=== PATIENT | male | born 1965 | race Caucasian/White ===

== ENCOUNTER 2023-11-17 04:31 | Emergency (ER) | payer OTHER, SELFPAY ==
[2023-11-17 04:34] VITALS: BP 153/85; PULSE 85; TEMP 36.6; O2SAT 96; BMI 31.4
--- NOTE | 2023-11-17 04:38 | XR_ITS ---
The [address] [address] Patient Name: JAM JAY MRN: [id number] date: 1965 Sex: M Assigned Patient Location: ER Current Patient Location: ED.MAIN Accession/Order Number: [id number] Exam Date: 11/17/2023 04:45 Report Date: 11/17/2023 05:37 At the request of: PORTILLO BRASHER Procedure: XR ankle LT min 3V PROCEDURE: XR ankle LT min 3V COMPARISON: None. HISTORY: pain FINDINGS: BONES:Contour deformity of the calcaneus consistent with a complex fracture. No dislocation. SOFT TISSUES:Moderate diffuse soft tissue swelling EFFUSION:None visible. OTHER: Negative. XR/XR ankle LT min 3V IMPRESSION: Acute complex calcaneus fracture Electronically authenticated by: HEATHER REAL Date: 11/17/2023 05:37
--- NOTE | 2023-11-17 04:48 | ED.LOWEXI1 ---
HPI HPI - Extremity Injury (Lower) General Chief Complaint: Extremity Injury, Lower Stated Complaint: FALL L ANKLE PAIN Time Seen by Provider: 11/17/23 04:42 Source: patient Mode of arrival: ambulance History of Present Illness HPI Narrative: patient tripped while climbing on his truck fell down and injured his left ankle/foot a couple of hours ago. Fell about 5 feet. Denies other injury. No numbness or weakness of the foot. Related Data Home Medications ?Medication ?Instructions ?Recorded ?Confirmed clopidogrel 75 mg tablet mg 11/17/23 empagliflozin 25 mg tablet mg 11/17/23 (Jardiance) furosemide 20 mg tablet mg 11/17/23 isosorbide mononitrate 60 mg mg PO 11/17/23 tablet,extended release 24 hr lisinopril 10 mg tablet mg 11/17/23 metformin 1,000 mg tablet mg 11/17/23 metoprolol tartrate 50 mg tablet mg 11/17/23 Allergies Allergy/AdvReac Type Severity Reaction Status Date / Time No Known Drug Allergies Allergy Verified 11/17/23 04:33 Opioid HPI Opioid Management Most Recent Pain and Opioid Data: Last Pain Scale 10 11/17/23 05:10 Review of Systems ROS Status of ROS 10 or more systems reviewed and unremarkable except as noted in history and below [facility] Medical History (Updated 11/17/23 @ 06:09 by Mike Phillips MD) Diabetes mellitus ?E11.9 - Type 2 diabetes mellitus without complications (ICD-10) Exam Constitutional Vital Signs, click to edit/add: Last Vital Signs Temp 97.8 F 11/17/23 04:34 Pulse 85 11/17/23 04:34 Resp 20 11/17/23 04:34 BP 153/85 H 11/17/23 04:34 Pulse Ox 96 11/17/23 04:34 O2 Del Method Room Air 11/17/23 04:34 Common normals: no apparent distress, average body habitus, oriented x3, no limitations, healthy appearing, alert and well nourished [facility] Common normals: normocephalic and head/scalp atraumatic Eye Common normals: EOMs intact bilaterally and conjunctivae normal Respiratory Common normals: normal respiratory effort, no retractions, no use of accessory muscles and clear to auscultation bilaterally Cardio Common normals: regular rate, regular rhythm, S1 normal heart sound and S2 normal heart sound GI Common normals: Normal to inspection, nondistended, normoactive bowel sounds present, soft to palpation and non-tender Extremity Other: swelling and tenderness malleoli and tender calcaneous Neuro Common normals: oriented x3, CN's II-XII intact bilaterally, moves all extremities and no focal motor deficits Psych Appearance: grossly normal Course Vital Signs Vital signs: Vital Signs Temperature 97.8 F 11/17/23 04:34 Pulse Rate 85 11/17/23 04:34 Respiratory Rate 20 11/17/23 04:34 Blood Pressure 153/85 H 11/17/23 04:34 Pulse Oximetry 96 11/17/23 04:34 Oxygen Delivery Method Room Air 11/17/23 04:34 Temperature 97.8 F 11/17/23 04:34 Pulse Rate 85 11/17/23 04:34 Respiratory Rate 20 11/17/23 04:34 Blood Pressure 153/85 H 11/17/23 04:34 Pulse Oximetry 96 11/17/23 04:34 Oxygen Delivery Method Room Air 11/17/23 04:34 MDM - Extremity Injury (Lower) MDM Narrative Medical decision making narrative: patient fell off of his truck. sprained left ankle and fractured left calcaneus. Patient in splint and provided crutches. Discharged home to follow up with orthopedics Imaging Data Abdominal x-ray: Radiologist's impression: ITS Impressions Ankle X-Ray 11/17/23 04:38 IMPRESSION: Acute complex calcaneus fracture Electronically authenticated by: HEATHER REAL Date: 11/17/2023 05:37 Discharge Plan Discharge Stand Alone Forms: Portal Instructions Chief Complaint: Extremity Injury, Lower Clinical Impression: Ankle sprain and strain, Calcaneus fracture, left Patient Disposition: Home, Self-Care Prescriptions / Home Meds: No Action clopidogrel 75 mg tablet isosorbide mononitrate 60 mg tablet extended release 24 hr PO metformin 1,000 mg tablet lisinopril 10 mg tablet metoprolol tartrate 50 mg tablet furosemide 20 mg tablet Jardiance 25 mg tablet Print Language: Dutch Instructions: Ankle Sprain (ED), Calcaneal Fracture (ED) Additional Instructions: keep foot elevated as much as possible and follow up with orthopedics early next week Referrals: Cheng Gonsalez MD [Primary Care Provider] - 1 week Procedures ED Procedure Instructions Procedures Procedures: left ankle sprain/calcaneus fracture: posterior ankle fiber glass splint placed. padding and aziza wrap used to hold in placed. N/V post procedure WNL
--- NOTE | 2023-11-17 05:11 | PC.NURSE ---
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
--- NOTE | 2023-11-17 06:16 | PC.NURSE ---
Short splint placed on left leg. NEEDLE [employer] HEL[employer] intact prior to and post splint. Splint inspected by Dr. Phillips.
== END 2023-11-17 06:51 | disposition home or self-care (01) ==
PROVIDERS: Emergency Provider Internal Medicine; Family Provider Family Medicine; PCP Family Medicine
DX: S92.002A Unspecified fracture of left calcaneus, initial encounter for closed fracture (principal); S93.402A Sprain of unspecified ligament of left ankle, initial encounter; S96.912A Strain of unspecified muscle and tendon at ankle and foot level, left foot, initial encounter; W17.89XA Other fall from one level to another, initial encounter
CPT/HCPCS: 29515; 73610; 99283

== ENCOUNTER 2023-11-21 11:01 | Outpatient (OUT) | payer OTHER, SELFPAY ==
--- NOTE | 2023-11-21 11:07 | US_ITS ---
The [place] [id number] Patient Name: JAM JAY MRN: [id number] date: 1965 Sex: M Assigned Patient Location: US Current Patient Location: Accession/Order Number: [id number] Exam Date: 11/21/2023 11:10 Report Date: 11/21/2023 13:22 At the request of: FILI MARTINEZ Procedure: US venous doppler LE LT EXAMINATION: US venous doppler LE LT HISTORY: Left Leg Swelling COMPARISON: No relevant comparison available. FINDINGS: REGION: Left lower extremity THROMBI: None. COMPRESSIBILITY: Normal compressibility. FLOW: Normal waveform and antegrade flow between 5 and 20 cm/s. OTHER: None. US/US venous doppler LE LT IMPRESSION: 1. No deep vein thrombus within the left lower extremity. Electronically authenticated by: ROXI HAGAN Date: 11/21/2023 13:22
== END 2023-11-21 11:02 | disposition home or self-care (01) ==
PROVIDERS: Family Provider Family Medicine; PCP Family Medicine; Visit Provider Nurse Practitioner Family
DX: I82.492 Acute embolism and thrombosis of other specified deep vein of left lower extremity (principal)
CPT/HCPCS: 93971

== ENCOUNTER 2023-11-22 15:00 | Outpatient (OUT) | payer OTHER, SELFPAY ==
--- NOTE | 2023-11-22 | XR_ITS ---
The [address] [address] Patient Name: JAM JAY MRN: [id number] date: 1965 Sex: M Assigned Patient Location: Current Patient Location: CT Accession/Order Number: [id number] Exam Date: 11/22/2023 15:01 Report Date: 11/22/2023 16:29 At the request of: ARELIS SHELL Procedure: XR calcaneus LT min 2V PROCEDURE: XR calcaneus LT min 2V COMPARISON: HISTORY: LEFT CALCANEUS PAIN FINDINGS: BONES:Stable complex calcaneal fracture extending to the anterior and middle facets. No significant change in angulation or distraction. SOFT TISSUES:Negative. No visible soft tissue swelling. EFFUSION:None visible. OTHER: Negative. XR/XR calcaneus LT min 2V IMPRESSION: Stable complex calcaneal fracture Electronically authenticated by: HEATHER REAL Date: 11/22/2023 16:29
== END 2023-11-22 15:01 | disposition home or self-care (01) ==
LOC: EC 15:00
PROVIDERS: Family Provider Family Medicine; PCP Family Medicine; Visit Provider Podiatrist Foot & Ankle Surgery
DX: M79.672 Pain in left foot (principal); S92.002A Unspecified fracture of left calcaneus, initial encounter for closed fracture
CPT/HCPCS: 73650

== ENCOUNTER 2023-11-22 16:09 | Outpatient (OUT) | payer OTHER, SELFPAY ==
--- NOTE | 2023-11-22 16:16 | CT_ITS ---
[address] [address] Patient Name: JAM JAY MRN: [id number] date: 1965 Sex: M Assigned Patient Location: CT Current Patient Location: CT Accession/Order Number: [id number] Exam Date: 11/22/2023 16:24 Report Date: 11/22/2023 16:58 At the request of: ARELIS SHELL Procedure: CT ankle LT wo con EXAMINATION: CT ankle LT wo con HISTORY: Left calcaneus fracture COMPARISON: Plain x-ray same day TECHNIQUE: Multi-planar CT images were created without IV contrast. Dose reduction techniques were achieved by using automated exposure control and/or adjustment of mA and/or kV according to patient size and/or use of iterative reconstruction technique. FINDINGS: BONES: Complex comminuted crush type fracture of the calcaneus extending to the anterior middle and posterior facets. Lytic changes with no significant bone formation is observed. Corticated calcific density along the anterior margin of the lateral malleolus, chronic changes favored. No dislocation. SOFT TISSUES: Diffuse soft tissue swelling. EFFUSION: None visible. OTHER: Negative. CT/CT ankle LT wo con IMPRESSION: Comminuted calcaneus fracture extending to all 3 facets Electronically authenticated by: HEATHER REAL Date: 11/22/2023 16:58
--- OUTSIDE RECORDS SUMMARY | 2023-11-22 16:32 | XMS_ITS | CCD ---
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 Name Role Phone MICHELLE FILI Unavailable Unavailable MICHELLE, FILI Unavailable Unavailable MARKER, CARLOS Unavailable Unavailable MARKER, CARLOS Unavailable Unavailable HEATHER REAL V Unavailable Unavailable HAY, EDDI Unavailable Unavailable MARKER, CARLOS Unavailable Unavailable HARISH PEREZ Unavailable Unavailable GONSALEZ, CHENG Unavailable Unavailable RYAN MOSS Unavailable Unavailable GONSALEZ, CHENG J Unavailable Unavailable KAMIREDDY, ADIREDDY Unavailable Unavailable GONSALEZ, CHENG J Unavailable Unavailable DENIKE, JULIANNE R Unavailable Unavailable GONSALEZ, CHENG J Unavailable Unavailable DENIKE, JULIANNE R Unavailable Unavailable GONSALEZ, CHENG J Unavailable Unavailable GONSALEZ, CHENG J Unavailable Unavailable GONSALEZ, CHENG J Unavailable Unavailable GONSALEZ, CHENG J Unavailable Unavailable GONSALEZ, CHENG J Unavailable Unavailable GONSALEZ, CHENG J Unavailable Unavailable GONSALEZ, CHENG J Unavailable Unavailable GONSALEZ, CHENG J Unavailable Unavailable GONSALEZ, CHENG J Unavailable Unavailable KAMIREDDY, ADIREDDY Unavailable Unavailable KAMIREDDY, ADIREDDY Unavailable Unavailable KAMIREDDY, ADIREDDY Unavailable Unavailable ANICETO BRUNNER Unavailable Unavailable Cheng Gonsalez MD Consulting Unavailab Julianne Villarreal Attending Unavailable Cheng Gonsalez MD Primary Care Unavailab Julianne Villarreal Attending Unavailable Cheng Gonsalez MD Primary Care Unavailab Julianne Villarreal Attending Unavailable Cheng Gonsalez MD Primary Care Unavailab le Allergies Allergy Classification Reported Allergen(s) Allergy Type Date of Onset Reaction(s) Facility (1 source) No Known Medication Allergies; Translations: [No Known Medication Allergies] Propensity to adverse reactions to drug (disorder) [facility] Repository Problems Active Problems Problem Classification Problem Date Documented Date Episodic/Chronic Acute myocardial infarction (1 source) Non-ST elevation (NSTEMI) myocardial infarction; Translations: [Non-ST elevation (NSTEMI) myocardial infarction] Onset: 03-25-2017 Chronic Coronary atherosclerosis and other heart disease (2 sources) Atherosclerotic heart disease of [place] coronary artery without angina pectoris; Translations: [Acute ischemic heart disease, unspecified] Onset: 03-25-2017 Chronic Coronary atherosclerosis and other heart disease (1 source) Presence of coronary angioplasty implant and graft; Translations: [PRESENCE COR ANGPLSTY IMPLANT AND GRAFT] Onset: 10-13-2017 Episodic Deficiency and other anemia (1 source) Hereditary spherocytosis; Translations: [HEREDITARY SPHEROCYTOSIS] Onset: 10-13-2017 Chronic Other aftercare (1 source) [facility] (current) use of aspirin; Translations: [RETIREMENT CURRENT USE OF ASPIRIN] Onset: 10-13-2017 Episodic Other liver diseases (1 source) Abnormal levels of other serum enzymes; Translations: [ABNORMAL LEVELS OTHER SERUM ENZYMES] Onset: 10-13-2017 Episodic Unclassified (1 source) 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; Translations: [RETIREMENT USE ORAL HYPOGLYCEMIC DX] Onset: 10-13-2017 Past or Other Problems Problem Classification Problem Date Documented Da te Episodic/Chronic Nonspecific chest pain (5 sources) Chest pain, unspecified; Translations: [Precordial pain] Onset: 03-24-2017 Episodic Other lower respiratory disease (2 sources) Solitary pulmonary nodule; Translations: [Solitary pulmonary nodule] Onset: 03-24-2017 Episodic Results Test Name Value Interpretation Reference Range Facility NM CARDIOLITE PHARM STRESSon 09-20-2022 [facility] CARDIOLITE PHARM STRESS Myocardial Perfusion Imaging Report [facility] Walk Height: 185 cm (72.8 in) Weight: 105 kg (231 lb) Ordering Physician: Julianne Blevins DO Referring Physician: Julianne Blevins Michael Ryan DO Reading Physician: Julianne Blevins DO Indications: - Angina pectoris. - Coronary artery disease. Summary: 1. Stress ECG conclusions: The stress ECG is nondiagnostic due to resting ST/T wave abnormality. 2. Myocardial perfusion imaging: No myocardial perfusion defects noted. 3. Gated SPECT: The calculated left ventricular ejection fraction is 63%. Impressions: 1. Normal study after pharmacologic stress. 2. Compared to a prior stress test from 06/28/2021, there is no significant interval change. History: PMH: 2 stents left anterior descending coronary 2018. Risk factors: Former tobacco use. Hypertension. Diabetes mellitus. Medications: Clopidogrel (Plavix). Metoprolol (Lopressor, Toprol). Lisinopril. Isosorbide mononitrate. Furosemide (Lasix). Atorvastatin (Lipitor). Study data: Objective: Chest Pain. Diagnostic evaluation. Consent: The risks, benefits, and alternatives to the procedure were explained to the patient and informed consent was obtained. Procedure data: Initial setup. The patient was brought to the laboratory. A baseline ECG was recorded. Intravenous access was obtained. Surface ECG leads and automatic cuff blood pressure measurements were monitored. A pharmacologic approach was used with an addition of the walk protocol. Regadenoson (Lexiscan) stress test. Stress testing was performed, with Regadenoson (Lexiscan) by intravenous bolus, for a total dose of 0.4mgover 10.00 sec, followed by a 5 ml saline flush. The infusion was terminated due to end of protocol. Exercise testing was performed using the LEXISCAN WALK protocol. The patient exercised for 4 min 22 sec, to protocol stage 1, to a maximal work rate of 1.8 mets. Baseline ECG: Normal sinus rhythm. Nonspecific ST and T wave changes. Stress protocol: - REST ): HR 63 bpm, BP 102/66 (78) - Lexiscan; (1 mph, 0% incline ): HR 105 bpm, BP 120/82 (95) - RECOVERY ): HR 70 bpm, BP 116/77 (90) - Peak stress ): HR 110 bpm, BP 120/83 (95) Symptoms: none No chest pain, pressure or ectopy. 1.8 METS Stress results: No chest pain with vasodilation. Maximal heart rate during stress was 110 bpm (68% of maximal predicted heart rate). The maximal predicted heart rate was 162 bpm.The target heart rate was 138 bpm.The heart rate response to stress is normal. There is a normal resting blood pressure. Normal blood pressure response to Lexiscan. The rate-pressure product for the peak heart rate and blood pressure was 11652 mm Hg/min. Stress ECG: Sinus tachycardia. The stress ECG is nondiagnostic due to resting ST/T wave abnormality. Isotope administration: - Rest Tc-99m sestamibi 14.1 mCi 08:11 AM IV - Stress Tc-99m sestamibi 44.2 mCi 09:28 AM IV Image properties: Imaging information: The stress images were gated. The image quality was good. CT attenuation corrected and non-corrected images were obtained. Myocardial perfusion imaging: No myocardial perfusion defects noted. The TID ratio is 0.97. Gated SPECT: The left ventricular end-diastolic volume is 112 ml. The calculated left ventricular ejection fraction is 63%. No left ventricular regional motion abnormality. Electronically signed by Julianne Blevins DO 09/20/2022 10:50 Final Dictated by: Julianne Blevins DO Dictated DT/TM: 09/20/2022 10:50 am Signed by: Julianne Blevins DO Signed (Electronic Signature): 09/20/2022 10:50 am (If Report Is Signed, Electronically Signed in Other Vendor System) Normal [facility] Cardiology Office/Clinic Not suzi 08-26-2022 Cardiology Office/Clinic Note Chief Complaint Chest pain History of Present Illness Mr. Sanderson returned to my office today with complaints of chest pain. Coronary artery disease - PCI to LAD March 2017 - Cardiac cath showed patent LAD stents September 2017 - Normal stress test June 2021 - On clopidogrel, beta blockers, statins, and long-acting nitrates - Saw PCP on 08/12/22 and reported chest pain x 2 days - Reports chest achy with physical exertion, improves within 5-10 minutes if he slows down - Some associated nausea but no diaphoresis - Shortness of breath every now and then Hypertension - BP controlled last visit on lisinopril 5 mg daily and metoprolol tartrate 50 mg BID - Denies lightheadedness Cardiology Problem List 1. Atherosclerotic coronary artery disease. A. Cardiac cath showed normal LM, 75% pLAD with thrombus, diffuse 10-20% LCx, diffuse 10-20% RCA, EF 50%, 03/27/17 ([facility], [place], [place]). i. PCI with 5.0 x 18 mm BMS to pLAD, 03/27/17 ([facility], [place], [place]). B. Cardiac cath showed normal LM, widely patent LAD stents, 30% pD1, 30% mLCx, normal RCA, and EF 55-60%, 10/12/17. 2. Diabetes mellitus type 2. 3. Systemic arterial hypertension. 4. Hereditary spherocytosis. A. Status post splenectomy. B. Chronic thrombocytosis. 5. History of tobacco use. A. Previously quit smoking. Cardiac Testing Ambulatory Electrocardiography > 08/12/22: (ECG) Sinus rhythm at 71 bm, normal axes/intervals, no ST-T changes (Dr. Cheng Gonsalez, [place], [place]) (my independent interpretation of a test reported by another physician) Echocardiography > 03/27/17: EF 55% ([place], [place]) > 11/03/17: EF 60% ([place], [place]) Stress Testing > 11/29/19: (Lexiscan MPI) No ischemic ECG changes, MPI showed a possible small area of apical ischemia, EF 74% > 06/28/21: (Exercise MPI) Von 7:17, 9.2 METs, 87% APMHR, indeterminate ECG response (baseline ST-T changes), normal MPI, EF 62% Outside Lab Results > 08/12/22: (CBC) WBC 15.5, Hgb 18.6, Plt 460 ([place]. [place] > 08/12/22: (HbA1c) HbA1c 8.8% (Dr. Cheng Gonsalez, [place], [place]) > 08/12/22: (Lipids) TC 165, TG 133, HDL 52, LDL 86 ([place]. [place]) Physical Exam Vitals & Measurements HR: 69 (Peripheral) BP: 102/60 SpO2: 95 HT: 185 cm WT: 105.1 kg BMI: 30.71 Constitutional: No acute distress Neck: No JVD Respiratory: Respirations even and non-labored, clear to auscultation bilaterally Cardiovascular: Regular rhythm with normal S1 and S2 and no murmurs, no pedal edema Extremities: No cyanosis Psych: Normal orientation Assessment/Plan 1. Angina pectoris (New problem) - ECG obtained during today's office visit - Lexiscan Cardiolite stress test - Increase isosorbide mononitrate to 60 mg daily Mr. Sanderson underwent percutaneous coronary revascularization in 2017. His most recent stress test was completed 14 months ago. Because of his new anginal symptoms, I have recommended we repeat stress testing to evaluate for new myocardial ischemia. He doesn't think he could last on a treadmill due to his exertional angina. I also titrated his long-acting nitrates from 30 mg daily to 60 mg daily. Ordered: NM Cardiolite Pharm Stress 2. Coronary artery disease (Established problem - stable) - Continue clopidogrel 75 mg daily - Continue metoprolol tartrate 50 mg twice daily - Continue atorvastatin 40 mg daily No changes were made to Mr. Sanderson's GDMT for coronary artery disease. 3. Hypertension (Established problem - stable) - Continue lisinopril 5 mg daily - Continue metoprolol tartrate 50 mg twice daily Blood pressure is well controlled on the current medication regimen. No changes were made to Mr. Sanderson's antihypertensive regimen today. Follow up pending stress test results. Medical Decision Making Number of Problems Addressed: Moderate (at least 2 stable chronic illnesses) Data Reviewed/Analyzed: None Risk of Complications, Morbidity, or Mortality: Moderate (prescription drug therapy) Time (minutes) Personally Spent by Provider on Date of Service Excluding time for services reported/billed separately [id number] encounter with patient: 10 Prep, documentation, coordination of care: 17 TOTAL TIME SPENT ON DATE OF SERVICE: 27 Problem List/Past Medical History Ongoing Blood disorder Coronary artery disease Diabetes mellitus Hereditary spherocytosis Hypertension Thrombocytosis Historical Heart attack Medications atorvastatin 40 mg oral tablet, See Instructions clopidogrel 75 mg oral tablet, See Instructions furosemide 20 mg oral tablet, See Instructions isosorbide mononitrate 60 mg oral tablet, extended release, 60 mg= 1 tabs, Oral, qAM, 1 refills Jardiance 25 mg oral tablet, 25 mg= 1 tabs, Oral, qAM lisinopril 5 mg oral tablet, See Instructions metFORMIN 1000 mg oral tablet, 1000 mg= 1 tabs, Oral, BID Metoprolol Ta (more content not included)... Normal [facility] Cardiology Office/Clinic Not suzi 10-18-2021 Cardiology Office/Clinic Note Chief Complaint Reevaluate CAD and high blood pressure History of Present Illness Mr. Sanderson returned to my office today for three month reevaluation. Overall, he feels better. He has a new job that inolves a lot less stress. Coronary artery disease - PCI to LAD March 2017 - Cardiac cath showed patent LAD stents September 2017 - Normal stress test June 2021 - Chest pain decreased with job change - Report mild exertional dyspnea Hypertension - BP controlled last visit on lisinopril 5 mg QD and metoprolol tartrate 50 mg BID - Denies lightheadedness or headache Cardiology Problem List 1. Atherosclerotic coronary artery disease. A. Cardiac cath showed normal LM, 75% pLAD with thrombus, diffuse 10-20% LCx, diffuse 10-20% RCA, EF 50%, 03/27/17 ([facility], [place], [place]). i. PCI with 5.0 x 18 mm BMS to pLAD, 03/27/17 ([place], [place]). B. Cardiac cath showed normal LM, widely patent LAD stents, 30% pD1, 30% mLCx, normal RCA, and EF 55-60%, 10/12/17. 2. Diabetes mellitus type 2. 3. Systemic arterial hypertension. 4. Hereditary spherocytosis. A. Status post splenectomy. B. Chronic thrombocytosis. 5. History of tobacco use. A. Previously quit smoking. Cardiac Testing Echocardiography > 03/27/17: EF 55% ([place], [place]) > 11/03/17: EF 60% ([place], [place]) Stress Testing > 11/29/19: (Lexiscan MPI) No ischemic ECG changes, MPI showed a possible small area of apical ischemia, EF 74% > 06/28/21: (Exercise MPI) Von 7:17, 9.2 METs, 87% APMHR, indeterminate ECG response (baseline ST-T changes), normal MPI, EF 62% Physical Exam Vitals & Measurements HR: 89 (Peripheral) BP: 104/64 SpO2: 95 HT: 185 cm WT: 113.7 kg BMI: 33.22 Constitutional: No acute distress Neck: No JVD Respiratory: Respirations even and non-labored, clear to auscultation bilaterally Cardiovascular: Regular rhythm with normal S1 and S2 and no murmurs, no pedal edema Extremities: No cyanosis Psych: Normal orientation Assessment/Plan 1. Coronary artery disease (Established problem - stable) 2. Hypertension (Established problem - stable) Recommendations: 1. Continue clopidogrel, metoprolol, and atorvastatin. Mr. Mejiass cardiac status is stable. He remains on clopidogrel 75 mg daily, metoprolol tartrate 50 mg twice daily, and atorvastatin 40 mg daily. No changes were made today. 2. Continue current antihypertensive regimen. Liam blood pressure is controlled on lisinopril 5 mg daily with metoprolol. 3. Follow up with PCP re: erectile dysfunction. If chooses to try medication like Viagra or Cialis, he would need to discontinue isosorbide mononitrate and not use sublingual nitroglycerin within 24 hours. 4. Follow up in 1 year, or sooner if needed. Medical Decision Making Number of Problems Addressed: Moderate (2 stable chronic illnesses) Data Reviewed/Analyzed: None Risk of Complications, Morbidity, or Mortality: Moderate (prescription drug therapy) Problem List/Past Medical History Ongoing Blood disorder Coronary artery disease Diabetes mellitus Hereditary spherocytosis Hypertension Thrombocytosis Historical Heart attack Procedure/Surgical History Splenectomy (1985) Vasectomy (1992) Cardiac catheterization with PCI (04/2017) Cardiac catheterization (10/12/2017) Medications atorvastatin 40 mg oral tablet, See Instructions clopidogrel 75 mg oral tablet, See Instructions furosemide 20 mg oral tablet, See Instructions isosorbide mononitrate 30 mg oral tablet, extended release, See Instructions, 3 refills lisinopril 5 mg oral tablet, See Instructions metFORMIN 1000 mg oral tablet, 1000 mg= 1 tabs, Oral, BID Metoprolol Tartrate 50 mg oral tablet, See Instructions, 11 refills nitroglycerin 0.4 mg sublingual tablet, 0.4 mg= 1 tabs, SL, q5min, PRN, 3 refills Allergies No Known Medication Allergies Social History Alcohol Current, 1-2 times per month Nutrition/Health Caffeine intake amount: 2-3 cups coffee per day. Substance Abuse Denies All Tobacco Former smoker, quit more than 30 days ago Use:. 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 Normal [facility] Progress Noteon 11-03-2017 HIM IP Note OR Street Superintendent Normal [facility] Progress Noteon 11-01-2017 HIM IP Note OR Street Superintendent [facility] CARDIAC HIRAL 3-6-9on 18-2 018 CKMB 1.61 ng/mL Normal <=2.37 [facility] Comment on above: Performed By: #### C MREP ####[facility] Hfygmbfday[address] [place] Creatine kinase (CK) 131 U/L Normal 55-170 [facility] Comment on above: Performed By: #### C MREP ####[facility] [address] [place] [address] [place] INR Coag RelTime (Bld) SEE BELOW Normal [facility] Comment on above: Result Comment: <0.0 34 ng/ml NEGATIVE 0.034-0.119 INDETERMINATE 0.120 AMI CUT OFF Performed By: #### C MREP ####[facility] [address] [place] [address] [place] TROP 0.060 ng/mL Critically high <=0.034 [facility] Comment on above: Result Comment: test repeated critical value verified Performed By: #### C MREP ####[facility] [address] [place] [address] CARDIAC HIRAL ADMITon 018 CKMB 1.59 ng/mL Normal <=2.37 [facility] Comment on above: Performed By: #### C MADM, LIPA, CRP, BMP ####[facility] [address] [place] [address] Creatine kinase (CK) 153 U/L Normal 55-170 [facility] Comment on above: Performed By: #### C MADM, LIPA, CRP, BMP ####[facility] Pvw[address]xix[address] [place] INR Coag RelTime (Bld) SEE BELOW Normal [facility] Comment on above: Result Comment: <0.0 34 ng/ml NEGATIVE 0.034-0.119 INDETERMINATE 0.120 AMI CUT OFF Performed By: #### C MADM, LIPA, CRP, BMP ####[facility] [address] [place] [address] [place] DARÍO 40.0 ng/mL Normal <=121.0 [facility] Comment on above: Performed By: #### C MADM, LIPA, CRP, BMP ####[facility] [address] [place] TROP 0.032 ng/mL Normal <=0.034 [facility] Comment on above: Performed By: #### C MADM, LIPA, CRP, BMP ####[facility] Szbtjubkjb[address]267 [address] [place] CBC W MANUAL DIFFon 10-12-19 18 ACANTHOCYTES SLIGHT Normal [facility] Comment on above: Performed By: #### C IRENE ####[facility] [address] [place] [address] [place] Anisocytosis presence SLIGHT Normal [facility] Comment on above: Performed By: #### Pearl BONILLA ####[facility] [address] [place] [address] [place] BAND # 0.0 103/ul Normal 0.0-0.3 [facility] Comment on above: Performed By: #### Pearl BONILLA ####[facility] [address] [place] [address] [place] BAND % 0 % Normal 0-5 [facility] Comment on above: Performed By: #### Pearl BONILLA ####[facility] [address] [place] [address] [place] BASOM % 2.0 % Normal 0.2-2.0 [facility] Comment on above: Performed By: #### Pearl BONILLA ####[facility] [address] [place] [address] [place] Basophils Auto #/vol (Bld) 0.31 103/ul Critically high 0.00-0.10 [facility] Comment on above: Performed By: #### Pearl BONILLA ####[facility] [address] [place] [address] [place] BLAST # Normal [facility] Comment on above: Performed By: #### Pearl BONILLA ####[facility] [address] [place] [address] R[place] BLAST % Normal [facility] Comment on above: Performed By: #### C BCMAN ####[facility] [address] [place] [id number] Eosinophils 0.63 103/ul Normal 0.00-0.70 [facility] Comment on above: Performed By: #### Pearl BONILLA ####[facility] [address] [place] [id number] Eosinophils/100 leukocytes 4.0 % Normal 0.9-7.0 [facility] Comment on above: Performed By: #### Pearl BONILLA ####[facility] [address] [place], [place] [address] Erythrocyte distribution width Auto Ratio (RBC) 12.7 % Normal 11.0-15.0 [facility] Comment on above: Performed By: #### Pearl BONILLA ####[facility] [address] [place] [address] [place] Erythrocytes (RBC) 5.20 106/ul Normal 4.70-6.10 [facility] Comment on above: Performed By: #### Pearl BONILLA ####[facility] [address] [place], [place] [id number] Erythrocytes (RBC) Normal [facility] Comment on above: Performed By: #### Pearl BONILLA ####[facility] [address] [place], [place] [address] GIANT PLATELETS SEEN Normal [facility] Comment on above: Performed By: #### Pearl BONILLA ####[facility] [address] [place], [place] [address] Hematocrit (HCT) 43.4 % Normal 42.0-54.0 [facility] Comment on above: Performed By: #### Pearl BONILLA ####[facility] [address] [place], [place] [address] Hemoglobin mass conc (Bld) 15.9 g/dL Normal 14.0-18.0 [facility] Comment on above: Performed By: #### Pearl BONILLA ####[facility] [address] [place], [place] [address] Lymphocytes 3.77 103/ul Normal 1.20-3.80 [facility] Comment on above: Performed By: #### Pearl BONILLA ####[facility] [address] [place], [place] [address]Naignp R[place] Lymphocytes 0.16 103/ul Normal [facility] Comment on above: Performed By: #### Pearl BONILLA ####[facility] [address] [place], [place] [address]S[place]ill Romy Lymphocytes/100 leukocytes 1 % Normal [facility] Comment on above: Performed By: #### Pearl BONILLA ####[facility] [address] [place], [place] [address]Vnfdwo Romy Lymphocytes/100 leukocytes 24.0 % Normal 20.5-60.0 [facility] Comment on above: Performed By: #### Pearl BONILLA ####[facility] [address] [place], [place] [address] MCH 30.6 pg Normal 25.9-34.0 [facility] Comment on above: Performed By: ###Soheila BONILLA ####[facility] [address] [place] [id number] MCHC mass conc (RBC) 36.6 g/dL Critically high 29.9-35.2 [facility] Comment on above: Performed By: #### Pearl BONILLA ####[facility] [address] [place] [id number] MCV 83.5 fL Normal 80.0-94.0 [facility] Comment on above: Performed By: #### Peral BONILLA ####[facility] [address] [place], [place] [address]Febiub Romy METAMYELOCYTE # Normal [facility] Comment on above: Performed By: #### Pearl BONILLA ####[facility] [address] [place], [place] [address]Whnazx R[place] METAMYELOCYTE % Normal [facility] Comment on above: Performed By: #### Pearl BONILLA ####[facility] Hutwrpdrtg5877 [place] [id number] Romy MONOM# 1.41 103/ul Critically high 0.30-0.80 [facility] Comment on above: Performed By: #### C IRENE ####[facility] Ontsgemjkn8233 [place], [place] [address]Iywrvi Romy MONOM% 9.0 % Normal 1.7-12.0 [facility] Comment on above: Performed By: #### C IRENE ####[facility] Tbvhnzgtwt8597 [place], [place] [address]Zioasf Romy MYELOCYTE # Normal [facility] Comment on above: Performed By: #### C IRENE ####[facility] Ewmbuspoqs6396 [place], [place] [address]Hfbbng Romy MYELOCYTE % Normal [facility] Comment on above: Performed By: #### Pearl BONILLA ####[facility] Zhztbsanvh8676 [place], [place] [address]Ctvvsq Romy Platelet mean volume (PMV) 8.8 fL Critically low 9.5-13.5 [facility] Comment on above: Performed By: #### Pearl BONILLA ####[facility] Zygxivgztn5051 [place] [id number] Romy Platelets 670 103/ul Critically high 150-450 [facility] Comment on above: Performed By: #### C IRENE ####[facility] Dcdekaovgf2684 [place], [place] [address]Lsulyl Romy SEG # 9.42 103/ul Critically high 1.40-6.50 [facility] Comment on above: Performed By: #### Pearl BONILLA ####[facility] Uqtvpzddwf9139 [place] [id number] Romy Segmented Neutrophils/100 leukocytes 60.0 % Normal 43.0-75.0 [facility] Comment on above: Performed By: #### Pearl BONILLA ####[facility] Stzcuhasel2367 [place] [id number] Romy WBC (Leukocytes) 15.7 103/ul Critically high 4.0-11.[address] [facility] Comment on above: Performed By: #### Pearl BONILLA ####[facility] Uixehcifwc9248 [address] R[place] WBC (Leukocytes) Normal 4.0-11.0 [facility] Comment on above: Performed By: #### C BCMAN ####[facility] Swwngjpftd8043 [place] [id number] Romy CRPon 10-11-2017 C reactive protein (CRP) 0.9 mg/dL Normal <=1.0 [facility] Comment on above: Performed By: #### C MADM, LIPA, CRP, BMP ####[facility] Tuepesgqbp1742 [address] [place] LIPASEon 10-11-2017 Lipase 139.0 U/L Normal 23.0-300.0 [facility] Comment on above: Performed By: #### C MADM, LIPA, CRP, BMP ####[facility] K[address] [place] [address] Romy PROF CHEM 8 (BAS METB)on Anion gap 16.8 mmol/L Normal [facility] Comment on above: Performed By: #### C MADM, LIPA, CRP, BMP ####[facility] Ywmazysglo5378 [address] BUN/Creatinine Ratio 22.4 mg/mg Normal [facility] Comment on above: Performed By: #### C MADM, LIPA, CRP, BMP ####[facility] Dgiksdxrst7170 [address] [place] Calcium 9.9 mg/dL Normal 8.4-10.2 [facility] Comment on above: Performed By: #### C MADM, LIPA, CRP, BMP ####[facility] Petiatbywy8328 [address] [place] Chloride 97 mmol/L Critically low 98-107 [facility] Comment on above: Performed By: #### C MADM, LIPA, CRP, BMP ####[facility] Njyxncatmw8845 [address] [place] CO2 26.0 mmol/L Normal 22.0-30.0 [facility] Comment on above: Performed By: #### C MADM, LIPA, CRP, BMP ####[facility] Fjtvnasvcp6986 [address] [place] Creatinine 0.82 mg/dL Normal 0.66-1.25 [facility] Comment on above: Performed By: #### C MADM, LIPA, CRP, BMP ####[facility] Osxjrgenmb9432 [address] [place] eGFR (non-black) mL/min/{1.73_m2} Normal >=[address] [facility] Comment on above: Performed By: #### C MADM, LIPA, CRP, BMP ####[facility] Ezkyawrnfa4702 [address] [place] Glucose mass conc 323 mg/dL Critically high 74-[address] [facility] Comment on above: Performed By: #### C MADM, LIPA, CRP, BMP ####[facility] Gthljwyezx4793 [address] [place] Potassium molar conc 3.9 mmol/L Normal 3.4-5.0 [facility] Comment on above: Performed By: #### C MADM, LIPA, CRP, BMP ####[facility] Geleaxgihc5676 [address] [place] Sodium 136 mmol/L Critically low 137-145 [facility] Comment on above: Performed By: #### C MADM, LIPA, CRP, BMP ####[facility] Eoryuoxwnj2385 [address] [place] Urea nitrogen 18.0 mg/dL Normal 9.0-20.0 [facility] Comment on above: Performed By: #### C MADM, LIPA, CRP, BMP ####[facility] Psdqofmljo2483 [address] [place] XR CHEST 1 Von 10-11-2017 XR CHEST 1 V 1400 [place] [address] Patient: CREDIT, BENIGNO W. Exam Date: 10/11/2017DOB: 1965 Gender:M : DR GONZALEZ MARKER Admission #: [id number] : Order #: [id number] HERE TO VIEW EXAM RADIOLOGY REPORT PROCEDURE: RADIOGRAPH CHEST 1 VIEW COMPARISON: None. INDICATIONS: Acute chest pain tonight FINDINGS: LUNGS: No significant pulmonary parenchymal abnormalities. VASCULATURE: No increased pulmonary vasculature. PLEURA: No pneumothorax, effusion, or pleural thickening. CARDIAC: No cardiomegaly or cardiac silhouette abnormality. MEDIASTINUM: No visible mass or adenopathy. BONES: No fracture or visible bone lesion. OTHER: Negative. CONCLUSION: No acute disease. Dictated by: Heather Real M.D. on 10/11/2017 at 07:45 Approved by: Heather Real M.D. on 10/11/2017 at 07:45 Normal [facility] CT CHEST WO CONTRASTon 04-10 CT CHEST WO CONTRAST REPORT: CT chest without contrastTECHNIQUE: Contiguous axial slices through the chest obtained without IV contrast. Axial, coronal and sagittal reformats were made from the source images.INDICATION: Pulmonary nodule FINDINGS: Compared to 03/24/[address] abdomen and pelvis 06/05/2008. Stable 5 mm noncalcified pulmonary nodule peripheral right middle lobe (axial image 34). Nodule is retrospectively seen and stable on prior CT abdomen and pelvis 06/05/2008. No new nodules are seen. No focal consolidation, pleural effusion or pneumothorax. Few prominent but not frankly enlarged mediastinal lymph nodes. Cardiac size is within normal limits. Nonaneurysmal thoracic aorta. Fatty infiltration of the visualized liver. The spleen is surgically absent. Degenerative changes thoracic spine.1. No acute process of the chest2. Stable benign 5 mm right middle lobe pulmonary nodule since 2007. No further follow-up is needed.Final report electronically signed by Xin Ro on 04/10/2017 3:57 PMInterpreted by:SHELBI Herediaigned by:Xin Ro MD04/10/17Final result Normal [facility] Flow Cytometryon 03-29-2017 Flow Cytometry VS17 [id number] Normal [facility] Comment on above: Result Comment: SEE SEPARATE REPORT[address] [address] Performed By: #### F LLE ####[address] [address] Discharge Summaryon 03-28-20 17 HIM IP Note OR Street Superintendent Normal [facility] APTTon 03-27-2017 aPTT 62.2 s High 21.3-31.3 [facility] Comment on above: Result Comment: [facility] [address] [place] [address] Performed By: #### P TT ####[address] [address] aPTT 60.0 s High 21.3-31.3 [facility] Comment on above: Result Comment: [facility] [address] [place] [address] Performed By: #### P TT ####[address] [address] Platelet Counton 03-27-2017 Platelets 508 10*3/uL High 140-450 [facility] Comment on above: Result Comment: [facility] [place] [address] Performed By: #### P LT ####[address] [address] APTTon 03-26-2017 aPTT 41.9 s High 21.3-31.3 [facility] Comment on above: Result Comment: [facility] [address] [place] [address] Performed By: #### P TT ####[address] [address] aPTT 34.1 s High 21.3-31.3 [facility] Comment on above: Result Comment: [facility] [address] [place] [address] Performed By: #### P TT ####[address] [address] aPTT 39.3 s High 21.3-31.3 [facility] Comment on above: Result Comment: [address] [address] Performed By: #### P TT ####[address] [address] Brain Natri. Peptideon 03-26 BNP 424 pg/mL High <300 [facility] Comment on above: Result Comment: Pro- BNP results cannot be compared to BNP results. Performed By: #### P T, BNP, CP, LIPR, CDP ####[address] [address] BNP Normal [facility] Comment on above: Result Comment: Pro- BNP Reference Range:Rule Out: <300Grey Zone: Age <50 300-450 Age 50-75 300-900 Age >75 300-1800Usually represents mild to moderate HF but other cardiopulmonary causes cannot be ruled out.Rule In: Age <50 >450 Age 50-75 >900 Age >[address] [address] Performed By: #### P T, BNP, CP, LIPR, CDP ####[address] [address] CBC with Diffon 03-26-2017 Abs. Basophil 0.18 k/uL Normal 0.0-0.2 [facility] Comment on above: Performed By: #### P T, BNP, CP, LIPR, CDP ####[address] [address] Abs.Neutrophil (Seg) 11.81 k/uL High 1.8-7.7 [facility] Comment on above: Performed By: #### P T, BNP, CP, LIPR, CDP ####[address] [address] Basophils/100 WBC Auto (Bld) 1 % Normal [facility] Comment on above: Performed By: #### P T, BNP, CP, LIPR, CDP ####[address] [address] Blood morphology Normal Normal [facility] Comment on above: Result Comment: [address] [address] Performed By: #### P T, BNP, CP, LIPR, CDP ####[address] [address] Eosinophils 0.00 10*3/uL Normal 0.0-0.4 [facility] Comment on above: Performed By: #### P T, BNP, CP, LIPR, CDP ####[address] [address] Eosinophils/100 leukocytes 0 % Normal [facility] Comment on above: Performed By: #### P T, BNP, CP, LIPR, CDP ####[address] [address] Lymphocytes 4.48 10*3/uL Normal 1.0-4.8 [facility] Comment on above: Performed By: #### P T, BNP, CP, LIPR, CDP ####[address] [address] Lymphocytes/100 leukocytes 25 % Normal [facility] Comment on above: Performed By: #### P T, BNP, CP, LIPR, CDP ####[address] [address] Monocytes 1.43 10*3/uL High 0.1-0.8 [facility] Comment on above: Performed By: #### P T, BNP, CP, LIPR, CDP ####[address] [address] Monocytes/100 leukocytes 8 % Normal [facility] Comment on above: Performed By: #### P T, BNP, CP, LIPR, CDP ####[address] [address] Neutrophil (Seg) 66 % Normal [facility] Comment on above: Performed By: #### P T, BNP, CP, LIPR, CDP ####[address] [address] Erythrocyte distribution width Auto Ratio (RBC) 14.5 % Normal 12.5-15.4 [facility] Comment on above: Performed By: #### P T, BNP, CP, LIPR, CDP ####[address] [address] Erythrocytes (RBC) 5.28 10*6/uL Normal 4.5-5.9 [facility] Comment on above: Performed By: #### P T, BNP, CP, LIPR, CDP ####[address] [address] Hematocrit (HCT) 46.0 % Normal 41-53 [facility] Comment on above: Performed By: #### P T, BNP, CP, LIPR, CDP ####[address] [address] Hemoglobin mass conc (Bld) 16.3 g/dL Normal 13.5-17.5 [facility] Comment on above: Performed By: #### P T, BNP, CP, LIPR, CDP ####[address] [address] MCH 30.8 pg Normal 26-34 [facility] Comment on above: Performed By: #### P T, BNP, CP, LIPR, CDP ####[address] [address] MCHC mass conc (RBC) 35.4 g/dL Normal 31-37 [facility] Comment on above: Performed By: #### P T, BNP, CP, LIPR, CDP ####[address] [address] MCV 87.1 fL Normal 80-100 [facility] Comment on above: Performed By: #### P T, BNP, CP, LIPR, CDP ####[address] [address] Platelet mean volume (PMV) 7.3 fL Normal 6.0-12.0 [facility] Comment on above: Performed By: #### P T, BNP, CP, LIPR, CDP ####[address] [address] Platelets 460 10*3/uL High 140-450 [facility] Comment on above: Performed By: #### P T, BNP, CP, LIPR, CDP ####[address] [address] WBC (Leukocytes) 17.9 10*3/uL High 3.5-11.0 [facility] Comment on above: Performed By: #### P T, BNP, CP, LIPR, CDP ####[address] [address] Auto Diff Performed NOT REPORTED Normal [facility] Comment on above: Performed By: #### P T, BNP, CP, LIPR, CDP ####[address] [address] Erythrocyte morphology NOT REPORTED Normal [facility] Comment on above: Performed By: #### P T, BNP, CP, LIPR, CDP ####[address] [address] Platelets NOT REPORTED Normal [facility] Comment on above: Performed By: #### P T, BNP, CP, LIPR, CDP ####[address] [address] WBC Morphology NOT REPORTED Normal [facility] Comment on above: Performed By: #### P T, BNP, CP, LIPR, CDP ####[address] [address] Comp Metabolic Profon 2016 Alanine aminotransferase (ALT) 35 U/L Normal 5-41 [facility] Comment on above: Result Comment: SPEC IMEN SLIGHTLY HEMOLYZED, RESULTS MAY BE ADVERSELY AFFECTED. Performed By: #### P T, BNP, CP, LIPR, CDP ####[address] [address] Albumin 3.8 g/dL Normal 3.5-5.2 [facility] Comment on above: Performed By: #### P T, BNP, CP, LIPR, CDP ####[address] [address] Albumin/Globulin Ratio 1.2 {ratio} Normal 1.0-2.5 [facility] Comment on above: Performed By: #### P T, BNP, CP, LIPR, CDP ####[address] [address] Alkaline Phos 64 U/L Normal 40-129 [facility] Comment on above: Result Comment: SPEC IMEN SLIGHTLY HEMOLYZED, RESULTS MAY BE ADVERSELY AFFECTED. Performed By: #### P T, BNP, CP, LIPR, CDP ####[address] [address] Anion gap 13 mmol/L Normal 9-17 [facility] Comment on above: Performed By: #### P T, BNP, CP, LIPR, CDP ####[address] [place] [address] Aspartate aminotransferase (AST) 81 U/L High <40 [facility] Comment on above: Result Comment: SPEC IMEN SLIGHTLY HEMOLYZED, RESULTS MAY BE ADVERSELY AFFECTED. Performed By: #### P T, BNP, CP, LIPR, CDP ####[address] [address] Bilirubin Ql (U) 0.86 mg/dL Normal 0.3-1.2 [facility] Comment on above: Performed By: #### P T, BNP, CP, LIPR, CDP ####[address] [address] Calcium 8.9 mg/dL Normal 8.6-10.4 [facility] Comment on above: Performed By: #### P T, BNP, CP, LIPR, CDP ####[address] [address] Chloride 100 mmol/L Normal 98-107 [facility] Comment on above: Performed By: #### P T, BNP, CP, LIPR, CDP ####[address] [address] CO2 25 mmol/L Normal 20-31 [facility] Comment on above: Performed By: #### P T, BNP, CP, LIPR, CDP ####[address] [address] Creatinine 0.83 mg/dL Normal 0.70-1.20 [facility] Comment on above: Performed By: #### P T, BNP, CP, LIPR, CDP ####[address] [address] eGFR (non-black) mL/min/{1.73_m2} Normal >60 [facility] Comment on above: Performed By: #### P T, BNP, CP, LIPR, CDP ####[facility] Cvqleopolhhn9710 [place] [address] Glucose mass conc 203 mg/dL High 70-99 [facility] Comment on above: Performed By: #### P T, BNP, CP, LIPR, CDP ####[place] [address] [place] [address] Potassium molar conc 4.5 mmol/L Normal 3.7-5.3 [facility] Comment on above: Result Comment: SPEC IMEN SLIGHTLY HEMOLYZED, RESULTS MAY BE ADVERSELY AFFECTED. Performed By: #### P T, BNP, CP, LIPR, CDP ####[facility] Ecygjpajtiba6865 [place] [address] Protein 7.1 g/dL Normal 6.4-8.3 [facility] Comment on above: Performed By: #### P T, BNP, CP, LIPR, CDP ####[facility] [address] [place] [address] Sodium 138 mmol/L Normal 135-144 [facility] Comment on above: Performed By: #### P T, BNP, CP, LIPR, CDP ####[facility] Bpijlexusahh9396 [place] [address] Urea nitrogen 13 mg/dL Normal 6-20 [facility] Comment on above: Performed By: #### P T, BNP, CP, LIPR, CDP ####[facility] [address] [place] [address] (cont.) Normal [facility] Comment on above: Result Comment: Aver age GFR for 50-59 years old: 93 mL/min/1.73sq mChronic Kidney Disease: <60 mL/min/1.73sq mKidney failure: <15 mL/min/1.73sq meGFR calculated using average adult body mass. Additional eGFR calculator available at:[email or web address]_[email or web address] [facility] [address] [place] [address] Performed By: #### P T, BNP, CP, LIPR, CDP ####[address] [address] BUN/CRE Ratio NOT REPORTED Normal 9-20 [facility] Comment on above: Performed By: #### P T, BNP, CP, LIPR, CDP ####[address] [address] Staging: NOT REPORTED Normal [facility] Comment on above: Performed By: #### P T, BNP, CP, LIPR, CDP ####[address] [address] Hemoglobin A1Con 03-26-2017 Glucose mass conc 143 mg/dL Normal [facility] Comment on above: Result Comment: The ADA and AACC recommend providing the estimated average glucose result to permit better patient understanding of their HBA1c result.[place] [address] [place] [address] Performed By: #### G LYHGB ####[address] [address] Hemoglobin A1c/Hemoglobin.tota l mass fraction (Bld) 6.6 % High 4.0-6.0 [facility] Comment on above: Performed By: #### G LYHGB ####[address] [address] Lipid Profileon 03-26-2017 Cholesterol 150 mg/dL Normal <200 [facility] Comment on above: Result Comment: Chol esterol Guidelines: <200 Desirable 200-240 Borderline >240 Undesirable Performed By: #### P T, BNP, CP, LIPR, CDP ####[address] [address] Cholesterol to HDL Ratio 2.7 {ratio} Normal <5 [facility] Comment on above: Performed By: #### P T, BNP, CP, LIPR, CDP ####[address] [address] HDL Cholesterol 55 mg/dL Normal >40 [facility] Comment on above: Result Comment: HDL Guidelines: <40 Undesirable 40-59 Borderline >59 Desirable Performed By: #### P T, BNP, CP, LIPR, CDP ####[address] [address] LDL Cholesterol 77 mg/dL Normal 0-130 [facility] Comment on above: Result Comment: LDL Guidelines: <100 Desirable 100-129 Near to/above Desirable 130-159 Borderline >159 UndesirableDirect (measured) LDL and calculated LDL are not interchangeable tests. Performed By: #### P T, BNP, CP, LIPR, CDP ####[address] [address] Triglyceride 88 mg/dL Normal <150 [facility] Comment on above: Result Comment: Trig lyceride Guidelines: <150 Desirable 150- 199 Borderline 200-499 High >499 Very high Based on AHA Guidelines for fasting triglyceride, March 2012.[place] [address] [place] [address] Performed By: #### P T, BNP, CP, LIPR, CDP ####[address] [address] Cholesterol in VLDL mass conc NOT REPORTED Normal 30 [facility] Comment on above: Performed By: #### P T, BNP, CP, LIPR, CDP ####[address] [address] PTon 03-26-2017 INR Coag RelTime (PPP) 1.0 {INR} Normal [facility] Comment on above: Result Comment: Ther apeutic Range: Moderate Anticoagulant Intensity: INR = 2.0-3.0 High Anticoagulant Intensity: INR = 2.5-3.5[facility] [address] [place] [phone] Performed By: #### P T, BNP, CP, LIPR, CDP ####[facility] Fqjroxhkgswc7[address] [place], [place] [id number] Prothrombin time (PT) Coag time (PPP) 11.0 s Normal 9.4-12.6 [facility] Comment on above: Performed By: #### P T, BNP, CP, LIPR, CDP ####[facility] Osrbopxjrzxn8418 [place], [place] [id number] Surgical Pathologyon 017 Surgical Pathology (NOTE)[id number] Y LABORATORIESCONSULTING PATHOLOGISTS [facility] MTSBZOHKY[address] [place] [address] [phone]: [phone] PATHOLOGY CONSULTATIONPatient Name: BENIGNO SANDERSONMR#: [id number] #[id number]/Josie Flannery CYTOMETRY REPORT Date Ordered: 03/27/2017 Status:Signed Out Date Complete: 03/27/2017 By: Mihir Mijares M.D. Date Reported: 03/27/2017 INTERPRETATIONPERIPHERAL BLOOD:-NORMAL ABSOLUTE LYMPHOCYTE COUNT (4480/UL); FLOW CYTOMETRY NEGATIVE(REACTIVE LYMPHOCYTES).-MILD PERSISTENT NEUTROPHILIA, MONOCYTOSIS AND THROMBOCYTOSIS SINCE ATLEAST 2013. IF REACTIVE CAUSES ARE NOT IDENTIFIED CLINICALLY, RECOMMEND HEMATOLOGYCONSULTATION.FLOW CYTOMETRIC IMMUNOPHENOTYPING ANALYSIS OF PERIPHERAL BLOODLYMPHOCYTE POPULATION IS NEGATIVE FOR B-CELL MONOCLONALITY AND T-CELLABERRANCY. RESULTS-COMMENTSHEMOGRAM DIFFERENTIAL % ABSOLUTE(K/UL)WBC (K/uL) BAND RBC (K/uL) SEGS HGB (G/dL) LYMPHS HCT (%) ATYP. LYMPH MCV (FL.) MONOS MCH (PG.) EOS MCHC (g/dL) BASO RDW (%) META PLT (k/uL) MYELO RETIC (%) PROGRAN Absolute RetCt BLAST NRBS Morphology: Hypogranular neutrophils/toxic granulation with minimalleft shiftSPECIMEN TYPE: CYTOCENTRIFUGE DIFFERENTIAL CELL COUNT:Peripheral Blood Lymphocytes 23% Hughes/Hist 77%Flow cytometric immunophenotyping analysis is performed on peripheralblood following RBC lysis procedure. These cells are labeled bydirect, five color immunostaining procedure, and analyzed on a NY988cstr cytometer. % POSITIVE Target Cells RESULTS: (Lymphocytes)1. CD1a 0 2. CD2 84 3. CD3 81 4. CD4 59 5. CD5 83 6. CD7 69 7. CD8 27 8. CD10 0 9. CD11c 4 10. CD16/56 15 11. CD19 12 12. CD20 11 13. CD22 13 14. CD23 8 15. CD25 1 16. CD45 100 17. CD57 18 18. CD103 1 19. FMC7 12 20. Roscoe 8 21. Lambda 5 This test was developed and its performance characteristics determinedby [facility]. It has notbeen cleared or approved by the U.S. Food and Drug Administration. The FDA does not require this test to go through premarket FDA review.This test is used for clinical purposes. It should not be regardedas investigational or for research. This laboratory is certifiedunder the Clinical Laboratory Improvement Amendments of 1988 (CLIA) asqualified to perform high complexity clinical laboratory testing. Mihir Mijares M.D. Source:1: PERIPHERAL BLOOD SMEAR FOR FLOW CYTOMETRY Normal [facility]2017 aPTT 32.1 s High 21.3-31.3 [facility] Comment on above: Result Comment: [employer] [address] [place] [address] Performed By: #### P TT ####[address] [address] aPTT 31.5 s High 21.3-31.3 [facility] Comment on above: Result Comment: [facility] [address] [place] [address] Performed By: #### P TT ####[address] [address] aPTT 26.4 s Normal 21.3-31.3 [facility] Comment on above: Result Comment: [place] [address] [place] [address] Performed By: #### C BC, PTT, TROPI ####[address] [address] CBCon 03-25-2017 Erythrocyte distribution width Auto Ratio (RBC) 14.6 % Normal 12.5-15.4 [facility] Comment on above: Performed By: #### C BC, PTT, TROPI ####[address] [address] Erythrocytes (RBC) 5.24 10*6/uL Normal 4.5-5.9 [facility] Comment on above: Performed By: #### C BC, PTT, TROPI ####[address] [address] Hematocrit (HCT) 44.4 % Normal 41-53 [facility] Comment on above: Performed By: #### C BC, PTT, TROPI ####[address] [address] Hemoglobin mass conc (Bld) 16.2 g/dL Normal 13.5-17.5 [facility] Comment on above: Performed By: #### C BC, PTT, TROPI ####[address] [address] MCH 31.0 pg Normal 26-34 [facility] Comment on above: Performed By: #### C BC, PTT, TROPI ####[address] [address] MCHC mass conc (RBC) 36.6 g/dL Normal 31-37 [facility] Comment on above: Performed By: #### C BC, PTT, TROPI ####[address] [address] MCV 84.7 fL Normal 80-100 [facility] Comment on above: Performed By: #### C BC, PTT, TROPI ####[facility] [address]ncbte[address]qq[address] [place] [address] Platelet mean volume (PMV) 7.1 fL Normal 6.0-12.0 [facility] Comment on above: Result Comment: [facility] [address] [place] [address] Performed By: #### C BC, PTT, TROPI ####[facility] D[address]wz[address]ijoqsr[address] [place] [address] Platelets 542 10*3/uL High 140-450 [facility] Comment on above: Performed By: #### C BC, PTT, TROPI ####[facility] Vmprbaoympcx[address]2 [place] [address] WBC (Leukocytes) 16.6 10*3/uL High 3.5-11.0 [facility] Comment on above: Performed By: #### C BC, PTT, TROPI ####[facility] Btvnpzodckso956957 [place] [id number] ED Provider Noteon 7 HIM IP Note OR Street Superintendent Normal [facility] History and Physicalon 03-25 HIM IP Note OR Street Superintendent Normal [facility] Magnesiumon 03-25-2017 Magnesium 2.4 mg/dL Normal 1.6-2.6 [facility] Comment on above: Result Comment: [facility] [place] [address] Performed By: #### T ROPI, MG ####[address] [address] Troponinon 03-25-2017 Troponin I.cardiac mass conc Normal [facility] Comment on above: Result Comment: Refe rence Range: <0.03 Within reference range. 0.03-0.09 Possible myocardial damage.Repeat at appropriate intervals to rule out chronic elevation. >= 0.10 Indicative of myocardial damage.[facility] [address] [place] [address] Performed By: #### C BC, PTT, TROPI ####[facility] [address] [place] [address] Troponin T.cardiac mass conc 0.81 ng/mL Critically high <0.03 [facility] Comment on above: Result Comment: Trop onin T results cannot be compared to Troponin-I results.Previous Alert Value Reported Performed By: #### C BC, PTT, TROPI ####[facility] [address] [place] [address] Troponin I.cardiac mass conc Normal [facility] Comment on above: Result Comment: Refe rence Range: <0.03 Within reference range. 0.03-0.09 Possible myocardial damage.Repeat at appropriate intervals to rule out chronic elevation. >= 0.10 Indicative of myocardial damage.[facility] [email or web address] [address] [place] [address] Performed By: #### T ROPI, MG ####[place] [address] [place] [address] Troponin T.cardiac mass conc 0.70 ng/mL Critically high <0.03 [facility] Comment on above: Result Comment: Trop onin T results cannot be compared to Troponin-I results. Performed By: #### T ROPI, MG ####[facility] [address] [place] [address] Troponin I.cardiac mass conc Normal [facility] Comment on above: Result Comment: Refe rence Range: <0.03 Within reference range. 0.03-0.09 Possible myocardial damage.Repeat at appropriate intervals to rule out chronic elevation. >= 0.10 Indicative of myocardial damage.[facility] [address] [place] [address] Performed By: #### T ROPI ####[facility] [address] [place] [address] Troponin T.cardiac mass conc 0.04 ng/mL High <0.03 [facility] Comment on above: Result Comment: Trop onin T results cannot be compared to Troponin-I results. Performed By: #### T TREEI ####[facility] [address] [place], [place] [id number] XR CHEST PORTABLEon 03-25-20 XR CHEST PORTABLE EXAMINATION:SINGLE V IEW OF THE CHEST03/24/2017 11:24 pmCOMPARISON:3 hours agoHISTORY:ORDERING SYSTEM PROVIDED HISTORY: chest painTECHNOLOGIST PROVIDED HISTORY:Reason for exam:->chest painFINDINGS:The lungs are without acute focal process. There is no effusion orpneumothorax. The cardiomediastinal silhouette is without acute process. Theosseous structures are without acute process.IMPRESSION: No acute process.Interpreted by:SHELBI Aponteigned by:Stanley Azar MD03/24/17Final result Normal [facility] APTTon 03-24-2017 aPTT 25.2 s Normal 23.2-34.4 [facility] Comment on above: Result Comment: Perf ormed at [address] [place] [address] [phone] Performed By: #### P T, PTT, BNP, BMP, TROPI, CDP ####[address] [place] [address] Basic Metabolic Profon 03-24 (cont.) Normal [facility] Comment on above: Result Comment: Aver age GFR for 50-59 years old: 93 mL/min/1.73sq mChronic Kidney Disease: <60 mL/min/1.73sq mKidney failure: <15 mL/min/1.73sq meGFR calculated using average adult body mass. Additional eGFR calculator available at:http://[email or web address]/multiple_crcl_2012.htm Performed By: #### P T, PTT, BNP, BMP, TROPI, CDP ####[address] [place] [address] Anion gap 11 mmol/L Normal 9-17 [facility] Comment on above: Performed By: #### P T, PTT, BNP, BMP, TROPI, CDP ####[address] [place] [address] BUN/CRE Ratio 17 Normal 9-20 [facility] Comment on above: Performed By: #### P T, PTT, BNP, BMP, TROPI, CDP ####[address] [place] [address] Calcium 9.3 mg/dL Normal 8.6-10.4 [facility] Comment on above: Performed By: #### P T, PTT, BNP, BMP, TROPI, CDP ####[address] [place] [address] Chloride 94 mmol/L Low 98-107 [facility] Comment on above: Performed By: #### P T, PTT, BNP, BMP, TROPI, CDP ####[address] [place] [address] CO2 29 mmol/L Normal 20-31 [facility] Comment on above: Performed By: #### P T, PTT, BNP, BMP, TROPI, CDP ####[address] [place] [address] Creatinine 0.92 mg/dL Normal 0.70-1.20 [facility] Comment on above: Performed By: #### P T, PTT, BNP, BMP, TROPI, CDP ####[address] [place] [address] eGFR (non-black) mL/min/{1.73_m2} Normal >60 [facility] Comment on above: Performed By: #### P T, PTT, BNP, BMP, TROPI, CDP ####[address] [place] [address] Glucose mass conc 212 mg/dL High 70-99 [facility] Comment on above: Performed By: #### P T, PTT, BNP, BMP, TROPI, CDP ####[address] , [place] [phone] Potassium molar conc 4.3 mmol/L Normal 3.7-5.3 [facility] Comment on above: Performed By: #### P T, PTT, BNP, BMP, TROPI, CDP ####[address] [place] [address] Sodium 134 mmol/L Low 135-144 [facility] Comment on above: Performed By: #### P T, PTT, BNP, BMP, TROPI, CDP ####[address] [place] [address] Staging: Normal [facility] Comment on above: Result Comment: Stag e 1: Some kidney damage normal GFRStage 2: Mild kidney damage GFR 60-89Stage 3: Moderate kidney damage GFR 30-59Stage 4: Severe kidney damage GFR 15-29Stage 5: Severe kidney damage GFR <15ESRD - chronic treatment by dialysis or transplantPerformed at [address] [place] [address] Performed By: #### P T, PTT, BNP, BMP, TROPI, CDP ####[address] [place] [address] Urea nitrogen 16 mg/dL Normal 6-20 [facility] Comment on above: Performed By: #### P T, PTT, BNP, BMP, TROPI, CDP ####[address] [place] [address] Brain Natri. Peptideon 03-24 BNP Normal [facility] Comment on above: Result Comment: Pro- BNP Reference Range:Rule Out: <300Grey Zone: Age <50 300-450 Age 50-75 300-900 Age >75 300-1800Usually represents mild to moderate HF but other cardiopulmonary causes cannot be ruled out.Rule In: Age <50 >450 Age 50-75 >900 Age >75 >1800Performed at [address] [place] [address] Performed By: #### P T, PTT, BNP, BMP, TROPI, CDP ####[address] [place] [address] BNP pg/mL Normal <300 [facility] Comment on above: Result Comment: Pro- BNP results cannot be compared to BNP results. Performed By: #### P T, PTT, BNP, BMP, TROPI, CDP ####[address] [place] [address] CBC with Diffon 03-24-2017 Abs. Basophil 0.20 k/uL Normal 0.0-0.2 [facility] Comment on above: Performed By: #### P T, PTT, BNP, BMP, TROPI, CDP ####[address] [place] [address] Abs.Neutrophil (Seg) 12.93 k/uL High 1.8-7.7 [facility] Comment on above: Performed By: #### P T, PTT, BNP, BMP, TROPI, CDP ####[address] [place] [address] Basophils/100 WBC Auto (Bld) 1 % Normal [facility] Comment on above: Performed By: #### P T, PTT, BNP, BMP, TROPI, CDP ####[address] [place] [address] Blood morphology Platelet scan shows Increased Platelets Normal [facility] Comment on above: Result Comment: Perf ormed at [address] [place] [address] Performed By: #### P T, PTT, BNP, BMP, TROPI, CDP ####[address] [place] [address] Eosinophils 0.00 10*3/uL Normal 0.0-0.4 [facility] Comment on above: Performed By: #### P T, PTT, BNP, BMP, TROPI, CDP ####[address] , [place] [address] Eosinophils/100 leukocytes 0 % Normal [facility] Comment on above: Performed By: #### P T, PTT, BNP, BMP, TROPI, CDP ####[address] , [place] [address] Lymphocytes 4.51 10*3/uL Normal 1.0-4.8 [facility] Comment on above: Performed By: #### P T, PTT, BNP, BMP, TROPI, CDP ####[address] , [place] [address] Lymphocytes/100 leukocytes 23 % Normal [facility] Comment on above: Performed By: #### P T, PTT, BNP, BMP, TROPI, CDP ####[address] , [place] [address] Monocytes 1.96 10*3/uL High 0.0-1.0 [facility] Comment on above: Performed By: #### P T, PTT, BNP, BMP, TROPI, CDP ####[address] , [place] [address] Monocytes/100 leukocytes 10 % Normal [facility] Comment on above: Performed By: #### P T, PTT, BNP, BMP, TROPI, CDP ####[address] , [place] [address] Neutrophil (Seg) 66 % Normal [facility] Comment on above: Performed By: #### P T, PTT, BNP, BMP, TROPI, CDP ####[address] , [facility]83 Erythrocyte distribution width Auto Ratio (RBC) 13.6 % Normal 12.1-15.2 [facility] Comment on above: Performed By: #### P T, PTT, BNP, BMP, TROPI, CDP ####[address] [place] [address] Erythrocytes (RBC) 5.28 10*6/uL Normal 4.5-5.9 [facility] Comment on above: Performed By: #### P T, PTT, BNP, BMP, TROPI, CDP ####[address] , [facility]83 Hematocrit (HCT) 44.9 % Normal 41-53 [facility] Comment on above: Performed By: #### P T, PTT, BNP, BMP, TROPI, CDP ####[address] , [facility]83 Hemoglobin mass conc (Bld) 16.0 g/dL Normal 13.5-17.0 [facility] Comment on above: Performed By: #### P T, PTT, BNP, BMP, TROPI, CDP ####[address] , [facility]83 MCH 30.3 pg Normal 26-34 [facility] Comment on above: Performed By: #### P T, PTT, BNP, BMP, TROPI, CDP ####[address] [place] [address] MCHC mass conc (RBC) 35.6 g/dL Normal 31-37 [facility] Comment on above: Performed By: #### P T, PTT, BNP, BMP, TROPI, CDP ####[address] , [facility]83 MCV 85.1 fL Normal 80-100 [facility] Comment on above: Performed By: #### P T, PTT, BNP, BMP, TROPI, CDP ####[address] , [facility]83 Platelet mean volume (PMV) 7.9 fL Normal 6.0-12.0 [facility] Comment on above: Performed By: #### P T, PTT, BNP, BMP, TROPI, CDP ####[address] [place] [address] Platelets 555 10*3/uL High 140-450 [facility] Comment on above: Performed By: #### P T, PTT, BNP, BMP, TROPI, CDP ####[address] [place] [address] WBC (Leukocytes) 19.6 10*3/uL High 3.5-11.0 [facility] Comment on above: Performed By: #### P T, PTT, BNP, BMP, TROPI, CDP ####[address] [place] [address] Auto Diff Performed NOT REPORTED Normal [facility] Comment on above: Performed By: #### P T, PTT, BNP, BMP, TROPI, CDP ####[address] [place] [address] Erythrocyte morphology NOT REPORTED Normal [facility] Comment on above: Performed By: #### P T, PTT, BNP, BMP, TROPI, CDP ####[address] [place] [address] Platelets NOT REPORTED Normal [facility] Comment on above: Performed By: #### P T, PTT, BNP, BMP, TROPI, CDP ####[address] [place] [address] WBC Morphology NOT REPORTED Normal [facility] Comment on above: Performed By: #### P T, PTT, BNP, BMP, TROPI, CDP ####[address] [place] [address] CTA CHEST WITH CONTRASTon CTA CHEST WITH CONTRAST FINAL REPORTEXAM: CTA CHEST WITH CONTRASTHISTORY: midsternal chest pain, SOB, 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 PRIORS: None FINDINGS: Heart: Normal size, morphology and position.Aorta: Normal size and position. No dissection evident. Approximately 7 millimeter round filling defect in the anterior thoracic aorta series 5, image 106, series 603, image 107. Findings may represent atypical noncalcified plaque. Minimal mural thrombus is not excluded. Adjacent wall is normal in appearance. Pulmonary arteries: Normal appearance. No pulmonary embolism. Pericardial effusion: NoneMediastinum: No mass or adenopathy. Airways: Normal appearance. Lungs: Lung volumes are low minimal dependent atelectasis.. Right middle lobe 5 millimeter lung nodule series 3, image 60 Pleural effusion: NonePneumothorax: NoneChest wall: Unremarkable Upper abdomen: UnremarkableBones: Unremarkable IMPRESSION: Impression: 1. No pulmonary embolism. 2. Low lung volume with minimal bilateral dependent atelectasis. 3. 5 millimeter right middle lobe lung nodule. 2017 Fleischner criteria follow-up: Low risk patient no follow-up. High risk patient 12 month follow-up optional.4. Small filling defect in the thoracic aorta uncertain etiology/significance. See above. Short-term follow-up CT angiogram. Interpreted by:SHELBI Bermudezigned by:Carolyn Reyes MD03/24/17Finnc result Normal [facility] ED Noteon 03-24-2017 HIM IP Note OR Street Superintendent Normal [facility] HIM IP Note OR Street Superintendent Normal [facility] HIM IP Note OR Street Superintendent Normal [facility] HIM IP Note OR Street Superintendent Normal [facility] ED Provider Noteon 7 HIM IP Note OR Street Superintendent Normal [facility] PTon 03-24-2017 INR Coag RelTime (PPP) 1.0 {INR} Normal 0.9-1.2 [facility] Comment on above: Result Comment: Perf ormed at [address] [place] [address] [phone] Performed By: #### P T, PTT, BNP, BMP, TROPI, CDP ####[address] [place] [address] Prothrombin time (PT) Coag time (PPP) 10.1 s Normal 9.7-12.2 [facility] Comment on above: Performed By: #### P T, PTT, BNP, BMP, TROPI, CDP ####[address] [place] [address] Troponinon 03-24-2017 Troponin I.cardiac mass conc Normal [facility] Comment on above: Result Comment: Refe rence Range: <0.03 Within reference range. 0.03-0.09 Possible myocardial damage.Repeat at appropriate intervals to rule out chronic elevation. >= 0.10 Indicative of myocardial damage.Performed at [address] [place], [place] [id number] [phone]. Performed By: #### P T, PTT, BNP, BMP, TROPI, CDP ####[address] [place] [address] Troponin T.cardiac mass conc ug/L Normal <0.03 [facility] Comment on above: Result Comment: Trop onin T results cannot be compared to Troponin-I results. Performed By: #### P T, PTT, BNP, BMP, TROPI, CDP ####[address] , [place] [id number] XR CHEST PORTABLEon 03-24-20 17 XR CHEST PORTABLE FINAL REPORTEXAM: XR CHEST PORTABLEHISTORY: cp TECHNIQUE: AP chest PRIORS: 03/29/2014 FINDINGS: Heart and mediastinum: Normal size and position. Lungs: Lung volumes are low with mild haziness bilaterally. No focal consolidation or collapse. Pneumothorax: None evident Pleural effusion: None evidentBones: Unremarkable Upper abdomen: Unremarkable IMPRESSION: Impression: Low lung inflation. No focal consolidation or collapse. Otherwise unremarkable examination. Interpreted by:SHELBI Bermudezigned by:Carolyn Reyes MD03/24/17Final result Normal [facility] Encounters Encounter Date Encounter Type Care Provider Facility Start: 09-20-2022 End: 09-21-2022 ambulatory Cheng Gonsalez MD Facility:[facility] Start: 08-26-2022 End: 08-27-2022 ambulatory Julianne Blevins Facility:[facility] Start: 10-18-2021 End: 10-19-2021 ambulatory Julianne Blevins Facility:[facility] Start: 12-18-2017 End: 12-19-2017 Ambulatory [facility]ENG Ab [facility] Start: 12-13-2017 End: 12-14-2017 Ambulatory CHENG Ab GONSALEZ [facility] Start: 12-11-2017 End: 12-12-2017 Ambulatory CHENG Ab GONSALEZ [facility] Start: 11-29-2017 End: 11-30-2017 Ambulatory CHENG Ab GONSALEZ [facility] Start: 11-13-2017 End: 11-14-2017 Ambulatory CHENG Ab GONSALEZ [facility] Start: 11-08-2017 End: 11-09-2017 Ambulatory CHENG Ab Marleyy [facility] Start: 11-06-2017 End: 11-07-2017 Ambulatory CHENG GONSALEZ [facility] Start: 11-03-2017 End: 11-04-2017 Ambulatory JULIANNE BLEVINS [facility] Start: 11-01-2017 End: 11-02-2017 Ambulatory JULIANNE BLEVINS [facility] Start: 10-11-2017 End: 10-11-2017 Ambulatory CARLOS BUSTILLOS Facility:[facility] Start: 08-07-2017 Ambulatory FILI MARTINEZ Facilit y:[facility] Start: 04-10-2017 End: 04-11-2017 Ambulatory ISMAEL NGUYỄNBAKARI [facility] Start: 03-25-2017 End: 03-28-2017 Evaluation and management of inpatient [facility] Start: 03-24-2017 End: 03-25-2017 Emergency department patient visit RYAN MOSS [facility] Procedures Date Procedure Procedure Detail Performing Clinician Start: 12-18-2017 CARDIAC PHASE II CORINNA MOSS Start: 11-08-2017 CARDIAC PHASE II CORINNA MOSS Start: 11-06-2017 CARDIAC PHASE II CORINNA MOSS Start: 11-03-2017 Echo tthrc r-t 2d w/ wom-mode compl spec&colr d RYAN MOSS Start: 04-10-2017 Ct thorax w/o contra st material RYAN ELLIS Start: 03-28-2017 POCT GLUCOSE CHENG VE LA Start: 03-28-2017 PULSE OXIMETRY, CONTINUOUS CHENG GONSALEZ Start: 03-28-2017 DISCHARGE PATIENT RUDOL PH GONSALEZ Start: 03-28-2017 AMB EXTERNAL REFERRA L TO CARDIAC REHAB CHENG GONSALEZ Start: 03-28-2017 POCT GLUCOSE CHENG VE LA Start: 03-28-2017 INITIATE OXYGEN THER APY PROTOCOL CHENG GONSALEZ Start: 03-28-2017 PULSE OXIMETRY, CONTINUOUS CHENG GONSALEZ Start: 03-28-2017 POC GLUCOSE FINGERSTICK CHENG GONSALEZ Start: 03-28-2017 POCT GLUCOSE CHENG VE LA Start: 03-28-2017 PULSE OXIMETRY, CONTINUOUS CHENG GONSALEZ Start: 03-28-2017 INTAKE AND OUTPUT RUDOL PH GONSALEZ Start: 03-28-2017 PULSE OXIMETRY, CONTINUOUS CHENG GONSALEZ Start: 03-27-2017 POC GLUCOSE FINGERSTICK CHENG GONSALEZ Start: 03-27-2017 POCT GLUCOSE CHENG VE LA Start: 03-27-2017 PULSE OXIMETRY, CONTINUOUS CHENG GONSALEZ Start: 03-27-2017 POC GLUCOSE FINGERSTICK CHENG GONSALEZ Start: 03-27-2017 BEDREST CHENG VE LA Start: 03-27-2017 DIET CARDIAC CHENG VE LA Start: 03-27-2017 FULL CODE CHENG VE LA Start: 03-27-2017 INITIATE OXYGEN THER APY PROTOCOL CHENG GONSALEZ Start: 03-27-2017 NURSING COMMUNICATION R UDOLPH GONSALEZ Start: 03-27-2017 PUNCTURE SITE CARE RUDO LPH GONSALEZ Start: 03-27-2017 TELEMETRY MONITORING RU DOLPH GONSALEZ Start: 03-27-2017 VITAL SIGNS CHENG VE LA Start: 03-27-2017 PULSE OXIMETRY, CONTINUOUS CHENG GONSALEZ Start: 03-27-2017 TRANSFER PATIENT RUDOLP H GONSALEZ Start: 03-27-2017 ACTIVATED CLOTTING TIME CHENG GONSALEZ Start: 03-27-2017 DIAGNOSTIC CARDIAC C ATH LAB PROCEDURE CHENG GONSALEZ Start: 03-27-2017 EKG REPORT CHENG VE LA Start: 03-27-2017 POCT GLUCOSE CHENG VE LA Start: 03-27-2017 PULSE OXIMETRY, CONTINUOUS CHENG GONSALEZ Start: 03-27-2017 POC GLUCOSE FINGERSTICK CHENG GONSALEZ Start: 03-27-2017 Echo tthrc r-t 2d w/ wom-mode compl spec&colr d CHENG GONSALEZ Start: 03-27-2017 POC GLUCOSE FINGERSTICK CHENG GONSALEZ Start: 03-27-2017 POCT GLUCOSE CHENG VE LA Start: 03-27-2017 PULSE OXIMETRY, CONTINUOUS CHENG GONSALEZ Start: 03-27-2017 RHYTHM STRIP REPORT DARIO OLPH GONSALEZ Start: 03-27-2017 APTT CHENG VE LA Start: 03-27-2017 PLATELET COUNT CHENG GONSALEZ Start: 03-27-2017 POCT GLUCOSE CHENG VE LA Start: 03-27-2017 PULSE OXIMETRY, CONTINUOUS CHENG GONSALEZ Start: 03-27-2017 APTT CHENG VE LA Start: 03-27-2017 INTAKE AND OUTPUT RUDOL PH GONSALEZ Start: 03-27-2017 PULSE OXIMETRY, CONTINUOUS CHENG GONSALEZ Start: 03-26-2017 POCT GLUCOSE CHENG VE LA Start: 03-26-2017 PULSE OXIMETRY, CONTINUOUS CHENG GONSALEZ Start: 03-26-2017 POC GLUCOSE FINGERSTICK CHENG GONSALEZ Start: 03-26-2017 APTT CHENG VE LA Start: 03-26-2017 FLOW CYTOMETRY CHENG GONSALEZ Start: 03-26-2017 POC GLUCOSE FINGERSTICK CHENG GONSALEZ Start: 03-26-2017 PULSE OXIMETRY, CONTINUOUS CHENG GONSALEZ Start: 03-26-2017 SURGICAL PATHOLOGY RUDO LPH GONSALEZ Start: 03-26-2017 POCT GLUCOSE CHENG VE LA Start: 03-26-2017 PULSE OXIMETRY, CONTINUOUS CHENG GONSALEZ Start: 03-26-2017 POC GLUCOSE FINGERSTICK CHENG GONSALEZ Start: 03-26-2017 APTT CHENG VE LA Start: 03-26-2017 EKG 12-LEAD CHENG VE LA Start: 03-26-2017 POCT GLUCOSE CHENG VE LA Start: 03-26-2017 PULSE OXIMETRY, CONTINUOUS CHENG GONSALEZ Start: 03-26-2017 POC GLUCOSE FINGERSTICK CHENG GONSALEZ Start: 03-26-2017 BRAIN NATRIURETIC PEPTIDE CHENG GONSALEZ Start: 03-26-2017 CBC WITH AUTO DIFFERENTIAL CHENG GONSALEZ Start: 03-26-2017 COMPREHENSIVE METABOLIC PANEL CHENG GONSALEZ Start: 03-26-2017 Lipid panel CHENG VE LA Start: 03-26-2017 PROTIME-INR CHENG VE LA Start: 03-26-2017 POCT GLUCOSE CHENG VE LA Start: 03-26-2017 PULSE OXIMETRY, CONTINUOUS CHENG GONSALEZ Start: 03-26-2017 APTT CHENG VE LA Start: 03-26-2017 INTAKE AND OUTPUT RUDOL PH GONSALEZ Start: 03-26-2017 PULSE OXIMETRY, CONTINUOUS CHENG GONSALEZ Start: 03-25-2017 APTT CHENG VE LA Start: 03-25-2017 POCT GLUCOSE CHENG VE LA Start: 03-25-2017 PULSE OXIMETRY, CONTINUOUS CHENG GONSALEZ Start: 03-25-2017 POC GLUCOSE FINGERSTICK CHENG GONSALEZ Start: 03-25-2017 POC GLUCOSE FINGERSTICK CHENG GONSALEZ Start: 03-25-2017 PULSE OXIMETRY, CONTINUOUS CHENG GONSALEZ Start: 03-25-2017 APTT CHENG VE LA Start: 03-25-2017 POCT GLUCOSE CHENG VE LA Start: 03-25-2017 PULSE OXIMETRY, CONTINUOUS CHENG GONSALEZ Start: 03-25-2017 POC GLUCOSE FINGERSTICK CHENG GONSALEZ Start: 03-25-2017 POCT GLUCOSE CHENG VE LA Start: 03-25-2017 PULSE OXIMETRY, CONTINUOUS CHENG GONSALEZ Start: 03-25-2017 APTT CHENG VE LA Start: 03-25-2017 CBC CHENG VE LA Start: 03-25-2017 EKG 12-LEAD CHENG VE LA Start: 03-25-2017 HEMOGLOBIN A1C CHENG GONSALEZ Start: 03-25-2017 MAGNESIUM CHENG VE LA Start: 03-25-2017 TROPONIN CHENG VE LA Start: 03-25-2017 EKG 12-LEAD CHENG VE LA Start: 03-25-2017 POC GLUCOSE FINGERSTICK CHENG GONSALEZ Start: 03-25-2017 NOTIFY PHYSICIAN (SPECIFY) CHENG GONSALEZ Start: 03-25-2017 PATIENT STATUS (DIRECT) CHENG GONSALEZ Start: 03-25-2017 PLACE INTERMITTENT P NEUMATIC COMPRESSION DEVICE CHENG GONSALEZ Start: 03-25-2017 POCT GLUCOSE CHENG VE LA Start: 03-25-2017 BEDREST CHENG VE LA Start: 03-25-2017 DAILY WEIGHTS CHENG V TEMITOPE Start: 03-25-2017 INTAKE AND OUTPUT RUDOL PH GONSALEZ Start: 03-25-2017 IP CONSULT TO CARDIOLOGY CHENG GONSALEZ Start: 03-25-2017 PULSE OXIMETRY, CONTINUOUS CHENG GONSALEZ Start: 03-25-2017 TELEMETRY MONITORING RU DOLPH GONSALEZ Start: 03-25-2017 VITAL SIGNS CHENG VE LA Start: 03-25-2017 PATIENT STATUS (FROM ED OR OR/PROCEDURAL) CHENG GONSALEZ Start: 03-25-2017 IP CONSULT TO HOSPITALIST CHENG GONSALEZ Start: 03-25-2017 TROPONIN CHENG VE LA Start: 03-25-2017 Chest x-ray 1 view frontal CHENG GONSALEZ Start: 03-25-2017 EKG 12-LEAD CHENG VE LA Start: 03-24-2017 EKG 12-LEAD RYAN MOSS Start: 03-24-2017 TROPONIN RYAN MOSS Start: 03-24-2017 Ct angiography chest w/contrast/noncontrast RYAN MOSS Start: 03-24-2017 Chest x-ray 1 view frontal RYAN MOSS Start: 03-24-2017 APTT RYAN MOSS Start: 03-24-2017 BASIC METABOLIC PANEL C HRISTINA ISA Start: 03-24-2017 BRAIN NATRIURETIC PEPTIDE RYAN MOSS Start: 03-24-2017 CBC WITH AUTO DIFFERENTIAL RYAN MOSS Start: 03-24-2017 PROTIME-INR RYAN MOSS Start: 03-24-2017 TROPONIN RYAN MOSS Start: 03-24-2017 INSERT PERIPHERAL IV CH ANN MARIE MOSS Start: 03-24-2017 TELEMETRY MONITORING CH ANN MARIE MOSS Start: 03-24-2017 VITAL SIGNS RYAN MOSS Start: 03-24-2017 GLUCOSE, WHOLE BLOOD CH ANN MARIE MOSS Payers Date Payer Category Payer Unknown 2021 Private Health Insurance 1965 Unknown [id number] [id number] 1965 Unknown [id number] [id number] 1965 Unknown [id number] [id number]. [id number] 1959 Private Health Insurance [id number] 1960 Self-pay [id number] Clinical Note 08-26-2022 Note Date & Type Note Facility 08-26-2022 Note Patient Education Ma terials Name: Benigno Sanderson Current Date: 08/26/2022 13:48:04 [facility] [facility] : 1965 The following sheet(s) are the Patient Education Leaflets for [facility] The heart beats 60 to 100 times?per minute, 24 hours a day. This equals almost 100,000 times a day. It pumps?blood with oxygen and nutrients to the tissues and organs of the body. But the heart is a muscle and needs its own supply of blood. Blood flow to the heart is supplied by the coronary arteries. Coronary artery disease (atherosclerosis) is a result of cholesterol, saturated fat, and calcium deposits (plaques) that build up inside the [place]. This causes inflammation within?the coronary arteries. These plaques narrow the artery and reduce blood flow to the heart muscle. The reduction in blood flow to the heart muscle decreases oxygen supply to the heart. If the narrowing is significant enough, the oxygen supply to one or more regions of the heart can be temporarily or permanently shut down. Sometimes, the plaque can rupture exposing the materials within the plaque to the bloodstream. This can lead to the sudden development of a blood clot on top of the plaque which interrupts blood flow to the heart muscle This can cause?chest pain (angina), and possibly of heart tissue (heart attack). Types of chest pain Angina is the name for pain in the heart muscle. Angina is a warning sign of serious heart disease. When untreated it can lead to a heart attack, also known as acute myocardial infarction, or AMI. Angina occurs when there is not enough blood and oxygen flowing to the heart for the amount of work it is doing. This most often happens during physical exertion, when the heart is working hardest. It is usually?relieved by rest or nitroglycerin. Angina may also occur after a large meal when extra blood is sent to the digestive organs and less goes to the heart. In the case of advanced or unstable?heart disease, angina can occur at rest or awaken you from sleep. Angina usually lasts from a few minutes up to 20 minutes or more. When treated early, the effects of angina can be reversed without permanent damage to the heart. Angina is a serious condition and needs to be evaluated by a medical professional immediately. There are two types of angina?stable and unstable: ?Stable angina usually occurs with?a predictable?level of activity. Being stable, its character, severity, and occurrence don't change much over time. It usually starts with activity, and resolves with rest or taking your medicine as instructed by your doctor. The symptoms usually don't last long. ?Unstable angina changes or gets worse over time. It is different from whatever you are used to. It may feel different or worse, begin without cause, occur with exercise or exertion, wake you up from sleep, and last longer. It may not respond in the same way as it does when you take your usual medicines for an attack. This type of angina can be a warning sign of an impending heart attack.? A heart attack is usually the result of a blood clot that suddenly forms in a coronary artery that has been narrowed with plaque. When this occurs,?blood flow may be cut?off to a part of the heart muscle, causing?the cells?to . This weakens the pumping action of the heart, which affects the delivery of blood to all the other organs in the body including the brain. If not treated immediately, this damage will become permanent. The earlier treatment is given, the better chance that the heart muscle can be saved. The pain you feel with angina and a heart attack may have a similar quality. However, it is usually different in intensity and duration. Here are some typical descriptions of a heart attack: ?It is most often experienced as a squeezing, crushing, pressure-like sensation in the center of the chest. ?It is sometimes described as ?something heavy sitting?on my chest.? ?It may feel more like a bad case of indigestion. ?The pain may spread from the chest to the arm, shoulder, throat or jaw. ?Sometimes the pain is not felt in the chest at all, but only in the arm, shoulder, throat or jaw. ?There may also be nausea, vomiting, dizziness or light-headedness, sweating, and trouble breathing. ?Palpitations, or your heart beating rapidly ?A new, irregular heart beat ?Unexplained weakness You may not be able to tell the difference between bad angina and a heart attack at home. Seek help if your symptoms are different than usual. Don't be in denial or just try to tough it out. Call 911 This is the fastest and safest way to get to the emergency department. The paramedics can also start treatment on the way to the hospital, saving valuable time for your heart. ?If the angina gets worse, if?it continues after taking a nitroglycerine table or using nitroglycerin spray, or if it stops and returns, call 911 right away. Don't delay. You (more content not included)... [facility] Summary Purpose Family History No Family History Records FoundNo Family History Records FoundNo Family History Records FoundNo Family History Records Found Advance Directives No Advanced Directives Records FoundNo Advanced Directives Records FoundNo Advanced Directives Records FoundNo Advanced Directives Records Found Additional Source Comments (unrecognized sect ion and content) No Status Records FoundNo Status Records FoundNo Status Records FoundNo Status Records Found INFORMATION SOURCE (unrecogn ized section and content) DATE CREATED AUTHOR 12/14/2017 [facility] DATE CREATED AUTHOR AUTHOR'S ORGANIZ ATION 12/19/2017 [facility] DATE CREATED AUTHOR AUTHOR'S ORGANIZ ATION 12/20/2017 [facility] DATE CREATED AUTHOR AUTHOR'S ORGANIZ ATION 09/22/2022 [facility] FOR RECORDS PERTAINING TO PATIENTS WHO ARE OR HAVE BEEN ENROLLED IN A CHEMICAL DEPENDENCY/SUBSTANCEABUSE PROGRAM, SOME INFORMATION MAY BE OMITTED. This clinical summary was aggregated from multiple sources. Caution should be exercised in using it in the provision of clinical care. This summary normalizes information from multiple sources, and as a consequence, information in this document may materially change the coding, format and clinical context of patient data. In addition, data may be omitted in some cases. CLINICAL DECISIONS SHOULD BE BASED ON THE PRIMARY CLINICAL RECORDS. [facility] provides no warranty or guarantee of the accuracy or completeness of information in this document.
== END 2023-11-22 16:10 | disposition home or self-care (01) ==
LOC: CT 16:10
PROVIDERS: Family Provider Family Medicine; PCP Family Medicine; Visit Provider Podiatrist Foot & Ankle Surgery
DX: M79.672 Pain in left foot (principal); S92.002A Unspecified fracture of left calcaneus, initial encounter for closed fracture
CPT/HCPCS: 73650; 73700

== ENCOUNTER 2023-12-05 13:40 | Outpatient (OUT) | payer OTHER, SELFPAY ==
--- NOTE | 2023-12-05 | XR_ITS ---
[facility] [place] [id number] Patient Name: JAM JAY MRN: [id number] date: 1965 Sex: M Assigned Patient Location: Current Patient Location: Accession/Order Number: [id number] Exam Date: 12/05/2023 13:41 Report Date: 12/05/2023 14:13 At the request of: KIERAN MILLER Procedure: XR calcaneus LT min 2V PROCEDURE: XR calcaneus LT min 2V COMPARISON: HISTORY: LEFT HEEL PAIN FINDINGS: BONES:Stable complex calcaneus fracture with interval increase in bone formation with less apparent fracture planes SOFT TISSUES:Negative. No visible soft tissue swelling. EFFUSION:None visible. OTHER: Negative. XR/XR calcaneus LT min 2V IMPRESSION: Stable healing complex calcaneus fracture Electronically authenticated by: HEATHER REAL Date: 12/05/2023 14:13
--- OUTSIDE RECORDS SUMMARY | 2023-12-05 13:49 | XMS_ITS | CCD ---
Author Organization [facility] CliniSymo Care Team Providers Care Mental Health Program Specialist Name Role Phone MICHELLE FILI Unavailable Unavailable [...] Propensity to adverse reactions to drug (disorder) [facility] Repository Problems Active Problems Problem Classification Problem Date Documented Date Episodic/Chronic Acute myocardial infarction (1 source) Non-ST elevation (NSTEMI) myocardial infarction; Translations: [Non-ST elevation (NSTEMI) myocardial infarction] Onset: 03-25-2017 Chronic Coronary atherosclerosis and other heart disease (2 sources) Atherosclerotic heart disease of rosebud coronary artery without angina pectoris; Translations: [Acute ischemic heart disease, unspecified] Onset: 03-25-2017 Chronic Coronary atherosclerosis and other heart disease (1 source) Presence of coronary angioplasty implant and graft; Translations: [PRESENCE COR ANGPLSTY IMPLANT AND GRAFT] Onset: 10-13-2017 Episodic Deficiency and other anemia (1 source) Hereditary spherocytosis; Translations: [HEREDITARY SPHEROCYTOSIS] Onset: 10-13-2017 Chronic Other aftercare (1 source) 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 Stress ECG: Sinus tachycardia. The [...] Electronically Signed in Other Vendor System) Normal [facility] Cardiology Office/Clinic Not suzi 08-26-2022 Cardiology Office/Clinic [...] LCx, diffuse 10-20% RCA, EF 50%, 03/27/17 ([facility], [place], [place]). i. PCI with 5.0 x 18 mm BMS to pLAD, 03/27/17 ([facility], [place], [place]). B. Cardiac cath showed normal LM, [...] axes/intervals, no ST-T changes (Dr. Cheng Gonsalez, [place], [place]) (my independent interpretation of a test reported by another physician) Echocardiography > 03/27/17: EF 55% ([place], [place]) > 11/03/17: EF 60% ([place], [place]) Stress Testing > 11/29/19: (Lexiscan MPI) No ischemic ECG changes, MPI showed a possible small area of apical ischemia, EF 74% > 06/28/21: (Exercise MPI) Von 7:17, 9.2 METs, 87% APMHR, indeterminate ECG response (baseline ST-T changes), normal MPI, EF 62% Outside Lab Results > 08/12/22: (CBC) WBC 15.5, Hgb 18.6, Plt 460 ([place] > 08/12/22: (HbA1c) HbA1c 8.8% (Dr. Cheng Gonsalez, [place], [place]) > 08/12/22: (Lipids) TC 165, TG 133, HDL 52, LDL 86 ([place]. [place]) Physical Exam Vitals & Measurements HR: [...] Service Excluding time for services reported/billed separately [id number] encounter with patient: 10 Prep, documentation, coordination [...] Metoprolol Ta (more content not included)... Normal [facility] Cardiology Office/Clinic Not suzi 10-18-2021 Cardiology Office/Clinic [...] LCx, diffuse 10-20% RCA, EF 50%, 03/27/17 ([facility], [place], [place]). i. PCI with 5.0 x 18 mm BMS to pLAD, 03/27/17 ([place], [place]). B. Cardiac cath showed normal LM, widely patent LAD stents, 30% pD1, 30% mLCx, normal RCA, and EF 55-60%, 10/12/17. 2. Diabetes mellitus type 2. 3. Systemic arterial hypertension. 4. Hereditary spherocytosis. A. Status post splenectomy. B. Chronic thrombocytosis. 5. History of tobacco use. A. Previously quit smoking. Cardiac Testing Echocardiography > 03/27/17: EF 55% ([place], [place]) > 11/03/17: EF 60% ([place], [place]) Stress Testing > 11/29/19: (Lexiscan MPI) [...] Julianne Blevins DO 10/18/21 11:01 EDT Normal [facility] Progress Noteon 11-07-2017 HIM IP Note OR [facility] Normal [facility] Progress Noteon 11-03-2017 HIM IP Note OR [place] Normal [facility] Progress Noteon 11-01-2017 HIM IP Note OR [place] CARDIAC HIRAL 3-6-9on 18-2 018 CKMB 1.61 ng/mL Normal <=2.37 [facility] Comment on above: Performed By: #### C MREP ####[facility] Jvshvqautx[address] [place] Creatine kinase (CK) 131 U/L Normal 55-170 [facility] Comment on above: Performed By: #### C MREP ####[facility] [address] [place] [address] [place] INR Coag RelTime (Bld) SEE BELOW Normal [facility] Comment on above: Result Comment: <0.0 34 ng/ml NEGATIVE 0.034-0.119 INDETERMINATE 0.120 AMI CUT OFF Performed By: #### C MREP ####[facility] [address] [place] [address] [place] TROP 0.060 ng/mL Critically high <=0.034 [facility] Comment on above: Result Comment: test repeated critical value verified Performed By: #### C MREP ####[facility] [address] [place] [address] CARDIAC HIRAL ADMITon 018 CKMB 1.59 ng/mL Normal <=2.37 [facility] Comment on above: Performed By: #### C MADM, LIPA, CRP, BMP ####[facility] [address] [place] [address] Creatine kinase (CK) 153 U/L Normal 55-170 [facility] Comment on above: Performed By: #### C MADM, LIPA, CRP, BMP ####[facility] Rwslsaasmz2324 [address] [place] INR Coag RelTime (Bld) SEE BELOW Normal [facility] Comment on above: Result Comment: <0.0 34 ng/ml NEGATIVE 0.034-0.119 INDETERMINATE 0.120 AMI CUT OFF Performed By: #### C MADM, LIPA, CRP, BMP ####[facility] [address] [place] [address] [place] DARÍO 40.0 ng/mL Normal <=121.0 [facility] Comment on above: Performed By: #### C MADM, LIPA, CRP, BMP ####[facility] Nvxraxwdoi1282 [address] [place] TROP 0.032 ng/mL Normal <=0.034 [facility] Comment on above: Performed By: #### C MADM, LIPA, CRP, BMP ####[facility] Gpcplmajiz5549 [address] [place] CBC W MANUAL DIFFon 10-12-19 18 ACANTHOCYTES SLIGHT Normal [facility] Comment on above: Performed By: #### C IRENE ####[facility] [address] [place] [address] Roym Anisocytosis presence SLIGHT Normal [facility] Comment on above: Performed By: #### Pearl BONILLA ####[facility] [address] [place] [address] R[place] BAND # 0.0 103/ul Normal 0.0-0.3 [facility] Comment on above: Performed By: #### Pearl BONILLA ####[facility] [address] [place] [address] R[place] BAND % 0 % Normal 0-5 [facility] Comment on above: Performed By: #### Pearl BONILLA ####[facility] Q[address] [place] [address] [place] BASOM % 2.0 % Normal 0.2-2.0 [facility] Comment on above: Performed By: #### Pearl BONILLA ####[facility] [address] [place] [address] R[place] Basophils Auto #/vol (Bld) 0.31 103/ul Critically high 0.00-0.10 [facility] Comment on above: Performed By: #### Pearl BONILLA ####[facility] [address] [place] [address] Romy BLAST # Normal [facility] Comment on above: Performed By: #### Pearl BONILLA ####[facility] [address]sp[address] [place] [address] Romy BLAST % Normal [facility] Comment on above: Performed By: #### C BCMAN ####[facility] [address] [place] [id number] Eosinophils 0.63 103/ul Normal 0.00-0.70 [facility] Comment on above: Performed By: #### Pearl BONILLA ####[facility] Y[address]ptltftl[address] [place] [id number] Eosinophils/100 leukocytes 4.0 % Normal 0.9-7.0 [facility] Comment on above: Performed By: #### Pearl BONILLA ####[facility] [address] [place], [place] [address]omy Erythrocyte distribution width Auto Ratio (RBC) 12.7 % Normal 11.0-15.0 [facility] Comment on above: Performed By: #### Pearl BONILLA ####[facility] R[address] [place] [address] Romy Erythrocytes (RBC) 5.20 106/ul Normal 4.70-6.10 [facility] Comment on above: Performed By: #### Pearl BONILLA ####[facility] [address] [place], [place] [address] Erythrocytes (RBC) Normal [facility] Comment on above: Performed By: #### Pearl BONILLA ####[facility] [address] [place], [place] [address]omy GIANT PLATELETS SEEN Normal [facility] Comment on above: Performed By: #### Pearl BONILLA ####[facility] [address] [place], [place] [address] Hematocrit (HCT) 43.4 % Normal 42.0-54.0 [facility] Comment on above: Performed By: #### Pearl BONILLA ####[facility] [address] [place], [place] [address] Hemoglobin mass conc (Bld) 15.9 g/dL Normal 14.0-18.0 [facility] Comment on above: Performed By: #### Pearl BONILLA ####[facility] [address] [place], [place] [address] Lymphocytes 3.77 103/ul Normal 1.20-3.80 [facility] Comment on above: Performed By: #### Pearl BONILLA ####[facility] Cjz[address]rqtvt030[address] [place], [place] [address]Osmokx Romy Lymphocytes 0.16 103/ul Normal [facility] Comment on above: Performed By: #### Pearl BONILLA ####[facility] Gvpmfycknm7834 [place], [place] [address]Ghydww Romy Lymphocytes/100 leukocytes 1 % Normal [facility] Comment on above: Performed By: #### Pearl BONILLA ####[facility] Bgeimojgbl3681 [place], [place] [address]Vrmhpc Romy Lymphocytes/100 leukocytes 24.0 % Normal 20.5-60.0 [facility] Comment on above: Performed By: #### Pearl BONILLA ####[facility] [address] [place], [place] [address] MCH 30.6 pg Normal 25.9-34.0 [facility] Comment on above: Performed By: ###Soheila BONILLA ####[facility] [address]sneknhuem[address] [place] [address] MCHC mass conc (RBC) 36.6 g/dL Critically high 29.9-35.2 [facility] Comment on above: Performed By: #### Pearl BONILLA ####[facility] Xecewchinz0918 [place] [address] MCV 83.5 fL Normal 80.0-94.0 [facility] Comment on above: Performed By: #### Pearl BONILLA ####[facility] Otbfilijoh0710 [place], [place] [address]Jsnqxx Romy METAMYELOCYTE # Normal [facility] Comment on above: Performed By: #### Pearl BONILLA ####[facility] Jjibonkkng0905 [place], [place] [address]Humdxx Romy METAMYELOCYTE % Normal [facility] Comment on above: Performed By: #### Pearl BONILLA ####[facility] Kockmiuiic4246 [place] [address] MONOM# 1.41 103/ul Critically high 0.30-0.80 [facility] Comment on above: Performed By: #### C IRENE ####[facility] Sojphqyqly7595 [place], [place] [address]Jqsmcg Romy MONOM% 9.0 % Normal 1.7-12.0 [facility] Comment on above: Performed By: #### C IRENE ####[facility] Tbpyczzmvg9597 [place], [place] [address]Jfcjuw Romy MYELOCYTE # Normal [facility] Comment on above: Performed By: #### C IRENE ####[facility] Ayoqudvwxf8303 [place], [place] [address]Khhpww Romy MYELOCYTE % Normal [facility] Comment on above: Performed By: #### Pearl BONILLA ####[facility] Kyapllzfrw2853 [place], [place] [address]Ojwfwl Romy Platelet mean volume (PMV) 8.8 fL Critically low 9.5-13.5 [facility] Comment on above: Performed By: #### Pearl BONILLA ####[facility] Crqmqkthav[address]704 [place] [id number] Platelets 670 103/ul Critically high 150-450 [facility] Comment on above: Performed By: #### C IRENE ####[facility] L[address]fmgnwh8361 [place], [place] [address]Xtlkdj Romy SEG # 9.42 103/ul Critically high 1.40-6.50 [facility] Comment on above: Performed By: #### Pearl BONILLA ####[facility] Rfrqevzoql5146 [place] [address] Segmented Neutrophils/100 leukocytes 60.0 % Normal 43.0-75.0 [facility] Comment on above: Performed By: #### Pearl BONILLA ####[facility] Wedkuvmkhz5005 [place] [address] WBC (Leukocytes) 15.7 103/ul Critically high 4.0-11.0 [facility] Comment on above: Performed By: #### Pearl BONILLA ####[facility] Iplctspgta[address] [place] WBC (Leukocytes) Normal 4.0-11.0 [facility] Comment on above: Performed By: #### C BCMAN ####[facility] Njkmhsvtmy9534 [place] [address] CRPon 10-11-2017 C reactive protein (CRP) 0.9 mg/dL Normal <=1.0 [facility] Comment on above: Performed By: #### C MADM, LIPA, CRP, BMP ####[facility] Oytgxznkkn[address]28 [address] [place] LIPASEon 10-11-2017 Lipase 139.0 U/L Normal 23.0-300.0 [facility] Comment on above: Performed By: #### C MADM, LIPA, CRP, BMP ####[facility] [address] [place] [address] R[place] PROF CHEM 8 (BAS METB)on Anion gap 16.8 mmol/L Normal [facility] Comment on above: Performed By: #### C MADM, LIPA, CRP, BMP ####[facility] Thpaaagiah[address] BUN/Creatinine Ratio 22.4 mg/mg Normal [facility] Comment on above: Performed By: #### C MADM, LIPA, CRP, BMP ####[facility] Kwxbdadjim26[address] [place] Calcium 9.9 mg/dL Normal 8.4-10.2 [facility] Comment on above: Performed By: #### C MADM, LIPA, CRP, BMP ####[facility] Mlfbvifizz[address] [place] Chloride 97 mmol/L Critically low 98-107 [facility] Comment on above: Performed By: #### C MADM, LIPA, CRP, BMP ####[facility] Uhvhndrufl4925 [address] [place] CO2 26.0 mmol/L Normal 22.0-30.0 [facility] Comment on above: Performed By: #### C MADM, LIPA, CRP, BMP ####[facility] Ksofjbvemt026[address] [place] Creatinine 0.82 mg/dL Normal 0.66-1.25 [facility] Comment on above: Performed By: #### C MADM, LIPA, CRP, BMP ####[facility] Eygzyrioas7[address] [place] eGFR (non-black) mL/min/{1.73_m2} Normal >=60 [facility] Comment on above: Performed By: #### C MADM, LIPA, CRP, BMP ####[facility] Utkwhwvhhf3027 [address] [place] Glucose mass conc 323 mg/dL Critically high 74-106 [facility] Comment on above: Performed By: #### C MADM, LIPA, CRP, BMP ####[facility] Qvelnlhqwm5890 [address] [place] Potassium molar conc 3.9 mmol/L Normal 3.4-5.0 [facility] Comment on above: Performed By: #### C MADM, LIPA, CRP, BMP ####[facility] Jzyivprtgs8125 [address] [place] Sodium 136 mmol/L Critically low 137-145 [facility] Comment on above: Performed By: #### C MADM, LIPA, CRP, BMP ####[facility] Zdmqfzaenv1666 [address] [place] Urea nitrogen 18.0 mg/dL Normal 9.0-20.0 [facility] Comment on above: Performed By: #### C MADM, LIPA, CRP, BMP ####[facility] Rftswgllug[address] [place] XR CHEST 1 Von 10-11-2017 XR CHEST 1 V [address] [place] [address] Patient: CREDIT, BENIGNO W. Exam Date: 10/11/2017DOB: 1965 Gender:M : DR GONZALEZ MARKER Admission #: [id number] : Order #: [id number] HERE TO VIEW EXAM RADIOLOGY REPORT PROCEDURE: [...] Real M.D. on 10/11/2017 at 07:45 Normal [facility] CT CHEST WO CONTRASTon 04-10 CT CHEST [...] by:SHELBI Herediaigned by:Xin Ro MD04/10/17Final result Normal [facility] Flow Cytometryon 03-29-2017 Flow Cytometry [id number] Normal [facility] Comment on above: Result Comment: SEE SEPARATE REPORT[address] [address] Performed By: #### F LLE ####[address] [place] [address] [address] Discharge Summaryon 03-28-20 17 HIM IP Note OR [place] Normal [facility] APTTon 03-27-2017 aPTT 62.2 s High 21.3-31.3 [facility] Comment on above: Result Comment: [facility] [address] [place] [address] Performed By: #### P TT ####[address] [place] [address] [address] aPTT 60.0 s High 21.3-31.3 [facility] Comment on above: Result Comment: [facility] [address] [place] [address] Performed By: #### P TT ####[address] [place] [address] [address] Platelet Counton 03-27-2017 Platelets 508 10*3/uL High 140-450 [facility] Comment on above: Result Comment: [facility] [place] [address] Performed By: #### P LT ####[address] [place] [address] [address] APTTon 03-26-2017 aPTT 41.9 s High 21.3-31.3 [facility] Comment on above: Result Comment: [facility] [address] [place] [address] Performed By: #### P TT ####[address] [place] [address] [address] aPTT 34.1 s High 21.3-31.3 [facility] Comment on above: Result Comment: [facility] [address] [place] [address] Performed By: #### P TT ####[address] [place] [address] [address] aPTT 39.3 s High 21.3-31.3 [facility] Comment on above: Result Comment: [address] [address] Performed By: #### P TT ####[address] [place] [address] [address] Brain Natri. Peptideon 03-26 BNP 424 pg/mL High <300 [facility] Comment on above: Result Comment: Pro- BNP results cannot be compared to BNP results. Performed By: #### P T, BNP, CP, LIPR, CDP ####[address] [place] [address] [address] BNP Normal [facility] Comment on above: Result Comment: Pro- BNP Reference Range:Rule Out: <300G[place] Zone: Age <50 300-450 Age 50-75 300-900 Age >75 300-1800Usually represents mild to moderate HF but other cardiopulmonary causes cannot be ruled out.Rule In: Age <50 >450 Age 50-75 >900 Age >[address] [address] Performed By: #### P T, BNP, CP, LIPR, CDP ####[address] [place] [address] [address] CBC with Diffon 03-26-2017 Abs. Basophil 0.18 k/uL Normal 0.0-0.2 [facility] Comment on above: Performed By: #### P T, BNP, CP, LIPR, CDP ####[address] [place] [address] [address] Abs.Neutrophil (Seg) 11.81 k/uL High 1.8-7.7 [facility] Comment on above: Performed By: #### P T, BNP, CP, LIPR, CDP ####[address] [place] [address] [address] Basophils/100 WBC Auto (Bld) 1 % Normal [facility] Comment on above: Performed By: #### P T, BNP, CP, LIPR, CDP ####[address] [place] [address] [address] Blood morphology Normal Normal [facility] Comment on above: Result Comment: [address] [address] Performed By: #### P T, BNP, CP, LIPR, CDP ####[address] [place] [address] [address] Eosinophils 0.00 10*3/uL Normal 0.0-0.4 [facility] Comment on above: Performed By: #### P T, BNP, CP, LIPR, CDP ####[address] [place] [address] [address] Eosinophils/100 leukocytes 0 % Normal [facility] Comment on above: Performed By: #### P T, BNP, CP, LIPR, CDP ####[address] [place] [address] [address] Lymphocytes 4.48 10*3/uL Normal 1.0-4.8 [facility] Comment on above: Performed By: #### P T, BNP, CP, LIPR, CDP ####[address] [place] [address] [address] Lymphocytes/100 leukocytes 25 % Normal [facility] Comment on above: Performed By: #### P T, BNP, CP, LIPR, CDP ####[address] [place] [address] [address] Monocytes 1.43 10*3/uL High 0.1-0.8 [facility] Comment on above: Performed By: #### P T, BNP, CP, LIPR, CDP ####[address] [address] Monocytes/100 leukocytes 8 % Normal [facility] Comment on above: Performed By: #### P T, BNP, CP, LIPR, CDP ####[address] [place] [address] [address] Neutrophil (Seg) 66 % Normal [facility] Comment on above: Performed By: #### P T, BNP, CP, LIPR, CDP ####[address] [place] [address] [address] Erythrocyte distribution width Auto Ratio (RBC) 14.5 % Normal 12.5-15.4 [facility] Comment on above: Performed By: #### P T, BNP, CP, LIPR, CDP ####[address] [place] [address] [address] Erythrocytes (RBC) 5.28 10*6/uL Normal 4.5-5.9 [facility] Comment on above: Performed By: #### P T, BNP, CP, LIPR, CDP ####[address] [place] [address] [address] Hematocrit (HCT) 46.0 % Normal 41-53 [facility] Comment on above: Performed By: #### P T, BNP, CP, LIPR, CDP ####[address] [place] [address] [address] Hemoglobin mass conc (Bld) 16.3 g/dL Normal 13.5-17.5 [facility] Comment on above: Performed By: #### P T, BNP, CP, LIPR, CDP ####[address] [place] [address] [address] MCH 30.8 pg Normal 26-34 [facility] Comment on above: Performed By: #### P T, BNP, CP, LIPR, CDP ####[address] [address] MCHC mass conc (RBC) 35.4 g/dL Normal 31-37 [facility] Comment on above: Performed By: #### P T, BNP, CP, LIPR, CDP ####[address] [address] MCV 87.1 fL Normal 80-100 [facility] Comment on above: Performed By: #### P T, BNP, CP, LIPR, CDP ####[address] [address] Platelet mean volume (PMV) 7.3 fL Normal 6.0-12.0 [facility] Comment on above: Performed By: #### P T, BNP, CP, LIPR, CDP ####[address] [address] Platelets 460 10*3/uL High 140-450 [facility] Comment on above: Performed By: #### P T, BNP, CP, LIPR, CDP ####[address] [address] WBC (Leukocytes) 17.9 10*3/uL High 3.5-11.0 [facility] Comment on above: Performed By: #### P T, BNP, CP, LIPR, CDP ####[address] [address] Auto Diff Performed NOT REPORTED Normal [facility] Comment on above: Performed By: #### P T, BNP, CP, LIPR, CDP ####[address] [address] Erythrocyte morphology NOT REPORTED Normal [facility] Comment on above: Performed By: #### P T, BNP, CP, LIPR, CDP ####[address] [address] Platelets NOT REPORTED Normal [facility] Comment on above: Performed By: #### P T, BNP, CP, LIPR, CDP ####[address] [address] WBC Morphology NOT REPORTED Normal [facility] Comment on above: Performed By: #### P T, BNP, CP, LIPR, CDP ####[address] [address] Comp Metabolic Profon 2016 Alanine aminotransferase (ALT) 35 U/L Normal 5-41 [facility] [facility] Comment on above: Result Comment: SPEC IMEN SLIGHTLY HEMOLYZED, RESULTS MAY BE ADVERSELY AFFECTED. Performed By: #### P T, BNP, CP, LIPR, CDP ####[address] [address] Albumin 3.8 g/dL Normal 3.5-5.2 [facility] Comment on above: Performed By: #### P T, BNP, CP, LIPR, CDP ####[address] [address] Albumin/Globulin Ratio 1.2 {ratio} Normal 1.0-2.5 [facility] Comment on above: Performed By: #### P T, BNP, CP, LIPR, CDP ####[address] [address] Alkaline Phos 64 U/L Normal 40-129 [facility] Comment on above: Result Comment: SPEC IMEN SLIGHTLY HEMOLYZED, RESULTS MAY BE ADVERSELY AFFECTED. Performed By: #### P T, BNP, CP, LIPR, CDP ####[address] [address] Anion gap 13 mmol/L Normal 9-17 [facility] Comment on above: Performed By: #### P T, BNP, CP, LIPR, CDP ####[address] [place] [address] Aspartate aminotransferase (AST) 81 U/L High <40 [facility] Comment on above: Result Comment: SPEC IMEN SLIGHTLY HEMOLYZED, RESULTS MAY BE ADVERSELY AFFECTED. Performed By: #### P T, BNP, CP, LIPR, CDP ####[address] [address] Bilirubin Ql (U) 0.86 mg/dL Normal 0.3-1.2 [facility] Comment on above: Performed By: #### P T, BNP, CP, LIPR, CDP ####[address] [address] Calcium 8.9 mg/dL Normal 8.6-10.4 [facility] Comment on above: Performed By: #### P T, BNP, CP, LIPR, CDP ####[address] [address] Chloride 100 mmol/L Normal 98-107 [facility] Comment on above: Performed By: #### P T, BNP, CP, LIPR, CDP ####[address] [address] CO2 25 mmol/L Normal 20-31 [facility] Comment on above: Performed By: #### P T, BNP, CP, LIPR, CDP ####[address] [address] Creatinine 0.83 mg/dL Normal 0.70-1.20 [facility] Comment on above: Performed By: #### P T, BNP, CP, LIPR, CDP ####[address] [address] eGFR (non-black) mL/min/{1.73_m2} Normal >60 [facility] Comment on above: Performed By: #### P T, BNP, CP, LIPR, CDP ####[facility] [address] [place] [address] Glucose mass conc 203 mg/dL High 70-99 [facility] Comment on above: Performed By: #### P T, BNP, CP, LIPR, CDP ####[address] [place] [address] Potassium molar conc 4.5 mmol/L Normal 3.7-5.3 [facility] Comment on above: Result Comment: SPEC IMEN SLIGHTLY HEMOLYZED, RESULTS MAY BE ADVERSELY AFFECTED. Performed By: #### P T, BNP, CP, LIPR, CDP ####[facility] [address] [place] [address] Protein 7.1 g/dL Normal 6.4-8.3 [facility] Comment on above: Performed By: #### P T, BNP, CP, LIPR, CDP ####[facility] [address] [place] [address] Sodium 138 mmol/L Normal 135-144 [facility] Comment on above: Performed By: #### P T, BNP, CP, LIPR, CDP ####[facility] [address] [place] [address] Urea nitrogen 13 mg/dL Normal 6-20 [facility] Comment on above: Performed By: #### P T, BNP, CP, LIPR, CDP ####[facility] [address] [place] [address] (cont.) Normal [facility] Comment on above: Result Comment: Aver age GFR for 50-59 years old: 93 mL/min/1.73sq mChronic Kidney Disease: <60 mL/min/1.73sq mKidney failure: <15 mL/min/1.73sq meGFR calculated using average adult body mass. Additional eGFR calculator available at:http://www.Zipzoom.com/multiple_crcl_2012.htmThe [facility] [address] [place] [address] Performed By: #### P T, BNP, CP, LIPR, CDP ####[address] [address] BUN/CRE Ratio NOT REPORTED Normal 9-20 [facility] Comment on above: Performed By: #### P T, BNP, CP, LIPR, CDP ####[address] [address] Staging: NOT REPORTED Normal [facility] Comment on above: Performed By: #### P T, BNP, CP, LIPR, CDP ####[address] [address] Hemoglobin A1Con 03-26-2017 Glucose mass conc 143 mg/dL Normal [facility] Comment on above: Result Comment: The ADA and AACC recommend providing the estimated average glucose result to permit better patient understanding of their HBA1c result.[address] [place] [address] Performed By: #### G LYHGB ####[address] [address] Hemoglobin A1c/Hemoglobin.tota l mass fraction (Bld) 6.6 % High 4.0-6.0 [facility] Comment on above: Performed By: #### G LYHGB ####[address] [address] Lipid Profileon 03-26-2017 Cholesterol 150 mg/dL Normal <200 [facility] Comment on above: Result Comment: Chol esterol Guidelines: <200 Desirable 200-240 Borderline >240 Undesirable Performed By: #### P T, BNP, CP, LIPR, CDP ####[address] [address] Cholesterol to HDL Ratio 2.7 {ratio} Normal <5 [facility] Comment on above: Performed By: #### P T, BNP, CP, LIPR, CDP ####[address] [address] HDL Cholesterol 55 mg/dL Normal >40 [facility] Comment on above: Result Comment: HDL Guidelines: <40 Undesirable 40-59 Borderline >59 Desirable Performed By: #### P T, BNP, CP, LIPR, CDP ####[address] [address] LDL Cholesterol 77 mg/dL Normal 0-130 [facility] Comment on above: Result Comment: LDL Guidelines: <100 Desirable 100-129 Near to/above Desirable 130-159 Borderline >159 UndesirableDirect (measured) LDL and calculated LDL are not interchangeable tests. Performed By: #### P T, BNP, CP, LIPR, CDP ####[address] [address] Triglyceride 88 mg/dL Normal <150 [facility] Comment on above: Result Comment: Trig lyceride Guidelines: <150 Desirable 150- 199 Borderline 200-499 High >499 Very high Based on AHA Guidelines for fasting triglyceride, March 2012.[address] [place] [address] Performed By: #### P T, BNP, CP, LIPR, CDP ####[address] [address] Cholesterol in VLDL mass conc NOT REPORTED Normal 30 [facility] Comment on above: Performed By: #### P T, BNP, CP, LIPR, CDP ####[address] [address] PTon 03-26-2017 INR Coag RelTime (PPP) 1.0 {INR} Normal [facility] Comment on above: Result Comment: Ther apeutic Range: Moderate Anticoagulant Intensity: INR = 2.0-3.0 High Anticoagulant Intensity: INR = 2.5-3.5[facility] [address] [place] [address] [phone] Performed By: #### P T, BNP, CP, LIPR, CDP ####[facility] [address] [place], [place] [phone] Prothrombin time (PT) Coag time (PPP) 11.0 s Normal 9.4-12.6 [facility] Comment on above: Performed By: #### P T, BNP, CP, LIPR, CDP ####[facility] [address] [place], [place] [phone] Surgical Pathologyon 017 Surgical Pathology (NOTE)[id number] Y LABORATORIESCONSULTING PATHOLOGISTS [facility]ENTERANATOMIC [id number] [place] [address] [phone]: [phone] PATHOLOGY CONSULTATIONPatient Name: BENIGNO SANDERSONMR#: [id number] #[id number]/Josie Flannery CYTOMETRY REPORT Date Ordered: 03/27/2017 Status:Signed [...] CYTOCENTRIFUGE DIFFERENTIAL CELL COUNT:Peripheral Blood Lymphocytes 23% [place]/Hist 77%Flow cytometric immunophenotyping analysis is performed on peripheralblood following RBC lysis procedure. These cells are labeled bydirect, five color immunostaining procedure, and analyzed on a [id number] cytometer. % POSITIVE Target Cells RESULTS: (Lymphocytes)1. [...] 18. CD103 1 19. FMC7 12 20. Boone 8 21. Lambda 5 This test was developed and its performance characteristics determinedby [facility] Anatomic Pathology. It has notbeen cleared or [...] PERIPHERAL BLOOD SMEAR FOR FLOW CYTOMETRY Normal [facility] 03-[facility]-2017 aPTT 32.1 s High 21.3-31.3 [facility] Comment on above: Result Comment: [employer] [address] [place] [address] Performed By: #### P TT ####[address] [address] aPTT 31.5 s High 21.3-31.3 [facility] Comment on above: Result Comment: [facility] [employer] [address] [place] [address] Performed By: #### P TT ####[address] [address] aPTT 26.4 s Normal 21.3-31.3 [facility] Comment on above: Result Comment: [address] [place] [address] Performed By: #### C BC, PTT, TROPI ####[address] [address] CBCon 03-25-2017 Erythrocyte distribution width Auto Ratio (RBC) 14.6 % Normal 12.5-15.4 [facility] Comment on above: Performed By: #### C BC, PTT, TROPI ####[address] [address] Erythrocytes (RBC) 5.24 10*6/uL Normal 4.5-5.9 [facility] Comment on above: Performed By: #### C BC, PTT, TROPI ####[address] [address] Hematocrit (HCT) 44.4 % Normal 41-53 [facility] Comment on above: Performed By: #### C BC, PTT, TROPI ####[address] [address] Hemoglobin mass conc (Bld) 16.2 g/dL Normal 13.5-17.5 [facility] Comment on above: Performed By: #### C BC, PTT, TROPI ####[address] [address] MCH 31.0 pg Normal 26-34 [facility] Comment on above: Performed By: #### C BC, PTT, TROPI ####[address] [address] MCHC mass conc (RBC) 36.6 g/dL Normal 31-37 [facility] Comment on above: Performed By: #### C BC, PTT, TROPI ####[address] [address] MCV 84.7 fL Normal 80-100 [facility] Comment on above: Performed By: #### C BC, PTT, TROPI ####[facility] [address] [place] [address] Platelet mean volume (PMV) 7.1 fL Normal 6.0-12.0 [facility] Comment on above: Result Comment: [facility] [address] [place] [address] Performed By: #### C BC, PTT, TROPI ####[facility] [address] [place] [address] Platelets 542 10*3/uL High 140-450 [facility] Comment on above: Performed By: #### C BC, PTT, TROPI ####[facility] [address] [place] [address] WBC (Leukocytes) 16.6 10*3/uL High 3.5-11.0 [facility] Comment on above: Performed By: #### C BC, PTT, TROPI ####[facility] [address] [place] [address] ED Provider Noteon 7 HIM IP Note OR Monument Carver Normal [facility] History and Physicalon 03-25 HIM IP Note OR [place] Carver Normal [facility] Magnesiumon 03-25-2017 Magnesium 2.4 mg/dL Normal 1.6-2.6 [facility] Comment on above: Result Comment: [facility] [employer] [facility] [place] [address] Performed By: #### T ROPI, MG ####[address] [address] Troponinon 03-25-2017 Troponin I.cardiac mass conc Normal [facility] Comment on above: Result Comment: Refe rence Range: <0.03 Within reference range. 0.03-0.09 Possible myocardial damage.Repeat at appropriate intervals to rule out chronic elevation. >= 0.10 Indicative of myocardial damage.[facility] [address] [place] [address] Performed By: #### C BC, PTT, TROPI ####[facility] [address] [place] [address] Troponin T.cardiac mass conc 0.81 ng/mL Critically high <0.03 [facility] Comment on above: Result Comment: Trop onin T results cannot be compared to Troponin-I results.Previous Alert Value Reported Performed By: #### C BC, PTT, TROPI ####[facility] [address] [place] [address] Troponin I.cardiac mass conc Normal [facility] Comment on above: Result Comment: Refe rence Range: <0.03 Within reference range. 0.03-0.09 Possible myocardial damage.Repeat at appropriate intervals to rule out chronic elevation. >= 0.10 Indicative of myocardial damage.[facility] [employer] [address] [place] [address] Performed By: #### T ROPI, MG ####[address] [place] [address] Troponin T.cardiac mass conc 0.70 ng/mL Critically high <0.03 [facility] Comment on above: Result Comment: Trop onin T results cannot be compared to Troponin-I results. Performed By: #### T ROPI, MG ####[facility] [address] [place] [address] Troponin I.cardiac mass conc Normal [facility] Comment on above: Result Comment: Refe rence Range: <0.03 Within reference range. 0.03-0.09 Possible myocardial damage.Repeat at appropriate intervals to rule out chronic elevation. >= 0.10 Indicative of myocardial damage.[facility] [address] [place] [address] Performed By: #### T ROPI ####[facility] [address] [place] [address] Troponin T.cardiac mass conc 0.04 ng/mL High <0.03 [facility] Comment on above: Result Comment: Trop onin T results cannot be compared to Troponin-I results. Performed By: #### T TREEI ####[facility] [address] [place], [place] [id number] XR CHEST PORTABLEon 03-25-20 XR CHEST PORTABLE EXAMINATION:SINGLE V IEW OF THE CHEST03/24/2017 11:24 pmCOMPARISON:3 hours agoHISTORY:ORDERING SYSTEM PROVIDED HISTORY: chest painTECHNOLOGIST PROVIDED HISTORY:Reason for exam:->chest painFINDINGS:The lungs are without acute focal process. There is no effusion orpneumothorax. The cardiomediastinal silhouette is without acute process. Theosseous structures are without acute process.IMPRESSION: No acute process.Interpreted by:SHELBI Aponteigned by:Stanley Azar MD03/24/17Final result Normal [facility] APTTon 03-24-2017 aPTT 25.2 s Normal 23.2-34.4 [facility] Comment on above: Result Comment: Perf ormed at [address] [place] [address] [phone] Performed By: #### P T, PTT, BNP, BMP, TROPI, CDP ####[address] [place] [address] Basic Metabolic Profon 03-24 (cont.) Normal [facility] Comment on above: Result Comment: Aver age GFR for 50-59 years old: 93 mL/min/1.73sq mChronic Kidney Disease: <60 mL/min/1.73sq mKidney failure: <15 mL/min/1.73sq meGFR calculated using average adult body mass. Additional eGFR calculator available at:http://www.Zipzoom.[employer]/multiple_crcl_2012.htm Performed By: #### P T, PTT, BNP, BMP, TROPI, CDP ####[address] [place] [address] Anion gap 11 mmol/L Normal 9-17 [facility] Comment on above: Performed By: #### P T, PTT, BNP, BMP, TROPI, CDP ####[address] [place] [address] BUN/CRE Ratio 17 Normal 9-20 [facility] Comment on above: Performed By: #### P T, PTT, BNP, BMP, TROPI, CDP ####[address] [place] [address] Calcium 9.3 mg/dL Normal 8.6-10.4 [facility] Comment on above: Performed By: #### P T, PTT, BNP, BMP, TROPI, CDP ####[address] [place] [address] Chloride 94 mmol/L Low 98-107 [facility] Comment on above: Performed By: #### P T, PTT, BNP, BMP, TROPI, CDP ####[address] [place] [address] CO2 29 mmol/L Normal 20-31 [facility] Comment on above: Performed By: #### P T, PTT, BNP, BMP, TROPI, CDP ####[address] [place] [address] Creatinine 0.92 mg/dL Normal 0.70-1.20 [facility] Comment on above: Performed By: #### P T, PTT, BNP, BMP, TROPI, CDP ####[address] [place] [address] eGFR (non-black) mL/min/{1.73_m2} Normal >60 [facility] Comment on above: Performed By: #### P T, PTT, BNP, BMP, TROPI, CDP ####[address] [place] [address] Glucose mass conc 212 mg/dL High 70-99 [facility] Comment on above: Performed By: #### P T, PTT, BNP, BMP, TROPI, CDP ####[address] , [place] [phone] Potassium molar conc 4.3 mmol/L Normal 3.7-5.3 [facility] Comment on above: Performed By: #### P T, PTT, BNP, BMP, TROPI, CDP ####[address] [place] [address] Sodium 134 mmol/L Low 135-144 [facility] Comment on above: Performed By: #### P T, PTT, BNP, BMP, TROPI, CDP ####[address] [place] [address] Staging: Normal [facility] Comment on above: Result Comment: Stag e 1: Some kidney damage normal GFRStage 2: Mild kidney damage GFR 60-89Stage 3: Moderate kidney damage GFR 30-59Stage 4: Severe kidney damage GFR 15-29Stage 5: Severe kidney damage GFR <15ESRD - chronic treatment by dialysis or transplantPerformed at [address] [place] [address] Performed By: #### P T, PTT, BNP, BMP, TROPI, CDP ####[address] [place] [address] Urea nitrogen 16 mg/dL Normal 6-20 [facility] Comment on above: Performed By: #### P T, PTT, BNP, BMP, TROPI, CDP ####[address] [place] [address] Brain Natri. Peptideon 03-24 BNP Normal [facility] Comment on above: Result Comment: Pro- BNP Reference Range:Rule Out: <300Grey Zone: Age <50 300-450 Age 50-75 300-900 Age >75 300-1800Usually represents mild to moderate HF but other cardiopulmonary causes cannot be ruled out.Rule In: Age <50 >450 Age 50-75 >900 Age >75 >1800Performed at [address] [place] [address] Performed By: #### P T, PTT, BNP, BMP, TROPI, CDP ####[address] [place] [address] BNP pg/mL Normal <300 [facility] Comment on above: Result Comment: Pro- BNP results cannot be compared to BNP results. Performed By: #### P T, PTT, BNP, BMP, TROPI, CDP ####[address] [place] [address] CBC with Diffon 03-24-2017 Abs. Basophil 0.20 k/uL Normal 0.0-0.2 [facility] Comment on above: Performed By: #### P T, PTT, BNP, BMP, TROPI, CDP ####[address] [place] [address] Abs.Neutrophil (Seg) 12.93 k/uL High 1.8-7.7 [facility] Comment on above: Performed By: #### P T, PTT, BNP, BMP, TROPI, CDP ####[address] [place] [address] Basophils/100 WBC Auto (Bld) 1 % Normal [facility] Comment on above: Performed By: #### P T, PTT, BNP, BMP, TROPI, CDP ####[address] [place] [address] Blood morphology Platelet scan shows Increased Platelets Normal [facility] Comment on above: Result Comment: Perf ormed at [address] [place] [address] Performed By: #### P T, PTT, BNP, BMP, TROPI, CDP ####[address] [place] [address] Eosinophils 0.00 10*3/uL Normal 0.0-0.4 [facility] Comment on above: Performed By: #### P T, PTT, BNP, BMP, TROPI, CDP ####[address] , [place] [address] Eosinophils/100 leukocytes 0 % Normal [facility] Comment on above: Performed By: #### P T, PTT, BNP, BMP, TROPI, CDP ####[address] , [place] [address] Lymphocytes 4.51 10*3/uL Normal 1.0-4.8 [facility] Comment on above: Performed By: #### P T, PTT, BNP, BMP, TROPI, CDP ####[address] , [place] [address] Lymphocytes/100 leukocytes 23 % Normal [facility] Comment on above: Performed By: #### P T, PTT, BNP, BMP, TROPI, CDP ####[address] , [place] [address] Monocytes 1.96 10*3/uL High 0.0-1.0 [facility] Comment on above: Performed By: #### P T, PTT, BNP, BMP, TROPI, CDP ####[address] , [place] [address] Monocytes/100 leukocytes 10 % Normal [facility] Comment on above: Performed By: #### P T, PTT, BNP, BMP, TROPI, CDP ####[address] , [place] [address] Neutrophil (Seg) 66 % Normal [facility] Comment on above: Performed By: #### P T, PTT, BNP, BMP, TROPI, CDP ####[address] , [facility]83 Erythrocyte distribution width Auto Ratio (RBC) 13.6 % Normal 12.1-15.2 [facility] Comment on above: Performed By: #### P T, PTT, BNP, BMP, TROPI, CDP ####[address] [place] [address] Erythrocytes (RBC) 5.28 10*6/uL Normal 4.5-5.9 [facility] Comment on above: Performed By: #### P T, PTT, BNP, BMP, TROPI, CDP ####[address] , [facility]83 Hematocrit (HCT) 44.9 % Normal 41-53 [facility] Comment on above: Performed By: #### P T, PTT, BNP, BMP, TROPI, CDP ####[address] , [facility]83 Hemoglobin mass conc (Bld) 16.0 g/dL Normal 13.5-17.0 [facility] Comment on above: Performed By: #### P T, PTT, BNP, BMP, TROPI, CDP ####[address] , [facility]83 MCH 30.3 pg Normal 26-34 [facility] Comment on above: Performed By: #### P T, PTT, BNP, BMP, TROPI, CDP ####[address] [place] [address] MCHC mass conc (RBC) 35.6 g/dL Normal 31-37 [facility] Comment on above: Performed By: #### P T, PTT, BNP, BMP, TROPI, CDP ####[address] , [facility]83 MCV 85.1 fL Normal 80-100 [facility] Comment on above: Performed By: #### P T, PTT, BNP, BMP, TROPI, CDP ####[address] , [facility]83 Platelet mean volume (PMV) 7.9 fL Normal 6.0-12.0 [facility] Comment on above: Performed By: #### P T, PTT, BNP, BMP, TROPI, CDP ####[address] [place] [address] Platelets 555 10*3/uL High 140-450 [facility] Comment on above: Performed By: #### P T, PTT, BNP, BMP, TROPI, CDP ####[address] [place] [address] WBC (Leukocytes) 19.6 10*3/uL High 3.5-11.0 [facility] Comment on above: Performed By: #### P T, PTT, BNP, BMP, TROPI, CDP ####[address] [place] [address] Auto Diff Performed NOT REPORTED Normal [facility] Comment on above: Performed By: #### P T, PTT, BNP, BMP, TROPI, CDP ####[address] [place] [address] Erythrocyte morphology NOT REPORTED Normal [facility] Comment on above: Performed By: #### P T, PTT, BNP, BMP, TROPI, CDP ####[address] [place] [address] Platelets NOT REPORTED Normal [facility] Comment on above: Performed By: #### P T, PTT, BNP, BMP, TROPI, CDP ####[address] [place] [address] WBC Morphology NOT REPORTED Normal [facility] Comment on above: Performed By: #### P T, PTT, BNP, BMP, TROPI, CDP ####[address] [place] [address] CTA CHEST WITH CONTRASTon CTA CHEST WITH CONTRAST FINAL REPORTEXAM: CTA CHEST WITH CONTRASTHISTORY: midsternal chest pain, SOB, h/o 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 Interpreted by:SHELBI Bermudezigned by:Carolyn Reyes MD03/24/17Finpr result Normal [facility] ED Noteon 03-24-2017 HIM IP Note OR [place] Normal [facility] HIM IP Note OR [place] Carver Normal [facility] HIM IP Note OR [place] Carver Normal [facility] HIM IP Note OR [place] Carver Normal [facility] ED Provider Noteon 7 HIM IP Note OR [place] Carver Normal [facility] PTon 03-24-2017 INR Coag RelTime (PPP) 1.0 {INR} Normal 0.9-1.2 [facility] Comment on above: Result Comment: Perf ormed at [address] [place] [address] [phone] Performed By: #### P T, PTT, BNP, BMP, TROPI, CDP ####[address] [place] [address] Prothrombin time (PT) Coag time (PPP) 10.1 s Normal 9.7-12.2 [facility] Comment on above: Performed By: #### P T, PTT, BNP, BMP, TROPI, CDP ####[address] [place] [address] Troponinon 03-24-2017 Troponin I.cardiac mass conc Normal [facility] Comment on above: Result Comment: Refe rence Range: <0.03 Within reference range. 0.03-0.09 Possible myocardial damage.Repeat at appropriate intervals to rule out chronic elevation. >= 0.10 Indicative of myocardial damage.Performed at [address] [place], [place] [id number] [phone] Performed By: #### P T, PTT, BNP, BMP, TROPI, CDP ####[address] [place] [address] Troponin T.cardiac mass conc ug/L Normal <0.03 [facility] Comment on above: Result Comment: Trop onin T results cannot be compared to Troponin-I results. Performed By: #### P T, PTT, BNP, BMP, TROPI, CDP ####[address] , [place] [id number] XR CHEST PORTABLEon 03-24-20 17 XR CHEST [...] by:SHELBI Bermudezigned by:Carolyn Reyes MD03/24/17Final result Normal [facility] Encounters Encounter Date Encounter Type Care Provider Facility Start: 09-20-2022 End: 09-21-2022 ambulatory Cheng Gonsalez MD Facility:[facility] Start: 08-26-2022 End: 08-27-2022 ambulatory Julianne Blevins Facility:[facility] Start: 10-18-2021 End: 10-19-2021 ambulatory Julianne Blevins Facility:[facility] Start: 12-18-2017 End: 12-19-2017 Ambulatory CHENG Ab [facility] Start: 12-13-2017 End: 12-14-2017 Ambulatory CHENG Ab GONSALEZ [facility] Start: 12-11-2017 End: 12-12-2017 Ambulatory CHENG Ab GONSALEZ [facility] Start: 11-29-2017 End: 11-30-2017 Ambulatory CHENG Ab GONSALEZ [facility] Start: 11-13-2017 End: 11-14-2017 Ambulatory CHENG Ab GONSALEZ [facility] Start: 11-08-2017 End: 11-09-2017 Ambulatory CHENG Ab [facility] Start: 11-06-2017 End: 11-07-2017 Ambulatory CHENG GONSALEZ [facility] Start: 11-03-2017 End: 11-04-2017 Ambulatory [facility]ULIANNE BLEVINS [facility] Start: 11-01-2017 End: 11-02-2017 Ambulatory JULIANNE BLEVINS [facility] Start: 10-11-2017 End: 10-11-2017 Ambulatory CARLOS BUSTILLOS Facility:[facility] Start: 08-07-2017 Ambulatory FILI MARTINEZ Facilit y:[facility] Start: 04-10-2017 End: 04-11-2017 Ambulatory ISMAEL NGUYỄNBAKARI [facility] Start: 03-25-2017 End: 03-28-2017 [facility] Start: 03-24-2017 End: 03-25-2017 Emergency department patient visit RYAN MOSS [facility] Procedures Date Procedure Procedure Detail [...] Unknown 2021 Private Health Insurance 1965 Unknown [id number] 1965 Unknown [id number] 1965 Unknown [id number] 1960 Private Health Insurance [id number] 1960 Self-pay [id number] Clinical Note 08-26-2022 Note Date & Type Note Facility 08-26-2022 Note Patient Education Ma terials Name: Benigno Sanderson Current Date: 08/26/2022 13:48:04 [facility] : 1965 The following sheet(s) are [...] Don't delay. You (more content not included)... [facility] Summary Purpose Family History No Family History [...] and content) DATE CREATED AUTHOR 12/14/2017 [facility] DATE CREATED AUTHOR AUTHOR'S ORGANIZ ATION 12/19/2017 [facility] DATE CREATED AUTHOR AUTHOR'S ORGANIZ ATION 12/20/2017 [facility] DATE CREATED AUTHOR AUTHOR'S ORGANIZ ATION 09/22/2022 [facility] FOR RECORDS PERTAINING TO PATIENTS WHO ARE [...] BE BASED ON THE PRIMARY CLINICAL RECORDS. [facility] provides no warranty or guarantee of the accuracy or completeness of information in this document.
== END 2023-12-05 13:41 | disposition home or self-care (01) ==
LOC: EC 13:40
PROVIDERS: Family Provider Family Medicine; PCP Family Medicine; Visit Provider Physician Assistant
DX: S92.012D Displaced fracture of body of left calcaneus, subsequent encounter for fracture with routine healing (principal)
CPT/HCPCS: 73650

== ENCOUNTER 2023-12-20 09:39 | Outpatient (OUT) | payer OTHER, SELFPAY ==
--- NOTE | 2023-12-20 | XR_ITS ---
The [address] [address] Patient Name: JAM JAY MRN: [id number] date: 1965 Sex: M Assigned Patient Location: Current Patient Location: Accession/Order Number: [id number] Exam Date: 12/20/2023 09:40 Report Date: 12/20/2023 10:35 At the request of: ARELIS SHELL Procedure: XR calcaneus LT min 2V PROCEDURE: XR calcaneus LT min 2V COMPARISON: 12/05/2023 HISTORY: LEFT CALCANEUS PAIN FINDINGS: BONES:Stable complex calcaneus fracture with slight increase in sclerosis consistent with interval healing. Minimal enthesopathic spurring Achilles insertion SOFT TISSUES:Negative. No visible soft tissue swelling. EFFUSION:None visible. OTHER: Negative. XR/XR calcaneus LT min 2V IMPRESSION: Stable healing complex calcaneus fracture Electronically authenticated by: HEATHER REAL Date: 12/20/2023 10:35
--- OUTSIDE RECORDS SUMMARY | 2023-12-20 09:53 | XMS_ITS | CCD ---
Author Organization [facility] CliniSyor Care Team Providers Care Agricultural Sciences Professor Name Role Phone MICHELLE FILI Unavailable Unavailable [...] Propensity to adverse reactions to drug (disorder) [facility] Repository Problems Active Problems Problem Classification Problem Date Documented Date Episodic/Chronic Acute myocardial infarction (1 source) Non-ST elevation (NSTEMI) myocardial infarction; Translations: [Non-ST elevation (NSTEMI) myocardial infarction] Onset: 03-25-2017 Chronic Coronary atherosclerosis and other heart disease (2 sources) Atherosclerotic heart disease of [place] coronary artery without angina pectoris; Translations: [Acute ischemic heart disease, unspecified] Onset: 03-25-2017 Chronic Coronary atherosclerosis and other heart disease (1 source) Presence of coronary angioplasty implant and graft; Translations: [PRESENCE COR ANGPLSTY IMPLANT AND GRAFT] Onset: 10-13-2017 Episodic Deficiency and other anemia (1 source) Hereditary spherocytosis; Translations: [HEREDITARY SPHEROCYTOSIS] Onset: 10-13-2017 Chronic Other aftercare (1 source) retirement (current) use of aspirin; Translations: [GROUP HOME CURRENT USE OF ASPIRIN] Onset: 10-13-2017 Episodic Other liver diseases (1 source) Abnormal levels of other serum enzymes; Translations: [ABNORMAL LEVELS OTHER SERUM ENZYMES] Onset: 10-13-2017 Episodic Unclassified (1 source) 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 Stress ECG: Sinus tachycardia. The [...] Electronically Signed in Other Vendor System) Normal [facility] Cardiology Office/Clinic Not suzi 08-26-2022 Cardiology Office/Clinic [...] LCx, diffuse 10-20% RCA, EF 50%, 03/27/17 ([facility], [place], [place]). i. PCI with 5.0 x 18 mm BMS to pLAD, 03/27/17 ([facility], [place], [place]). B. Cardiac cath showed normal LM, [...] axes/intervals, no ST-T changes (Dr. Cheng Gonsalez, [place], [place]) (my independent interpretation of a test reported by another physician) Echocardiography > 03/27/17: EF 55% ([place], [place]) > 11/03/17: EF 60% ([place], [place]) Stress Testing > 11/29/19: (Lexiscan MPI) No ischemic ECG changes, MPI showed a possible small area of apical ischemia, EF 74% > 06/28/21: (Exercise MPI) Von 7:17, 9.2 METs, 87% APMHR, indeterminate ECG response (baseline ST-T changes), normal MPI, EF 62% Outside Lab Results > 08/12/22: (CBC) WBC 15.5, Hgb 18.6, Plt 460 ([place] > 08/12/22: (HbA1c) HbA1c 8.8% (Dr. Cheng Gonsalez, [place], [place]) > 08/12/22: (Lipids) TC 165, TG 133, HDL 52, LDL 86 ([place]. [place] Physical Exam Vitals & Measurements HR: [...] Service Excluding time for services reported/billed separately Npnb-[id number] encounter with patient: 10 Prep, documentation, coordination [...] Metoprolol Ta (more content not included)... Normal [facility] Cardiology Office/Clinic Not suzi 10-18-2021 Cardiology Office/Clinic [...] LCx, diffuse 10-20% RCA, EF 50%, 03/27/17 ([facility], [place], [place]). i. PCI with 5.0 x 18 mm BMS to pLAD, 03/27/17 ([place], [place]). B. Cardiac cath showed normal LM, widely patent LAD stents, 30% pD1, 30% mLCx, normal RCA, and EF 55-60%, 10/12/17. 2. Diabetes mellitus type 2. 3. Systemic arterial hypertension. 4. Hereditary spherocytosis. A. Status post splenectomy. B. Chronic thrombocytosis. 5. History of tobacco use. A. Previously quit smoking. Cardiac Testing Echocardiography > 03/27/17: EF 55% ([place], [place]) > 11/03/17: EF 60% ([place], [place]) Stress Testing > 11/29/19: (Lexiscan MPI) [...] Julianne Blevins DO 10/18/21 11:01 EDT Normal [facility] Progress Noteon 11-07-2017 HIM IP Note OR Accounts Payable Technician Normal [facility] Progress Noteon 11-03-2017 HIM IP Note OR Accounts Payable Technician Normal [facility] Progress Noteon 11-01-2017 HIM IP Note OR Accounts Payable Technician [facility] CARDIAC HIRAL 3-6-9on 18-2 018 CKMB 1.61 ng/mL Normal <=2.37 [facility] Comment on above: Performed By: #### C MREP ####[facility] Ozguhsfuqf380[address] [place] Creatine kinase (CK) 131 U/L Normal 55-170 [facility] Comment on above: Performed By: #### C MREP ####[facility] [address] [place] [address] [place] INR Coag RelTime (Bld) SEE BELOW Normal [facility] Comment on above: Result Comment: <0.0 34 ng/ml NEGATIVE 0.034-0.119 INDETERMINATE 0.120 AMI CUT OFF Performed By: #### C MREP ####[facility] [address] [place] [address] [place] TROP 0.060 ng/mL Critically high <=0.034 [facility] Comment on above: Result Comment: test repeated critical value verified Performed By: #### C MREP ####[facility] [address] [place] [address] CARDIAC HIRAL ADMITon 018 CKMB 1.59 ng/mL Normal <=2.37 [facility] Comment on above: Performed By: #### C MADM, LIPA, CRP, BMP ####[facility] [address] [place] [address] Creatine kinase (CK) 153 U/L Normal 55-170 [facility] Comment on above: Performed By: #### C MADM, LIPA, CRP, BMP ####[facility] Oaawrbhfss[address] [place] INR Coag RelTime (Bld) SEE BELOW Normal [facility] Comment on above: Result Comment: <0.0 34 ng/ml NEGATIVE 0.034-0.119 INDETERMINATE 0.120 AMI CUT OFF Performed By: #### C MADM, LIPA, CRP, BMP ####[facility] [address] [place] [address] [place] DARÍO 40.0 ng/mL Normal <=121.0 [facility] Comment on above: Performed By: #### C MADM, LIPA, CRP, BMP ####[facility] Ziakalfleh7070 [address] [place] TROP 0.032 ng/mL Normal <=0.034 [facility] Comment on above: Performed By: #### C MADM, LIPA, CRP, BMP ####[facility] Ehisuqdmdu9061 [address] [place] CBC W MANUAL DIFFon 10-12-19 18 ACANTHOCYTES SLIGHT Normal [facility] Comment on above: Performed By: #### C IRENE ####[facility] [address] [place] [address] [place] Anisocytosis presence SLIGHT Normal [facility] Comment on above: Performed By: #### Pearl BONILLA ####[facility] [address] [place] [address] R[place] BAND # 0.0 103/ul Normal 0.0-0.3 [facility] Comment on above: Performed By: #### Pearl BONILLA ####[facility] [address] [place] [address] R[place] BAND % 0 % Normal 0-5 [facility] Comment on above: Performed By: #### Pearl BONILLA ####[facility] [address] [place] [address] [place] BASOM % 2.0 % Normal 0.2-2.0 [facility] Comment on above: Performed By: #### Pearl BONILLA ####[facility] Znj[address] [place] [address] [place] Basophils Auto #/vol (Bld) 0.31 103/ul Critically high 0.00-0.10 [facility] Comment on above: Performed By: #### Pearl BONILLA ####[facility] [address] [place] [address] Romy BLAST # Normal [facility] Comment on above: Performed By: #### Pearl BONILLA ####[facility] [address] [place] [address] Romy BLAST % Normal [facility] Comment on above: Performed By: #### C BCMAN ####[facility] [address] [place] [id number] Eosinophils 0.63 103/ul Normal 0.00-0.70 [facility] Comment on above: Performed By: #### Pearl BONILLA ####[facility] Av[address]pq[address] [place] [id number] Eosinophils/100 leukocytes 4.0 % Normal 0.9-7.0 [facility] Comment on above: Performed By: #### Pearl BONILLA ####[facility] [address] [place], [place] [address] Erythrocyte distribution width Auto Ratio (RBC) 12.7 % Normal 11.0-15.0 [facility] Comment on above: Performed By: #### Pearl BONILLA ####[facility] Al[address] [place] [address] [place] Erythrocytes (RBC) 5.20 106/ul Normal 4.70-6.10 [facility] Comment on above: Performed By: #### Pearl BONILLA ####[facility] [address] [place], [place] [id number] Erythrocytes (RBC) Normal [facility] Comment on above: Performed By: #### Pearl BONILLA ####[facility] [address] [place], [place] [id number] GIANT PLATELETS SEEN Normal [facility] Comment on above: Performed By: #### Pearl BONILLA ####[facility] [address] [place], [place] [address] Hematocrit (HCT) 43.4 % Normal 42.0-54.0 [facility] Comment on above: Performed By: #### Pearl BONILLA ####[facility] [address] [place], [place] [address] Hemoglobin mass conc (Bld) 15.9 g/dL Normal 14.0-18.0 [facility] Comment on above: Performed By: #### Pearl BONILLA ####[facility] I[address] [place], [place] [address] Lymphocytes 3.77 103/ul Normal 1.20-3.80 [facility] Comment on above: Performed By: #### Pearl BONILLA ####[facility] [address]x48[address] [place], [place] [address]Ftbtch R[place] Lymphocytes 0.16 103/ul Normal [facility] Comment on above: Performed By: #### Pearl BONILLA ####[facility] [address]ts[address]ft1020 [place], [place] [address]Tjbeec R[place] Lymphocytes/100 leukocytes 1 % Normal [facility] Comment on above: Performed By: #### Pearl BONILLA ####[facility] Vmitesnyai3172 [place], [place] [address]Evhuhn [place] Lymphocytes/100 leukocytes 24.0 % Normal 20.5-60.0 [facility] Comment on above: Performed By: #### Pearl BONILLA ####[facility] [address] [place], [place] [address] MCH 30.6 pg Normal 25.9-34.0 [facility] Comment on above: Performed By: ###Soheila BONILLA ####[facility] O[address]ircyjo[address] [place] [id number] MCHC mass conc (RBC) 36.6 g/dL Critically high 29.9-35.2 [facility] Comment on above: Performed By: #### Pearl BONILLA ####[facility] T[address]lwrc[address] [place] [address] MCV 83.5 fL Normal 80.0-94.0 [facility] Comment on above: Performed By: #### Pearl BONILLA ####[facility] Naoekbbmnn0951 [place], [place] [address]Rjnofa Romy METAMYELOCYTE # Normal [facility] Comment on above: Performed By: #### Pearl BONILLA ####[facility] Irwkbcsgmt9668 [place], [place] [address]Bmaoyd Romy METAMYELOCYTE % Normal [facility] Comment on above: Performed By: #### Pearl BONILLA ####[facility] Ex[address]jxau[address] [place] [address] MONOM# 1.41 103/ul Critically high 0.30-0.80 [facility] Comment on above: Performed By: #### C IRENE ####[facility] Ecbhhpvbxx4332 [place], [place] [address]Ywwebt Romy MONOM% 9.0 % Normal 1.7-12.0 [facility] Comment on above: Performed By: #### C IRENE ####[facility] S[address]xeolywfj5065 [place], [place] [address]Qepvye [place] MYELOCYTE # Normal [facility] Comment on above: Performed By: #### C IRENE ####[facility] Wfeemfzlnm3760 [place], [place] [address]Jugugi R[place] MYELOCYTE % Normal [facility] Comment on above: Performed By: #### Pearl BONILLA ####[facility] Plxpqlbgle2575 [place], [place] [address]Akkffu R[place] Platelet mean volume (PMV) 8.8 fL Critically low 9.5-13.5 [facility] Comment on above: Performed By: #### Pearl BONILLA ####[facility] Dsacvdmaqr4513 [place] [id number] Platelets 670 103/ul Critically high 150-450 [facility] Comment on above: Performed By: #### C IRENE ####[facility] Xvazegagfo4403 [place], [place] [address]Iounxh [place] SEG # 9.42 103/ul Critically high 1.40-6.50 [facility] Comment on above: Performed By: #### Pearl BONILLA ####[facility] Ikz[address]iebja8[address] [place] [id number] Segmented Neutrophils/100 leukocytes 60.0 % Normal 43.0-75.0 [facility] Comment on above: Performed By: #### Pearl BONILLA ####[facility] Jzcrmyeixz8102 [place] [address] WBC (Leukocytes) 15.7 103/ul Critically high 4.0-11.[address] [facility] Comment on above: Performed By: #### Pearl BONILLA ####[facility] Jjbospswgw6668 [address] [place] WBC (Leukocytes) Normal 4.0-11.0 [facility] Comment on above: Performed By: #### C BCMAN ####[facility] Pkgvpsqvtx3916 [place] [address] CRPon 10-11-2017 C reactive protein (CRP) 0.9 mg/dL Normal <=1.0 [facility] Comment on above: Performed By: #### C MADM, LIPA, CRP, BMP ####[facility] Hkgwoygbbv7060 [address] [place] LIPASEon 10-11-2017 Lipase 139.0 U/L Normal 23.0-300.0 [facility] Comment on above: Performed By: #### C MADM, LIPA, CRP, BMP ####[facility] [address] [place] [address] [place] PROF CHEM 8 (BAS METB)on Anion gap 16.8 mmol/L Normal [facility] Comment on above: Performed By: #### C MADM, LIPA, CRP, BMP ####[facility] Eeihxqaerk[address] BUN/Creatinine Ratio 22.4 mg/mg Normal [facility] Comment on above: Performed By: #### C MADM, LIPA, CRP, BMP ####[facility] Vbeszacbkj7698 [address] [place] Calcium 9.9 mg/dL Normal 8.4-10.2 [facility] Comment on above: Performed By: #### C MADM, LIPA, CRP, BMP ####[facility] Dzmogitrrf7831 [address] [place] Chloride 97 mmol/L Critically low 98-107 [facility] Comment on above: Performed By: #### C MADM, LIPA, CRP, BMP ####[facility] Zqtppudqtu9567 [address] [place] CO2 26.0 mmol/L Normal 22.0-30.0 [facility] Comment on above: Performed By: #### C MADM, LIPA, CRP, BMP ####[facility] Igpffjxhgh8238 [address] [place] Creatinine 0.82 mg/dL Normal 0.66-1.25 [facility] Comment on above: Performed By: #### C MADM, LIPA, CRP, BMP ####[facility] Hcgvxkzmdu6719 [address] [place] eGFR (non-black) mL/min/{1.73_m2} Normal >=[address] [facility] Comment on above: Performed By: #### C MADM, LIPA, CRP, BMP ####[facility] Uaidbnishz2997 [address] [place] Glucose mass conc 323 mg/dL Critically high 74-[address] [facility] Comment on above: Performed By: #### C MADM, LIPA, CRP, BMP ####[facility] Aavxtrdliy1585 [address] [place] Potassium molar conc 3.9 mmol/L Normal 3.4-5.0 [facility] Comment on above: Performed By: #### C MADM, LIPA, CRP, BMP ####[facility] Ravfdadvve3487 [address] [place] Sodium 136 mmol/L Critically low 137-145 [facility] Comment on above: Performed By: #### C MADM, LIPA, CRP, BMP ####[facility] Dqsubseedv3836 [address] [place] Urea nitrogen 18.0 mg/dL Normal 9.0-20.0 [facility] Comment on above: Performed By: #### C MADM, LIPA, CRP, BMP ####[facility] Whlwcrpvcf6501 [address] [place] XR CHEST 1 Von 10-11-2017 XR CHEST 1 V [address] [place] [address] Patient: CREDIT, BENIGNO W. Exam Date: 10/11/2017DOB: 1965 Gender:M : DR GONZALEZ MARKER Admission #: [id number] : Order #: [id number] HERE TO VIEW EXAM RADIOLOGY REPORT PROCEDURE: [...] Real M.D. 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 Normal [facility] APTTon 03-27-2017 aPTT 62.2 s High 21.3-31.3 [facility] Comment on above: Result Comment: [facility] [address] [place] [address] Performed By: #### P TT ####[address] [address] aPTT 60.0 s High 21.3-31.3 [facility] Comment on above: Result Comment: [facility] [address] [place] [address] Performed By: #### P TT ####[address] [address] Platelet Counton 03-27-2017 Platelets 508 10*3/uL High 140-450 [facility] Comment on above: Result Comment: [facility] [place] [address] Performed By: #### P LT ####[address] [address] APTTon 03-26-2017 aPTT 41.9 s High 21.3-31.3 [facility] Comment on above: Result Comment: [facility] [address] [place] [address] Performed By: #### P TT ####[address] [address] aPTT 34.1 s High 21.3-31.3 [facility] Comment on above: Result Comment: [facility] [address] [place] [address] Performed By: #### P TT ####[address] [address] aPTT 39.3 s High 21.3-31.3 [facility] Comment on above: Result Comment: [address] [address] Performed By: #### P TT ####[address] [address] Brain Natri. Peptideon 03-26 BNP 424 pg/mL High <300 [facility] Comment on above: Result Comment: Pro- BNP results cannot be compared to BNP results. Performed By: #### P T, BNP, CP, LIPR, CDP ####[address] [address] BNP Normal [facility] Comment on above: Result Comment: Pro- BNP Reference Range:Rule Out: <300[place]: Age <50 300-450 Age 50-75 300-900 Age >75 300-1800Usually represents mild to moderate HF but other cardiopulmonary causes cannot be ruled out.Rule In: Age <50 >450 Age 50-75 >900 Age >[address] [address] Performed By: #### P T, BNP, CP, LIPR, CDP ####[address] [address] CBC with Diffon 03-26-2017 Abs. Basophil 0.18 k/uL Normal 0.0-0.2 [facility] Comment on above: Performed By: #### P T, BNP, CP, LIPR, CDP ####[address] [address] Abs.Neutrophil (Seg) 11.81 k/uL High 1.8-7.7 [facility] Comment on above: Performed By: #### P T, BNP, CP, LIPR, CDP ####[address] [address] Basophils/100 WBC Auto (Bld) 1 % Normal [facility] Comment on above: Performed By: #### P T, BNP, CP, LIPR, CDP ####[address] [address] Blood morphology Normal Normal [facility] Comment on above: Result Comment: [address] [address] Performed By: #### P T, BNP, CP, LIPR, CDP ####[address] [address] Eosinophils 0.00 10*3/uL Normal 0.0-0.4 [facility] Comment on above: Performed By: #### P T, BNP, CP, LIPR, CDP ####[address] [address] Eosinophils/100 leukocytes 0 % Normal [facility] Comment on above: Performed By: #### P T, BNP, CP, LIPR, CDP ####[address] [address] Lymphocytes 4.48 10*3/uL Normal 1.0-4.8 [facility] Comment on above: Performed By: #### P T, BNP, CP, LIPR, CDP ####[address] [address] Lymphocytes/100 leukocytes 25 % Normal [facility] Comment on above: Performed By: #### P T, BNP, CP, LIPR, CDP ####[address] [address] Monocytes 1.43 10*3/uL High 0.1-0.8 [facility] Comment on above: Performed By: #### P T, BNP, CP, LIPR, CDP ####[address] [address] Monocytes/100 leukocytes 8 % Normal [facility] Comment on above: Performed By: #### P T, BNP, CP, LIPR, CDP ####[address] [address] Neutrophil (Seg) 66 % Normal [facility] Comment on above: Performed By: #### P T, BNP, CP, LIPR, CDP ####[address] [address] Erythrocyte distribution width Auto Ratio (RBC) 14.5 % Normal 12.5-15.4 [facility] Comment on above: Performed By: #### P T, BNP, CP, LIPR, CDP ####[address] [address] Erythrocytes (RBC) 5.28 10*6/uL Normal 4.5-5.9 [facility] Comment on above: Performed By: #### P T, BNP, CP, LIPR, CDP ####[address] [address] Hematocrit (HCT) 46.0 % Normal 41-53 [facility] Comment on above: Performed By: #### P T, BNP, CP, LIPR, CDP ####[address] [address] Hemoglobin mass conc (Bld) 16.3 g/dL Normal 13.5-17.5 [facility] Comment on above: Performed By: #### P T, BNP, CP, LIPR, CDP ####[address] [address] MCH 30.8 pg Normal 26-34 [facility] Comment on above: Performed By: #### P T, BNP, CP, LIPR, CDP ####[address] [address] MCHC mass conc (RBC) 35.4 g/dL Normal 31-37 [facility] Comment on above: Performed By: #### P T, BNP, CP, LIPR, CDP ####[address] [address] MCV 87.1 fL Normal 80-100 [facility] Comment on above: Performed By: #### P T, BNP, CP, LIPR, CDP ####[address] [address] Platelet mean volume (PMV) 7.3 fL Normal 6.0-12.0 [facility] Comment on above: Performed By: #### P T, BNP, CP, LIPR, CDP ####[address] [address] Platelets 460 10*3/uL High 140-450 [facility] Comment on above: Performed By: #### P T, BNP, CP, LIPR, CDP ####[address] [address] WBC (Leukocytes) 17.9 10*3/uL High 3.5-11.0 [facility] Comment on above: Performed By: #### P T, BNP, CP, LIPR, CDP ####[address] [address] Auto Diff Performed NOT REPORTED Normal [facility] Comment on above: Performed By: #### P T, BNP, CP, LIPR, CDP ####[address] [address] Erythrocyte morphology NOT REPORTED Normal [facility] Comment on above: Performed By: #### P T, BNP, CP, LIPR, CDP ####[address] [address] Platelets NOT REPORTED Normal [facility] Comment on above: Performed By: #### P T, BNP, CP, LIPR, CDP ####[address] [address] WBC Morphology NOT REPORTED Normal [facility] Comment on above: Performed By: #### P T, BNP, CP, LIPR, CDP ####[address] [address] Comp Metabolic Profon 2016 Alanine aminotransferase (ALT) 35 U/L Normal 5-41 [facility] Comment on above: Result Comment: SPEC IMEN SLIGHTLY HEMOLYZED, RESULTS MAY BE ADVERSELY AFFECTED. Performed By: #### P T, BNP, CP, LIPR, CDP ####[address] [address] Albumin 3.8 g/dL Normal 3.5-5.2 [facility] Comment on above: Performed By: #### P T, BNP, CP, LIPR, CDP ####[address] [address] Albumin/Globulin Ratio 1.2 {ratio} Normal 1.0-2.5 [facility] Comment on above: Performed By: #### P T, BNP, CP, LIPR, CDP ####[address] [address] Alkaline Phos 64 U/L Normal 40-129 [facility] Comment on above: Result Comment: SPEC IMEN SLIGHTLY HEMOLYZED, RESULTS MAY BE ADVERSELY AFFECTED. Performed By: #### P T, BNP, CP, LIPR, CDP ####[address] [address] Anion gap 13 mmol/L Normal 9-17 [facility] Comment on above: Performed By: #### P T, BNP, CP, LIPR, CDP ####[address] [place] [address] Aspartate aminotransferase (AST) 81 U/L High <40 [facility] Comment on above: Result Comment: SPEC IMEN SLIGHTLY HEMOLYZED, RESULTS MAY BE ADVERSELY AFFECTED. Performed By: #### P T, BNP, CP, LIPR, CDP ####[address] [address] Bilirubin Ql (U) 0.86 mg/dL Normal 0.3-1.2 [facility] Comment on above: Performed By: #### P T, BNP, CP, LIPR, CDP ####[address] [address] Calcium 8.9 mg/dL Normal 8.6-10.4 [facility] Comment on above: Performed By: #### P T, BNP, CP, LIPR, CDP ####[address] [address] Chloride 100 mmol/L Normal 98-107 [facility] Comment on above: Performed By: #### P T, BNP, CP, LIPR, CDP ####[address] [address] CO2 25 mmol/L Normal 20-31 [facility] Comment on above: Performed By: #### P T, BNP, CP, LIPR, CDP ####[address] [address] Creatinine 0.83 mg/dL Normal 0.70-1.20 [facility] Comment on above: Performed By: #### P T, BNP, CP, LIPR, CDP ####[address] [address] eGFR (non-black) mL/min/{1.73_m2} Normal >60 [facility] Comment on above: Performed By: #### P T, BNP, CP, LIPR, CDP ####[facility] [address] [place] [address] Glucose mass conc 203 mg/dL High 70-99 [facility] Comment on above: Performed By: #### P T, BNP, CP, LIPR, CDP ####[address] [place] [address] Potassium molar conc 4.5 mmol/L Normal 3.7-5.3 [facility] Comment on above: Result Comment: SPEC IMEN SLIGHTLY HEMOLYZED, RESULTS MAY BE ADVERSELY AFFECTED. Performed By: #### P T, BNP, CP, LIPR, CDP ####[facility] [address] [place] [address] Protein 7.1 g/dL Normal 6.4-8.3 [facility] Comment on above: Performed By: #### P T, BNP, CP, LIPR, CDP ####[facility] [address] [place] [address] Sodium 138 mmol/L Normal 135-144 [facility] Comment on above: Performed By: #### P T, BNP, CP, LIPR, CDP ####[facility] [address] [place] [address] Urea nitrogen 13 mg/dL Normal 6-20 [facility] Comment on above: Performed By: #### P T, BNP, CP, LIPR, CDP ####[facility] [address] [place] [address] (cont.) Normal [facility] Comment on above: Result Comment: Aver age GFR for 50-59 years old: 93 mL/min/1.73sq mChronic Kidney Disease: <60 mL/min/1.73sq mKidney failure: <15 mL/min/1.73sq meGFR calculated using average adult body mass. Additional eGFR calculator available at:http://www.Wabrikworks.com/multiple_crcl_2012.htmSt. [facility] [address] [place] [address] Performed By: #### P T, BNP, CP, LIPR, CDP ####[address] [address] BUN/CRE Ratio NOT REPORTED Normal 9-20 [facility] Comment on above: Performed By: #### P T, BNP, CP, LIPR, CDP ####[address] [address] Staging: NOT REPORTED Normal [facility] Comment on above: Performed By: #### P T, BNP, CP, LIPR, CDP ####[address] [address] Hemoglobin A1Con 03-26-2017 Glucose mass conc 143 mg/dL Normal [facility] Comment on above: Result Comment: The ADA and AACC recommend providing the estimated average glucose result to permit better patient understanding of their HBA1c result.[address] [place] [address] Performed By: #### G LYHGB ####[address] [address] Hemoglobin A1c/Hemoglobin.tota l mass fraction (Bld) 6.6 % High 4.0-6.0 [facility] Comment on above: Performed By: #### G LYHGB ####[address] [address] Lipid Profileon 03-26-2017 Cholesterol 150 mg/dL Normal <200 [facility] Comment on above: Result Comment: Chol esterol Guidelines: <200 Desirable 200-240 Borderline >240 Undesirable Performed By: #### P T, BNP, CP, LIPR, CDP ####[address] [address] Cholesterol to HDL Ratio 2.7 {ratio} Normal <5 [facility] Comment on above: Performed By: #### P T, BNP, CP, LIPR, CDP ####[address] [address] HDL Cholesterol 55 mg/dL Normal >40 [facility] Comment on above: Result Comment: HDL Guidelines: <40 Undesirable 40-59 Borderline >59 Desirable Performed By: #### P T, BNP, CP, LIPR, CDP ####[address] [address] LDL Cholesterol 77 mg/dL Normal 0-130 [facility] Comment on above: Result Comment: LDL Guidelines: <100 Desirable 100-129 Near to/above Desirable 130-159 Borderline >159 UndesirableDirect (measured) LDL and calculated LDL are not interchangeable tests. Performed By: #### P T, BNP, CP, LIPR, CDP ####[address] [address] Triglyceride 88 mg/dL Normal <150 [facility] Comment on above: Result Comment: Trig lyceride Guidelines: <150 Desirable 150- 199 Borderline 200-499 High >499 Very high Based on AHA Guidelines for fasting triglyceride, March 2012.[address] [place] [address] Performed By: #### P T, BNP, CP, LIPR, CDP ####[address] [address] Cholesterol in VLDL mass conc NOT REPORTED Normal 30 [facility] Comment on above: Performed By: #### P T, BNP, CP, LIPR, CDP ####[address] [address] PTon 03-26-2017 INR Coag RelTime (PPP) 1.0 {INR} Normal [facility] Comment on above: Result Comment: Ther apeutic Range: Moderate Anticoagulant Intensity: INR = 2.0-3.0 High Anticoagulant Intensity: INR = 2.5-3.5[facility] [address] [place] [address] [phone] Performed By: #### P T, BNP, CP, LIPR, CDP ####[facility] [address] [place], [place] [phone] Prothrombin time (PT) Coag time (PPP) 11.0 s Normal 9.4-12.6 [facility] Comment on above: Performed By: #### P T, BNP, CP, LIPR, CDP ####[facility] [address] [place], [place] [phone] Surgical Pathologyon 017 Surgical Pathology (NOTE)[id number] Y LABORATORIESCONSULTING PATHOLOGISTS [facility]US[facility]ATOM[facility] [id number] [place] [phone]: [phone] PATHOLOGY CONSULTATIONPatient Name: BENIGNO SANDERSONMR#: [id number]/Josie Flannery CYTOMETRY REPORT Date Ordered: 03/27/2017 Status:Signed [...] CYTOCENTRIFUGE DIFFERENTIAL CELL COUNT:Peripheral Blood Lymphocytes 23% [place]/Hist 77%Flow cytometric immunophenotyping analysis is performed on peripheralblood following RBC lysis procedure. These cells are labeled bydirect, five color immunostaining procedure, and analyzed on a IS787prcl cytometer. % POSITIVE Target Cells RESULTS: (Lymphocytes)1. [...] 18. CD103 1 19. FMC7 12 20. [place] 8 21. Lambda 5 This test was developed and its performance characteristics determinedby [facility] Path[facility]. It has notbeen cleared or [...] PERIPHERAL BLOOD SMEAR FOR FLOW CYTOMETRY Normal [facility] 03-25-2017 aPTT 32.1 s High 21.3-31.3 [facility] Comment on above: Result Comment: Hipbone [address] [place] [address] Performed By: #### P TT ####[address] [address] aPTT 31.5 s High 21.3-31.3 [facility] Comment on above: Result Comment: [facility] [employer] [address] [place] [address] Performed By: #### P TT ####[address] [address] aPTT 26.4 s Normal 21.3-31.3 [facility] Comment on above: Result Comment: [address] [place] [address] Performed By: #### C BC, PTT, TROPI ####[address] [address] CBCon 03-25-2017 Erythrocyte distribution width Auto Ratio (RBC) 14.6 % Normal 12.5-15.4 [facility] Comment on above: Performed By: #### C BC, PTT, TROPI ####[address] [address] Erythrocytes (RBC) 5.24 10*6/uL Normal 4.5-5.9 [facility] Comment on above: Performed By: #### C BC, PTT, TROPI ####[address] [address] Hematocrit (HCT) 44.4 % Normal 41-53 [facility] Comment on above: Performed By: #### C BC, PTT, TROPI ####[address] [address] Hemoglobin mass conc (Bld) 16.2 g/dL Normal 13.5-17.5 [facility] Comment on above: Performed By: #### C BC, PTT, TROPI ####[address] [address] MCH 31.0 pg Normal 26-34 [facility] Comment on above: Performed By: #### C BC, PTT, TROPI ####[address] [address] MCHC mass conc (RBC) 36.6 g/dL Normal 31-37 [facility] Comment on above: Performed By: #### C BC, PTT, TROPI ####[address] [address] MCV 84.7 fL Normal 80-100 [facility] Comment on above: Performed By: #### C BC, PTT, TROPI ####[facility] [address] [place] [address] Platelet mean volume (PMV) 7.1 fL Normal 6.0-12.0 [facility] Comment on above: Result Comment: [facility] [address] [place] [address] Performed By: #### C BC, PTT, TROPI ####[facility] [address] [place] [address] Platelets 542 10*3/uL High 140-450 [facility] Comment on above: Performed By: #### C BC, PTT, TROPI ####[facility] [address] [place] [address] WBC (Leukocytes) 16.6 10*3/uL High 3.5-11.0 [facility] Comment on above: Performed By: #### C BC, PTT, TROPI ####[facility] [address] [place] [address] ED Provider Noteon 7 HIM IP Note OR Accounts Payable Technician Normal [facility] History and Physicalon 03-25 HIM IP Note OR Accounts Payable Technician Normal [facility] Magnesiumon 03-25-2017 Magnesium 2.4 mg/dL Normal 1.6-2.6 [facility] Comment on above: Result Comment: [facility] [place] [address] Performed By: #### T ROPI, MG ####[address] [address] Troponinon 03-25-2017 Troponin I.cardiac mass conc Normal [facility] Comment on above: Result Comment: Refe rence Range: <0.03 Within reference range. 0.03-0.09 Possible myocardial damage.Repeat at appropriate intervals to rule out chronic elevation. >= 0.10 Indicative of myocardial damage.[facility] [address] [place] [address] Performed By: #### C BC, PTT, TROPI ####[facility] [address] [place] [address] Troponin T.cardiac mass conc 0.81 ng/mL Critically high <0.03 [facility] Comment on above: Result Comment: Trop onin T results cannot be compared to Troponin-I results.Previous Alert Value Reported Performed By: #### C BC, PTT, TROPI ####[facility] [address] [place] [address] Troponin I.cardiac mass conc Normal [facility] Comment on above: Result Comment: Refe rence Range: <0.03 Within reference range. 0.03-0.09 Possible myocardial damage.Repeat at appropriate intervals to rule out chronic elevation. >= 0.10 Indicative of myocardial damage.[facility] [address] [place] [address] Performed By: #### T ROPI, MG ####[address] [place] [address] Troponin T.cardiac mass conc 0.70 ng/mL Critically high <0.03 [facility] Comment on above: Result Comment: Trop onin T results cannot be compared to Troponin-I results. Performed By: #### T ROPI, MG ####[facility] [address] [place] [address] Troponin I.cardiac mass conc Normal [facility] Comment on above: Result Comment: Refe rence Range: <0.03 Within reference range. 0.03-0.09 Possible myocardial damage.Repeat at appropriate intervals to rule out chronic elevation. >= 0.10 Indicative of myocardial damage.[facility] [address] [place] [address] Performed By: #### T ROPI ####[facility] [address] [place] [address] Troponin T.cardiac mass conc 0.04 ng/mL High <0.03 [facility] Comment on above: Result Comment: Trop onin T results cannot be compared to Troponin-I results. Performed By: #### T TREEI ####[facility] [address] [place], [place] [id number] XR CHEST PORTABLEon 03-25-20 XR CHEST PORTABLE EXAMINATION:SINGLE V IEW OF THE CHEST03/24/2017 11:24 pmCOMPARISON:3 hours agoHISTORY:ORDERING SYSTEM PROVIDED HISTORY: chest painTECHNOLOGIST PROVIDED HISTORY:Reason for exam:->chest painFINDINGS:The lungs are without acute focal process. There is no effusion orpneumothorax. The cardiomediastinal silhouette is without acute process. Theosseous structures are without acute process.IMPRESSION: No acute process.Interpreted by:SHELBI Aponteigned by:Stanley Azar MD03/24/17Final result Normal [facility] APTTon 03-24-2017 aPTT 25.2 s Normal 23.2-34.4 [facility] Comment on above: Result Comment: Perf ormed at [address] [place] [address] [phone] Performed By: #### P T, PTT, BNP, BMP, TROPI, CDP ####[address] [place] [address] Basic Metabolic Profon 03-24 (cont.) Normal [facility] Comment on above: Result Comment: Aver age GFR for 50-59 years old: 93 mL/min/1.73sq mChronic Kidney Disease: <60 mL/min/1.73sq mKidney failure: <15 mL/min/1.73sq meGFR calculated using average adult body mass. Additional eGFR calculator available at:http://www.Wabrikworks.Justinmind/multiple_crcl_2012.htm Performed By: #### P T, PTT, BNP, BMP, TROPI, CDP ####[address] [place] [address] Anion gap 11 mmol/L Normal 9-17 [facility] Comment on above: Performed By: #### P T, PTT, BNP, BMP, TROPI, CDP ####[address] [place] [address] BUN/CRE Ratio 17 Normal 9-20 [facility] Comment on above: Performed By: #### P T, PTT, BNP, BMP, TROPI, CDP ####[address] [place] [address] Calcium 9.3 mg/dL Normal 8.6-10.4 [facility] Comment on above: Performed By: #### P T, PTT, BNP, BMP, TROPI, CDP ####[address] [place] [address] Chloride 94 mmol/L Low 98-107 [facility] Comment on above: Performed By: #### P T, PTT, BNP, BMP, TROPI, CDP ####[address] [place] [address] CO2 29 mmol/L Normal 20-31 [facility] Comment on above: Performed By: #### P T, PTT, BNP, BMP, TROPI, CDP ####[address] [place] [address] Creatinine 0.92 mg/dL Normal 0.70-1.20 [facility] Comment on above: Performed By: #### P T, PTT, BNP, BMP, TROPI, CDP ####[address] [place] [address] eGFR (non-black) mL/min/{1.73_m2} Normal >60 [facility] Comment on above: Performed By: #### P T, PTT, BNP, BMP, TROPI, CDP ####[address] [place] [address] Glucose mass conc 212 mg/dL High 70-99 [facility] Comment on above: Performed By: #### P T, PTT, BNP, BMP, TROPI, CDP ####[address] , [place] [phone] Potassium molar conc 4.3 mmol/L Normal 3.7-5.3 [facility] Comment on above: Performed By: #### P T, PTT, BNP, BMP, TROPI, CDP ####[address] [place] [address] Sodium 134 mmol/L Low 135-144 [facility] Comment on above: Performed By: #### P T, PTT, BNP, BMP, TROPI, CDP ####[address] [place] [address] Staging: Normal [facility] Comment on above: Result Comment: Stag e 1: Some kidney damage normal GFRStage 2: Mild kidney damage GFR 60-89Stage 3: Moderate kidney damage GFR 30-59Stage 4: Severe kidney damage GFR 15-29Stage 5: Severe kidney damage GFR <15ESRD - chronic treatment by dialysis or transplantPerformed at [address] [place] [address] Performed By: #### P T, PTT, BNP, BMP, TROPI, CDP ####[address] [place] [address] Urea nitrogen 16 mg/dL Normal 6-20 [facility] Comment on above: Performed By: #### P T, PTT, BNP, BMP, TROPI, CDP ####[address] [place] [address] Brain Natri. Peptideon 03-24 BNP Normal [facility] Comment on above: Result Comment: Pro- BNP Reference Range:Rule Out: <300Grey Zone: Age <50 300-450 Age 50-75 300-900 Age >75 300-1800Usually represents mild to moderate HF but other cardiopulmonary causes cannot be ruled out.Rule In: Age <50 >450 Age 50-75 >900 Age >75 >1800Performed at [address] [place] [address] Performed By: #### P T, PTT, BNP, BMP, TROPI, CDP ####[address] [place] [address] BNP pg/mL Normal <300 [facility] Comment on above: Result Comment: Pro- BNP results cannot be compared to BNP results. Performed By: #### P T, PTT, BNP, BMP, TROPI, CDP ####[address] [place] [address] CBC with Diffon 03-24-2017 Abs. Basophil 0.20 k/uL Normal 0.0-0.2 [facility] Comment on above: Performed By: #### P T, PTT, BNP, BMP, TROPI, CDP ####[address] [place] [address] Abs.Neutrophil (Seg) 12.93 k/uL High 1.8-7.7 [facility] Comment on above: Performed By: #### P T, PTT, BNP, BMP, TROPI, CDP ####[address] [place] [address] Basophils/100 WBC Auto (Bld) 1 % Normal [facility] Comment on above: Performed By: #### P T, PTT, BNP, BMP, TROPI, CDP ####[address] [place] [address] Blood morphology Platelet scan shows Increased Platelets Normal [facility] Comment on above: Result Comment: Perf ormed at [address] [place] [address] Performed By: #### P T, PTT, BNP, BMP, TROPI, CDP ####[address] [place] [address] Eosinophils 0.00 10*3/uL Normal 0.0-0.4 [facility] Comment on above: Performed By: #### P T, PTT, BNP, BMP, TROPI, CDP ####[address] , [place] [address] Eosinophils/100 leukocytes 0 % Normal [facility] Comment on above: Performed By: #### P T, PTT, BNP, BMP, TROPI, CDP ####[address] , [place] [address] Lymphocytes 4.51 10*3/uL Normal 1.0-4.8 [facility] Comment on above: Performed By: #### P T, PTT, BNP, BMP, TROPI, CDP ####[address] , [place] [address] Lymphocytes/100 leukocytes 23 % Normal [facility] Comment on above: Performed By: #### P T, PTT, BNP, BMP, TROPI, CDP ####[address] , [place] [address] Monocytes 1.96 10*3/uL High 0.0-1.0 [facility] Comment on above: Performed By: #### P T, PTT, BNP, BMP, TROPI, CDP ####[address] , [place] [address] Monocytes/100 leukocytes 10 % Normal [facility] Comment on above: Performed By: #### P T, PTT, BNP, BMP, TROPI, CDP ####[address] , [place] [address] Neutrophil (Seg) 66 % Normal [facility] Comment on above: Performed By: #### P T, PTT, BNP, BMP, TROPI, CDP ####[address] , [facility]83 Erythrocyte distribution width Auto Ratio (RBC) 13.6 % Normal 12.1-15.2 [facility] Comment on above: Performed By: #### P T, PTT, BNP, BMP, TROPI, CDP ####[address] [place] [address] Erythrocytes (RBC) 5.28 10*6/uL Normal 4.5-5.9 [facility] Comment on above: Performed By: #### P T, PTT, BNP, BMP, TROPI, CDP ####[address] , [facility]83 Hematocrit (HCT) 44.9 % Normal 41-53 [facility] Comment on above: Performed By: #### P T, PTT, BNP, BMP, TROPI, CDP ####[address] , [facility] Hemoglobin mass conc (Bld) 16.0 g/dL Normal 13.5-17.0 [facility] Comment on above: Performed By: #### P T, PTT, BNP, BMP, TROPI, CDP ####[address] , [facility]83 MCH 30.3 pg Normal 26-34 [facility] Comment on above: Performed By: #### P T, PTT, BNP, BMP, TROPI, CDP ####[address] [place] [address] MCHC mass conc (RBC) 35.6 g/dL Normal 31-37 [facility] Comment on above: Performed By: #### P T, PTT, BNP, BMP, TROPI, CDP ####[address] , [facility]83 MCV 85.1 fL Normal 80-100 [facility] Comment on above: Performed By: #### P T, PTT, BNP, BMP, TROPI, CDP ####[address] , [facility] Platelet mean volume (PMV) 7.9 fL Normal 6.0-12.0 [facility] Comment on above: Performed By: #### P T, PTT, BNP, BMP, TROPI, CDP ####[address] [place] [address] Platelets 555 10*3/uL High 140-450 [facility] Comment on above: Performed By: #### P T, PTT, BNP, BMP, TROPI, CDP ####[address] [place] [address] WBC (Leukocytes) 19.6 10*3/uL High 3.5-11.0 [facility] Comment on above: Performed By: #### P T, PTT, BNP, BMP, TROPI, CDP ####[address] [place] [address] Auto Diff Performed NOT REPORTED Normal [facility] Comment on above: Performed By: #### P T, PTT, BNP, BMP, TROPI, CDP ####[address] [place] [address] Erythrocyte morphology NOT REPORTED Normal [facility] Comment on above: Performed By: #### P T, PTT, BNP, BMP, TROPI, CDP ####[address] [place] [address] Platelets NOT REPORTED Normal [facility] Comment on above: Performed By: #### P T, PTT, BNP, BMP, TROPI, CDP ####[address] [place] [address] WBC Morphology NOT REPORTED Normal [facility] Comment on above: Performed By: #### P T, PTT, BNP, BMP, TROPI, CDP ####[address] [place] [address] CTA CHEST WITH CONTRASTon CTA CHEST WITH CONTRAST FINAL REPORTEXAM: CTA CHEST WITH CONTRASTHISTORY: midsternal chest pain, SOB, h/o DVT and 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 Interpreted by:SHELBI Bermudezigned by:Carolyn Reyes MD03/24/17Finil result Normal [facility] ED Noteon 03-24-2017 HIM IP Note OR Accounts Payable Technician Normal [facility] HIM IP Note OR Accounts Payable Technician Normal [facility] HIM IP Note OR Accounts Payable Technician Normal [facility] HIM IP Note OR Accounts Payable Technician Normal [facility] ED Provider Noteon 7 HIM IP Note OR Accounts Payable Technician Normal [facility] PTon 03-24-2017 INR Coag RelTime (PPP) 1.0 {INR} Normal 0.9-1.2 [facility] Comment on above: Result Comment: Perf ormed at [address] [place] [address] [phone] Performed By: #### P T, PTT, BNP, BMP, TROPI, CDP ####[address] [place] [address] Prothrombin time (PT) Coag time (PPP) 10.1 s Normal 9.7-12.2 [facility] Comment on above: Performed By: #### P T, PTT, BNP, BMP, TROPI, CDP ####[address] [place] [address] Troponinon 03-24-2017 Troponin I.cardiac mass conc Normal [facility] Comment on above: Result Comment: Refe rence Range: <0.03 Within reference range. 0.03-0.09 Possible myocardial damage.Repeat at appropriate intervals to rule out chronic elevation. >= 0.10 Indicative of myocardial damage.Performed at [address] Zhao, [place] [id number] [phone]. Performed By: #### P T, PTT, BNP, BMP, TROPI, CDP ####[address] [place] [address] Troponin T.cardiac mass conc ug/L Normal <0.03 [facility] Comment on above: Result Comment: Trop onin T results cannot be compared to Troponin-I results. Performed By: #### P T, PTT, BNP, BMP, TROPI, CDP ####[address] , [place] [id number] XR CHEST PORTABLEon 03-24-20 17 XR CHEST [...] by:SHELBI Bermudezigned by:Carolyn Reyes MD03/24/17Final result Normal [facility] Encounters Encounter Date Encounter Type Care Provider Facility Start: 09-20-2022 End: 09-21-2022 ambulatory Cheng Gonsalez MD Facility:[facility] Start: 08-26-2022 End: 08-27-2022 ambulatory Julianne Blevins Facility:[facility] Start: 10-18-2021 End: 10-19-2021 ambulatory Julianne Blevins Facility:[facility] Start: 12-18-2017 End: 12-19-2017 Ambulatory CHENG Ab Be [facility] Start: 12-13-2017 End: 12-14-2017 Ambulatory CHENG Ab GONSALEZ [facility] Start: 12-11-2017 End: 12-12-2017 Ambulatory CHENG Ab GONSALEZ [facility] Start: 11-29-2017 End: 11-30-2017 Ambulatory CHENG Ab GONSALEZ [facility] Start: 11-13-2017 End: 11-14-2017 Ambulatory CHENG Ab GONSALEZ [facility] Start: 11-08-2017 End: 11-09-2017 Ambulatory CHENG Ab Marleyy [facility] Start: 11-06-2017 End: 11-07-2017 Ambulatory CHENG GONSALEZ [facility] Start: 11-03-2017 End: 11-04-2017 Ambulatory JULIANNE BLEVINS [facility] Start: 11-01-2017 End: 11-02-2017 Ambulatory JULIANNE BLEVINS [facility] Start: 10-11-2017 End: 10-11-2017 Ambulatory CARLOS BUSTILLOS Facility:[facility] Start: 08-07-2017 Ambulatory FILI MARTINEZ Facilit y:[facility] Start: 04-10-2017 End: 04-11-2017 Ambulatory ISMAEL NGU[facility]NBAKARI [facility] Start: 03-25-2017 End: 03-28-2017 [facility] and [facility] Start: 03-24-2017 End: 03-25-2017 Emergency department patient visit RYAN MOSS [facility] Procedures Date Procedure Procedure Detail Performing Clinician [...] GONSALEZ Start: 03-27-2017 PULSE OXIMETRY, CONTINUOUS CHENG GONSAELZ Start: 03-26-2017 POCT GLUCOSE CHENG VE LA [...] Unknown 2021 Private Health Insurance 1965 Unknown [id number] 1965 Unknown [id number] 1965 Unknown [id number] 1960 Private Health Insurance [id number] Self-pay [id number] Clinical Note 08-26-2022 Note Date & Type Note Facility 08-26-2022 Note Patient Education Ma terials Name: Benigno Sanderson Current Date: 08/26/2022 13:48:04 Aicha/[facility] : 1965 The following sheet(s) are the [...] Don't delay. You (more content not included)... [facility] Summary Purpose Family History No Family History [...] and content) DATE CREATED AUTHOR 12/14/2017 [facility] DATE CREATED AUTHOR AUTHOR'S ORGANIZ ATION 12/19/2017 [facility] DATE CREATED AUTHOR AUTHOR'S ORGANIZ ATION 12/20/2017 [facility] DATE CREATED AUTHOR AUTHOR'S ORGANIZ ATION 09/22/2022 [facility] FOR RECORDS PERTAINING TO PATIENTS WHO ARE [...] BE BASED ON THE PRIMARY CLINICAL RECORDS. [facility] provides no warranty or guarantee of the accuracy or completeness of information in this document.
== END 2023-12-20 09:40 | disposition home or self-care (01) ==
LOC: EC 09:39
PROVIDERS: Family Provider Family Medicine; PCP Family Medicine; Visit Provider Podiatrist Foot & Ankle Surgery
DX: M79.672 Pain in left foot (principal); S92.002D Unspecified fracture of left calcaneus, subsequent encounter for fracture with routine healing
CPT/HCPCS: 73650

== ENCOUNTER 2024-01-03 10:41 | Outpatient (OUT) | payer OTHER, SELFPAY ==
--- NOTE | 2024-01-03 | XR_ITS ---
The [place] [id number] Patient Name: JAM JAY MRN: [id number] date: 1965 Sex: M Assigned Patient Location: Current Patient Location: Accession/Order Number: [id number] Exam Date: 01/03/2024 10:42 Report Date: 01/03/2024 12:48 At the request of: ARELIS SHELL Procedure: XR calcaneus LT min 2V PROCEDURE: XR calcaneus LT min 2V COMPARISON: 12/20/2023 HISTORY: LEFT CALCANEUS PAIN FINDINGS: BONES:Continued healing of a complex calcaneus fracture evidenced by sclerosis and less evident fracture planes. Minimal enthesopathic spurring at the Achilles insertion SOFT TISSUES:Negative. No visible soft tissue swelling. EFFUSION:None visible. OTHER: Negative. XR/XR calcaneus LT min 2V IMPRESSION: Continued healing of a complex calcaneus fracture Electronically authenticated by: HEATHER REAL Date: 01/03/2024 12:48
== END 2024-01-03 10:42 | disposition home or self-care (01) ==
LOC: EC 10:42
PROVIDERS: Family Provider Family Medicine; PCP Family Medicine; Visit Provider Podiatrist Foot & Ankle Surgery
DX: S92.012D Displaced fracture of body of left calcaneus, subsequent encounter for fracture with routine healing (principal)
CPT/HCPCS: 73650

== ENCOUNTER 2024-01-24 08:58 | Outpatient (OUT) | payer OTHER, SELFPAY ==
--- NOTE | 2024-01-24 | XR_ITS ---
The [address] [id number] Patient Name: JAM JAY MRN: [id number] date: 1965 Sex: M Assigned Patient Location: Current Patient Location: Accession/Order Number: [id number] Exam Date: 01/24/2024 09:00 Report Date: 01/25/2024 05:28 At the request of: ARELIS SHELL Procedure: XR foot LT min 3V PROCEDURE: XR foot LT min 3V HISTORY: LEFT FOOT PAIN [; follow-up calcaneus fracture COMPARISON: XR calcaneus left 01/03/2024 FINDINGS: BONES:Grossly stable band of sclerosis within calcaneus and slightly visible fracture line. No change in alignment. SOFT TISSUES:No visible soft tissue swelling. EFFUSION:None visible. OTHER: Negative. XR/XR foot LT min 3V IMPRESSION: 1. Stable alignment and likely ongoing bone healing of the calcaneus. No significant change. Electronically authenticated by: ROXI HAGAN Date: 01/25/2024 05:28
--- OUTSIDE RECORDS SUMMARY | 2024-01-24 09:01 | XMS_ITS | CCD ---
Author Organization [facility] CliniSyga Care Team Providers Care Teacher Advisor Name Role Phone MICHELLE FILI Unavailable Unavailable [...] Unavailable Unavailable GONSALEZ, CHENG J Unavailable Unavailable GOSNALEZ, CHENG J Unavailable Unavailable GONSALEZ, CHENG J [...] Propensity to adverse reactions to drug (disorder) [facility] Repository Problems Active Problems Problem Classification Problem Date Documented Date Episodic/Chronic Acute myocardial infarction (1 source) Non-ST elevation (NSTEMI) myocardial infarction; Translations: [Non-ST elevation (NSTEMI) myocardial infarction] Onset: 03-25-2017 Chronic Coronary atherosclerosis and other heart disease (2 sources) Atherosclerotic heart disease of [place] coronary artery without angina pectoris; Translations: [Acute ischemic heart disease, unspecified] Onset: 03-25-2017 Chronic Coronary atherosclerosis and other heart disease (1 source) Presence of coronary angioplasty implant and graft; Translations: [PRESENCE COR ANGPLSTY IMPLANT AND GRAFT] Onset: 10-13-2017 Episodic Deficiency and other anemia (1 source) Hereditary spherocytosis; Translations: [HEREDITARY SPHEROCYTOSIS] Onset: 10-13-2017 Chronic Other aftercare (1 source) intermediate (current) use of aspirin; Translations: [SENIOR CARE CURRENT USE OF ASPIRIN] Onset: 10-13-2017 Episodic Other liver diseases (1 source) Abnormal levels of other serum enzymes; Translations: [ABNORMAL LEVELS OTHER SERUM ENZYMES] Onset: 10-13-2017 Episodic Unclassified (1 source) director 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 Stress ECG: Sinus tachycardia. The [...] Electronically Signed in Other Vendor System) Normal [facility] Cardiology Office/Clinic Not suzi 08-26-2022 Cardiology [...] LCx, diffuse 10-20% RCA, EF 50%, 03/27/17 ([facility], [place], [place]). i. PCI with 5.0 x 18 mm BMS to pLAD, 03/27/17 ([facility], [place], [place]). B. Cardiac cath showed normal LM, [...] axes/intervals, no ST-T changes (Dr. Cheng Gonsalez, [place], [place]) (my independent interpretation of a test reported by another physician) Echocardiography > 03/27/17: EF 55% ([place], [place]) > 11/03/17: EF 60% ([place], [place]) Stress Testing > 11/29/19: (Lexiscan MPI) No ischemic ECG changes, MPI showed a possible small area of apical ischemia, EF 74% > 06/28/21: (Exercise MPI) Von 7:17, 9.2 METs, 87% APMHR, indeterminate ECG response (baseline ST-T changes), normal MPI, EF 62% Outside Lab Results > 08/12/22: (CBC) WBC 15.5, Hgb 18.6, Plt 460 ([place] > 08/12/22: (HbA1c) HbA1c 8.8% (Dr. Cheng Gonsalez, [place], [place]) > 08/12/22: (Lipids) TC 165, TG 133, HDL 52, LDL 86 ([place]. [place]) Physical Exam Vitals & Measurements HR: [...] Service Excluding time for services reported/billed separately [id number] encounter with patient: 10 Prep, documentation, coordination [...] Metoprolol Ta (more content not included)... Normal [facility] Cardiology Office/Clinic Not suzi 10-18-2021 Cardiology [...] LCx, diffuse 10-20% RCA, EF 50%, 03/27/17 ([facility], [place], [place]). i. PCI with 5.0 x 18 mm BMS to pLAD, 03/27/17 ([place], [place]). B. Cardiac cath showed normal LM, widely patent LAD stents, 30% pD1, 30% mLCx, normal RCA, and EF 55-60%, 10/12/17. 2. Diabetes mellitus type 2. 3. Systemic arterial hypertension. 4. Hereditary spherocytosis. A. Status post splenectomy. B. Chronic thrombocytosis. 5. History of tobacco use. A. Previously quit smoking. Cardiac Testing Echocardiography > 03/27/17: EF 55% ([place], [place]) > 11/03/17: EF 60% ([place], [place]) Stress Testing > 11/29/19: (Lexiscan MPI) [...] Julianne Blevins DO 10/18/21 11:01 EDT Normal [facility] Progress Noteon 11-07-2017 HIM IP Note OR Rotary Planer Set Up Operator Normal [facility] Progress Noteon 11-03-2017 HIM IP Note OR Rotary Planer Set Up Operator Normal [facility] Progress Noteon 11-01-2017 HIM IP Note OR Rotary Planer Set Up Operator [facility] CARDIAC HIRAL 3-6-9on 18-2 018 CKMB 1.61 ng/mL Normal <=2.[address] [facility] Comment on above: Performed By: #### C MREP ####[facility] Myitjkdrjv4433 [address] [place] Creatine kinase (CK) 131 U/L Normal 55-[address] [facility] Comment on above: Performed By: #### C MREP ####[facility] Wan[address] [place] [address] [place] INR Coag RelTime (Bld) SEE BELOW Normal [facility] Comment on above: Result Comment: <0.0 34 ng/ml NEGATIVE 0.034-0.119 INDETERMINATE 0.120 AMI CUT OFF Performed By: #### C MREP ####[facility] Mg[address] [place] [address] [place] TROP 0.060 ng/mL Critically high <=0.[address] [facility] Comment on above: Result Comment: test repeated critical value verified Performed By: #### C MREP ####[facility] [address] [place] [address] CARDIAC HIRAL ADMITon 018 CKMB 1.59 ng/mL Normal <=2.[address] [facility] Comment on above: Performed By: #### C MADM, LIPA, CRP, BMP ####[facility] E[address] [place] [address] Creatine kinase (CK) 153 U/L Normal 55-[address] [facility] Comment on above: Performed By: #### C MADM, LIPA, CRP, BMP ####[facility] Rpyvfytxwo4176 [address] [place] INR Coag RelTime (Bld) SEE BELOW Normal [facility] Comment on above: Result Comment: <0.0 34 ng/ml NEGATIVE 0.034-0.119 INDETERMINATE 0.120 AMI CUT OFF Performed By: #### C MADM, LIPA, CRP, BMP ####[facility] Espnbypj[address] [place] [address] [place] DARÍO 40.0 ng/mL Normal <=121.[address] [facility] Comment on above: Performed By: #### C MADM, LIPA, CRP, BMP ####[facility] Thqbverghf9182 [address] [place] TROP 0.032 ng/mL Normal <=0.034 [facility] Comment on above: Performed By: #### C MADM, LIPA, CRP, BMP ####[facility] Tgayuovfti8796 [address] [place] CBC W MANUAL DIFFon 10-12-19 18 ACANTHOCYTES SLIGHT Normal [facility] Comment on above: Performed By: #### C IRENE ####[facility] Zhkw[address]vf[address] [place] [address] [place] Anisocytosis presence SLIGHT Normal [facility] Comment on above: Performed By: #### Pearl BONILLA ####[facility] [address] [place] [address] R[place] BAND # 0.0 103/ul Normal 0.0-0.[address] [facility] Comment on above: Performed By: #### Pearl BONILLA ####[facility] [address] [place] [address] R[place] BAND % 0 % Normal 0-5 [facility] Comment on above: Performed By: #### Pearl BONILLA ####[facility] [address] [place] [address] [place] BASOM % 2.0 % Normal 0.2-2.0 [facility] Comment on above: Performed By: #### Pearl BONILLA ####[facility] I[address]xf[address] [place] [address] R[place] Basophils Auto #/vol (Bld) 0.31 103/ul Critically high 0.00-0.[address] [facility] Comment on above: Performed By: #### Peral BONILLA ####[facility] [address] [place] [address] Romy BLAST # Normal [facility] Comment on above: Performed By: #### Pearl BONILLA ####[facility] Lwaitnlsro[address] [place] [address] R[place] BLAST % Normal [facility] Comment on above: Performed By: #### C BCMAN ####[facility] [address] [place] [id number] Eosinophils 0.63 103/ul Normal 0.00-0.[address] [facility] Comment on above: Performed By: #### Pearl BONILLA ####[facility] Tptrinlawq[address] [place] [address] Eosinophils/100 leukocytes 4.0 % Normal 0.9-7.[address] [facility] Comment on above: Performed By: #### Pearl BONILLA ####[facility] [address] [place], [place] [address] Erythrocyte distribution width Auto Ratio (RBC) 12.7 % Normal 11.0-15.[address] [facility] Comment on above: Performed By: #### Pearl BONILLA ####[facility] [address]op[address] [place] [address] R[place] Erythrocytes (RBC) 5.20 106/ul Normal 4.70-6.[address] [facility] Comment on above: Performed By: #### Pearl BONILLA ####[facility] Mswiipeuif[address] [place], [place] [address] Erythrocytes (RBC) Normal [facility] Comment on above: Performed By: #### Pearl BONILLA ####[facility] I[address]qrk[address] [place], [place] [address] GIANT PLATELETS SEEN Normal [facility] Comment on above: Performed By: #### Pearl BONILLA ####[facility] K[address]cj[address]oa[address] [place], [place] [address] Hematocrit (HCT) 43.4 % Normal 42.0-54.[address] [facility] Comment on above: Performed By: #### Pearl BONILLA ####[facility] Kwfgtxilpx[address] [place], [place] [address] Hemoglobin mass conc (Bld) 15.9 g/dL Normal 14.0-18.[address] [facility] Comment on above: Performed By: #### Pearl BONILLA ####[facility] [address]ys[address] [place], [place] [address] Lymphocytes 3.77 103/ul Normal 1.20-3.80 [facility] Comment on above: Performed By: #### Pearl BONILLA ####[facility] Cgdcgvurzd0388 [place], [place] [address]Gpsrko Romy Lymphocytes 0.16 103/ul Normal [facility] Comment on above: Performed By: #### Pearl BONILLA ####[facility] Swqwjywtzm2815 [place], [place] [address]Yugfmz Romy Lymphocytes/100 leukocytes 1 % Normal [facility] Comment on above: Performed By: #### Pearl BONILLA ####[facility] Oxliyevewt6301 [place], [place] [address]Kfvknz Romy Lymphocytes/100 leukocytes 24.0 % Normal 20.5-60.[address] [facility] Comment on above: Performed By: #### Pearl BONILLA ####[facility] Gtdokprefo[address] [place], [place] [address] MCH 30.6 pg Normal 25.9-34.0 [facility] Comment on above: Performed By: ###Soheila BONILLA ####[facility] Egkryovazt59[address] [place] [address] MCHC mass conc (RBC) 36.6 g/dL Critically high 29.9-35.[address] [facility] Comment on above: Performed By: #### Pearl BONILLA ####[facility] Fusutbovvb[address] [place] [address] MCV 83.5 fL Normal 80.0-94.[address] [facility] Comment on above: Performed By: #### Pearl BONILLA ####[facility] Yozamxfrku0275 [place], [place] [address]Rqmvom Romy METAMYELOCYTE # Normal [facility] Comment on above: Performed By: #### Pearl BONILLA ####[facility] Oejynfaqst4716 [place], [place] [address]Cdpjpi Romy METAMYELOCYTE % Normal [facility] Comment on above: Performed By: #### Pearl BONILLA ####[facility] Uqyosxecit4064 [place] [address] MONOM# 1.41 103/ul Critically high 0.30-0.80 [facility] Comment on above: Performed By: #### C IRENE ####[facility] Epjmytbfwz1051 [place], [place] [address]Sbvqzp R[place] MONOM% 9.0 % Normal 1.7-12.0 [facility] Comment on above: Performed By: #### C IRENE ####[facility] Diwbzcbmtm8749 [place], [place] [address]Imammp [place] MYELOCYTE # Normal [facility] Comment on above: Performed By: #### C IRENE ####[facility] Zauqzpcrap[address] [place], [place] [address]U[place]zu [place] MYELOCYTE % Normal [facility] Comment on above: Performed By: #### Pearl BONILLA ####[facility] Yimyocldsm2995 [place], [place] [address]Tnrhfr R[place] Platelet mean volume (PMV) 8.8 fL Critically low 9.5-13.5 [facility] Comment on above: Performed By: #### Pearl BONILLA ####[facility] Cakgmmfeea1683 [place] [address] Platelets 670 103/ul Critically high 150-450 [facility] Comment on above: Performed By: #### C IRENE ####[facility] Mdgkipowjo0900 [place], [place] [address]Prstqb R[place] SEG # 9.42 103/ul Critically high 1.40-6.50 [facility] Comment on above: Performed By: #### Pearl BONILLA ####[facility] Nnedliqflq5544 [place] [address] Segmented Neutrophils/100 leukocytes 60.0 % Normal 43.0-75.0 [facility] Comment on above: Performed By: #### Pearl BONILLA ####[facility] Jhaoydbcem0775 [place] [address] WBC (Leukocytes) 15.7 103/ul Critically high 4.0-11.0 [facility] Comment on above: Performed By: #### Pearl BONILLA ####[facility] Wcwykuxxyq8084 [address] [place] WBC (Leukocytes) Normal 4.0-11.[address] [facility] Comment on above: Performed By: #### C BCMAN ####[facility] Gkyrjrbtgx4794 [place] [address] CRPon 10-11-2017 C reactive protein (CRP) 0.9 mg/dL Normal <=1.[address] [facility] Comment on above: Performed By: #### C MADM, LIPA, CRP, BMP ####[facility] Gcfmlqvocl5593 [address] [place] LIPASEon 10-11-2017 Lipase 139.0 U/L Normal 23.0-300.[address] [facility] Comment on above: Performed By: #### C MADM, LIPA, CRP, BMP ####[facility] R[address] [place] [address] [place] PROF CHEM 8 (BAS METB)on Anion gap 16.8 mmol/L Normal [facility] Comment on above: Performed By: #### C MADM, LIPA, CRP, BMP ####[facility] Fgshrixdmk30[address] BUN/Creatinine Ratio 22.4 mg/mg Normal [facility] Comment on above: Performed By: #### C MADM, LIPA, CRP, BMP ####[facility] Efthpkhxqm8382 [address] [place] Calcium 9.9 mg/dL Normal 8.4-10.[address] [facility] Comment on above: Performed By: #### C MADM, LIPA, CRP, BMP ####[facility] Wpsuprlcuo1144 [address] [place] Chloride 97 mmol/L Critically low 98-[address] [facility] Comment on above: Performed By: #### C MADM, LIPA, CRP, BMP ####[facility] Aeuatwugma9649 [address] [place] CO2 26.0 mmol/L Normal 22.0-30.0 [facility] Comment on above: Performed By: #### C MADM, LIPA, CRP, BMP ####[facility] Hheoakrdkh4168 [address] [place] Creatinine 0.82 mg/dL Normal 0.66-1.25 [facility] Comment on above: Performed By: #### C MADM, LIPA, CRP, BMP ####[facility] Woatysrlhp7233 [address] [place] eGFR (non-black) mL/min/{1.73_m2} Normal >=60 [facility] Comment on above: Performed By: #### C MADM, LIPA, CRP, BMP ####[facility] Mgscajwawz1220 [address] [place] Glucose mass conc 323 mg/dL Critically high 74-106 [facility] Comment on above: Performed By: #### C MADM, LIPA, CRP, BMP ####[facility] Cwldpvxqlg6912 [address] [place] Potassium molar conc 3.9 mmol/L Normal 3.4-5.0 [facility] Comment on above: Performed By: #### C MADM, LIPA, CRP, BMP ####[facility] Uvjajfqpym1492 [address] [place] Sodium 136 mmol/L Critically low 137-145 [facility] Comment on above: Performed By: #### C MADM, LIPA, CRP, BMP ####[facility] Qxcmltoepd2728 [address] [place] Urea nitrogen 18.0 mg/dL Normal 9.0-20.0 [facility] Comment on above: Performed By: #### C MADM, LIPA, CRP, BMP ####[facility] Juerbbunkx4478 [address] [place] XR CHEST 1 Von 10-11-2017 XR CHEST 1 V [address] [place] [address] Patient: CREDIT, BENIGNO W. Exam Date: 10/11/2017DOB: 1965 Gender:M : DR GONZALEZ MARKER Admission #: [id number] : Order #: [id number] HERE TO VIEW EXAM RADIOLOGY REPORT PROCEDURE: [...] Real M.D. on 10/11/2017 at 07:45 Normal [facility] CT CHEST WO CONTRASTon 04-10 CT [...] by:SHELBI Herediaigned by:Xin Ro MD04/10/17Final result Normal [facility] Flow Cytometryon 03-29-2017 Flow Cytometry VS17 [address] [facility] Comment on above: Result Comment: SEE SEPARATE REPORT[address] [address] Performed By: #### F LLE ####[address] [address] Discharge Summaryon 03-28-20 17 HIM IP Note OR Rotary Planer Set Up Operator Normal [facility] APTTon 03-27-2017 aPTT 62.2 s High 21.3-31.[address] [facility] Comment on above: Result Comment: [facility] [address] [place] [address] Performed By: #### P TT ####[address] [address] aPTT 60.0 s High 21.3-31.[address] [facility] Comment on above: Result Comment: [facility] [address] [place] [address] Performed By: #### P TT ####[address] [address] Platelet Counton 03-27-2017 Platelets 508 10*3/uL High 140-[address] [facility] Comment on above: Result Comment: [facility] [place] [address] Performed By: #### P LT ####[address] [address] APTTon 03-26-2017 aPTT 41.9 s High 21.3-31.[address] [facility] Comment on above: Result Comment: [facility] [address] [place] [address] Performed By: #### P TT ####[address] [address] aPTT 34.1 s High 21.3-31.[address] [facility] Comment on above: Result Comment: [facility] [address] [place] [address] Performed By: #### P TT ####[address] [address] aPTT 39.3 s High 21.3-31.[address] [facility] Comment on above: Result Comment: [address] [address] Performed By: #### P TT ####[address] [address] Brain Natri. Peptideon 03-26 BNP 424 pg/mL High <[address] [facility] Comment on above: Result Comment: Pro- BNP results cannot be compared to BNP results. Performed By: #### P T, BNP, CP, LIPR, CDP ####[address] [address] [address] [facility] Comment on above: Result Comment: Pro- BNP Reference Range:Rule Out: <300[place]rey Zone: Age <50 300-450 Age 50-75 300-900 Age >75 300-1800Usually represents mild to moderate HF but other cardiopulmonary causes cannot be ruled out.Rule In: Age <50 >450 Age 50-75 >900 Age >[address] [address] Performed By: #### P T, BNP, CP, LIPR, CDP ####[address] [address] CBC with Diffon 03-26-2017 Abs. Basophil 0.18 k/uL Normal 0.0-0.[address] [facility] Comment on above: Performed By: #### P T, BNP, CP, LIPR, CDP ####[address] [address] Abs.Neutrophil (Seg) 11.81 k/uL High 1.8-7.[address] [facility] Comment on above: Performed By: #### P T, BNP, CP, LIPR, CDP ####[address] [address] Basophils/100 WBC Auto (Bld) 1 % Normal [facility] Comment on above: Performed By: #### P T, BNP, CP, LIPR, CDP ####[address] [address] Blood morphology Normal Normal [facility] Comment on above: Result Comment: [address] [address] Performed By: #### P T, BNP, CP, LIPR, CDP ####[address] [address] Eosinophils 0.00 10*3/uL Normal 0.0-0.[address] [facility] Comment on above: Performed By: #### P T, BNP, CP, LIPR, CDP ####[address] [address] Eosinophils/100 leukocytes 0 % Normal [facility] Comment on above: Performed By: #### P T, BNP, CP, LIPR, CDP ####[address] [address] Lymphocytes 4.48 10*3/uL Normal 1.0-4.[address] [facility] Comment on above: Performed By: #### P T, BNP, CP, LIPR, CDP ####[address] [address] Lymphocytes/100 leukocytes 25 % Normal [facility] Comment on above: Performed By: #### P T, BNP, CP, LIPR, CDP ####[address] [address] Monocytes 1.43 10*3/uL High 0.1-0.[address] [facility] Comment on above: Performed By: #### P T, BNP, CP, LIPR, CDP ####[address] [address] Monocytes/100 leukocytes 8 % Normal [facility] Comment on above: Performed By: #### P T, BNP, CP, LIPR, CDP ####[address] [address] Neutrophil (Seg) 66 % Normal [facility] Comment on above: Performed By: #### P T, BNP, CP, LIPR, CDP ####[address] [address] Erythrocyte distribution width Auto Ratio (RBC) 14.5 % Normal 12.5-15.[address] [facility] Comment on above: Performed By: #### P T, BNP, CP, LIPR, CDP ####[address] [address] Erythrocytes (RBC) 5.28 10*6/uL Normal 4.5-5.9 [facility] Comment on above: Performed By: #### P T, BNP, CP, LIPR, CDP ####[address] [address] Hematocrit (HCT) 46.0 % Normal 41-53 [facility] Comment on above: Performed By: #### P T, BNP, CP, LIPR, CDP ####[address] [address] Hemoglobin mass conc (Bld) 16.3 g/dL Normal 13.5-17.[address] [facility] Comment on above: Performed By: #### P T, BNP, CP, LIPR, CDP ####[address] [address] MCH 30.8 pg Normal 26-[address] [facility] Comment on above: Performed By: #### P T, BNP, CP, LIPR, CDP ####[address] [address] MCHC mass conc (RBC) 35.4 g/dL Normal 31-[address] [facility] Comment on above: Performed By: #### P T, BNP, CP, LIPR, CDP ####[address] [address] MCV 87.1 fL Normal 80-[address] [facility] Comment on above: Performed By: #### P T, BNP, CP, LIPR, CDP ####[address] [address] Platelet mean volume (PMV) 7.3 fL Normal 6.0-12.[address] [facility] Comment on above: Performed By: #### P T, BNP, CP, LIPR, CDP ####[address] [address] Platelets 460 10*3/uL High 140-[address] [facility] Comment on above: Performed By: #### P T, BNP, CP, LIPR, CDP ####[address] [address] WBC (Leukocytes) 17.9 10*3/uL High 3.5-11.[address] [facility] Comment on above: Performed By: #### P T, BNP, CP, LIPR, CDP ####[address] [address] Auto Diff Performed NOT REPORTED Normal [facility] Comment on above: Performed By: #### P T, BNP, CP, LIPR, CDP ####[address] [address] Erythrocyte morphology NOT REPORTED Normal [facility] Comment on above: Performed By: #### P T, BNP, CP, LIPR, CDP ####[address] [address] Platelets NOT REPORTED Normal [facility] Comment on above: Performed By: #### P T, BNP, CP, LIPR, CDP ####[address] [address] WBC Morphology NOT REPORTED Normal [facility] Comment on above: Performed By: #### P T, BNP, CP, LIPR, CDP ####[address] [address] Comp Metabolic Profon 2016 Alanine aminotransferase (ALT) 35 U/L Normal 5-[address] [facility] Comment on above: Result Comment: SPEC IMEN SLIGHTLY HEMOLYZED, RESULTS MAY BE ADVERSELY AFFECTED. Performed By: #### P T, BNP, CP, LIPR, CDP ####[address] [address] Albumin 3.8 g/dL Normal 3.5-5.[address] [facility] Comment on above: Performed By: #### P T, BNP, CP, LIPR, CDP ####[address] [address] Albumin/Globulin Ratio 1.2 {ratio} Normal 1.0-2.[address] [facility] Comment on above: Performed By: #### P T, BNP, CP, LIPR, CDP ####[address] [address] Alkaline Phos 64 U/L Normal 40-[address] [facility] Comment on above: Result Comment: SPEC IMEN SLIGHTLY HEMOLYZED, RESULTS MAY BE ADVERSELY AFFECTED. Performed By: #### P T, BNP, CP, LIPR, CDP ####[address] [address] Anion gap 13 mmol/L Normal 9-[address] [facility] Comment on above: Performed By: #### P T, BNP, CP, LIPR, CDP ####[address] [place] [address] Aspartate aminotransferase (AST) 81 U/L High <[address] [facility] Comment on above: Result Comment: SPEC IMEN SLIGHTLY HEMOLYZED, RESULTS MAY BE ADVERSELY AFFECTED. Performed By: #### P T, BNP, CP, LIPR, CDP ####[address] [address] Bilirubin Ql (U) 0.86 mg/dL Normal 0.3-1.2 [facility] Comment on above: Performed By: #### P T, BNP, CP, LIPR, CDP ####[address] [address] Calcium 8.9 mg/dL Normal 8.6-10.[address] [facility] Comment on above: Performed By: #### P T, BNP, CP, LIPR, CDP ####[address] [address] Chloride 100 mmol/L Normal 98-[address] [facility] Comment on above: Performed By: #### P T, BNP, CP, LIPR, CDP ####[address] [address] CO2 25 mmol/L Normal 20-[address] [facility] Comment on above: Performed By: #### P T, BNP, CP, LIPR, CDP ####[address] [address] Creatinine 0.83 mg/dL Normal 0.70-1.[address] [facility] Comment on above: Performed By: #### P T, BNP, CP, LIPR, CDP ####[address] [address] eGFR (non-black) mL/min/{1.73_m2} Normal >60 [facility] Comment on above: Performed By: #### P T, BNP, CP, LIPR, CDP ####[facility] [address] [place] [address] Glucose mass conc 203 mg/dL High 70-99 [facility] Comment on above: Performed By: #### P T, BNP, CP, LIPR, CDP ####[address] [place] [address] Potassium molar conc 4.5 mmol/L Normal 3.7-5.[address] [facility] Comment on above: Result Comment: SPEC IMEN SLIGHTLY HEMOLYZED, RESULTS MAY BE ADVERSELY AFFECTED. Performed By: #### P T, BNP, CP, LIPR, CDP ####[facility] [address] [place] [address] Protein 7.1 g/dL Normal 6.4-8.[address] [facility] Comment on above: Performed By: #### P T, BNP, CP, LIPR, CDP ####[facility] [address] [place] [address] Sodium 138 mmol/L Normal 135-[address] [facility] Comment on above: Performed By: #### P T, BNP, CP, LIPR, CDP ####[facility] [address] [place] [address] Urea nitrogen 13 mg/dL Normal 6-[address] [facility] Comment on above: Performed By: #### P T, BNP, CP, LIPR, CDP ####[facility] [address] [place] [address] (cont.) Normal [facility] Comment on above: Result Comment: Aver age GFR for 50-59 years old: 93 mL/min/1.73sq mChronic Kidney Disease: <60 mL/min/1.73sq mKidney failure: <15 mL/min/1.73sq meGFR calculated using average adult body mass. Additional eGFR calculator available at:http://www.PipelineRx.com/multiple_crcl_2012.htmMartins Ferry [facility] [address] [place] [address] Performed By: #### P T, BNP, CP, LIPR, CDP ####[address] [address] BUN/CRE Ratio NOT REPORTED Normal 9-[address] [facility] Comment on above: Performed By: #### P T, BNP, CP, LIPR, CDP ####[address] [address] Staging: NOT REPORTED Normal [facility] Comment on above: Performed By: #### P T, BNP, CP, LIPR, CDP ####[address] [address] Hemoglobin A1Con 03-26-2017 Glucose mass conc 143 mg/dL Normal [facility] Comment on above: Result Comment: The ADA and AACC recommend providing the estimated average glucose result to permit better patient understanding of their HBA1c result.[address] [place] [address] Performed By: #### G LYHGB ####[address] [address] Hemoglobin A1c/Hemoglobin.tota l mass fraction (Bld) 6.6 % High 4.0-6.[address] [facility] Comment on above: Performed By: #### G LYHGB ####[address] [address] Lipid Profileon 03-26-2017 Cholesterol 150 mg/dL Normal <[address] [facility] Comment on above: Result Comment: Chol esterol Guidelines: <200 Desirable 200-240 Borderline >240 Undesirable Performed By: #### P T, BNP, CP, LIPR, CDP ####[address] [address] Cholesterol to HDL Ratio 2.7 {ratio} Normal <[address] [facility] Comment on above: Performed By: #### P T, BNP, CP, LIPR, CDP ####[address] [address] HDL Cholesterol 55 mg/dL Normal >[address] [facility] Comment on above: Result Comment: HDL Guidelines: <40 Undesirable 40-59 Borderline >59 Desirable Performed By: #### P T, BNP, CP, LIPR, CDP ####[address] [address] LDL Cholesterol 77 mg/dL Normal 0-[address] [facility] Comment on above: Result Comment: LDL Guidelines: <100 Desirable 100-129 Near to/above Desirable 130-159 Borderline >159 UndesirableDirect (measured) LDL and calculated LDL are not interchangeable tests. Performed By: #### P T, BNP, CP, LIPR, CDP ####[address] [address] Triglyceride 88 mg/dL Normal <[address] [facility] Comment on above: Result Comment: Trig lyceride Guidelines: <150 Desirable 150- 199 Borderline 200-499 High >499 Very high Based on AHA Guidelines for fasting triglyceride, March 2012.[address] [place] [address] Performed By: #### P T, BNP, CP, LIPR, CDP ####[address] [address] Cholesterol in VLDL mass conc NOT REPORTED Normal [address] [facility] Comment on above: Performed By: #### P T, BNP, CP, LIPR, CDP ####[address] [address] PTon 03-26-2017 INR Coag RelTime (PPP) 1.0 {INR} Normal [facility] Comment on above: Result Comment: Ther apeutic Range: Moderate Anticoagulant Intensity: INR = 2.0-3.0 High Anticoagulant Intensity: INR = 2.5-3.5[facility] [address] [place] [address] [phone] Performed By: #### P T, BNP, CP, LIPR, CDP ####[facility] [address] [place], [place] [id number] Prothrombin time (PT) Coag time (PPP) 11.0 s Normal 9.4-12.[address] [facility] Comment on above: Performed By: #### P T, BNP, CP, LIPR, CDP ####[facility] [address] [place], [place] [id number] Surgical Pathologyon 017 Surgical Pathology (NOTE)[id number] Y LABORATORIESCONSULTING PATHOLOGISTS [facility]A[place]ATOMIC [id number] [place] [address] [phone]: [phone] PATHOLOGY CONSULTATIONPatient Name: BENIGNO SANDERSONMR#: [id number] #[id number]/Josie Flannery CYTOMETRY REPORT Date Ordered: 03/27/2017 Status:Signed [...] CYTOCENTRIFUGE DIFFERENTIAL CELL COUNT:Peripheral Blood Lymphocytes 23% [place]/Hist 77%Flow cytometric immunophenotyping analysis is performed on peripheralblood following RBC lysis procedure. These cells are labeled bydirect, five color immunostaining procedure, and analyzed on a QB315ajcb cytometer. % POSITIVE Target Cells RESULTS: (Lymphocytes)1. [...] 18. CD103 1 19. FMC7 12 20. [place] 8 21. Lambda 5 This test was developed and its performance characteristics determinedby [facility] Anatomic Pathology. It has notbeen cleared [...] PERIPHERAL BLOOD SMEAR FOR FLOW CYTOMETRY Normal [facility] 03-[facility]-2017 aPTT 32.1 s High 21.3-31.[address] [facility] Comment on above: Result Comment: [employer] [address] [place] [address] Performed By: #### P TT ####[address] [address] aPTT 31.5 s High 21.3-31.[address] [facility] Comment on above: Result Comment: [facility] meebee [address] [place] [address] Performed By: #### P TT ####[address] [address] aPTT 26.4 s Normal 21.3-31.[address] [facility] Comment on above: Result Comment: [address] [place] [address] Performed By: #### C BC, PTT, TROPI ####[address] [address] CBCon 03-25-2017 Erythrocyte distribution width Auto Ratio (RBC) 14.6 % Normal 12.5-15.[address] [facility] Comment on above: Performed By: #### C BC, PTT, TROPI ####[address] [address] Erythrocytes (RBC) 5.24 10*6/uL Normal 4.5-5.9 [facility] Comment on above: Performed By: #### C BC, PTT, TROPI ####[address] [address] Hematocrit (HCT) 44.4 % Normal 41-53 [facility] Comment on above: Performed By: #### C BC, PTT, TROPI ####[address] [address] Hemoglobin mass conc (Bld) 16.2 g/dL Normal 13.5-17.[address] [facility] Comment on above: Performed By: #### C BC, PTT, TROPI ####[address] [address] MCH 31.0 pg Normal 26-[address] [facility] Comment on above: Performed By: #### C BC, PTT, TROPI ####[address] [address] MCHC mass conc (RBC) 36.6 g/dL Normal 31-[address] [facility] Comment on above: Performed By: #### C BC, PTT, TROPI ####[address] [address] MCV 84.7 fL Normal 80-[address] [facility] Comment on above: Performed By: #### C BC, PTT, TROPI ####[facility] [address] [place] [address] Platelet mean volume (PMV) 7.1 fL Normal 6.0-12.[address] [facility] Comment on above: Result Comment: [facility] [address] [place] [address] Performed By: #### C BC, PTT, TROPI ####[facility] [address] [place] [address] Platelets 542 10*3/uL High 140-[address] [facility] Comment on above: Performed By: #### C BC, PTT, TROPI ####[facility] [address] [place] [address] WBC (Leukocytes) 16.6 10*3/uL High 3.5-11.[address] [facility] Comment on above: Performed By: #### C BC, PTT, TROPI ####[facility] [address] [place] [address] ED Provider Noteon 7 HIM IP Note OR Rotary Planer Set Up Operator Normal [facility] History and Physicalon 03-25 HIM IP Note OR Rotary Planer Set Up Operator Normal [facility] Magnesiumon 03-25-2017 Magnesium 2.4 mg/dL Normal 1.6-2.[address] [facility] Comment on above: Result Comment: [facility] [place] [address] Performed By: #### T ROPI, MG ####[address] [address] Troponinon 03-25-2017 Troponin I.cardiac mass conc Normal [facility] Comment on above: Result Comment: Refe rence Range: <0.03 Within reference range. 0.03-0.09 Possible myocardial damage.Repeat at appropriate intervals to rule out chronic elevation. >= 0.10 Indicative of myocardial damage.[facility] [address] [place] [address] Performed By: #### C BC, PTT, TROPI ####[facility] [address] [place] [address] Troponin T.cardiac mass conc 0.81 ng/mL Critically high <0.[address] [facility] Comment on above: Result Comment: Trop onin T results cannot be compared to Troponin-I results.Previous Alert Value Reported Performed By: #### C BC, PTT, TROPI ####[facility] [address] [place] [address] Troponin I.cardiac mass conc Normal [facility] Comment on above: Result Comment: Refe rence Range: <0.03 Within reference range. 0.03-0.09 Possible myocardial damage.Repeat at appropriate intervals to rule out chronic elevation. >= 0.10 Indicative of myocardial damage.[facility] [address] [place] [address] Performed By: #### T ROPI, MG ####[address] [place] [address] Troponin T.cardiac mass conc 0.70 ng/mL Critically high <0.[address] [facility] Comment on above: Result Comment: Trop onin T results cannot be compared to Troponin-I results. Performed By: #### T ROPI, MG ####[facility] [address] [place] [address] Troponin I.cardiac mass conc Normal [facility] Comment on above: Result Comment: Refe rence Range: <0.03 Within reference range. 0.03-0.09 Possible myocardial damage.Repeat at appropriate intervals to rule out chronic elevation. >= 0.10 Indicative of myocardial damage.[facility] [address] [place] [address] Performed By: #### T ROPI ####[facility] [address] [place] [address] Troponin T.cardiac mass conc 0.04 ng/mL High <0.[address] [facility] Comment on above: Result Comment: Trop onin T results cannot be compared to Troponin-I results. Performed By: #### T TREEI ####[facility] [address] [place], [place] [address]230[address] XR CHEST PORTABLEon 03-25-20 XR CHEST PORTABLE EXAMINATION:SINGLE V IEW OF THE CHEST03/24/2017 11:24 pmCOMPARISON:3 hours agoHISTORY:ORDERING SYSTEM PROVIDED HISTORY: chest painTECHNOLOGIST PROVIDED HISTORY:Reason for exam:->chest painFINDINGS:The lungs are without acute focal process. There is no effusion orpneumothorax. The cardiomediastinal silhouette is without acute process. Theosseous structures are without acute process.IMPRESSION: No acute process.Interpreted by:SHELBI Aponteigned by:Stanley Azar MD03/24/17Final result Normal [facility] APTTon 03-24-2017 aPTT 25.2 s Normal 23.2-34.4 [facility] Comment on above: Result Comment: Perf ormed at [address] [place] [address] [phone] Performed By: #### P T, PTT, BNP, BMP, TROPI, CDP ####[address] [place] [address] Basic Metabolic Profon 03-24 (cont.) Normal [facility] Comment on above: Result Comment: Aver age GFR for 50-59 years old: 93 mL/min/1.73sq mChronic Kidney Disease: <60 mL/min/1.73sq mKidney failure: <15 mL/min/1.73sq meGFR calculated using average adult body mass. Additional eGFR calculator available at:http://www.PipelineRx.SocialCompare/multiple_crcl_2012.htm Performed By: #### P T, PTT, BNP, BMP, TROPI, CDP ####[address] [place] [address] Anion gap 11 mmol/L Normal 9-17 [facility] Comment on above: Performed By: #### P T, PTT, BNP, BMP, TROPI, CDP ####[address] [place] [address] BUN/CRE Ratio 17 Normal 9-20 [facility] Comment on above: Performed By: #### P T, PTT, BNP, BMP, TROPI, CDP ####[address] [place] [address] Calcium 9.3 mg/dL Normal 8.6-10.4 [facility] Comment on above: Performed By: #### P T, PTT, BNP, BMP, TROPI, CDP ####[address] [place] [address] Chloride 94 mmol/L Low 98-107 [facility] Comment on above: Performed By: #### P T, PTT, BNP, BMP, TROPI, CDP ####[address] [place] [address] CO2 29 mmol/L Normal 20-31 [facility] Comment on above: Performed By: #### P T, PTT, BNP, BMP, TROPI, CDP ####[address] [place] [address] Creatinine 0.92 mg/dL Normal 0.70-1.20 [facility] Comment on above: Performed By: #### P T, PTT, BNP, BMP, TROPI, CDP ####[address] [place] [address] eGFR (non-black) mL/min/{1.73_m2} Normal >60 [facility] Comment on above: Performed By: #### P T, PTT, BNP, BMP, TROPI, CDP ####[address] [place] [address] Glucose mass conc 212 mg/dL High 70-99 [facility] Comment on above: Performed By: #### P T, PTT, BNP, BMP, TROPI, CDP ####[address] , [place] [phone] Potassium molar conc 4.3 mmol/L Normal 3.7-5.3 [facility] Comment on above: Performed By: #### P T, PTT, BNP, BMP, TROPI, CDP ####[address] [place] [address] Sodium 134 mmol/L Low 135-144 [facility] Comment on above: Performed By: #### P T, PTT, BNP, BMP, TROPI, CDP ####[address] [place] [address] Staging: Normal [facility] Comment on above: Result Comment: Stag e 1: Some kidney damage normal GFRStage 2: Mild kidney damage GFR 60-89Stage 3: Moderate kidney damage GFR 30-59Stage 4: Severe kidney damage GFR 15-29Stage 5: Severe kidney damage GFR <15ESRD - chronic treatment by dialysis or transplantPerformed at [address] [place] [address] Performed By: #### P T, PTT, BNP, BMP, TROPI, CDP ####[address] [place] [address] Urea nitrogen 16 mg/dL Normal 6-20 [facility] Comment on above: Performed By: #### P T, PTT, BNP, BMP, TROPI, CDP ####[address] [place] [address] Brain Natri. Peptideon 03-24 BNP Normal [facility] Comment on above: Result Comment: Pro- BNP Reference Range:Rule Out: <300Grey Zone: Age <50 300-450 Age 50-75 300-900 Age >75 300-1800Usually represents mild to moderate HF but other cardiopulmonary causes cannot be ruled out.Rule In: Age <50 >450 Age 50-75 >900 Age >75 >1800Performed at [address] [place] [address] Performed By: #### P T, PTT, BNP, BMP, TROPI, CDP ####[address] [place] [address] BNP pg/mL Normal <300 [facility] Comment on above: Result Comment: Pro- BNP results cannot be compared to BNP results. Performed By: #### P T, PTT, BNP, BMP, TROPI, CDP ####[address] [place] [address] CBC with Diffon 03-24-2017 Abs. Basophil 0.20 k/uL Normal 0.0-0.2 [facility] Comment on above: Performed By: #### P T, PTT, BNP, BMP, TROPI, CDP ####[address] [place] [address] Abs.Neutrophil (Seg) 12.93 k/uL High 1.8-7.7 [facility] Comment on above: Performed By: #### P T, PTT, BNP, BMP, TROPI, CDP ####[address] [place] [address] Basophils/100 WBC Auto (Bld) 1 % Normal [facility] Comment on above: Performed By: #### P T, PTT, BNP, BMP, TROPI, CDP ####[address] [place] [address] Blood morphology Platelet scan shows Increased Platelets Normal [facility] Comment on above: Result Comment: Perf ormed at [address] [place] [address] Performed By: #### P T, PTT, BNP, BMP, TROPI, CDP ####[address] [place] [address] Eosinophils 0.00 10*3/uL Normal 0.0-0.4 [facility] Comment on above: Performed By: #### P T, PTT, BNP, BMP, TROPI, CDP ####[address] , [place] [address] Eosinophils/100 leukocytes 0 % Normal [facility] Comment on above: Performed By: #### P T, PTT, BNP, BMP, TROPI, CDP ####[address] , [place] [address] Lymphocytes 4.51 10*3/uL Normal 1.0-4.8 [facility] Comment on above: Performed By: #### P T, PTT, BNP, BMP, TROPI, CDP ####[address] , [place] [address] Lymphocytes/100 leukocytes 23 % Normal [facility] Comment on above: Performed By: #### P T, PTT, BNP, BMP, TROPI, CDP ####[address] , [place] [address] Monocytes 1.96 10*3/uL High 0.0-1.0 [facility] Comment on above: Performed By: #### P T, PTT, BNP, BMP, TROPI, CDP ####[address] , [place] [address] Monocytes/100 leukocytes 10 % Normal [facility] Comment on above: Performed By: #### P T, PTT, BNP, BMP, TROPI, CDP ####[address] , [place] [address] Neutrophil (Seg) 66 % Normal [facility] Comment on above: Performed By: #### P T, PTT, BNP, BMP, TROPI, CDP ####[address] , [facility]83 Erythrocyte distribution width Auto Ratio (RBC) 13.6 % Normal 12.1-15.2 [facility] Comment on above: Performed By: #### P T, PTT, BNP, BMP, TROPI, CDP ####[address] [place] [address] Erythrocytes (RBC) 5.28 10*6/uL Normal 4.5-5.9 [facility] Comment on above: Performed By: #### P T, PTT, BNP, BMP, TROPI, CDP ####[address] , [facility] Hematocrit (HCT) 44.9 % Normal 41-53 [facility] Comment on above: Performed By: #### P T, PTT, BNP, BMP, TROPI, CDP ####[address] , [facility] Hemoglobin mass conc (Bld) 16.0 g/dL Normal 13.5-17.0 [facility] Comment on above: Performed By: #### P T, PTT, BNP, BMP, TROPI, CDP ####[address] , [facility] MCH 30.3 pg Normal 26-34 [facility] Comment on above: Performed By: #### P T, PTT, BNP, BMP, TROPI, CDP ####[address] [place] [address] MCHC mass conc (RBC) 35.6 g/dL Normal 31-37 [facility] Comment on above: Performed By: #### P T, PTT, BNP, BMP, TROPI, CDP ####[address] , [facility] MCV 85.1 fL Normal 80-100 [facility] Comment on above: Performed By: #### P T, PTT, BNP, BMP, TROPI, CDP ####[address] , [facility] Platelet mean volume (PMV) 7.9 fL Normal 6.0-12.0 [facility] Comment on above: Performed By: #### P T, PTT, BNP, BMP, TROPI, CDP ####[address] [place] [address] Platelets 555 10*3/uL High 140-450 [facility] Comment on above: Performed By: #### P T, PTT, BNP, BMP, TROPI, CDP ####[address] [place] [address] WBC (Leukocytes) 19.6 10*3/uL High 3.5-11.0 [facility] Comment on above: Performed By: #### P T, PTT, BNP, BMP, TROPI, CDP ####[address] [place] [address] Auto Diff Performed NOT REPORTED Normal [facility] Comment on above: Performed By: #### P T, PTT, BNP, BMP, TROPI, CDP ####[address] [place] [address] Erythrocyte morphology NOT REPORTED Normal [facility] Comment on above: Performed By: #### P T, PTT, BNP, BMP, TROPI, CDP ####[address] [place] [address] Platelets NOT REPORTED Normal [facility] Comment on above: Performed By: #### P T, PTT, BNP, BMP, TROPI, CDP ####[address] [place] [address] WBC Morphology NOT REPORTED Normal [facility] Comment on above: Performed By: #### P T, PTT, BNP, BMP, TROPI, CDP ####[address] [place] [address] CTA CHEST WITH CONTRASTon CTA CHEST WITH CONTRAST FINAL REPORTEXAM: CTA CHEST WITH CONTRASTHISTORY: midsternal chest pain, SOB, h/o 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 Interpreted by:SHELBI Bermudezigned by:Caroyln Reyes MD03/24/17Fintx result Normal [facility] ED Noteon 03-24-2017 HIM IP Note OR Rotary Planer Set Up Operator Normal [facility] HIM IP Note OR Rotary Planer Set Up Operator Normal [facility] HIM IP Note OR Rotary Planer Set Up Operator Normal [facility] HIM IP Note OR Rotary Planer Set Up Operator Normal [facility] ED Provider Noteon 7 HIM IP Note OR Rotary Planer Set Up Operator Normal [facility] PTon 03-24-2017 INR Coag RelTime (PPP) 1.0 {INR} Normal 0.9-1.2 [facility] Comment on above: Result Comment: Perf ormed at [address] [place] [address] [phone] Performed By: #### P T, PTT, BNP, BMP, TROPI, CDP ####[address] [place] [address] Prothrombin time (PT) Coag time (PPP) 10.1 s Normal 9.7-12.2 [facility] Comment on above: Performed By: #### P T, PTT, BNP, BMP, TROPI, CDP ####[address] [place] [address] Troponinon 03-24-2017 Troponin I.cardiac mass conc Normal [facility] Comment on above: Result Comment: Refe rence Range: <0.03 Within reference range. 0.03-0.09 Possible myocardial damage.Repeat at appropriate intervals to rule out chronic elevation. >= 0.10 Indicative of myocardial damage.Performed at [address] [place], [place] [id number] [phone] Performed By: #### P T, PTT, BNP, BMP, TROPI, CDP ####[address] [place] [address] Troponin T.cardiac mass conc ug/L Normal <0.03 [facility] Comment on above: Result Comment: Trop onin T results cannot be compared to Troponin-I results. Performed By: #### P T, PTT, BNP, BMP, TROPI, CDP ####[address] , [place] [address] XR CHEST PORTABLEon 03-24-20 17 XR CHEST [...] by:SHELBI Bermudezigned by:Carolyn Reyes MD03/24/17Final result Normal [facility] Encounters Encounter Date Encounter Type Care Provider Facility Start: 09-20-2022 End: 09-21-2022 ambulatory Cheng Gonsalez MD Facility:[facility] Start: 08-26-2022 End: 08-27-2022 ambulatory Julianne Blevins Facility:[facility] Start: 10-18-2021 End: 10-19-2021 ambulatory Julianne Blevins Facility:[facility] Start: 12-18-2017 End: 12-19-2017 Ambulatory CHENG Ab Be [facility] Start: 12-13-2017 End: 12-14-2017 Ambulatory CHENG Ab GONSALEZ [facility] Start: 12-11-2017 End: 12-12-2017 Ambulatory CHENG Ab GONSALEZ [facility] Start: 11-29-2017 End: 11-30-2017 Ambulatory CHENG Ab GONSALEZ [facility] Start: 11-13-2017 End: 11-14-2017 Ambulatory CHENG Ab GONSALEZ [facility] Start: 11-08-2017 End: 11-09-2017 Ambulatory CHENG Ab Marleyy [facility] Start: 11-06-2017 End: 11-07-2017 Ambulatory CHENG GONSALEZ [facility] Start: 11-03-2017 End: 11-04-2017 Ambulatory JULIANNE BLEVINS [facility] Start: 11-01-2017 End: 11-02-2017 Ambulatory JULIANNE BLEVINS [facility] Start: 10-11-2017 End: 10-11-2017 Ambulatory CARLOS BUSTILLOS Facility:[facility] Start: 08-07-2017 Ambulatory FILI MARTINEZ Facilit y:[facility] Start: 04-10-2017 End: 04-11-2017 Ambulatory ISMAEL NGUYỄNBAKARI [facility] Start: 03-25-2017 End: 03-28-2017 [facility] Start: 03-24-2017 End: 03-25-2017 Emergency department patient visit RYAN MOSS [facility] Procedures Date Procedure Procedure Detail Performing Clinician [...] Unknown 2021 Private Health Insurance 1965 Unknown [id number] 1965 Unknown [id number] 1965 Unknown [id number] 1960 Private Health Insurance [id number] Self-pay [id number] Clinical Note 08-26-2022 Note Date & Type Note Facility 08-26-2022 Note Patient Education Ma terials Name: Benigno Sanderson Current Date: 08/26/2022 13:48:04 [facility] : 1965 The following sheet(s) are the [...] Don't delay. You (more content not included)... [facility] Summary Purpose Family History No Family [...] and content) DATE CREATED AUTHOR 12/14/2017 [facility] DATE CREATED AUTHOR AUTHOR'S ORGANIZ ATION 12/19/2017 [facility] DATE CREATED AUTHOR AUTHOR'S ORGANIZ ATION 12/20/2017 [facility] DATE CREATED AUTHOR AUTHOR'S ORGANIZ ATION 09/22/2022 [facility] FOR RECORDS PERTAINING TO PATIENTS WHO [...] BE BASED ON THE PRIMARY CLINICAL RECORDS. [facility] provides no warranty or guarantee of the accuracy or completeness of information in this document.
== END 2024-01-24 08:59 | disposition home or self-care (01) ==
LOC: EC 08:58
PROVIDERS: Family Provider Family Medicine; PCP Family Medicine; Visit Provider Podiatrist Foot & Ankle Surgery
DX: M79.672 Pain in left foot (principal)
CPT/HCPCS: 73630

== ENCOUNTER 2024-02-06 09:43 | Outpatient (OUT) | payer OTHER, SELFPAY ==
--- NOTE | 2024-02-06 | XR_ITS ---
[facility] [place] [id number] Patient Name: JAM JAY MRN: [id number] date: 1965 Sex: M Assigned Patient Location: Current Patient Location: Accession/Order Number: [id number] Exam Date: 02/06/2024 09:52 Report Date: 02/08/2024 06:10 At the request of: ARELIS SHELL Procedure: XR foot LT min 3V PROCEDURE: XR foot LT min 3V HISTORY: LEFT FOOT PAIN COMPARISON: XR foot left 01/24/2024 FINDINGS: BONES:Sclerosis of calcaneus and slight increase in density of prior fracture line. SOFT TISSUES:No visible soft tissue swelling. EFFUSION:None visible. OTHER: Negative. XR/XR foot LT min 3V IMPRESSION: 1. Stable alignment and ongoing bone healing of prior calcaneal fracture. 2. No appreciable acute abnormality. Electronically authenticated by: ROXI HAGAN Date: 02/08/2024 06:10
--- OUTSIDE RECORDS SUMMARY | 2024-02-06 09:50 | XMS_ITS | CCD ---
Author Organization [facility] CliniSyms Care Team Providers Care Detail Assembler Name Role Phone MICHELLE FILI Unavailable Unavailable [...] Unavailable GONSALEZ, CHENG J Unavailable Unavailable GONSALEZ, CEHNG J Unavailable Unavailable GONSALEZ, CHENG J Unavailable [...] Propensity to adverse reactions to drug (disorder) [facility] Repository Problems Active Problems Problem Classification Problem Date Documented Date Episodic/Chronic Acute myocardial infarction (1 source) Non-ST elevation (NSTEMI) myocardial infarction; Translations: [Non-ST elevation (NSTEMI) myocardial infarction] Onset: 03-25-2017 Chronic Coronary atherosclerosis and other heart disease (2 sources) Atherosclerotic heart disease of [place] coronary artery without angina pectoris; Translations: [Acute ischemic heart disease, unspecified] Onset: 03-25-2017 Chronic Coronary atherosclerosis and other heart disease (1 source) Presence of coronary angioplasty implant and graft; Translations: [PRESENCE COR ANGPLSTY IMPLANT AND GRAFT] Onset: 10-13-2017 Episodic Deficiency and other anemia (1 source) Hereditary spherocytosis; Translations: [HEREDITARY SPHEROCYTOSIS] Onset: 10-13-2017 Chronic Other aftercare (1 source) 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 Stress ECG: Sinus tachycardia. The [...] Electronically Signed in Other Vendor System) Normal [facility] Cardiology Office/Clinic Not suzi 08-26-2022 Cardiology [...] LCx, diffuse 10-20% RCA, EF 50%, 03/27/17 ([facility], [place], [place]). i. PCI with 5.0 x 18 mm BMS to pLAD, 03/27/17 ([facility], [place], [place]). B. Cardiac cath showed normal LM, [...] axes/intervals, no ST-T changes (Dr. Cheng Gonsalez, [place], [place]) (my independent interpretation of a test reported by another physician) Echocardiography > 03/27/17: EF 55% ([place], [place]) > 11/03/17: EF 60% ([place], [place]) Stress Testing > 11/29/19: (Lexiscan MPI) No ischemic ECG changes, MPI showed a possible small area of apical ischemia, EF 74% > 06/28/21: (Exercise MPI) Von 7:17, 9.2 METs, 87% APMHR, indeterminate ECG response (baseline ST-T changes), normal MPI, EF 62% Outside Lab Results > 08/12/22: (CBC) WBC 15.5, Hgb 18.6, Plt 460 ([place] > 08/12/22: (HbA1c) HbA1c 8.8% (Dr. Cheng Gonsalez, [place], [place]) > 08/12/22: (Lipids) TC 165, TG 133, HDL 52, LDL 86 ([place]. [place] Physical Exam Vitals & Measurements HR: [...] Service Excluding time for services reported/billed separately [id number] encounter with patient: 10 Prep, documentation, coordination [...] Metoprolol Ta (more content not included)... Normal [facility] Cardiology Office/Clinic Not suzi 10-18-2021 Cardiology [...] LCx, diffuse 10-20% RCA, EF 50%, 03/27/17 ([facility], [place], [place]). i. PCI with 5.0 x 18 mm BMS to pLAD, 03/27/17 ([place], [place]). B. Cardiac cath showed normal LM, widely patent LAD stents, 30% pD1, 30% mLCx, normal RCA, and EF 55-60%, 10/12/17. 2. Diabetes mellitus type 2. 3. Systemic arterial hypertension. 4. Hereditary spherocytosis. A. Status post splenectomy. B. Chronic thrombocytosis. 5. History of tobacco use. A. Previously quit smoking. Cardiac Testing Echocardiography > 03/27/17: EF 55% ([place], [place]) > 11/03/17: EF 60% ([place], [place]) Stress Testing > 11/29/19: (Lexiscan MPI) [...] Julianne Blevins DO 10/18/21 11:01 EDT Normal [facility] Progress Noteon 11-07-2017 HIM IP Note OR Faculty Physician Normal [facility] Progress Noteon 11-03-2017 HIM IP Note OR Faculty Physician Normal [facility] Progress Noteon 11-01-2017 HIM IP Note OR Faculty Physician [facility] CARDIAC HIRAL 3-6-9on 18-2 018 CKMB 1.61 ng/mL Normal <=2.37 [facility] Comment on above: Performed By: #### C MREP ####[facility] Leiwhbblif[address] [place] Creatine kinase (CK) 131 U/L Normal 55-170 [facility] Comment on above: Performed By: #### C MREP ####[facility] [address] [place] [address] R[place] INR Coag RelTime (Bld) SEE BELOW Normal [facility] Comment on above: Result Comment: <0.0 34 ng/ml NEGATIVE 0.034-0.119 INDETERMINATE 0.120 AMI CUT OFF Performed By: #### C MREP ####[facility] X[address] [place] [address] [place] TROP 0.060 ng/mL Critically high <=0.034 [facility] Comment on above: Result Comment: test repeated critical value verified Performed By: #### C MREP ####[facility] [address] [place] [address] CARDIAC HIRAL ADMITon 018 CKMB 1.59 ng/mL Normal <=2.37 [facility] Comment on above: Performed By: #### C MADM, LIPA, CRP, BMP ####[facility] [address] [place] [address] Creatine kinase (CK) 153 U/L Normal 55-170 [facility] Comment on above: Performed By: #### C MADM, LIPA, CRP, BMP ####[facility] Vifpubotic3154 [address] [place] INR Coag RelTime (Bld) SEE BELOW Normal [facility] Comment on above: Result Comment: <0.0 34 ng/ml NEGATIVE 0.034-0.119 INDETERMINATE 0.120 AMI CUT OFF Performed By: #### C MADM, LIPA, CRP, BMP ####[facility] [address] [place] [address] [place] DARÍO 40.0 ng/mL Normal <=121.0 [facility] Comment on above: Performed By: #### C MADM, LIPA, CRP, BMP ####[facility] Gacwxhxngn0638 [address] [place] TROP 0.032 ng/mL Normal <=0.034 [facility] Comment on above: Performed By: #### C MADM, LIPA, CRP, BMP ####[facility] Buxdpawqlc6197 [address] [place] CBC W MANUAL DIFFon 10-12-19 18 ACANTHOCYTES SLIGHT Normal [facility] Comment on above: Performed By: #### C IRENE ####[facility] [address] [place] [address] [place] Anisocytosis presence SLIGHT Normal [facility] Comment on above: Performed By: #### Pearl BONILLA ####[facility] [address] [place] [address] [place] BAND # 0.0 103/ul Normal 0.0-0.3 [facility] Comment on above: Performed By: #### Pearl BONILLA ####[facility] [address] [place] [address] R[place] BAND % 0 % Normal 0-5 [facility] Comment on above: Performed By: #### Pearl BONILLA ####[facility] [address] [place] [address] [place] BASOM % 2.0 % Normal 0.2-2.0 [facility] Comment on above: Performed By: #### Pearl BONILLA ####[facility] [address] [place] [address] R[place] Basophils Auto #/vol (Bld) 0.31 103/ul Critically high 0.00-0.10 [facility] Comment on above: Performed By: #### Pearl BONILLA ####[facility] [address] [place] [address] Romy BLAST # Normal [facility] Comment on above: Performed By: #### Pearl BONILLA ####[facility] [address] [place] [address] Romy BLAST % Normal [facility] Comment on above: Performed By: #### C BCMAN ####[facility] [address] [place] [id number] Eosinophils 0.63 103/ul Normal 0.00-0.70 [facility] Comment on above: Performed By: #### Pearl BONILLA ####[facility] Khulhoweeo[address] [place] [id number] Eosinophils/100 leukocytes 4.0 % Normal 0.9-7.0 [facility] Comment on above: Performed By: #### Pearl BONILLA ####[facility] [address] [place], [place] [address] Erythrocyte distribution width Auto Ratio (RBC) 12.7 % Normal 11.0-15.0 [facility] Comment on above: Performed By: #### Pearl BONILLA ####[facility] [address] [place] [address] Romy Erythrocytes (RBC) 5.20 106/ul Normal 4.70-6.10 [facility] Comment on above: Performed By: #### Pearl BONILLA ####[facility] [address] [place], [place] [address] Erythrocytes (RBC) Normal [facility] Comment on above: Performed By: #### Pearl BONILLA ####[facility] Ax[address]wcqhhp[address] [place], [place] [address] GIANT PLATELETS SEEN Normal [facility] Comment on above: Performed By: #### Pearl BONILLA ####[facility] [address] [place], [place] [address] Hematocrit (HCT) 43.4 % Normal 42.0-54.0 [facility] Comment on above: Performed By: #### Pearl BONILLA ####[facility] [address] [place], [place] [address] Hemoglobin mass conc (Bld) 15.9 g/dL Normal 14.0-18.0 [facility] Comment on above: Performed By: #### Pearl BONILLA ####[facility] [address] [place], [place] [address] Lymphocytes 3.77 103/ul Normal 1.20-3.80 [facility] Comment on above: Performed By: #### Pearl BONILLA ####[facility] Ocrx[address]jizka[address] [place], [place] [address] Lymphocytes 0.16 103/ul Normal [facility] Comment on above: Performed By: #### Pearl BONILLA ####[facility] Eqidgjssqo0209 [place], [place] [address]Lhoqqw Romy Lymphocytes/100 leukocytes 1 % Normal [facility] Comment on above: Performed By: #### Pearl BONILLA ####[facility] Fabizwrvtk3495 [place], [place] [address]Viknwm Romy Lymphocytes/100 leukocytes 24.0 % Normal 20.5-60.0 [facility] Comment on above: Performed By: #### Pearl BONILLA ####[facility] [address] [place], [place] [address] MCH 30.6 pg Normal 25.9-34.0 [facility] Comment on above: Performed By: ###Soheila BONILLA ####[facility] Maklulhpah4760 [place] [id number] MCHC mass conc (RBC) 36.6 g/dL Critically high 29.9-35.2 [facility] Comment on above: Performed By: #### Pearl BONILLA ####[facility] Amyqxxyvoy5015 [place] [id number] MCV 83.5 fL Normal 80.0-94.0 [facility] Comment on above: Performed By: #### Pearl BONILLA ####[facility] Dgpknvkfor3478 [place], [place] [address]Cytykf Romy METAMYELOCYTE # Normal [facility] Comment on above: Performed By: #### Pearl BONILLA ####[facility] Raesqvmclg9318 [place], [place] [address]Vjtcrn Romy METAMYELOCYTE % Normal [facility] Comment on above: Performed By: #### Pearl BONILLA ####[facility] Qtbmzudwdr4787 [place] [id number] MONOM# 1.41 103/ul Critically high 0.30-0.80 [facility] Comment on above: Performed By: #### C IRENE ####[facility] Knwbzreswp7973 [place], [place] [address]Nevqva Romy MONOM% 9.0 % Normal 1.7-12.0 [facility] Comment on above: Performed By: #### C IRENE ####[facility] Lqbuwambdp4530 [place], [place] [address]Dcdmib Romy MYELOCYTE # Normal [facility] Comment on above: Performed By: #### C IRENE ####[facility] Wuxganjuqa2483 [place], [place] [address]Nrbvaz Romy MYELOCYTE % Normal [facility] Comment on above: Performed By: #### Pearl BONILLA ####[facility] Quhrfukats6135 [place], [place] [address]Qvjaiu Romy Platelet mean volume (PMV) 8.8 fL Critically low 9.5-13.5 [facility] Comment on above: Performed By: #### Pearl BONILLA ####[facility] Idoagdlaad8832 [place] [phone] Platelets 670 103/ul Critically high 150-450 [facility] Comment on above: Performed By: #### C IRENE ####[facility] Lpyklsrtaw3852 [place], [place] [address]Alvjar Romy SEG # 9.42 103/ul Critically high 1.40-6.50 [facility] Comment on above: Performed By: #### Pearl BONILLA ####[facility] Baqppvpcqa3825 [place] [phone] Segmented Neutrophils/100 leukocytes 60.0 % Normal 43.0-75.0 [facility] Comment on above: Performed By: #### Pearl BONILLA ####[facility] Tuazcspsdk8447 [place] [id number] WBC (Leukocytes) 15.7 103/ul Critically high 4.0-11.0 [facility] Comment on above: Performed By: #### Pearl BONILLA ####[facility] Xztjitqayq7606 [address] [place] WBC (Leukocytes) Normal 4.0-11.0 [facility] Comment on above: Performed By: #### C BCMAN ####[facility] Yciuubxiaz1118 [place] [id number] CRPon 10-11-2017 C reactive protein (CRP) 0.9 mg/dL Normal <=1.0 [facility] Comment on above: Performed By: #### C MADM, LIPA, CRP, BMP ####[facility] Psmivivevw5122 [address] [place] LIPASEon 10-11-2017 Lipase 139.0 U/L Normal 23.0-300.0 [facility] Comment on above: Performed By: #### C MADM, LIPA, CRP, BMP ####[facility] [address] [place] [address] [place] PROF CHEM 8 (BAS METB)on Anion gap 16.8 mmol/L Normal [facility] Comment on above: Performed By: #### C MADM, LIPA, CRP, BMP ####[facility] Liynfyeqht[address] BUN/Creatinine Ratio 22.4 mg/mg Normal [facility] Comment on above: Performed By: #### C MADM, LIPA, CRP, BMP ####[facility] Atntvrnhwi5426 [address] [place] Calcium 9.9 mg/dL Normal 8.4-10.2 [facility] Comment on above: Performed By: #### C MADM, LIPA, CRP, BMP ####[facility] Yqfygdngxb3464 [address] [place] Chloride 97 mmol/L Critically low 98-107 [facility] Comment on above: Performed By: #### C MADM, LIPA, CRP, BMP ####[facility] Ozuhqefkic1850 [address] [place] CO2 26.0 mmol/L Normal 22.0-30.0 [facility] Comment on above: Performed By: #### C MADM, LIPA, CRP, BMP ####[facility] Kykmbgfdzt9454 [address] [place] Creatinine 0.82 mg/dL Normal 0.66-1.25 [facility] Comment on above: Performed By: #### C MADM, LIPA, CRP, BMP ####[facility] Jkfiejrqaq9303 [address] [place] eGFR (non-black) mL/min/{1.73_m2} Normal >=60 [facility] Comment on above: Performed By: #### C MADM, LIPA, CRP, BMP ####[facility] Hpkdofiolr2967 [address] [place] Glucose mass conc 323 mg/dL Critically high 74-106 [facility] Comment on above: Performed By: #### C MADM, LIPA, CRP, BMP ####[facility] Qrzrxokzsr7131 [address] [place] Potassium molar conc 3.9 mmol/L Normal 3.4-5.0 [facility] Comment on above: Performed By: #### C MADM, LIPA, CRP, BMP ####[facility] Qpceljdfgj6171 [address] [place] Sodium 136 mmol/L Critically low 137-145 [facility] Comment on above: Performed By: #### C MADM, LIPA, CRP, BMP ####[facility] Zysdbddgla0203 [address] [place] Urea nitrogen 18.0 mg/dL Normal 9.0-20.0 [facility] Comment on above: Performed By: #### C MADM, LIPA, CRP, BMP ####[facility] Vqbgleheac0827 [address] [place] XR CHEST 1 Von 10-11-2017 XR CHEST 1 V 1400 [place] [address] Patient: CREDIT, BENIGNO W. Exam Date: 10/11/2017DOB: 1965 Gender:M : DR GONZALEZ MARKER Admission #: [id number] : Order #: [id number] HERE TO VIEW EXAM RADIOLOGY REPORT PROCEDURE: [...] M.D. on 10/11/2017 at 07:45 Normal [facility] CT CHEST WO CONTRASTon 04-10 [...] by:SHELBI Herediaigned by:Xin Ro MD04/10/17Final result Normal [facility] Flow Cytometryon 03-29-2017 Flow Cytometry [id number] Normal [facility] Comment on above: Result Comment: SEE SEPARATE REPORT[address] [address] Performed By: #### F LLE ####[address] [address] Discharge Summaryon 03-28-20 17 HIM IP Note OR Faculty Physician Normal [facility] APTTon 03-27-2017 aPTT 62.2 s High 21.3-31.3 [facility] Comment on above: Result Comment: [facility] [address] [place] [address] Performed By: #### P TT ####[address] [address] aPTT 60.0 s High 21.3-31.3 [facility] Comment on above: Result Comment: [facility] [address] [place] [address] Performed By: #### P TT ####[address] [address] Platelet Counton 03-27-2017 Platelets 508 10*3/uL High 140-450 [facility] Comment on above: Result Comment: [facility] [place] [address] Performed By: #### P LT ####[address] [address] APTTon 03-26-2017 aPTT 41.9 s High 21.3-31.3 [facility] Comment on above: Result Comment: [facility] [address] [place] [address] Performed By: #### P TT ####[address] [address] aPTT 34.1 s High 21.3-31.3 [facility] Comment on above: Result Comment: [facility] [address] [place] [address] Performed By: #### P TT ####[address] [address] aPTT 39.3 s High 21.3-31.3 [facility] Comment on above: Result Comment: [address] [address] Performed By: #### P TT ####[address] [address] Brain Natri. Peptideon 03-26 BNP 424 pg/mL High <300 [facility] Comment on above: Result Comment: Pro- BNP results cannot be compared to BNP results. Performed By: #### P T, BNP, CP, LIPR, CDP ####[address] [address] BNP Normal [facility] Comment on above: Result Comment: Pro- BNP Reference Range:Rule Out: <300[place]: Age <50 300-450 Age 50-75 300-900 Age >75 300-1800Usually represents mild to moderate HF but other cardiopulmonary causes cannot be ruled out.Rule In: Age <50 >450 Age 50-75 >900 Age >[address] [address] Performed By: #### P T, BNP, CP, LIPR, CDP ####[address] [address] CBC with Diffon 03-26-2017 Abs. Basophil 0.18 k/uL Normal 0.0-0.2 [facility] Comment on above: Performed By: #### P T, BNP, CP, LIPR, CDP ####[address] [address] Abs.Neutrophil (Seg) 11.81 k/uL High 1.8-7.7 [facility] Comment on above: Performed By: #### P T, BNP, CP, LIPR, CDP ####[address] [address] Basophils/100 WBC Auto (Bld) 1 % Normal [facility] Comment on above: Performed By: #### P T, BNP, CP, LIPR, CDP ####[address] [address] Blood morphology Normal Normal [facility] Comment on above: Result Comment: [address] [address] Performed By: #### P T, BNP, CP, LIPR, CDP ####[address] [address] Eosinophils 0.00 10*3/uL Normal 0.0-0.4 [facility] Comment on above: Performed By: #### P T, BNP, CP, LIPR, CDP ####[address] [address] Eosinophils/100 leukocytes 0 % Normal [facility] Comment on above: Performed By: #### P T, BNP, CP, LIPR, CDP ####[address] [address] Lymphocytes 4.48 10*3/uL Normal 1.0-4.8 [facility] Comment on above: Performed By: #### P T, BNP, CP, LIPR, CDP ####[address] [address] Lymphocytes/100 leukocytes 25 % Normal [facility] Comment on above: Performed By: #### P T, BNP, CP, LIPR, CDP ####[address] [address] Monocytes 1.43 10*3/uL High 0.1-0.8 [facility] Comment on above: Performed By: #### P T, BNP, CP, LIPR, CDP ####[address] [address] Monocytes/100 leukocytes 8 % Normal [facility] Comment on above: Performed By: #### P T, BNP, CP, LIPR, CDP ####[address] [address] Neutrophil (Seg) 66 % Normal [facility] Comment on above: Performed By: #### P T, BNP, CP, LIPR, CDP ####[address] [address] Erythrocyte distribution width Auto Ratio (RBC) 14.5 % Normal 12.5-15.4 [facility] Comment on above: Performed By: #### P T, BNP, CP, LIPR, CDP ####[address] [address] Erythrocytes (RBC) 5.28 10*6/uL Normal 4.5-5.9 [facility] Comment on above: Performed By: #### P T, BNP, CP, LIPR, CDP ####[address] [address] Hematocrit (HCT) 46.0 % Normal 41-53 [facility] Comment on above: Performed By: #### P T, BNP, CP, LIPR, CDP ####[address] [address] Hemoglobin mass conc (Bld) 16.3 g/dL Normal 13.5-17.5 [facility] Comment on above: Performed By: #### P T, BNP, CP, LIPR, CDP ####[address] [address] MCH 30.8 pg Normal 26-34 [facility] Comment on above: Performed By: #### P T, BNP, CP, LIPR, CDP ####[address] [address] MCHC mass conc (RBC) 35.4 g/dL Normal 31-37 [facility] Comment on above: Performed By: #### P T, BNP, CP, LIPR, CDP ####[address] [address] MCV 87.1 fL Normal 80-100 [facility] Comment on above: Performed By: #### P T, BNP, CP, LIPR, CDP ####[address] [address] Platelet mean volume (PMV) 7.3 fL Normal 6.0-12.0 [facility] Comment on above: Performed By: #### P T, BNP, CP, LIPR, CDP ####[address] [address] Platelets 460 10*3/uL High 140-450 [facility] Comment on above: Performed By: #### P T, BNP, CP, LIPR, CDP ####[address] [address] WBC (Leukocytes) 17.9 10*3/uL High 3.5-11.0 [facility] Comment on above: Performed By: #### P T, BNP, CP, LIPR, CDP ####[address] [address] Auto Diff Performed NOT REPORTED Normal [facility] Comment on above: Performed By: #### P T, BNP, CP, LIPR, CDP ####[address] [address] Erythrocyte morphology NOT REPORTED Normal [facility] Comment on above: Performed By: #### P T, BNP, CP, LIPR, CDP ####[address] [address] Platelets NOT REPORTED Normal [facility] Comment on above: Performed By: #### P T, BNP, CP, LIPR, CDP ####[address] [address] WBC Morphology NOT REPORTED Normal [facility] Comment on above: Performed By: #### P T, BNP, CP, LIPR, CDP ####[address] [address] Comp Metabolic Profon 2016 Alanine aminotransferase (ALT) 35 U/L Normal 5-41 [facility] Comment on above: Result Comment: SPEC IMEN SLIGHTLY HEMOLYZED, RESULTS MAY BE ADVERSELY AFFECTED. Performed By: #### P T, BNP, CP, LIPR, CDP ####[address] [address] Albumin 3.8 g/dL Normal 3.5-5.2 [facility] Comment on above: Performed By: #### P T, BNP, CP, LIPR, CDP ####[address] [address] Albumin/Globulin Ratio 1.2 {ratio} Normal 1.0-2.5 [facility] Comment on above: Performed By: #### P T, BNP, CP, LIPR, CDP ####[address] [address] Alkaline Phos 64 U/L Normal 40-129 [facility] Comment on above: Result Comment: SPEC IMEN SLIGHTLY HEMOLYZED, RESULTS MAY BE ADVERSELY AFFECTED. Performed By: #### P T, BNP, CP, LIPR, CDP ####[address] [address] Anion gap 13 mmol/L Normal 9-17 [facility] Comment on above: Performed By: #### P T, BNP, CP, LIPR, CDP ####[address] [place] [address] Aspartate aminotransferase (AST) 81 U/L High <40 [facility] Comment on above: Result Comment: SPEC IMEN SLIGHTLY HEMOLYZED, RESULTS MAY BE ADVERSELY AFFECTED. Performed By: #### P T, BNP, CP, LIPR, CDP ####[address] [address] Bilirubin Ql (U) 0.86 mg/dL Normal 0.3-1.2 [facility] Comment on above: Performed By: #### P T, BNP, CP, LIPR, CDP ####[address] [address] Calcium 8.9 mg/dL Normal 8.6-10.4 [facility] Comment on above: Performed By: #### P T, BNP, CP, LIPR, CDP ####[address] [address] Chloride 100 mmol/L Normal 98-107 [facility] Comment on above: Performed By: #### P T, BNP, CP, LIPR, CDP ####[address] [address] CO2 25 mmol/L Normal 20-31 [facility] Comment on above: Performed By: #### P T, BNP, CP, LIPR, CDP ####[address] [address] Creatinine 0.83 mg/dL Normal 0.70-1.20 [facility] Comment on above: Performed By: #### P T, BNP, CP, LIPR, CDP ####[address] [address] eGFR (non-black) mL/min/{1.73_m2} Normal >60 [facility] Comment on above: Performed By: #### P T, BNP, CP, LIPR, CDP ####[facility] [address] [place] [address] Glucose mass conc 203 mg/dL High 70-99 [facility] Comment on above: Performed By: #### P T, BNP, CP, LIPR, CDP ####[address] [place] [address] Potassium molar conc 4.5 mmol/L Normal 3.7-5.3 [facility] Comment on above: Result Comment: SPEC IMEN SLIGHTLY HEMOLYZED, RESULTS MAY BE ADVERSELY AFFECTED. Performed By: #### P T, BNP, CP, LIPR, CDP ####[facility] [address] [place] [address] Protein 7.1 g/dL Normal 6.4-8.3 [facility] Comment on above: Performed By: #### P T, BNP, CP, LIPR, CDP ####[facility] [address] [place] [address] Sodium 138 mmol/L Normal 135-144 [facility] Comment on above: Performed By: #### P T, BNP, CP, LIPR, CDP ####[facility] [address] [place] [address] Urea nitrogen 13 mg/dL Normal 6-20 [facility] Comment on above: Performed By: #### P T, BNP, CP, LIPR, CDP ####[facility] [address] [place] [address] (cont.) Normal [facility] Comment on above: Result Comment: Aver age GFR for 50-59 years old: 93 mL/min/1.73sq mChronic Kidney Disease: <60 mL/min/1.73sq mKidney failure: <15 mL/min/1.73sq meGFR calculated using average adult body mass. Additional eGFR calculator available at:http://www.[employer].com/multiple_crcl_2012.htm[facility] [address] [place] [address] Performed By: #### P T, BNP, CP, LIPR, CDP ####[address] [address] BUN/CRE Ratio NOT REPORTED Normal 9-20 [facility] Comment on above: Performed By: #### P T, BNP, CP, LIPR, CDP ####[address] [address] Staging: NOT REPORTED Normal [facility] Comment on above: Performed By: #### P T, BNP, CP, LIPR, CDP ####[address] [address] Hemoglobin A1Con 03-26-2017 Glucose mass conc 143 mg/dL Normal [facility] Comment on above: Result Comment: The ADA and AACC recommend providing the estimated average glucose result to permit better patient understanding of their HBA1c result.[address] [place] [address] Performed By: #### G LYHGB ####[address] [address] Hemoglobin A1c/Hemoglobin.tota l mass fraction (Bld) 6.6 % High 4.0-6.0 [facility] Comment on above: Performed By: #### G LYHGB ####[address] [address] Lipid Profileon 03-26-2017 Cholesterol 150 mg/dL Normal <200 [facility] Comment on above: Result Comment: Chol esterol Guidelines: <200 Desirable 200-240 Borderline >240 Undesirable Performed By: #### P T, BNP, CP, LIPR, CDP ####[address] [address] Cholesterol to HDL Ratio 2.7 {ratio} Normal <5 [facility] Comment on above: Performed By: #### P T, BNP, CP, LIPR, CDP ####[address] [address] HDL Cholesterol 55 mg/dL Normal >40 [facility] Comment on above: Result Comment: HDL Guidelines: <40 Undesirable 40-59 Borderline >59 Desirable Performed By: #### P T, BNP, CP, LIPR, CDP ####[address] [address] LDL Cholesterol 77 mg/dL Normal 0-130 [facility] Comment on above: Result Comment: LDL Guidelines: <100 Desirable 100-129 Near to/above Desirable 130-159 Borderline >159 UndesirableDirect (measured) LDL and calculated LDL are not interchangeable tests. Performed By: #### P T, BNP, CP, LIPR, CDP ####[address] [address] Triglyceride 88 mg/dL Normal <150 [facility] Comment on above: Result Comment: Trig lyceride Guidelines: <150 Desirable 150- 199 Borderline 200-499 High >499 Very high Based on AHA Guidelines for fasting triglyceride, March 2012.[address] [place] [address] Performed By: #### P T, BNP, CP, LIPR, CDP ####[address] [address] Cholesterol in VLDL mass conc NOT REPORTED Normal 30 [facility] Comment on above: Performed By: #### P T, BNP, CP, LIPR, CDP ####[address] [address] PTon 03-26-2017 INR Coag RelTime (PPP) 1.0 {INR} Normal [facility] Comment on above: Result Comment: Ther apeutic Range: Moderate Anticoagulant Intensity: INR = 2.0-3.0 High Anticoagulant Intensity: INR = 2.5-3.5[facility] [address] [place] [address] [id number] [phone] Performed By: #### P T, BNP, CP, LIPR, CDP ####[facility] [address] [place], [place] [id number] Prothrombin time (PT) Coag time (PPP) 11.0 s Normal 9.4-12.6 [facility] Comment on above: Performed By: #### P T, BNP, CP, LIPR, CDP ####[facility] [address] [place], [place] [id number] Surgical Pathologyon 017 Surgical Pathology (NOTE)[id number] Y LABORATORIESCONSULTING PATHOLOGISTS [facility] [id number] [place] [address] [phone]: [phone] PATHOLOGY CONSULTATIONPatient Name: BENIGNO SANDERSONMR#: [id number] #[id number]/Josie Flannery CYTOMETRY REPORT Date Ordered: 03/27/2017 Status:Signed [...] CYTOCENTRIFUGE DIFFERENTIAL CELL COUNT:Peripheral Blood Lymphocytes 23% Bell/Hist 77%Flow cytometric immunophenotyping analysis is performed on peripheralblood following RBC lysis procedure. These cells are labeled bydirect, five color immunostaining procedure, and analyzed on a [id number] cytometer. % POSITIVE Target Cells RESULTS: (Lymphocytes)1. [...] 18. CD103 1 19. FMC7 12 20. Bivalve 8 21. Lambda 5 This test was developed and its performance characteristics determinedby [facility]. It has notbeen cleared or [...] PERIPHERAL BLOOD SMEAR FOR FLOW CYTOMETRY Normal [facility]2017 aPTT 32.1 s High 21.3-31.3 [facility] Comment on above: Result Comment: [facility] [address] [place] [address] Performed By: #### P TT ####[address] [address] aPTT 31.5 s High 21.3-31.3 [facility] Comment on above: Result Comment: [facility] [address] [place] [address] Performed By: #### P TT ####[address] [address] aPTT 26.4 s Normal 21.3-31.3 [facility] Comment on above: Result Comment: [address] [place] [address] Performed By: #### C BC, PTT, TROPI ####[address] [address] CBCon 03-25-2017 Erythrocyte distribution width Auto Ratio (RBC) 14.6 % Normal 12.5-15.4 [facility] Comment on above: Performed By: #### C BC, PTT, TROPI ####[address] [address] Erythrocytes (RBC) 5.24 10*6/uL Normal 4.5-5.9 [facility] Comment on above: Performed By: #### C BC, PTT, TROPI ####[address] [address] Hematocrit (HCT) 44.4 % Normal 41-53 [facility] Comment on above: Performed By: #### C BC, PTT, TROPI ####[address] [address] Hemoglobin mass conc (Bld) 16.2 g/dL Normal 13.5-17.5 [facility] Comment on above: Performed By: #### C BC, PTT, TROPI ####[address] [address] MCH 31.0 pg Normal 26-34 [facility] Comment on above: Performed By: #### C BC, PTT, TROPI ####[address] [address] MCHC mass conc (RBC) 36.6 g/dL Normal 31-37 [facility] Comment on above: Performed By: #### C BC, PTT, TROPI ####[address] [address] MCV 84.7 fL Normal 80-100 [facility] Comment on above: Performed By: #### C BC, PTT, TROPI ####[facility] [address] [place] [address] Platelet mean volume (PMV) 7.1 fL Normal 6.0-12.0 [facility] Comment on above: Result Comment: [facility] [address] [place] [address] Performed By: #### C BC, PTT, TROPI ####[facility] [address] [place] [address] Platelets 542 10*3/uL High 140-450 [facility] Comment on above: Performed By: #### C BC, PTT, TROPI ####[facility] [address] [place] [address] WBC (Leukocytes) 16.6 10*3/uL High 3.5-11.0 [facility] Comment on above: Performed By: #### C BC, PTT, TROPI ####[facility] [address] [place] [address] ED Provider Noteon 7 HIM IP Note OR Faculty Physician Normal [facility] History and Physicalon 03-25 HIM IP Note OR Faculty Physician Normal [facility] Magnesiumon 03-25-2017 Magnesium 2.4 mg/dL Normal 1.6-2.6 [facility] Comment on above: Result Comment: [facility] [employer] [facility] [place] [address] Performed By: #### T ROPI, MG ####[address] [address] Troponinon 03-25-2017 Troponin I.cardiac mass conc Normal [facility] Comment on above: Result Comment: Refe rence Range: <0.03 Within reference range. 0.03-0.09 Possible myocardial damage.Repeat at appropriate intervals to rule out chronic elevation. >= 0.10 Indicative of myocardial damage.[facility] [address] [place] [address] Performed By: #### C BC, PTT, TROPI ####[facility] [address] [place] [address] Troponin T.cardiac mass conc 0.81 ng/mL Critically high <0.03 [facility] Comment on above: Result Comment: Trop onin T results cannot be compared to Troponin-I results.Previous Alert Value Reported Performed By: #### C BC, PTT, TROPI ####[facility] [address] [place] [address] Troponin I.cardiac mass conc Normal [facility] Comment on above: Result Comment: Refe rence Range: <0.03 Within reference range. 0.03-0.09 Possible myocardial damage.Repeat at appropriate intervals to rule out chronic elevation. >= 0.10 Indicative of myocardial damage.[facility] [address] [place] [address] Performed By: #### T ROPI, MG ####[address] [place] [address] Troponin T.cardiac mass conc 0.70 ng/mL Critically high <0.03 [facility] Comment on above: Result Comment: Trop onin T results cannot be compared to Troponin-I results. Performed By: #### T ROPI, MG ####[facility] [address] [place] [address] Troponin I.cardiac mass conc Normal [facility] Comment on above: Result Comment: Refe rence Range: <0.03 Within reference range. 0.03-0.09 Possible myocardial damage.Repeat at appropriate intervals to rule out chronic elevation. >= 0.10 Indicative of myocardial damage.[facility] [address] [place] [address] Performed By: #### T ROPI ####[facility] [address] [place] [address] Troponin T.cardiac mass conc 0.04 ng/mL High <0.03 [facility] Comment on above: Result Comment: Trop onin T results cannot be compared to Troponin-I results. Performed By: #### T TREEI ####[facility] [address] [place], [place] 2439[address] XR CHEST PORTABLEon 03-25-20 XR CHEST PORTABLE EXAMINATION:SINGLE V IEW OF THE CHEST03/24/2017 11:24 pmCOMPARISON:3 hours agoHISTORY:ORDERING SYSTEM PROVIDED HISTORY: chest painTECHNOLOGIST PROVIDED HISTORY:Reason for exam:->chest painFINDINGS:The lungs are without acute focal process. There is no effusion orpneumothorax. The cardiomediastinal silhouette is without acute process. Theosseous structures are without acute process.IMPRESSION: No acute process.Interpreted by:SHELBI Aponteigned by:Stanley Azar MD03/24/17Final result Normal [facility] APTTon 03-24-2017 aPTT 25.2 s Normal 23.2-34.4 [facility] Comment on above: Result Comment: Perf ormed at [address] [place] [address] [phone] Performed By: #### P T, PTT, BNP, BMP, TROPI, CDP ####[address] [place] [address] Basic Metabolic Profon 03-24 (cont.) Normal [facility] Comment on above: Result Comment: Aver age GFR for 50-59 years old: 93 mL/min/1.73sq mChronic Kidney Disease: <60 mL/min/1.73sq mKidney failure: <15 mL/min/1.73sq meGFR calculated using average adult body mass. Additional eGFR calculator available at:http://www.[employer].Birdi/multiple_crcl_2012.htm Performed By: #### P T, PTT, BNP, BMP, TROPI, CDP ####[address] [place] [address] Anion gap 11 mmol/L Normal 9-17 [facility] Comment on above: Performed By: #### P T, PTT, BNP, BMP, TROPI, CDP ####[address] [place] [address] BUN/CRE Ratio 17 Normal 9-20 [facility] Comment on above: Performed By: #### P T, PTT, BNP, BMP, TROPI, CDP ####[address] [place] [address] Calcium 9.3 mg/dL Normal 8.6-10.4 [facility] Comment on above: Performed By: #### P T, PTT, BNP, BMP, TROPI, CDP ####[address] [place] [address] Chloride 94 mmol/L Low 98-107 [facility] Comment on above: Performed By: #### P T, PTT, BNP, BMP, TROPI, CDP ####[address] [place] [address] CO2 29 mmol/L Normal 20-31 [facility] Comment on above: Performed By: #### P T, PTT, BNP, BMP, TROPI, CDP ####[address] [place] [address] Creatinine 0.92 mg/dL Normal 0.70-1.20 [facility] Comment on above: Performed By: #### P T, PTT, BNP, BMP, TROPI, CDP ####[address] [place] [address] eGFR (non-black) mL/min/{1.73_m2} Normal >60 [facility] Comment on above: Performed By: #### P T, PTT, BNP, BMP, TROPI, CDP ####[address] [place] [address] Glucose mass conc 212 mg/dL High 70-99 [facility] Comment on above: Performed By: #### P T, PTT, BNP, BMP, TROPI, CDP ####[address] , [place] [phone] Potassium molar conc 4.3 mmol/L Normal 3.7-5.3 [facility] Comment on above: Performed By: #### P T, PTT, BNP, BMP, TROPI, CDP ####[address] [place] [address] Sodium 134 mmol/L Low 135-144 [facility] Comment on above: Performed By: #### P T, PTT, BNP, BMP, TROPI, CDP ####[address] [place] [address] Staging: Normal [facility] Comment on above: Result Comment: Stag e 1: Some kidney damage normal GFRStage 2: Mild kidney damage GFR 60-89Stage 3: Moderate kidney damage GFR 30-59Stage 4: Severe kidney damage GFR 15-29Stage 5: Severe kidney damage GFR <15ESRD - chronic treatment by dialysis or transplantPerformed at [address] [place] [address] Performed By: #### P T, PTT, BNP, BMP, TROPI, CDP ####[address] [place] [address] Urea nitrogen 16 mg/dL Normal 6-20 [facility] Comment on above: Performed By: #### P T, PTT, BNP, BMP, TROPI, CDP ####[address] [place] [address] Brain Natri. Peptideon 03-24 BNP Normal [facility] Comment on above: Result Comment: Pro- BNP Reference Range:Rule Out: <300Grey Zone: Age <50 300-450 Age 50-75 300-900 Age >75 300-1800Usually represents mild to moderate HF but other cardiopulmonary causes cannot be ruled out.Rule In: Age <50 >450 Age 50-75 >900 Age >75 >1800Performed at [address] [place] [address] Performed By: #### P T, PTT, BNP, BMP, TROPI, CDP ####[address] [place] [address] BNP pg/mL Normal <300 [facility] Comment on above: Result Comment: Pro- BNP results cannot be compared to BNP results. Performed By: #### P T, PTT, BNP, BMP, TROPI, CDP ####[address] [place] [address] CBC with Diffon 03-24-2017 Abs. Basophil 0.20 k/uL Normal 0.0-0.2 [facility] Comment on above: Performed By: #### P T, PTT, BNP, BMP, TROPI, CDP ####[address] [place] [address] Abs.Neutrophil (Seg) 12.93 k/uL High 1.8-7.7 [facility] Comment on above: Performed By: #### P T, PTT, BNP, BMP, TROPI, CDP ####[address] [place] [address] Basophils/100 WBC Auto (Bld) 1 % Normal [facility] Comment on above: Performed By: #### P T, PTT, BNP, BMP, TROPI, CDP ####[address] [place] [address] Blood morphology Platelet scan shows Increased Platelets Normal [facility] Comment on above: Result Comment: Perf ormed at [address] [place] [address] Performed By: #### P T, PTT, BNP, BMP, TROPI, CDP ####[address] [place] [address] Eosinophils 0.00 10*3/uL Normal 0.0-0.4 [facility] Comment on above: Performed By: #### P T, PTT, BNP, BMP, TROPI, CDP ####[address] , [place] [address] Eosinophils/100 leukocytes 0 % Normal [facility] Comment on above: Performed By: #### P T, PTT, BNP, BMP, TROPI, CDP ####[address] , [place] [address] Lymphocytes 4.51 10*3/uL Normal 1.0-4.8 [facility] Comment on above: Performed By: #### P T, PTT, BNP, BMP, TROPI, CDP ####[address] , [place] [address] Lymphocytes/100 leukocytes 23 % Normal [facility] Comment on above: Performed By: #### P T, PTT, BNP, BMP, TROPI, CDP ####[address] , [place] [address] Monocytes 1.96 10*3/uL High 0.0-1.0 [facility] Comment on above: Performed By: #### P T, PTT, BNP, BMP, TROPI, CDP ####[address] , [place] [address] Monocytes/100 leukocytes 10 % Normal [facility] Comment on above: Performed By: #### P T, PTT, BNP, BMP, TROPI, CDP ####[address] , [place] [address] Neutrophil (Seg) 66 % Normal [facility] Comment on above: Performed By: #### P T, PTT, BNP, BMP, TROPI, CDP ####[address] , [facility] Erythrocyte distribution width Auto Ratio (RBC) 13.6 % Normal 12.1-15.2 [facility] Comment on above: Performed By: #### P T, PTT, BNP, BMP, TROPI, CDP ####[address] [place] [address] Erythrocytes (RBC) 5.28 10*6/uL Normal 4.5-5.9 [facility] Comment on above: Performed By: #### P T, PTT, BNP, BMP, TROPI, CDP ####[address] , [facility] Hematocrit (HCT) 44.9 % Normal 41-53 [facility] Comment on above: Performed By: #### P T, PTT, BNP, BMP, TROPI, CDP ####[address] , [facility] Hemoglobin mass conc (Bld) 16.0 g/dL Normal 13.5-17.0 [facility] Comment on above: Performed By: #### P T, PTT, BNP, BMP, TROPI, CDP ####[address] , [facility] MCH 30.3 pg Normal 26-34 [facility] Comment on above: Performed By: #### P T, PTT, BNP, BMP, TROPI, CDP ####[address] [place] [address] MCHC mass conc (RBC) 35.6 g/dL Normal 31-37 [facility] Comment on above: Performed By: #### P T, PTT, BNP, BMP, TROPI, CDP ####[address] , [facility] MCV 85.1 fL Normal 80-100 [facility] Comment on above: Performed By: #### P T, PTT, BNP, BMP, TROPI, CDP ####[address] , [facility] Platelet mean volume (PMV) 7.9 fL Normal 6.0-12.0 [facility] Comment on above: Performed By: #### P T, PTT, BNP, BMP, TROPI, CDP ####[address] [place] [address] Platelets 555 10*3/uL High 140-450 [facility] Comment on above: Performed By: #### P T, PTT, BNP, BMP, TROPI, CDP ####[address] [place] [address] WBC (Leukocytes) 19.6 10*3/uL High 3.5-11.0 [facility] Comment on above: Performed By: #### P T, PTT, BNP, BMP, TROPI, CDP ####[address] [place] [address] Auto Diff Performed NOT REPORTED Normal [facility] Comment on above: Performed By: #### P T, PTT, BNP, BMP, TROPI, CDP ####[address] [place] [address] Erythrocyte morphology NOT REPORTED Normal [facility] Comment on above: Performed By: #### P T, PTT, BNP, BMP, TROPI, CDP ####[address] [place] [address] Platelets NOT REPORTED Normal [facility] Comment on above: Performed By: #### P T, PTT, BNP, BMP, TROPI, CDP ####[address] [place] [address] WBC Morphology NOT REPORTED Normal [facility] Comment on above: Performed By: #### P T, PTT, BNP, BMP, TROPI, CDP ####[address] [place] [address] CTA CHEST WITH CONTRASTon CTA CHEST WITH CONTRAST FINAL REPORTEXAM: CTA CHEST WITH CONTRASTHISTORY: midsternal chest pain, SOB, 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 Interpreted by:SHELBI Bermudezigned by:Carolyn Reyes MD03/24/17Finmt result Normal [facility] ED Noteon 03-24-2017 HIM IP Note OR Faculty Physician Normal [facility] HIM IP Note OR Faculty Physician Normal [facility] HIM IP Note OR Faculty Physician Normal [facility] HIM IP Note OR Faculty Physician Normal [facility] ED Provider Noteon 7 HIM IP Note OR Faculty Physician Normal [facility] PTon 03-24-2017 INR Coag RelTime (PPP) 1.0 {INR} Normal 0.9-1.2 [facility] Comment on above: Result Comment: Perf ormed at [address] [place] [address] [phone] Performed By: #### P T, PTT, BNP, BMP, TROPI, CDP ####[address] [place] [address] Prothrombin time (PT) Coag time (PPP) 10.1 s Normal 9.7-12.2 [facility] Comment on above: Performed By: #### P T, PTT, BNP, BMP, TROPI, CDP ####[address] [place] [address] Troponinon 03-24-2017 Troponin I.cardiac mass conc Normal [facility] Comment on above: Result Comment: Refe rence Range: <0.03 Within reference range. 0.03-0.09 Possible myocardial damage.Repeat at appropriate intervals to rule out chronic elevation. >= 0.10 Indicative of myocardial damage.Performed at [address] [place], [place] [id number] [phone] Performed By: #### P T, PTT, BNP, BMP, TROPI, CDP ####[address] [place] [address] Troponin T.cardiac mass conc ug/L Normal <0.03 [facility] Comment on above: Result Comment: Trop onin T results cannot be compared to Troponin-I results. Performed By: #### P T, PTT, BNP, BMP, TROPI, CDP ####[address] , [place] 18[address] XR CHEST PORTABLEon 03-24-20 17 XR CHEST [...] by:SHELBI Bermudezigned by:Carolyn Reyes MD03/24/17Final result Normal [facility] Encounters Encounter Date Encounter Type Care Provider Facility Start: 09-20-2022 End: 09-21-2022 ambulatory Cheng Gonsalez MD Facility:[facility] Start: 08-26-2022 End: 08-27-2022 ambulatory Julianne Blevins Facility:[facility] Start: 10-18-2021 End: 10-19-2021 ambulatory Julianne Blevins Facility:[facility] Start: 12-18-2017 End: 12-19-2017 Ambulatory [facility]ENG Ab Be [facility] Start: 12-13-2017 End: 12-14-2017 Ambulatory CHENG Ab GONSALEZ [facility] Start: 12-11-2017 End: 12-12-2017 Ambulatory CHENG Ab GONSALEZ [facility] Start: 11-29-2017 End: 11-30-2017 Ambulatory CHENG Ab GONSALEZ [facility] Start: 11-13-2017 End: 11-14-2017 Ambulatory CHENG Ab GONSALEZ [facility] Start: 11-08-2017 End: 11-09-2017 Ambulatory CHENG Ab Marleyy [facility] Start: 11-06-2017 End: 11-07-2017 Ambulatory CHENG GONSALEZ [facility] Start: 11-03-2017 End: 11-04-2017 Ambulatory JULIANNE BLEVINS [facility] Start: 11-01-2017 End: 11-02-2017 Ambulatory JULIANNE BLEVINS [facility] Start: 10-11-2017 End: 10-11-2017 Ambulatory CARLOS BUSTILLOS Facility:[facility] Start: 08-07-2017 Ambulatory FILI MARTINEZ Facilit y:[facility] Start: 04-10-2017 End: 04-11-2017 Ambulatory ISMAEL NGUYỄNBAKARI [facility] Start: 03-25-2017 End: 03-28-2017 [facility] Start: 03-24-2017 End: 03-25-2017 Emergency department patient visit RYAN MOSS [facility] Procedures Date Procedure Procedure Detail Performing [...] GLUCOSE CHENG VE LA Start: 03-25-2017 BEDREST HCENG VE LA Start: 03-25-2017 DAILY WEIGHTS CHENG [...] Unknown 2021 Private Health Insurance 1965 Unknown [id number] [id number] 1965 Unknown [id number] [id number]. [id number] 1964 Unknown [id number] [id number]. [id number] 1959 Private Health Insurance [id number] 1960 Self-pay [id number] Clinical Note 08-26-2022 Note Date & Type Note Facility 08-26-2022 Note Patient Education Ma terials Name: Benigno Sanderson Current Date: 08/26/2022 13:48:04 [facility] : 1965 The following sheet(s) are the [...] deposits (plaques) that build up inside the [place]. This causes inflammation within?the coronary arteries. These [...] Don't delay. You (more content not included)... [facility] Summary Purpose Family History No Family [...] and content) DATE CREATED AUTHOR 12/14/2017 [facility] DATE CREATED AUTHOR AUTHOR'S ORGANIZ ATION 12/19/2017 [facility] DATE CREATED AUTHOR AUTHOR'S ORGANIZ ATION 12/20/2017 [facility] DATE CREATED AUTHOR AUTHOR'S ORGANIZ ATION 09/22/2022 [facility] FOR RECORDS PERTAINING TO PATIENTS WHO [...] BE BASED ON THE PRIMARY CLINICAL RECORDS. [facility]. provides no warranty or guarantee of the accuracy or completeness of information in this document.
== END 2024-02-06 09:44 | disposition home or self-care (01) ==
LOC: EC 09:43
PROVIDERS: Family Provider Family Medicine; PCP Family Medicine; Visit Provider Podiatrist Foot & Ankle Surgery
DX: M79.672 Pain in left foot (principal); S92.002D Unspecified fracture of left calcaneus, subsequent encounter for fracture with routine healing
CPT/HCPCS: 73630

== ENCOUNTER 2024-02-22 08:32 | Outpatient (OUT) | payer SELFPAY ==
--- NOTE | 2024-02-22 08:37 | CT_ITS ---
The [address] [address] Patient Name: JAM JAY MRN: [id number] date: 1965 Sex: M Assigned Patient Location: CT Current Patient Location: CT Accession/Order Number: [id number] Exam Date: 02/22/2024 08:48 Report Date: 02/22/2024 09:49 At the request of: ARELIS SHELL Procedure: CT ankle LT wo con EXAMINATION: CT ankle LT wo con HISTORY: Left Calcaneus Fracture COMPARISON: 11/22/2023 TECHNIQUE: Multi-planar CT images were created without IV contrast. Dose reduction techniques were achieved by using automated exposure control and/or adjustment of mA and/or kV according to patient size and/or use of iterative reconstruction technique. FINDINGS: BONES: Stable acute complex calcaneal fracture extending to anterior middle and posterior facets with depression of the anterior fracture fragments in relation to the posterior calcaneus. There is been interval healing with bone formation and partial bony bridging, this is estimated to be approximately 50% across the posterior fracture plane. Interval development of a permeative pattern throughout the bones consistent with osteopenia . No new fracture or dislocation SOFT TISSUES: Soft tissue swelling. Diffuse vascular calcifications EFFUSION: None visible. OTHER: Negative. CT/CT ankle LT wo con IMPRESSION: Stable complex intra-articular calcaneus fracture with interval bony bridging most significant across the posterior body Electronically authenticated by: HEATHER REAL Date: 02/22/2024 09:49
--- OUTSIDE RECORDS SUMMARY | 2024-02-22 08:44 | XMS_ITS | CCD ---
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; Translations: [Acute ischemic heart disease, unspecified] Onset: 03-25-2017 Chronic Coronary atherosclerosis and other heart disease (1 source) Presence of coronary angioplasty implant and graft; Translations: [PRESENCE COR ANGPLSTY IMPLANT AND GRAFT] Onset: 10-13-2017 Episodic Deficiency and other anemia (1 source) Hereditary spherocytosis; Translations: [HEREDITARY SPHEROCYTOSIS] Onset: 10-13-2017 Chronic Other aftercare (1 source) 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 Stress ECG: Sinus tachycardia. The [...] Electronically Signed in Other Vendor System) Normal [facility] Cardiology Office/Clinic Not suzi 08-26-2022 [...] EF 50%, 03/27/17 ([facility], [place] i. PCI with 5.0 x 18 mm BMS to pLAD, 03/27/17 ([facility], [place], [place]). B. Cardiac cath showed normal LM, [...] axes/intervals, no ST-T changes (Dr. Cheng Gonsalez, [place], [place]) (my independent interpretation of a test reported by another physician) Echocardiography > 03/27/17: EF 55% ([place], [place]) > 11/03/17: EF 60% ([place], [place]) Stress Testing > 11/29/19: (Lexiscan MPI) No ischemic ECG changes, MPI showed a possible small area of apical ischemia, EF 74% > 06/28/21: (Exercise MPI) Von 7:17, 9.2 METs, 87% APMHR, indeterminate ECG response (baseline ST-T changes), normal MPI, EF 62% Outside Lab Results > 08/12/22: (CBC) WBC 15.5, Hgb 18.6, Plt 460 ([place] > 08/12/22: (HbA1c) HbA1c 8.8% (Dr. Cheng Gonsalez, [place], [place]) > 08/12/22: (Lipids) TC 165, TG 133, HDL 52, LDL 86 ([place]. [place] Physical Exam Vitals & Measurements HR: [...] Service Excluding time for services reported/billed separately [id number]-vg-[id number] encounter with patient: 10 Prep, documentation, coordination [...] Metoprolol Ta (more content not included)... Normal [facility] Cardiology Office/Clinic Not suzi 10-18-2021 [...] EF 50%, 03/27/17 ([facility], [place], [place]). i. PCI with 5.0 x 18 mm BMS to pLAD, 03/27/17 ([place]). B. Cardiac cath showed normal LM, widely patent LAD stents, 30% pD1, 30% mLCx, normal RCA, and EF 55-60%, 10/12/17. 2. Diabetes mellitus type 2. 3. Systemic arterial hypertension. 4. Hereditary spherocytosis. A. Status post splenectomy. B. Chronic thrombocytosis. 5. History of tobacco use. A. Previously quit smoking. Cardiac Testing Echocardiography > 03/27/17: EF 55% ([place], [place]) > 11/03/17: EF 60% ([place], [place]) Stress Testing > 11/29/19: (Lexiscan MPI) [...] Julianne Blevins DO 10/18/21 11:01 EDT Normal [facility] Progress Noteon 11-07-2017 HIM IP Note OR Food Server Normal [facility] Progress Noteon 11-03-2017 HIM IP Note OR Food Server Normal [facility] Progress Noteon 11-01-2017 HIM IP Note OR Food Server [facility] CARDIAC HIRAL 3-6-9on 18-2 018 CKMB 1.61 ng/mL Normal <=2.37 [facility] Comment on above: Performed By: #### C MREP ####[facility] Nutevpvtbs53[address] [place] Creatine kinase (CK) 131 U/L Normal 55-170 [facility] Comment on above: Performed By: #### C MREP ####[facility] [address] [place] [address] [place] INR Coag RelTime (Bld) SEE BELOW Normal [facility] Comment on above: Result Comment: <0.0 34 ng/ml NEGATIVE 0.034-0.119 INDETERMINATE 0.120 AMI CUT OFF Performed By: #### C MREP ####[facility] [address] [place] [address] [place] TROP 0.060 ng/mL Critically high <=0.034 [facility] Comment on above: Result Comment: test repeated critical value verified Performed By: #### C MREP ####[facility] [address] [place] [address] CARDIAC HIRAL ADMITon 018 CKMB 1.59 ng/mL Normal <=2.37 [facility] Comment on above: Performed By: #### C MADM, LIPA, CRP, BMP ####[facility] [address] [place] [address] Creatine kinase (CK) 153 U/L Normal 55-170 [facility] Comment on above: Performed By: #### C MADM, LIPA, CRP, BMP ####[facility] Uwsmapufof7330 [address] [place] INR Coag RelTime (Bld) SEE BELOW Normal [facility] Comment on above: Result Comment: <0.0 34 ng/ml NEGATIVE 0.034-0.119 INDETERMINATE 0.120 AMI CUT OFF Performed By: #### C MADM, LIPA, CRP, BMP ####[facility] [address] [place] [address] [place] DARÍO 40.0 ng/mL Normal <=121.0 [facility] Comment on above: Performed By: #### C MADM, LIPA, CRP, BMP ####[facility] Ucsxmolmtc0596 [address] [place] TROP 0.032 ng/mL Normal <=0.034 [facility] Comment on above: Performed By: #### C MADM, LIPA, CRP, BMP ####[facility] Uwrslsmaea7825 [address] [place] CBC W MANUAL DIFFon 10-12-19 18 ACANTHOCYTES SLIGHT Normal [facility] Comment on above: Performed By: #### C IRENE ####[facility] [address] [place] [address] [place] Anisocytosis presence SLIGHT Normal [facility] Comment on above: Performed By: #### Pearl BONILLA ####[facility] [address] [place] [address] [place] BAND # 0.0 103/ul Normal 0.0-0.3 [facility] Comment on above: Performed By: #### Pearl BONILLA ####[facility] [address] [place] [address] R[place] BAND % 0 % Normal 0-5 [facility] Comment on above: Performed By: #### Pearl BONILLA ####[facility] Jmkawdt[address]vi[address] [place] [address] [place] BASOM % 2.0 % Normal 0.2-2.0 [facility] Comment on above: Performed By: #### Pearl BONILLA ####[facility] [address] [place] [address] [place] Basophils Auto #/vol (Bld) 0.31 103/ul Critically high 0.00-0.10 [facility] Comment on above: Performed By: #### Pearl BONILLA ####[facility] [address]cnx[address] [place] [address] Romy BLAST # Normal [facility] Comment on above: Performed By: #### Pearl OBNILLA ####[facility] [address] [place] [address] Romy BLAST % Normal [facility] Comment on above: Performed By: #### C BCMAN ####[facility] [address]ntfxq[address] [place] [id number] Eosinophils 0.63 103/ul Normal 0.00-0.70 [facility] Comment on above: Performed By: #### Pearl BONILLA ####[facility] L[address]bzcf[address]zl[address] [place] [id number] Eosinophils/100 leukocytes 4.0 % Normal 0.9-7.0 [facility] Comment on above: Performed By: #### Pearl BONILLA ####[facility] [address] [place], [place] [address]omy Erythrocyte distribution width Auto Ratio (RBC) 12.7 % Normal 11.0-15.0 [facility] Comment on above: Performed By: #### Pearl BONILLA ####[facility] C[address]meelx[address] [place] [address] R[place] Erythrocytes (RBC) 5.20 106/ul Normal 4.70-6.10 [facility] Comment on above: Performed By: #### Pearl BONILLA ####[facility] [address] [place], [place] [address] Erythrocytes (RBC) Normal [facility] Comment on above: Performed By: #### Pearl BONILLA ####[facility] [address] [place], [place] [address] [place] GIANT PLATELETS SEEN Normal [facility] Comment on above: Performed By: #### Pearl BONILLA ####[facility] [address] [place], [place] [address] Hematocrit (HCT) 43.4 % Normal 42.0-54.0 [facility] Comment on above: Performed By: #### Pearl BONILLA ####[facility] [address] [place], [place] [address] Hemoglobin mass conc (Bld) 15.9 g/dL Normal 14.0-18.0 [facility] Comment on above: Performed By: #### Pearl BONILLA ####[facility] [address] [place], [place] [address] Lymphocytes 3.77 103/ul Normal 1.20-3.80 [facility] Comment on above: Performed By: #### Pearl BONILLA ####[facility] Kyhigfmhmo3317 [place], [place] [address]Ipjmjs Romy Lymphocytes 0.16 103/ul Normal [facility] Comment on above: Performed By: #### Pearl BONILLA ####[facility] Ibtzazrtiw7499 [place], [place] [address]Co[place]aa R[place] Lymphocytes/100 leukocytes 1 % Normal [facility] Comment on above: Performed By: #### Pearl BONILLA ####[facility] Xflslbrduo9683 [place], [place] [address]Faacmy R[place] Lymphocytes/100 leukocytes 24.0 % Normal 20.5-60.0 [facility] Comment on above: Performed By: #### Pealr BONILLA ####[facility] [address] [place], [place] [address] MCH 30.6 pg Normal 25.9-34.0 [facility] Comment on above: Performed By: ###Soheila BONILLA ####[facility] [address]rahwjbcnu[address] [place] [address] MCHC mass conc (RBC) 36.6 g/dL Critically high 29.9-35.2 [facility] Comment on above: Performed By: #### Pearl BONILLA ####[facility] Wnikmjzuat8661 [place] [address] MCV 83.5 fL Normal 80.0-94.0 [facility] Comment on above: Performed By: #### Pearl BONILLA ####[facility] Empsmenvap0850 [place], [place] [address]Elrxfl Romy METAMYELOCYTE # Normal [facility] Comment on above: Performed By: #### Pearl BONILLA ####[facility] Vychwxachk0004 [place], [place] [address]Gsubnm Romy METAMYELOCYTE % Normal [facility] Comment on above: Performed By: #### Pearl BONILLA ####[facility] Jxeuyvposf[address] [place] [address] MONOM# 1.41 103/ul Critically high 0.30-0.80 [facility] Comment on above: Performed By: #### C IRENE ####[facility] Gyhjvxkpwc8379 [place], [place] [address]Agrykt Romy MONOM% 9.0 % Normal 1.7-12.0 [facility] Comment on above: Performed By: #### C IRENE ####[facility] Buakqvfbti8991 [place], [place] [address]Pzfxle Romy MYELOCYTE # Normal [facility] Comment on above: Performed By: #### C IRENE ####[facility] Pekqwcijzl0960 [place], [place] [address]Eezsny Romy MYELOCYTE % Normal [facility] Comment on above: Performed By: #### Peral BONILLA ####[facility] Cnrzxwotjy3800 [place], [place] [address]Oamacc Romy Platelet mean volume (PMV) 8.8 fL Critically low 9.5-13.5 [facility] Comment on above: Performed By: #### Pearl BONILLA ####[facility] Nusicavgkw0638 [place] [address] Platelets 670 103/ul Critically high 150-450 [facility] Comment on above: Performed By: #### C IRENE ####[facility] Cfmgztvqhk8634 [place], [place] [address]Lfxbzd Romy SEG # 9.42 103/ul Critically high 1.40-6.50 [facility] Comment on above: Performed By: #### Pearl BONILLA ####[facility] Fsjglzooce2347 [place] [address] Segmented Neutrophils/100 leukocytes 60.0 % Normal 43.0-75.0 [facility] Comment on above: Performed By: #### Pearl BONILLA ####[facility] Hljknynysu5665 [place] [address] WBC (Leukocytes) 15.7 103/ul Critically high 4.0-11.0 Th [facility] Comment on above: Performed By: #### Pearl BONILLA ####[facility] Ivmejihnwn2283 [address] [place] WBC (Leukocytes) Normal 4.0-11.0 [facility] Comment on above: Performed By: #### C BCMAN ####[facility] Lqeiaamlbz4670 [place] [address] CRPon 10-11-2017 C reactive protein (CRP) 0.9 mg/dL Normal <=1.0 [facility] Comment on above: Performed By: #### C MADM, LIPA, CRP, BMP ####[facility] Bqelhbwyjc9367 [address] [place] LIPASEon 10-11-2017 Lipase 139.0 U/L Normal 23.0-300.0 [facility] Comment on above: Performed By: #### C MADM, LIPA, CRP, BMP ####[facility] [address] [place] [address] [place] PROF CHEM 8 (BAS METB)on Anion gap 16.8 mmol/L Normal [facility] Comment on above: Performed By: #### C MADM, LIPA, CRP, BMP ####[facility] Thklkfblgk[address] BUN/Creatinine Ratio 22.4 mg/mg Normal [facility] Comment on above: Performed By: #### C MADM, LIPA, CRP, BMP ####[facility] Zaghguqimd9896 [address] [place] Calcium 9.9 mg/dL Normal 8.4-10.2 [facility] Comment on above: Performed By: #### C MADM, LIPA, CRP, BMP ####[facility] Kygpnjsssb6098 [address] [place] Chloride 97 mmol/L Critically low 98-107 [facility] Comment on above: Performed By: #### C MADM, LIPA, CRP, BMP ####[facility] Pqkzwbstnp0232 [address] [place] CO2 26.0 mmol/L Normal 22.0-30.0 [facility] Comment on above: Performed By: #### C MADM, LIPA, CRP, BMP ####[facility] Lzdlmscqad5960 [address] [place] Creatinine 0.82 mg/dL Normal 0.66-1.25 [facility] Comment on above: Performed By: #### C MADM, LIPA, CRP, BMP ####[facility] Qqwtpjkxlp0298 [address] [place] eGFR (non-black) mL/min/{1.73_m2} Normal >=60 Th [facility] Comment on above: Performed By: #### C MADM, LIPA, CRP, BMP ####[facility] Elakbxfuia5567 [address] [place] Glucose mass conc 323 mg/dL Critically high 74-106 Th [facility] Comment on above: Performed By: #### C MADM, LIPA, CRP, BMP ####[facility] Xuoxbvudfr4733 [address] [place] Potassium molar conc 3.9 mmol/L Normal 3.4-5.0 [facility] Comment on above: Performed By: #### C MADM, LIPA, CRP, BMP ####[facility] Sxugeewyfb7776 [address] [place] Sodium 136 mmol/L Critically low 137-145 [facility] Comment on above: Performed By: #### C MADM, LIPA, CRP, BMP ####[facility] Selhbhbcfw1950 [address] [place] Urea nitrogen 18.0 mg/dL Normal 9.0-20.0 [facility] Comment on above: Performed By: #### C MADM, LIPA, CRP, BMP ####[facility] Gtqxtnepjb7411 [address] [place] XR CHEST 1 Von 10-11-2017 XR CHEST 1 V [address] [place] [address] Patient: CREDIT, BENIGNO W. Exam Date: 10/11/2017DOB: 1965 Gender:M : DR GONZALEZ MARKER Admission #: [id number] : Order #: [id number] HERE TO VIEW EXAM RADIOLOGY REPORT PROCEDURE: [...] Real M.D. on 10/11/2017 at 07:[address] [facility] CT CHEST WO CONTRASTon 04-10 CT [...] by:SHELBI Herediaigned by:Xin Ro MD04/10/17Final result Normal [facility] Flow Cytometryon 03-29-2017 Flow Cytometry [id number] Normal [facility] Comment on above: Result Comment: SEE SEPARATE REPORT[address] [address] Performed By: #### F LLE ####[address] [address] Discharge Summaryon 03-28-20 17 HIM IP Note OR Food Server Normal [facility] APTTon 03-27-2017 aPTT 62.2 s High 21.3-31.3 [facility] Comment on above: Result Comment: [facility] [address] [place] [address] Performed By: #### P TT ####[address] [address] aPTT 60.0 s High 21.3-31.3 [facility] Comment on above: Result Comment: [facility] [address] [place] [address] Performed By: #### P TT ####[address] [address] Platelet Counton 03-27-2017 Platelets 508 10*3/uL High 140-450 [facility] Comment on above: Result Comment: [facility] [place] [address] Performed By: #### P LT ####[address] [address] APTTon 03-26-2017 aPTT 41.9 s High 21.3-31.3 [facility] Comment on above: Result Comment: [facility] [address] [place] [address] Performed By: #### P TT ####[address] [address] aPTT 34.1 s High 21.3-31.3 [facility] Comment on above: Result Comment: [facility] [address] [place] [address] Performed By: #### P TT ####[address] [address] aPTT 39.3 s High 21.3-31.3 [facility] Comment on above: Result Comment: [address] [address] Performed By: #### P TT ####[address] [address] Brain Natri. Peptideon 03-26 BNP 424 pg/mL High <300 [facility] Comment on above: Result Comment: Pro- BNP results cannot be compared to BNP results. Performed By: #### P T, BNP, CP, LIPR, CDP ####[address] [address] BNP Normal [facility] Comment on above: Result Comment: Pro- BNP Reference Range:Rule Out: <300Grey Zone: Age <50 300-450 Age 50-75 300-900 Age >75 300-1800Usually represents mild to moderate HF but other cardiopulmonary causes cannot be ruled out.Rule In: Age <50 >450 Age 50-75 >900 Age >[address] [address] Performed By: #### P T, BNP, CP, LIPR, CDP ####[address] [address] CBC with Diffon 03-26-2017 Abs. Basophil 0.18 k/uL Normal 0.0-0.2 [facility] Comment on above: Performed By: #### P T, BNP, CP, LIPR, CDP ####[address] [address] Abs.Neutrophil (Seg) 11.81 k/uL High 1.8-7.7 [facility] Comment on above: Performed By: #### P T, BNP, CP, LIPR, CDP ####[address] [address] Basophils/100 WBC Auto (Bld) 1 % Normal [facility] Comment on above: Performed By: #### P T, BNP, CP, LIPR, CDP ####[address] [address] Blood morphology Normal Normal [facility] Comment on above: Result Comment: [address] [address] Performed By: #### P T, BNP, CP, LIPR, CDP ####[address] [address] Eosinophils 0.00 10*3/uL Normal 0.0-0.4 [facility] Comment on above: Performed By: #### P T, BNP, CP, LIPR, CDP ####[address] [address] Eosinophils/100 leukocytes 0 % Normal [facility] Comment on above: Performed By: #### P T, BNP, CP, LIPR, CDP ####[address] [address] Lymphocytes 4.48 10*3/uL Normal 1.0-4.8 [facility] Comment on above: Performed By: #### P T, BNP, CP, LIPR, CDP ####[address] [address] Lymphocytes/100 leukocytes 25 % Normal [facility] Comment on above: Performed By: #### P T, BNP, CP, LIPR, CDP ####[address] [address] Monocytes 1.43 10*3/uL High 0.1-0.8 [facility] Comment on above: Performed By: #### P T, BNP, CP, LIPR, CDP ####[address] [address] Monocytes/100 leukocytes 8 % Normal [facility] Comment on above: Performed By: #### P T, BNP, CP, LIPR, CDP ####[address] [address] Neutrophil (Seg) 66 % Normal [facility] Comment on above: Performed By: #### P T, BNP, CP, LIPR, CDP ####[address] [address] Erythrocyte distribution width Auto Ratio (RBC) 14.5 % Normal 12.5-15.4 [facility] Comment on above: Performed By: #### P T, BNP, CP, LIPR, CDP ####[address] [address] Erythrocytes (RBC) 5.28 10*6/uL Normal 4.5-5.[address] [facility] Comment on above: Performed By: #### P T, BNP, CP, LIPR, CDP ####[address] [address] Hematocrit (HCT) 46.0 % Normal 41-53 [facility] Comment on above: Performed By: #### P T, BNP, CP, LIPR, CDP ####[address] [address] Hemoglobin mass conc (Bld) 16.3 g/dL Normal 13.5-17.5 [facility] Comment on above: Performed By: #### P T, BNP, CP, LIPR, CDP ####[address] [address] MCH 30.8 pg Normal 26-34 [facility] Comment on above: Performed By: #### P T, BNP, CP, LIPR, CDP ####[address] [address] MCHC mass conc (RBC) 35.4 g/dL Normal 31-37 [facility] Comment on above: Performed By: #### P T, BNP, CP, LIPR, CDP ####[address] [address] MCV 87.1 fL Normal 80-100 [facility] Comment on above: Performed By: #### P T, BNP, CP, LIPR, CDP ####[address] [address] Platelet mean volume (PMV) 7.3 fL Normal 6.0-12.0 [facility] Comment on above: Performed By: #### P T, BNP, CP, LIPR, CDP ####[address] [address] Platelets 460 10*3/uL High 140-450 [facility] Comment on above: Performed By: #### P T, BNP, CP, LIPR, CDP ####[address] [address] WBC (Leukocytes) 17.9 10*3/uL High 3.5-11.0 [facility] Comment on above: Performed By: #### P T, BNP, CP, LIPR, CDP ####[address] [address] Auto Diff Performed NOT REPORTED Normal [facility] Comment on above: Performed By: #### P T, BNP, CP, LIPR, CDP ####[address] [address] Erythrocyte morphology NOT REPORTED Normal [facility] Comment on above: Performed By: #### P T, BNP, CP, LIPR, CDP ####[address] [address] Platelets NOT REPORTED Normal [facility] Comment on above: Performed By: #### P T, BNP, CP, LIPR, CDP ####[address] [address] WBC Morphology NOT REPORTED Normal [facility] Comment on above: Performed By: #### P T, BNP, CP, LIPR, CDP ####[address] [address] Comp Metabolic Profon 2016 Alanine aminotransferase (ALT) 35 U/L Normal 5-41 [facility] Comment on above: Result Comment: SPEC IMEN SLIGHTLY HEMOLYZED, RESULTS MAY BE ADVERSELY AFFECTED. Performed By: #### P T, BNP, CP, LIPR, CDP ####[address] [address] Albumin 3.8 g/dL Normal 3.5-5.2 [facility] Comment on above: Performed By: #### P T, BNP, CP, LIPR, CDP ####[address] [address] Albumin/Globulin Ratio 1.2 {ratio} Normal 1.0-2.5 [facility] Comment on above: Performed By: #### P T, BNP, CP, LIPR, CDP ####[address] [address] Alkaline Phos 64 U/L Normal 40-129 [facility] Comment on above: Result Comment: SPEC IMEN SLIGHTLY HEMOLYZED, RESULTS MAY BE ADVERSELY AFFECTED. Performed By: #### P T, BNP, CP, LIPR, CDP ####[address] [address] Anion gap 13 mmol/L Normal 9-17 [facility] Comment on above: Performed By: #### P T, BNP, CP, LIPR, CDP ####[address] [place] [address] Aspartate aminotransferase (AST) 81 U/L High <40 [facility] Comment on above: Result Comment: SPEC IMEN SLIGHTLY HEMOLYZED, RESULTS MAY BE ADVERSELY AFFECTED. Performed By: #### P T, BNP, CP, LIPR, CDP ####[address] [address] Bilirubin Ql (U) 0.86 mg/dL Normal 0.3-1.2 [facility] Comment on above: Performed By: #### P T, BNP, CP, LIPR, CDP ####[address] [address] Calcium 8.9 mg/dL Normal 8.6-10.4 [facility] Comment on above: Performed By: #### P T, BNP, CP, LIPR, CDP ####[address] [address] Chloride 100 mmol/L Normal 98-107 [facility] Comment on above: Performed By: #### P T, BNP, CP, LIPR, CDP ####[address] [address] CO2 25 mmol/L Normal 20-31 [facility] Comment on above: Performed By: #### P T, BNP, CP, LIPR, CDP ####[address] [address] Creatinine 0.83 mg/dL Normal 0.70-1.20 [facility] Comment on above: Performed By: #### P T, BNP, CP, LIPR, CDP ####[address] [address] eGFR (non-black) mL/min/{1.73_m2} Normal >60 [facility] Comment on above: Performed By: #### P T, BNP, CP, LIPR, CDP ####[facility] [address] [place] [address] Glucose mass conc 203 mg/dL High 70-[address] [facility] Comment on above: Performed By: #### P T, BNP, CP, LIPR, CDP ####[address] [place] [address] Potassium molar conc 4.5 mmol/L Normal 3.7-5.3 [facility] Comment on above: Result Comment: SPEC IMEN SLIGHTLY HEMOLYZED, RESULTS MAY BE ADVERSELY AFFECTED. Performed By: #### P T, BNP, CP, LIPR, CDP ####[facility] [address] [place] [address] Protein 7.1 g/dL Normal 6.4-8.3 [facility] Comment on above: Performed By: #### P T, BNP, CP, LIPR, CDP ####[facility] [address] [place] [address] Sodium 138 mmol/L Normal 135-144 [facility] Comment on above: Performed By: #### P T, BNP, CP, LIPR, CDP ####[facility] [address] [place] [address] Urea nitrogen 13 mg/dL Normal 6-20 [facility] Comment on above: Performed By: #### P T, BNP, CP, LIPR, CDP ####[facility] [address] [place] [phone] (cont.) Normal [facility] Comment on above: Result Comment: Aver age GFR for 50-59 years old: 93 mL/min/1.73sq mChronic Kidney Disease: <60 mL/min/1.73sq mKidney failure: <15 mL/min/1.73sq meGFR calculated using average adult body mass. Additional eGFR calculator available at:http://www.[employer].com/multiple_crcl_2012.htm[facility] [address] [place] [address] Performed By: #### P T, BNP, CP, LIPR, CDP ####[address] [address] BUN/CRE Ratio NOT REPORTED Normal 9-20 [facility] Comment on above: Performed By: #### P T, BNP, CP, LIPR, CDP ####[address] [address] Staging: NOT REPORTED Normal [facility] Comment on above: Performed By: #### P T, BNP, CP, LIPR, CDP ####[address] [address] Hemoglobin A1Con 03-26-2017 Glucose mass conc 143 mg/dL Normal [facility] Comment on above: Result Comment: The ADA and AACC recommend providing the estimated average glucose result to permit better patient understanding of their HBA1c result.[address] [place] [address] Performed By: #### G LYHGB ####[address] [address] Hemoglobin A1c/Hemoglobin.tota l mass fraction (Bld) 6.6 % High 4.0-6.0 [facility] Comment on above: Performed By: #### G LYHGB ####[address] [address] Lipid Profileon 03-26-2017 Cholesterol 150 mg/dL Normal <200 [facility] Comment on above: Result Comment: Chol esterol Guidelines: <200 Desirable 200-240 Borderline >240 Undesirable Performed By: #### P T, BNP, CP, LIPR, CDP ####[address] [address] Cholesterol to HDL Ratio 2.7 {ratio} Normal <5 [facility] Comment on above: Performed By: #### P T, BNP, CP, LIPR, CDP ####[address] [address] HDL Cholesterol 55 mg/dL Normal >40 [facility] Comment on above: Result Comment: HDL Guidelines: <40 Undesirable 40-59 Borderline >59 Desirable Performed By: #### P T, BNP, CP, LIPR, CDP ####[address] [address] LDL Cholesterol 77 mg/dL Normal 0-130 [facility] Comment on above: Result Comment: LDL Guidelines: <100 Desirable 100-129 Near to/above Desirable 130-159 Borderline >159 UndesirableDirect (measured) LDL and calculated LDL are not interchangeable tests. Performed By: #### P T, BNP, CP, LIPR, CDP ####[address] [address] Triglyceride 88 mg/dL Normal <150 [facility] Comment on above: Result Comment: Trig lyceride Guidelines: <150 Desirable 150- 199 Borderline 200-499 High >499 Very high Based on AHA Guidelines for fasting triglyceride, March 2012.[address] [place] [address] Performed By: #### P T, BNP, CP, LIPR, CDP ####[address] [address] Cholesterol in VLDL mass conc NOT REPORTED Normal 30 [facility] Comment on above: Performed By: #### P T, BNP, CP, LIPR, CDP ####[address] [address] PTon 03-26-2017 INR Coag RelTime (PPP) 1.0 {INR} Normal [facility] Comment on above: Result Comment: Ther apeutic Range: Moderate Anticoagulant Intensity: INR = 2.0-3.0 High Anticoagulant Intensity: INR = 2.5-3.5[facility] [address] [place] [address] [phone] Performed By: #### P T, BNP, CP, LIPR, CDP ####[facility] [address] [place], [place] [id number] Prothrombin time (PT) Coag time (PPP) 11.0 s Normal 9.4-12.6 [facility] Comment on above: Performed By: #### P T, BNP, CP, LIPR, CDP ####[facility] [address] [place], [place] [phone] Surgical Pathologyon 017 Surgical Pathology (NOTE)[id number] Y LABORATORIESCONSULTING PATHOLOGISTS [facility] [id number] [place] [address] [phone]: [phone] PATHOLOGY CONSULTATIONPatient Name: BENIGNO SANDERSONMR#: [id number] #[id number]/Josie Flannery CYTOMETRY REPORT Date Ordered: 03/27/2017 Status:Signed [...] CYTOCENTRIFUGE DIFFERENTIAL CELL COUNT:Peripheral Blood Lymphocytes 23% [place]/Hist 77%Flow cytometric immunophenotyping analysis is performed on peripheralblood following RBC lysis procedure. These cells are labeled bydirect, five color immunostaining procedure, and analyzed on a [id number] cytometer. % POSITIVE Target Cells RESULTS: (Lymphocytes)1. [...] 18. CD103 1 19. FMC7 12 20. [place] 8 21. Lambda 5 This test was developed and its performance characteristics determinedby [facility] Anatomic Path[facility]. It has notbeen cleared [...] FLOW CYTOMETRY Normal [facility] 03-[facility]-2017 aPTT 32.1 s High 21.3-31.3 [facility] Comment on above: Result Comment: [employer] [address] [place] [phone] Performed By: #### P TT ####[address] [address] aPTT 31.5 s High 21.3-31.3 [facility] Comment on above: Result Comment: [facility] [employer] [address] [place] [phone] Performed By: #### P TT ####[address] [address] aPTT 26.4 s Normal 21.3-31.3 [facility] Comment on above: Result Comment: [address] [place] [address] Performed By: #### C BC, PTT, TROPI ####[address] [address] CBCon 03-25-2017 Erythrocyte distribution width Auto Ratio (RBC) 14.6 % Normal 12.5-15.4 [facility] Comment on above: Performed By: #### C BC, PTT, TROPI ####[address] [address] Erythrocytes (RBC) 5.24 10*6/uL Normal 4.5-5.[address] [facility] Comment on above: Performed By: #### C BC, PTT, TROPI ####[address] [address] Hematocrit (HCT) 44.4 % Normal 41-53 [facility] Comment on above: Performed By: #### C BC, PTT, TROPI ####[address] [address] Hemoglobin mass conc (Bld) 16.2 g/dL Normal 13.5-17.5 [facility] Comment on above: Performed By: #### C BC, PTT, TROPI ####[address] [address] MCH 31.0 pg Normal 26-34 [facility] Comment on above: Performed By: #### C BC, PTT, TROPI ####[address] [address] MCHC mass conc (RBC) 36.6 g/dL Normal 31-37 [facility] Comment on above: Performed By: #### C BC, PTT, TROPI ####[address] [address] MCV 84.7 fL Normal 80-100 [facility] Comment on above: Performed By: #### C BC, PTT, TROPI ####[facility] [address] [place] [address] Platelet mean volume (PMV) 7.1 fL Normal 6.0-12.0 [facility] Comment on above: Result Comment: [facility] [address] [place] [address] Performed By: #### C BC, PTT, TROPI ####[facility] [address] [place] [address] Platelets 542 10*3/uL High 140-450 [facility] Comment on above: Performed By: #### C BC, PTT, TROPI ####[facility] [address] [place] [address] WBC (Leukocytes) 16.6 10*3/uL High 3.5-11.0 [facility] Comment on above: Performed By: #### C BC, PTT, TROPI ####[facility] [address] [place] [address] ED Provider Noteon 7 HIM IP Note OR Food Server Normal [facility] History and Physicalon 03-25 HIM IP Note OR Food Server Normal [facility] Magnesiumon 03-25-2017 Magnesium 2.4 mg/dL Normal 1.6-2.6 [facility] Comment on above: Result Comment: [facility] [place] [address] Performed By: #### T ROPI, MG ####[address] [address] Troponinon 03-25-2017 Troponin I.cardiac mass conc Normal [facility] Comment on above: Result Comment: Refe rence Range: <0.03 Within reference range. 0.03-0.09 Possible myocardial damage.Repeat at appropriate intervals to rule out chronic elevation. >= 0.10 Indicative of myocardial damage.[facility] [address] [place] [address] Performed By: #### C BC, PTT, TROPI ####[facility] [address] [place] [address] Troponin T.cardiac mass conc 0.81 ng/mL Critically high <0.03 [facility] Comment on above: Result Comment: Trop onin T results cannot be compared to Troponin-I results.Previous Alert Value Reported Performed By: #### C BC, PTT, TROPI ####[facility] [address] [place] [address] Troponin I.cardiac mass conc Normal [facility] Comment on above: Result Comment: Refe rence Range: <0.03 Within reference range. 0.03-0.09 Possible myocardial damage.Repeat at appropriate intervals to rule out chronic elevation. >= 0.10 Indicative of myocardial damage.[facility] [employer] [address] [place] [address] Performed By: #### T ROPI, MG ####[address] [place] [address] Troponin T.cardiac mass conc 0.70 ng/mL Critically high <0.03 [facility] Comment on above: Result Comment: Trop onin T results cannot be compared to Troponin-I results. Performed By: #### T ROPI, MG ####[facility] [address] [place] [address] Troponin I.cardiac mass conc Normal [facility] Comment on above: Result Comment: Refe rence Range: <0.03 Within reference range. 0.03-0.09 Possible myocardial damage.Repeat at appropriate intervals to rule out chronic elevation. >= 0.10 Indicative of myocardial damage.[facility] [address] [place] [address] Performed By: #### T ROPI ####[facility] [address] [place] [address] Troponin T.cardiac mass conc 0.04 ng/mL High <0.03 [facility] Comment on above: Result Comment: Trop onin T results cannot be compared to Troponin-I results. Performed By: #### T TREEI ####[facility] [address] [place], [place] [phone] XR CHEST PORTABLEon 03-25-20 XR CHEST PORTABLE [...] APTTon 03-24-2017 aPTT 25.2 s Normal 23.2-34.4 [facility] Comment on above: Result Comment: Perf ormed at [address] [place] [address] [phone] Performed By: #### P T, PTT, BNP, BMP, TROPI, CDP ####[address] [place] [address] Basic Metabolic Profon 03-24 (cont.) Normal [facility] Comment on above: Result Comment: Aver age GFR for 50-59 years old: 93 mL/min/1.73sq mChronic Kidney Disease: <60 mL/min/1.73sq mKidney failure: <15 mL/min/1.73sq meGFR calculated using average adult body mass. Additional eGFR calculator available at:http://www.[employer].Thinkr/multiple_crcl_2012.htm Performed By: #### P T, PTT, BNP, BMP, TROPI, CDP ####[address] [place] [address] Anion gap 11 mmol/L Normal 9-17 [facility] Comment on above: Performed By: #### P T, PTT, BNP, BMP, TROPI, CDP ####[address] [place] [address] BUN/CRE Ratio 17 Normal 9-20 [facility] Comment on above: Performed By: #### P T, PTT, BNP, BMP, TROPI, CDP ####[address] [place] [address] Calcium 9.3 mg/dL Normal 8.6-10.4 [facility] Comment on above: Performed By: #### P T, PTT, BNP, BMP, TROPI, CDP ####[address] [place] [address] Chloride 94 mmol/L Low 98-107 [facility] Comment on above: Performed By: #### P T, PTT, BNP, BMP, TROPI, CDP ####[address] [place] [address] CO2 29 mmol/L Normal 20-31 [facility] Comment on above: Performed By: #### P T, PTT, BNP, BMP, TROPI, CDP ####[address] [place] [address] Creatinine 0.92 mg/dL Normal 0.70-1.20 [facility] Comment on above: Performed By: #### P T, PTT, BNP, BMP, TROPI, CDP ####[address] [place] [address] eGFR (non-black) mL/min/{1.73_m2} Normal >60 [facility] Comment on above: Performed By: #### P T, PTT, BNP, BMP, TROPI, CDP ####[address] [place] [address] Glucose mass conc 212 mg/dL High 70-99 [facility] Comment on above: Performed By: #### P T, PTT, BNP, BMP, TROPI, CDP ####[address] , [place] [phone] Potassium molar conc 4.3 mmol/L Normal 3.7-5.3 [facility] Comment on above: Performed By: #### P T, PTT, BNP, BMP, TROPI, CDP ####[address] [place] [address] Sodium 134 mmol/L Low 135-144 [facility] Comment on above: Performed By: #### P T, PTT, BNP, BMP, TROPI, CDP ####[address] [place] [address] Staging: Normal [facility] Comment on above: Result Comment: Stag e 1: Some kidney damage normal GFRStage 2: Mild kidney damage GFR 60-89Stage 3: Moderate kidney damage GFR 30-59Stage 4: Severe kidney damage GFR 15-29Stage 5: Severe kidney damage GFR <15ESRD - chronic treatment by dialysis or transplantPerformed at [address] [place] [address] Performed By: #### P T, PTT, BNP, BMP, TROPI, CDP ####[address] [place] [address] Urea nitrogen 16 mg/dL Normal 6-20 [facility] Comment on above: Performed By: #### P T, PTT, BNP, BMP, TROPI, CDP ####[address] [place] [address] Brain Natri. Peptideon 03-24 BNP Normal [facility] Comment on above: Result Comment: Pro- BNP Reference Range:Rule Out: <300Grey Zone: Age <50 300-450 Age 50-75 300-900 Age >75 300-1800Usually represents mild to moderate HF but other cardiopulmonary causes cannot be ruled out.Rule In: Age <50 >450 Age 50-75 >900 Age >75 >1800Performed at [address] [place] [address] Performed By: #### P T, PTT, BNP, BMP, TROPI, CDP ####[address] [place] [address] BNP pg/mL Normal <300 [facility] Comment on above: Result Comment: Pro- BNP results cannot be compared to BNP results. Performed By: #### P T, PTT, BNP, BMP, TROPI, CDP ####[address] [place] [address] CBC with Diffon 03-24-2017 Abs. Basophil 0.20 k/uL Normal 0.0-0.2 [facility] Comment on above: Performed By: #### P T, PTT, BNP, BMP, TROPI, CDP ####[address] [place] [address] Abs.Neutrophil (Seg) 12.93 k/uL High 1.8-7.7 [facility] Comment on above: Performed By: #### P T, PTT, BNP, BMP, TROPI, CDP ####[address] [place] [address] Basophils/100 WBC Auto (Bld) 1 % Normal [facility] Comment on above: Performed By: #### P T, PTT, BNP, BMP, TROPI, CDP ####[address] [place] [address] Blood morphology Platelet scan shows Increased Platelets Normal [facility] Comment on above: Result Comment: Perf ormed at [address] [place] [address] Performed By: #### P T, PTT, BNP, BMP, TROPI, CDP ####[address] [place] [address] Eosinophils 0.00 10*3/uL Normal 0.0-0.4 [facility] Comment on above: Performed By: #### P T, PTT, BNP, BMP, TROPI, CDP ####[address] , [place] [address] Eosinophils/100 leukocytes 0 % Normal [facility] Comment on above: Performed By: #### P T, PTT, BNP, BMP, TROPI, CDP ####[address] , [place] [address] Lymphocytes 4.51 10*3/uL Normal 1.0-4.8 [facility] Comment on above: Performed By: #### P T, PTT, BNP, BMP, TROPI, CDP ####[address] , [place] [address] Lymphocytes/100 leukocytes 23 % Normal [facility] Comment on above: Performed By: #### P T, PTT, BNP, BMP, TROPI, CDP ####[address] , [place] [address] Monocytes 1.96 10*3/uL High 0.0-1.0 [facility] Comment on above: Performed By: #### P T, PTT, BNP, BMP, TROPI, CDP ####[address] , [place] [address] Monocytes/100 leukocytes 10 % Normal [facility] Comment on above: Performed By: #### P T, PTT, BNP, BMP, TROPI, CDP ####[address] , [place] [address] Neutrophil (Seg) 66 % Normal [facility] Comment on above: Performed By: #### P T, PTT, BNP, BMP, TROPI, CDP ####[address] , [facility]83 Erythrocyte distribution width Auto Ratio (RBC) 13.6 % Normal 12.1-15.2 [facility] Comment on above: Performed By: #### P T, PTT, BNP, BMP, TROPI, CDP ####[address] [place] [address] Erythrocytes (RBC) 5.28 10*6/uL Normal 4.5-5.9 [facility] Comment on above: Performed By: #### P T, PTT, BNP, BMP, TROPI, CDP ####[address] , [facility]83 Hematocrit (HCT) 44.9 % Normal 41-53 [facility] Comment on above: Performed By: #### P T, PTT, BNP, BMP, TROPI, CDP ####[address] , [facility]83 Hemoglobin mass conc (Bld) 16.0 g/dL Normal 13.5-17.0 [facility] Comment on above: Performed By: #### P T, PTT, BNP, BMP, TROPI, CDP ####[address] , [facility]83 MCH 30.3 pg Normal 26-34 [facility] Comment on above: Performed By: #### P T, PTT, BNP, BMP, TROPI, CDP ####[address] [place] [address] MCHC mass conc (RBC) 35.6 g/dL Normal 31-37 [facility] Comment on above: Performed By: #### P T, PTT, BNP, BMP, TROPI, CDP ####[address] , [facility]83 MCV 85.1 fL Normal 80-100 [facility] Comment on above: Performed By: #### P T, PTT, BNP, BMP, TROPI, CDP ####[address] , [facility]83 Platelet mean volume (PMV) 7.9 fL Normal 6.0-12.0 [facility] Comment on above: Performed By: #### P T, PTT, BNP, BMP, TROPI, CDP ####[address] [place] [address] Platelets 555 10*3/uL High 140-450 [facility] Comment on above: Performed By: #### P T, PTT, BNP, BMP, TROPI, CDP ####[address] [place] [address] WBC (Leukocytes) 19.6 10*3/uL High 3.5-11.0 [facility] Comment on above: Performed By: #### P T, PTT, BNP, BMP, TROPI, CDP ####[address] [place] [address] Auto Diff Performed NOT REPORTED [facility] Comment on above: Performed By: #### P T, PTT, BNP, BMP, TROPI, CDP ####[address] [place] [address] Erythrocyte morphology NOT REPORTED Normal [facility] Comment on above: Performed By: #### P T, PTT, BNP, BMP, TROPI, CDP ####[address] [place] [address] Platelets NOT REPORTED Normal [facility] Comment on above: Performed By: #### P T, PTT, BNP, BMP, TROPI, CDP ####[address] [place] [address] WBC Morphology NOT REPORTED Normal [facility] Comment on above: Performed By: #### P T, PTT, BNP, BMP, TROPI, CDP ####[address] [place] [address] CTA CHEST WITH CONTRASTon CTA CHEST WITH CONTRAST FINAL REPORTEXAM: CTA CHEST WITH CONTRASTHISTORY: midsternal chest pain, SOB, h/o 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 Interpreted by:SHELBI Bermudezigned by:Carolyn Reyes MD03/24/17Finor result Normal [facility] ED Noteon 03-24-2017 HIM IP Note OR Food Server Normal [facility] HIM IP Note OR Food Server Normal [facility] HIM IP Note OR Food Server Normal [facility] HIM IP Note OR Food Server Normal [facility] ED Provider Noteon 7 HIM IP Note OR Food Server Normal [facility] PTon 03-24-2017 INR Coag RelTime (PPP) 1.0 {INR} Normal 0.9-1.2 [facility] Comment on above: Result Comment: Perf ormed at [address] [place] [address] [phone] Performed By: #### P T, PTT, BNP, BMP, TROPI, CDP ####[address] [place] [address] Prothrombin time (PT) Coag time (PPP) 10.1 s Normal 9.7-12.2 [facility] Comment on above: Performed By: #### P T, PTT, BNP, BMP, TROPI, CDP ####[address] [place] [address] Troponinon 03-24-2017 Troponin I.cardiac mass conc Normal [facility] Comment on above: Result Comment: Refe rence Range: <0.03 Within reference range. 0.03-0.09 Possible myocardial damage.Repeat at appropriate intervals to rule out chronic elevation. >= 0.10 Indicative of myocardial damage.Performed at [address] [place], [place] [id number] [phone] Performed By: #### P T, PTT, BNP, BMP, TROPI, CDP ####[address] [place] [address] Troponin T.cardiac mass conc ug/L Normal <0.03 [facility] Comment on above: Result Comment: Trop onin T results cannot be compared to Troponin-I results. Performed By: #### P T, PTT, BNP, BMP, TROPI, CDP ####[address] , [place] [id number] XR CHEST PORTABLEon 03-24-20 17 XR CHEST [...] by:SHELBI Bermudezigned by:Carolyn Reyes MD03/24/17Final result Normal [facility] Encounters Encounter Date Encounter Type Care Provider Facility Start: 09-20-2022 End: 09-21-2022 ambulatory Cheng Gonsalez MD Facility:[facility] Start: 08-26-2022 End: 08-27-2022 ambulatory Julianne Blevins Facility:[facility] Start: 10-18-2021 End: 10-19-2021 ambulatory Julianne Blevins Facility:[facility] Start: 12-18-2017 End: 12-19-2017 Ambulatory [facility] Start: 12-13-2017 End: 12-14-2017 Ambulatory CHENG Ab GONSALEZ [facility] Start: 12-11-2017 End: 12-12-2017 Ambulatory CHENG Ab GONSALEZ [facility] Start: 11-29-2017 End: 11-30-2017 Ambulatory CHENG Ab GONSALEZ [facility] Start: 11-13-2017 End: 11-14-2017 Ambulatory CHENG Ab GONSALEZ [facility] Start: 11-08-2017 End: 11-09-2017 Ambulatory [facility]ENG [facility] Start: 11-06-2017 End: 11-07-2017 Ambulatory CHENG GONSALEZ [facility] Start: 11-03-2017 End: 11-04-2017 Ambulatory JULIANNE BLEVINS [facility] Start: 11-01-2017 End: 11-02-2017 Ambulatory JULIANNE BLEVINS [facility] Start: 10-11-2017 End: 10-11-2017 Ambulatory CARLOS BUSTILLOS Facility:[facility] Start: 08-07-2017 Ambulatory FILI MARTINEZ Facilit y:[facility] Start: 04-10-2017 End: 04-11-2017 Ambulatory ISMAEL NGUYỄNBAKARI [facility] Start: 03-25-2017 End: 03-28-2017 Evaluation and management of inpatient [facility] Start: 03-24-2017 End: 03-25-2017 Emergency department patient visit RYAN MOSS [facility] Procedures Date Procedure Procedure Detail Performing Clinician [...] GONSALEZ Start: 03-27-2017 POC GLUCOSE FINGERSTICK CHENG GONASLEZ Start: 03-27-2017 POCT GLUCOSE CHENG VE LA [...] Unknown 2021 Private Health Insurance 1965 Unknown [id number] 1965 Unknown [id number] 1965 Unknown [id number] 1960 Private Health Insurance [id number] Self-pay [id number] Clinical Note 08-26-2022 Note Date & Type Note Facility 08-26-2022 Note Patient Education Ma terials Name: Benigno Sanderson Current Date: 08/26/2022 13:48:04 [facility] : 1965 The following sheet(s) are [...] Don't delay. You (more content not included)... [facility] Summary Purpose Family History No [...] and content) DATE CREATED AUTHOR 12/14/2017 [facility] DATE CREATED AUTHOR AUTHOR'S ORGANIZ ATION 12/19/2017 [facility] DATE CREATED AUTHOR AUTHOR'S ORGANIZ ATION 12/20/2017 [facility] DATE CREATED AUTHOR AUTHOR'S ORGANIZ ATION 09/22/2022 [facility] FOR RECORDS PERTAINING TO PATIENTS [...] BE BASED ON THE PRIMARY CLINICAL RECORDS. [facility]. provides no warranty or guarantee of the accuracy or completeness of information in this document.
== END 2024-02-22 08:33 | disposition home or self-care (01) ==
LOC: CT 08:33
PROVIDERS: Family Provider Family Medicine; PCP Family Medicine; Visit Provider Podiatrist Foot & Ankle Surgery
DX: S92.012D Displaced fracture of body of left calcaneus, subsequent encounter for fracture with routine healing (principal)
CPT/HCPCS: 73700

== ENCOUNTER 2024-03-19 08:15 | Outpatient (OUT) | payer OTHER, SELFPAY ==
--- NOTE | 2024-03-19 | XR_ITS ---
The [address] [address] Patient Name: JAM JAY MRN: [id number] date: 1965 Sex: M Assigned Patient Location: Current Patient Location: Accession/Order Number: [id number] Exam Date: 03/19/2024 08:16 Report Date: 03/21/2024 04:53 At the request of: ARELIS SHELL Procedure: XR calcaneus LT min 2V PROCEDURE: XR calcaneus LT min 2V HISTORY: LEFT CALCANEUS PAIN COMPARISON: XR foot left 02/06/2024 FINDINGS: BONES:Ongoing bone healing of calcaneal fracture with slightly decreasing sclerosis. Alignment is maintained. Fracture line is still slightly visible on the calcaneal plantar view. SOFT TISSUES:Soft tissue swelling surrounding the posterior foot. EFFUSION:None visible. OTHER: Negative. XR/XR calcaneus LT min 2V IMPRESSION: 1. Stable alignment and ongoing bone healing of prior calcaneal fracture. Electronically authenticated by: ROXI HAGAN Date: 03/21/2024 04:53
--- OUTSIDE RECORDS SUMMARY | 2024-03-19 08:28 | XMS_ITS | CCD ---
Author Organization [facility] Care Team Providers Care Intelligence Officer Name Role Phone MICHELLESEVERIANOFILI Unavailable Unavailable MICHELLE, FILI Unavailable Unavailable MARKER, CARLOS Unavailable Unavailable MARKER, CARLOS Unavailable Unavailable HEATHER REAL V Unavailable Unavailable HAY, EDDI Unavailable Unavailable MARKER, CARLOS Unavailable Unavailable HARISH PEREZ Unavailable Unavailable GONSALEZ, CHENG Unavailable Unavailable MOSS, RYAN R Unavailable Unavailable GONSALEZ, CHENG J Unavailable Unavailable KAMIREDDY, ADIREDDY Unavailable Unavailable GONSALEZ, CHENG J Unavailable Unavailable DENIKE, JULIANNE R Unavailable Unavailable GONSALEZ, CHNEG J Unavailable Unavailable DENIKE, JULIANNE R Unavailable [...] ANICETO BRUNNER Unavailable Unavailable Cheng Gonsalez MD Primary Care Unavailab Julianne Villarreal DO Attending Unavaila ble Cheng Gonsalez MD Primary Care Unavailab Julianne Villarreal DO Attending Unavaila ble Allergies Allergy Classification Reported Allergen(s) Allergy Type [...] disease (2 sources) Atherosclerotic heart disease of [place] coronary artery without angina pectoris; Translations: [Acute ischemic heart disease, unspecified] Onset: 03-25-2017 Chronic Coronary atherosclerosis and other heart disease (1 source) Presence of coronary angioplasty implant and graft; Translations: [PRESENCE COR ANGPLSTY IMPLANT AND GRAFT] Onset: 10-13-2017 Episodic Deficiency and other anemia (1 source) Hereditary spherocytosis; Translations: [HEREDITARY SPHEROCYTOSIS] Onset: 10-13-2017 Chronic Other aftercare (1 source) half-way (current) use of aspirin; Translations: [SKILLED NURSING CURRENT USE OF ASPIRIN] Onset: 10-13-2017 Episodic Other liver diseases (1 source) Abnormal levels of other serum enzymes; Translations: [ABNORMAL LEVELS OTHER SERUM ENZYMES] Onset: 10-13-2017 Episodic Unclassified (1 source) 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; Translations: [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 COORDINATOR USE ORAL HYPOGLYCEMIC DX] Onset: 10-13-2017 Past or Other Problems Problem Classification Problem Date Documented Da te Episodic/Chronic Nonspecific chest pain (5 sources) Chest pain, unspecified; Translations: [Precordial pain] Onset: 03-24-2017 Episodic Other lower respiratory disease (2 sources) Solitary pulmonary nodule; Translations: [Solitary pulmonary nodule] Onset: 03-24-2017 Episodic Results Test Name Value Interpretation Reference Range Facility Cardiology Office/Clinic Not suzi 02-29-2024 Cardiology Office/Clinic Note Chief Complaint Reevaluate CAD and high blood pressure History of Present Illness Mr. Sanderson returned to my office today for reevaluation. He was last seen on 08/26/22. Coronary artery disease Previous history: - PCI to LAD (Mar 2017) - Cardiac cath showed patent LAD stents (Sep 2017) - Normal stress tests (Jun 2021 and Aug 2022) - On clopidogrel, beta víctor, statin, and long-acting nitrate Interval history: - Denies chest pain, shortness of breath, or palpitations Hypertension Previous history: - Blood pressure controlled last visit on lisinopril 5 mg daily and metoprolol tartrate 50 mg BID Interval history: - Reports rare lightheadedness first thing in the morning; denies syncope - Does not check home blood pressure readings Cardiology Problem List 1. Atherosclerotic coronary artery disease. A. Cardiac cath: Normal LM, 75% pLAD with thrombus, diffuse 10-20% LCx, diffuse 10-20% RCA, EF 50%, 03/27/17 ([facility], [place], [place]). i. PCI: 5.0 x 18 mm BMS to pLAD, 03/27/17 ([place], [place]). B. Cardiac cath: Normal LM, widely patent LAD stents, 30% pD1, 30% mLCx, normal RCA, and EF 55-60%, 10/12/17. 2. Diabetes mellitus type 2. 3. Systemic arterial hypertension. 4. Hereditary spherocytosis. A. Status post splenectomy. B. Chronic thrombocytosis. 5. History of tobacco use. A. Previously quit smoking. Cardiac Testing Ambulatory Electrocardiography > 08/12/22: (ECG) Sinus rhythm at 71 bm, normal axes/intervals, no ST-T changes [place] (my independent interpretation of a test reported by another physician) Echocardiography > 03/27/17: EF 55% ([place], [place]) > 11/03/17: EF 60% ([place], [place]) Stress Testing > 11/29/19: (Lexiscan MPI) No ischemic ECG changes, MPI showed a possible small area of apical ischemia, EF 74% > 06/28/21: (Exercise MPI) Von 7:17, 9.2 METs, 87% APMHR, indeterminate ECG response (baseline ST-T changes), normal MPI, EF 62% > 09/20/22: (Lexiscan MPI) Indeterminate ECG response (baseline ST-T changes), normal MPI, EF 63% Outside Lab Results > 08/12/22: (CBC) WBC 15.5, Hgb 18.6, Plt 460 ([place]. [place]) > 08/12/22: (HbA1c) HbA1c 8.8% ([place]. [place]) > 08/12/22: (Lipids) TC 165, TG 133, HDL 52, LDL 86 ([place]. [place]) Physical Exam Vitals & Measurements HR: 67 (Peripheral) BP: 112/62 SpO2: 94 HT: 183 cm WT: 109.2 kg BMI: 32.61 Constitutional: No acute distress Neck: No JVD Respiratory: Respirations even and non-labored, clear to auscultation bilaterally Cardiovascular: Regular rhythm with normal S1 and S2 and no murmurs, no pedal edema Extremities: No cyanosis Psych: Normal orientation Assessment/Plan Coronary artery disease (Chronic problem - stable) - Continue clopidogrel 75 mg daily - Continue metoprolol titrate 50 mg BID - Continue atorvastatin 40 mg daily - Continue isosorbide mononitrate 60 mg daily - 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 Medical Decision Making Number of Problems Addressed: Moderate (2 stable chronic illnesses) Data Reviewed/Analyzed: None Risk of Complications, Morbidity, or Mortality: Moderate (prescription drug therapy) Time (minutes) Personally Spent by Provider on Date of Service Excluding time for services reported/billed separately [id number]-[id number] encounter with patient: 12 Prep, documentation, coordination of care: 9 TOTAL TIME SPENT ON DATE OF SERVICE: 21 Problem List/Past Medical History Ongoing Blood disorder Coronary artery disease Diabetes mellitus Hereditary spherocytosis Hypertension Thrombocytosis Historical Heart attack Medications atorvastatin 40 mg oral tablet, See Instructions, TAKE 1 TABLET BY MOUTH EVERY DAY clopidogrel 75 mg oral tablet, See Instructions, TAKE 1 TABLET BY MOUTH EVERY DAY furosemide 20 mg oral tablet, See Instructions, TAKE 1 TABLET BY MOUTH EVERY DAY isosorbide mononitrate 60 mg oral tablet, extended release, 60 mg= 1 tabs, Oral, qAM, 3 refills Jardiance 25 mg oral tablet, 25 mg= 1 tabs, Oral, qAM lisinopril 5 mg oral tablet, 5 mg= 1 tabs, Oral, Daily, 3 refills metFORMIN 1000 mg oral tablet, 1000 mg= 1 tabs, Oral, BID, with meals Metoprolol Tartrate 50 mg oral tablet, 50 mg= 1 tabs, Oral, BID, 3 refills nitroglycerin 0.4 mg sublingual tablet, 0.4 mg= 1 tabs, SL, q5min, PRN, 3 refills, not to exceed 3 doses/15 min--if pain persists, seek medical attention Allergies No Known Medication Allergies Social History Alcohol Current, 1-2 times per month Nutrition/Health Caffeine intake amount: 2-3 cups coffee per day. Tobacco Former smoker, quit more than 1 year ago Use:. Electronically signed (more content not included)... 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 Normal [facility] Progress Noteon 11-03-2017 HIM IP Note OR Chemical Research Engineer Normal [facility] Progress Noteon 11-01-2017 HIM IP Note OR Chemical Research Engineer Normal [facility] CARDIAC HIRAL 3-6-9on 018 CKMB 1.61 ng/mL Normal <=2.37 [facility] Comment on above: Performed By: #### C MREP ####[facility] Tuaycfbfkm4[address] Creatine kinase (CK) 131 U/L Normal 55-170 [facility] Comment on above: Performed By: #### C MREP ####[facility] [address] [place] [address] INR Coag RelTime (Bld) SEE BELOW Normal [facility] Comment on above: Result Comment: <0.0 34 ng/ml NEGATIVE 0.034-0.119 INDETERMINATE 0.120 AMI CUT OFF Performed By: #### C MREP ####[facility] [address] [place] [address] [place] TROP 0.060 ng/mL Critically high <=0.034 [facility] Comment on above: Result Comment: test repeated critical value verified Performed By: #### C MREP ####[facility] Nqgqystayz94[address] [place] CARDIAC HIRAL ADMITon 018 CKMB 1.59 ng/mL Normal <=2.37 [facility] Comment on above: Performed By: #### C MADM, LIPA, CRP, BMP ####[facility] Avirmwltfn1553 [address] Creatine kinase (CK) 153 U/L Normal 55-170 [facility] Comment on above: Performed By: #### C MADM, LIPA, CRP, BMP ####[facility] Pzetiaehio8619 [address] [place] INR Coag RelTime (Bld) SEE BELOW Normal [facility] Comment on above: Result Comment: <0.0 34 ng/ml NEGATIVE 0.034-0.119 INDETERMINATE 0.120 AMI CUT OFF Performed By: #### C MADM, LIPA, CRP, BMP ####[facility] [address] [place] [address] [place] DARÍO 40.0 ng/mL Normal <=121.0 [facility] Comment on above: Performed By: #### C MADM, LIPA, CRP, BMP ####[facility] [address] [place] [address] [place] TROP 0.032 ng/mL Normal <=0.034 [facility] Comment on above: Performed By: #### C MADM, LIPA, CRP, BMP ####[facility] [address] [place], [place] [address]en CBC W MANUAL DIFFon 10-12-19 18 ACANTHOCYTES SLIGHT Normal [facility] Comment on above: Performed By: #### Pearl BONILLA ####[facility] [address] [place] [address] [place] Anisocytosis presence SLIGHT Normal [facility] Comment on above: Performed By: #### Pearl BONILLA ####[facility] [address] [place] [address] [place] BAND # 0.0 103/ul Normal 0.0-0.3 [facility] Comment on above: Performed By: #### Pearl BONILLA ####[facility] [address] [place] [address] [place] BAND % 0 % Normal 0-5 [facility] Comment on above: Performed By: #### Pearl BONILLA ####[facility] [address] [place] [address] [place] BASOM % 2.0 % Normal 0.2-2.0 [facility] Comment on above: Performed By: #### Pearl BONILLA ####[facility] [address] [place], [place] [address]ken [place] Basophils Auto #/vol (Bld) 0.31 103/ul Critically high 0.00-0.10 [facility] Comment on above: Performed By: #### Pearl BONILLA ####[facility] [address] [place], [place] [address] BLAST # Normal [facility] Comment on above: Performed By: #### Pearl BONILLA ####[facility] Axmodvsemz[address] [place], [place] [address] BLAST % Normal [facility] Comment on above: Performed By: #### Pearl BONILLA ####[facility] Q[address] [place], [place] [address] Eosinophils 0.63 103/ul Normal 0.00-0.70 [facility] Comment on above: Performed By: #### Pearl BONILLA ####[facility] C[address] [place], [place] [address] Eosinophils/100 leukocytes 4.0 % Normal 0.9-7.0 [facility] Comment on above: Performed By: ###Soheila BONILLA ####[facility] Z[address]cr[address] [place], [place] [address] Erythrocyte distribution width Auto Ratio (RBC) 12.7 % Normal 11.0-15.0 [facility] Comment on above: Performed By: #### Pearl BONILLA ####[facility] [address] [place], [place] [address] Erythrocytes (RBC) 5.20 106/ul Normal 4.70-6.10 [facility] Comment on above: Performed By: #### Pearl BONILLA ####[facility] [address] [place], [place] [address] Erythrocytes (RBC) Normal [facility] Comment on above: Performed By: #### Pearl BONILLA ####[facility] Urqu[address]ovloz[address] [place], [place] [address] GIANT PLATELETS SEEN Normal [facility] Comment on above: Performed By: #### Pearl BONILLA ####[facility] [address] [place] [id number] Hematocrit (HCT) 43.4 % Normal 42.0-54.0 [facility] Comment on above: Performed By: #### Pearl BONILLA ####[facility] [address] [place] [address] Hemoglobin mass conc (Bld) 15.9 g/dL Normal 14.0-18.0 [facility] Comment on above: Performed By: #### Pearl BONILLA ####[facility] [address] [place] [address] Lymphocytes 3.77 103/ul Normal 1.20-3.80 [facility] Comment on above: Performed By: #### Pearl BONILLA ####[facility] [address]jbho[address] [place], [place] [address] Lymphocytes 0.16 103/ul Normal [facility] Comment on above: Performed By: #### Pearl BONILLA ####[facility] [address] [place] [address] [place] Lymphocytes/100 leukocytes 1 % Normal [facility] Comment on above: Performed By: #### Pearl BONILLA ####[facility] [address] [place] [address] [place] Lymphocytes/100 leukocytes 24.0 % Normal 20.5-60.0 [facility] Comment on above: Performed By: #### Pearl BONILLA ####[facility] [address] [place] [address] [place] MCH 30.6 pg Normal 25.9-34.0 [facility] Comment on above: Performed By: #### Pearl BONILLA ####[facility] [address] [place] [id number] MCHC mass conc (RBC) 36.6 g/dL Critically high 29.9-35.2 [facility] Comment on above: Performed By: #### Pearl BONILLA ####[facility] Rx[address]ocur[address] [place] [address] [place] MCV 83.5 fL Normal 80.0-94.0 [facility] Comment on above: Performed By: #### Pearl BONILLA ####[facility] [address] [place], [place] [address]Jniyoq Romy METAMYELOCYTE # Normal [facility] Comment on above: Performed By: #### Pearl BONILLA ####[facility] [address] [place], [place] [address]Amiyek R[place] METAMYELOCYTE % Normal [facility] Comment on above: Performed By: #### Pearl BONILLA ####[facility] [address]uz[address] [place], [place] [address]Idavwg R[place] MONOM# 1.41 103/ul Critically high 0.30-0.80 [facility] Comment on above: Performed By: #### Pearl BONILLA ####[facility] [address] [place] [id number] MONOM% 9.0 % Normal 1.7-12.0 [facility] Comment on above: Performed By: #### Pearl BONILLA ####[facility] [address]zttaselsu2398 [place], [place] [address]Uqwbde R[place] MYELOCYTE # Normal [facility] Comment on above: Performed By: #### Pearl BONILLA ####[facility] Ghxunpxoju4990 [place], [place] [address]Roozbu [place] MYELOCYTE % Normal [facility] Comment on above: Performed By: #### Pearl BONILLA ####[facility] Faypiecycv9541 [place], [place] [address]Pioelt [place] Platelet mean volume (PMV) 8.8 fL Critically low 9.5-13.5 [facility] Comment on above: Performed By: #### Pearl BONILLA ####[facility] [address]vh[address] [place] [address] Platelets 670 103/ul Critically high 150-450 [facility] Comment on above: Performed By: #### Pearl BONILLA ####[facility] Log[address]auold[address]84 [place] [address] SEG # 9.42 103/ul Critically high 1.40-6.50 [facility] Comment on above: Performed By: #### Pearl BONILLA ####[facility] Pagcjjfusz[address] [place] Segmented Neutrophils/100 leukocytes 60.0 % Normal 43.0-75.0 [facility] Comment on above: Performed By: #### Pearl BONILLA ####[facility] Pefehwqxac6066 [address] [place] WBC (Leukocytes) 15.7 103/ul Critically high 4.0-11.0 [facility] Comment on above: Performed By: #### Pearl BONILLA ####[facility] [address] [place] [address] [place] WBC (Leukocytes) Normal 4.0-11.0 [facility] Comment on above: Performed By: #### Pearl BONILLA ####[facility] [address] [place] [address] [place] CRPon 10-11-2017 C reactive protein (CRP) 0.9 mg/dL Normal <=1.0 [facility] Comment on above: Performed By: #### C MADM, LIPA, CRP, BMP ####[facility] [address] [place] [address] [place] LIPASEon 10-11-2017 Lipase 139.0 U/L Normal 23.0-300.0 [facility] Comment on above: Performed By: #### C MADM, LIPA, CRP, BMP ####[facility] Tlzblrmecv[address]388 [address] [place] PROF CHEM 8 (BAS METB)on Anion gap 16.8 mmol/L Normal [facility] Comment on above: Performed By: #### C MADM, LIPA, CRP, BMP ####[facility] [address] [place] [address] BUN/Creatinine Ratio 22.4 mg/mg Normal [facility] Comment on above: Performed By: #### C MADM, LIPA, CRP, BMP ####[facility] Fzewweughe2717 [address] [place] Calcium 9.9 mg/dL Normal 8.4-10.2 [facility] Comment on above: Performed By: #### C MADM, LIPA, CRP, BMP ####[facility] Jonyirwkbm[address] [place] Chloride 97 mmol/L Critically low 98-107 [facility] Comment on above: Performed By: #### C MADM, LIPA, CRP, BMP ####[facility] Gsduqmyehi[address]451 [address] [place] CO2 26.0 mmol/L Normal 22.0-30.0 [facility] Comment on above: Performed By: #### C MADM, LIPA, CRP, BMP ####[facility] Vltlhdxhmc6170 [address] [place] Creatinine 0.82 mg/dL Normal 0.66-1.25 [facility] Comment on above: Performed By: #### C MADM, LIPA, CRP, BMP ####[facility] Vuwfuyxzkv9215 [address] [place] eGFR (non-black) mL/min/{1.73_m2} Normal >=60 [facility] Comment on above: Performed By: #### C MADM, LIPA, CRP, BMP ####[facility] Fcljxtozvv9984 [address] [place] Glucose mass conc 323 mg/dL Critically high 74-106 Th [facility] Comment on above: Performed By: #### C MADM, LIPA, CRP, BMP ####[facility] Csjeaojxdn3253 [address] [place] Potassium molar conc 3.9 mmol/L Normal 3.4-5.0 [facility] Comment on above: Performed By: #### C MADM, LIPA, CRP, BMP ####[facility] Zpurdoaucq0746 [address] [place] Sodium 136 mmol/L Critically low 137-145 [facility] Comment on above: Performed By: #### C MADM, LIPA, CRP, BMP ####[facility] [address]wii[address] [place], [place] [address]Fcwoyb R[place] Urea nitrogen 18.0 mg/dL Normal 9.0-20.0 [facility] Comment on above: Performed By: #### C MADM, LIPA, CRP, BMP ####[facility] [address] [place] [address] XR CHEST 1 Von 10-11-2017 XR CHEST 1 V [address] [place] [address] Patient: BENIGNO SANDERSON Exam Date: 10/11/2017DOB: 1965 Gender:M : DR CARLOS BUSTILLOS Admission #: [id number] : Order #: [id number] HERE TO VIEW EXAM RADIOLOGY REPORT PROCEDURE: [...] Real M.D. on 10/11/2017 at 07:45 Normal [facility] CT CHEST WO CONTRASTon [...] by:SHELBI Herediaigned by:Xin Ro MD04/10/17Final result Normal [facility] Flow Cytometryon 03-29-2017 Flow Cytometry [id number] Normal [facility] Comment on above: Result Comment: [facility] [address] [place] [address] Performed By: #### F LLE ####[address] [address] Discharge Summaryon 03-28-20 17 HIM IP Note OR Chemical Research Engineer Normal [facility] APTTon 03-27-2017 aPTT 62.2 s High 21.3-31.3 [facility] Comment on above: Result Comment: [facility] [address] [place] [address] Performed By: #### P TT ####[address] [address] aPTT 60.0 s High 21.3-31.3 [facility] Comment on above: Result Comment: [facility] [address] [place] [address] Performed By: #### P TT ####[address] [address] Platelet Counton 03-27-2017 Platelets 508 10*3/uL High 140-450 [facility] Comment on above: Result Comment: [facility] [address] [place] [address] Performed By: #### P LT ####[address] [address] APTTon 03-26-2017 aPTT 41.9 s High 21.3-31.3 [facility] Comment on above: Result Comment: [facility] [place] [address] Performed By: #### P TT ####[address] [address] aPTT 34.1 s High 21.3-31.3 [facility] Comment on above: Result Comment: [facility] [address] [place] [address] Performed By: #### P TT ####[address] [address] aPTT 39.3 s High 21.3-31.3 [facility] Comment on above: Result Comment: [facility] [address] [place] [address] Performed By: #### P TT ####[address] [address] Brain Natri. Peptideon 03-26 BNP 424 pg/mL High <300 [facility] Comment on above: Result Comment: Pro- BNP results cannot be compared to BNP results. Performed By: #### P T, BNP, CP, LIPR, CDP ####[address] [address] BNP Normal [facility] Comment on above: Result Comment: Pro- BNP Reference Range:Rule Out: <300[place]: Age <50 300-450 Age 50-75 300-900 Age >75 300-1800Usually represents mild to moderate HF but other cardiopulmonary causes cannot be ruled out.Rule In: Age <50 >450 Age 50-75 >900 Age >75 [address] [address] Performed By: #### P T, BNP, CP, LIPR, CDP ####[address] [address] CBC with Diffon 03-26-2017 Abs. Basophil 0.18 k/uL Normal 0.0-0.2 [facility] Comment on above: Performed By: #### P T, BNP, CP, LIPR, CDP ####[address] [address] Abs.Neutrophil (Seg) 11.81 k/uL High 1.8-7.7 [facility] Comment on above: Performed By: #### P T, BNP, CP, LIPR, CDP ####[address] [address] Basophils/100 WBC Auto (Bld) 1 % Normal [facility] Comment on above: Performed By: #### P T, BNP, CP, LIPR, CDP ####[address] [address] Blood morphology Normal Normal [facility] Comment on above: Result Comment: [address] [address] Performed By: #### P T, BNP, CP, LIPR, CDP ####[address] [address] Eosinophils 0.00 10*3/uL Normal 0.0-0.4 [facility] Comment on above: Performed By: #### P T, BNP, CP, LIPR, CDP ####[address] [address] Eosinophils/100 leukocytes 0 % Normal [facility] Comment on above: Performed By: #### P T, BNP, CP, LIPR, CDP ####[address] [address] Lymphocytes 4.48 10*3/uL Normal 1.0-4.8 [facility] Comment on above: Performed By: #### P T, BNP, CP, LIPR, CDP ####[address] [address] Lymphocytes/100 leukocytes 25 % Normal [facility] Comment on above: Performed By: #### P T, BNP, CP, LIPR, CDP ####[address] [address] Monocytes 1.43 10*3/uL High 0.1-0.8 [facility] Comment on above: Performed By: #### P T, BNP, CP, LIPR, CDP ####[address] [address] Monocytes/100 leukocytes 8 % Normal [facility] Comment on above: Performed By: #### P T, BNP, CP, LIPR, CDP ####[address] [address] Neutrophil (Seg) 66 % Normal [facility] Comment on above: Performed By: #### P T, BNP, CP, LIPR, CDP ####[address] [address] Erythrocyte distribution width Auto Ratio (RBC) 14.5 % Normal 12.5-15.4 [facility] Comment on above: Performed By: #### P T, BNP, CP, LIPR, CDP ####[address] [address] Erythrocytes (RBC) 5.28 10*6/uL Normal 4.5-5.9 [facility] Comment on above: Performed By: #### P T, BNP, CP, LIPR, CDP ####[address] [address] Hematocrit (HCT) 46.0 % Normal 41-53 [facility] Comment on above: Performed By: #### P T, BNP, CP, LIPR, CDP ####[address] [address] Hemoglobin mass conc (Bld) 16.3 g/dL Normal 13.5-17.5 [facility] Comment on above: Performed By: #### P T, BNP, CP, LIPR, CDP ####[address] [address] MCH 30.8 pg Normal 26-34 [facility] Comment on above: Performed By: #### P T, BNP, CP, LIPR, CDP ####[address] [address] MCHC mass conc (RBC) 35.4 g/dL Normal 31-37 [facility] Comment on above: Performed By: #### P T, BNP, CP, LIPR, CDP ####[address] [address] MCV 87.1 fL Normal 80-100 [facility] Comment on above: Performed By: #### P T, BNP, CP, LIPR, CDP ####[address] [address] Platelet mean volume (PMV) 7.3 fL Normal 6.0-12.0 [facility] Comment on above: Performed By: #### P T, BNP, CP, LIPR, CDP ####[address] [address] Platelets 460 10*3/uL High 140-450 [facility] Comment on above: Performed By: #### P T, BNP, CP, LIPR, CDP ####[address] [address] WBC (Leukocytes) 17.9 10*3/uL High 3.5-11.0 [facility] Comment on above: Performed By: #### P T, BNP, CP, LIPR, CDP ####[facility] BaezOadzoalloovy[address] [place] [address] Auto Diff Performed NOT REPORTED Normal [facility] Comment on above: Performed By: #### P T, BNP, CP, LIPR, CDP ####[facility]sey BaezPwhhwwwzbuhw[address] [place] [address] Erythrocyte morphology NOT REPORTED Normal [facility] Comment on above: Performed By: #### P T, BNP, CP, LIPR, CDP ####[facility] [address] [address] Platelets NOT REPORTED Normal [facility] Comment on above: Performed By: #### P T, BNP, CP, LIPR, CDP ####[address] [address] WBC Morphology NOT REPORTED Normal [facility] Comment on above: Performed By: #### P T, BNP, CP, LIPR, CDP ####[address] [address] Comp Metabolic Profon 2016 Alanine aminotransferase (ALT) 35 U/L Normal 5-41 [facility] Comment on above: Result Comment: SPEC IMEN SLIGHTLY HEMOLYZED, RESULTS MAY BE ADVERSELY AFFECTED. Performed By: #### P T, BNP, CP, LIPR, CDP ####[facility] [address] [place] [address] Albumin 3.8 g/dL Normal 3.5-5.2 [facility] Comment on above: Performed By: #### P T, BNP, CP, LIPR, CDP ####[facility] [address] [place] [address] Albumin/Globulin Ratio 1.2 {ratio} Normal 1.0-2.5 [facility] Comment on above: Performed By: #### P T, BNP, CP, LIPR, CDP ####[facility] [place] [address] Alkaline Phos 64 U/L Normal 40-129 [facility] Comment on above: Result Comment: SPEC IMEN SLIGHTLY HEMOLYZED, RESULTS MAY BE ADVERSELY AFFECTED. Performed By: #### P T, BNP, CP, LIPR, CDP ####[address] [address] Anion gap 13 mmol/L Normal 9-17 [facility] Comment on above: Performed By: #### P T, BNP, CP, LIPR, CDP ####[address] [address] Aspartate aminotransferase (AST) 81 U/L High <40 [facility] Comment on above: Result Comment: SPEC IMEN SLIGHTLY HEMOLYZED, RESULTS MAY BE ADVERSELY AFFECTED. Performed By: #### P T, BNP, CP, LIPR, CDP ####[address] [address] Bilirubin Ql (U) 0.86 mg/dL Normal 0.3-1.2 [facility] Comment on above: Performed By: #### P T, BNP, CP, LIPR, CDP ####[address] [address] Calcium 8.9 mg/dL Normal 8.6-10.4 [facility] Comment on above: Performed By: #### P T, BNP, CP, LIPR, CDP ####[address] [address] Chloride 100 mmol/L Normal 98-107 [facility] Comment on above: Performed By: #### P T, BNP, CP, LIPR, CDP ####[address] [address] CO2 25 mmol/L Normal 20-31 [facility] Comment on above: Performed By: #### P T, BNP, CP, LIPR, CDP ####[facility] [address] [place] [address] Creatinine 0.83 mg/dL Normal 0.70-1.20 [facility] Comment on above: Performed By: #### P T, BNP, CP, LIPR, CDP ####[address] [address] eGFR (non-black) mL/min/{1.73_m2} Normal >60 [facility] Comment on above: Performed By: #### P T, BNP, CP, LIPR, CDP ####[address] [address] Glucose mass conc 203 mg/dL High 70-99 [facility] Comment on above: Performed By: #### P T, BNP, CP, LIPR, CDP ####[address] [address] Potassium molar conc 4.5 mmol/L Normal 3.7-5.3 [facility] Comment on above: Result Comment: SPEC IMEN SLIGHTLY HEMOLYZED, RESULTS MAY BE ADVERSELY AFFECTED. Performed By: #### P T, BNP, CP, LIPR, CDP ####[address] [address] Protein 7.1 g/dL Normal 6.4-8.3 [facility] Comment on above: Performed By: #### P T, BNP, CP, LIPR, CDP ####[facility] [place] [address] Sodium 138 mmol/L Normal 135-144 [facility] Comment on above: Performed By: #### P T, BNP, CP, LIPR, CDP ####[address] [address] Urea nitrogen 13 mg/dL Normal 6-20 [facility] Comment on above: Performed By: #### P T, BNP, CP, LIPR, CDP ####[address] [address] (cont.) Normal [facility] Comment on above: Result Comment: Aver age GFR for 50-59 years old: 93 mL/min/1.73sq mChronic Kidney Disease: <60 mL/min/1.73sq mKidney failure: <15 mL/min/1.73sq meGFR calculated using average adult body mass. Additional eGFR calculator available at:http://www.[employer]/multiple_crcl_2012.htm[address] [address] Performed By: #### P T, BNP, CP, LIPR, CDP ####[address] [address] BUN/CRE Ratio NOT REPORTED Normal 03-15 [facility] Comment on above: Performed By: #### P T, BNP, CP, LIPR, CDP ####[address] [address] Staging: NOT REPORTED Normal [facility] Comment on above: Performed By: #### P T, BNP, CP, LIPR, CDP ####[address] [address] Hemoglobin A1Con 03-26-2017 Glucose mass conc 143 mg/dL Normal [facility] Comment on above: Result Comment: The ADA and AACC recommend providing the estimated average glucose result to permit better patient understanding of their HBA1c result.[address] [address] Performed By: #### G LYHGB ####[address] [address] Hemoglobin A1c/Hemoglobin.tota l mass fraction (Bld) 6.6 % High 4.0-6.0 [facility] Comment on above: Performed By: #### G LYHGB ####[address] [address] Lipid Profileon 03-26-2017 Cholesterol 150 mg/dL Normal <200 [facility] Comment on above: Result Comment: Chol esterol Guidelines: <200 Desirable 200-240 Borderline >240 Undesirable Performed By: #### P T, BNP, CP, LIPR, CDP ####[address] [address] Cholesterol to HDL Ratio 2.7 {ratio} Normal <5 [facility] Comment on above: Performed By: #### P T, BNP, CP, LIPR, CDP ####[address] [address] HDL Cholesterol 55 mg/dL Normal >40 [facility] Comment on above: Result Comment: HDL Guidelines: <40 Undesirable 40-59 Borderline >59 Desirable Performed By: #### P T, BNP, CP, LIPR, CDP ####[address] [address] LDL Cholesterol 77 mg/dL Normal 0-130 [facility] Comment on above: Result Comment: LDL Guidelines: <100 Desirable 100-129 Near to/above Desirable 130-159 Borderline >159 UndesirableDirect (measured) LDL and calculated LDL are not interchangeable tests. Performed By: #### P T, BNP, CP, LIPR, CDP ####[address] [address] Triglyceride 88 mg/dL Normal <150 [facility] Comment on above: Result Comment: Trig lyceride Guidelines: <150 Desirable 150- 199 Borderline 200-499 High >499 Very high Based on AHA Guidelines for fasting triglyceride, March 2012.[place] [address] [place] [address] Performed By: #### P T, BNP, CP, LIPR, CDP ####[address] [address] Cholesterol in VLDL mass conc NOT REPORTED Normal 1-30 [facility] Comment on above: Performed By: #### P T, BNP, CP, LIPR, CDP ####[address] [address] PTon 03-26-2017 INR Coag RelTime (PPP) 1.0 {INR} Normal [facility] Comment on above: Result Comment: Ther apeutic Range: Moderate Anticoagulant Intensity: INR = 2.0-3.0 High Anticoagulant Intensity: INR = 2.5-3.[address] [address] Performed By: #### P T, BNP, CP, LIPR, CDP ####[address] [address] Prothrombin time (PT) Coag time (PPP) 11.0 s Normal 9.4-12.6 [facility] Comment on above: Performed By: #### P T, BNP, CP, LIPR, CDP ####[address] [address] Surgical Pathologyon 017 Surgical Pathology (NOTE)[id number] Y LABORATORIESCONSULTING PATHOLOGISTS CORPORATIONANATOMIC [id number] [place] [address] [phone]: [phone] PATHOLOGY CONSULTATIONPatient Name: CREDIT, BENIGNO KellerMR#: [id number] #[id number]/Adden daFLOW CYTOMETRY REPORT Date Ordered: 03/27/2017 Status:Signed Out [...] CYTOCENTRIFUGE DIFFERENTIAL CELL COUNT:Peripheral Blood Lymphocytes 23% [place]/Hist 77%Flow cytometric immunophenotyping analysis is performed on peripheralblood following RBC lysis procedure. These cells are labeled bydirect, five color immunostaining procedure, and analyzed on a [id number] cytometer. % POSITIVE Target Cells RESULTS: (Lymphocytes)1. [...] 18. CD103 1 19. FMC7 12 20. [place] 8 21. Lambda 5 This test was developed and its performance characteristics determinedby [facility] Anatomic Pathology. It has notbeen cleared [...] PERIPHERAL BLOOD SMEAR FOR FLOW CYTOMETRY Normal [facility] APTTon 03-25-2017 aPTT 32.1 s High 21.3-31.3 [facility] Comment on above: Result Comment: Spor [address] [place] [address] Performed By: #### P TT ####[address] [address] aPTT 31.5 s High 21.3-31.3 [facility] Comment on above: Result Comment: [facility] [address] [place] [address] Performed By: #### P TT ####[address] [address] aPTT 26.4 s Normal 21.3-31.3 [facility] Comment on above: Result Comment: [facility] [place] [address] Performed By: #### C BC, PTT, TROPI ####[address] [address] CBCon 03-25-2017 Erythrocyte distribution width Auto Ratio (RBC) 14.6 % Normal 12.5-15.4 [facility] Comment on above: Performed By: #### C BC, PTT, TROPI ####[facility] [place] [address] Erythrocytes (RBC) 5.24 10*6/uL Normal 4.5-5.9 [facility] Comment on above: Performed By: #### C BC, PTT, TROPI ####[address] [address] Hematocrit (HCT) 44.4 % Normal 41-53 [facility] Comment on above: Performed By: #### C BC, PTT, TROPI ####[address] [address] Hemoglobin mass conc (Bld) 16.2 g/dL Normal 13.5-17.5 [facility] Comment on above: Performed By: #### C BC, PTT, TROPI ####[address] [address] MCH 31.0 pg Normal 26-34 [facility] Comment on above: Performed By: #### C BC, PTT, TROPI ####[address] [address] MCHC mass conc (RBC) 36.6 g/dL Normal 31-37 [facility] Comment on above: Performed By: #### C BC, PTT, TROPI ####[facility]kelsey BaezIpraxluenxlk[address] [place] [address] MCV 84.7 fL Normal 80-100 [facility] Comment on above: Performed By: #### C BC, PTT, TROPI ####[address] [address] Platelet mean volume (PMV) 7.1 fL Normal 6.0-12.0 [facility] Comment on above: Result Comment: [address] [address] Performed By: #### C BC, PTT, TROPI ####[address] [address] Platelets 542 10*3/uL High 140-450 [facility] Comment on above: Performed By: #### C BC, PTT, TROPI ####[address] [address] WBC (Leukocytes) 16.6 10*3/uL High 3.5-11.0 [facility] Comment on above: Performed By: #### C BC, PTT, TROPI ####[address] [address] ED Provider Noteon 7 HIM IP Note OR Chemical Research Engineer Normal [facility] History and Physicalon 03-25 HIM IP Note OR Chemical Research Engineer Normal [facility] Magnesiumon 03-25-2017 Magnesium 2.4 mg/dL Normal 1.6-2.6 [facility] Comment on above: Result Comment: [address] [address] Performed By: #### MG MARCIANO ####[address] [address] Troponinon 03-25-2017 Troponin I.cardiac mass conc Normal [facility] Comment on above: Result Comment: Refe rence Range: <0.03 Within reference range. 0.03-0.09 Possible myocardial damage.Repeat at appropriate intervals to rule out chronic elevation. >= 0.10 Indicative of myocardial damage.[address] [address] Performed By: #### C BC, PTT, TROPI ####[address] [address] Troponin T.cardiac mass conc 0.81 ng/mL Critically high <0.03 [facility] Comment on above: Result Comment: Trop onin T results cannot be compared to Troponin-I results.Previous Alert Value Reported Performed By: #### C BC, PTT, TROPI ####[address] [address] Troponin I.cardiac mass conc Normal [facility] Comment on above: Result Comment: Refe rence Range: <0.03 Within reference range. 0.03-0.09 Possible myocardial damage.Repeat at appropriate intervals to rule out chronic elevation. >= 0.10 Indicative of myocardial damage.[facility] [employer] [address] [place] [address] Performed By: #### MG MARCIANO ####[address] [address] Troponin T.cardiac mass conc 0.70 ng/mL Critically high <0.03 [facility] Comment on above: Result Comment: Trop onin T results cannot be compared to Troponin-I results. Performed By: #### Kaylin BUTCHER MG ####[facility] [place] [address] Troponin I.cardiac mass conc Normal [facility] Comment on above: Result Comment: Refe rence Range: <0.03 Within reference range. 0.03-0.09 Possible myocardial damage.Repeat at appropriate intervals to rule out chronic elevation. >= 0.10 Indicative of myocardial damage.[facility] [address] [place] [address] Performed By: #### T ROPI ####[facility] [place] [address] Troponin T.cardiac mass conc 0.04 ng/mL High <0.03 [facility] Comment on above: Result Comment: Trop onin T results cannot be compared to Troponin-I results. Performed By: #### T ROPI ####[address] [address] XR CHEST PORTABLEon 03-25-20 XR CHEST PORTABLE EXAMINATION:SINGLE V IEW OF THE CHEST03/24/2017 11:24 pmCOMPARISON:3 hours agoHISTORY:ORDERING SYSTEM PROVIDED HISTORY: chest painTECHNOLOGIST PROVIDED HISTORY:Reason for exam:->chest painFINDINGS:The lungs are without acute focal process. There is no effusion orpneumothorax. The cardiomediastinal silhouette is without acute process. Theosseous structures are without acute process.IMPRESSION: No acute process.Interpreted by:SHELBI Aponteigned by:Stanley Azar MD03/24/17Final result Normal [facility] APTTon 03-24-2017 aPTT 25.2 s Normal 23.2-34.4 [facility] Comment on above: Result Comment: Perf ormed at [address] [place] [address] [phone] Performed By: #### P T, PTT, BNP, BMP, TROPI, CDP ####[address] [place] [address] Basic Metabolic Profon 03-24 (cont.) Normal [facility] Comment on above: Result Comment: Aver age GFR for 50-59 years old: 93 mL/min/1.73sq mChronic Kidney Disease: <60 mL/min/1.73sq mKidney failure: <15 mL/min/1.73sq meGFR calculated using average adult body mass. Additional eGFR calculator available at:http://www.[employer]/multiple_crcl_2012.htm Performed By: #### P T, PTT, BNP, BMP, TROPI, CDP ####[address] [place] [address] Anion gap 11 mmol/L Normal 9-17 [facility] Comment on above: Performed By: #### P T, PTT, BNP, BMP, TROPI, CDP ####[address] [place] [address] BUN/CRE Ratio 17 Normal 9-20 [facility] Comment on above: Performed By: #### P T, PTT, BNP, BMP, TROPI, CDP ####[address] [place] [address] Calcium 9.3 mg/dL Normal 8.6-10.4 [facility] Comment on above: Performed By: #### P T, PTT, BNP, BMP, TROPI, CDP ####[address] [place] [address] Chloride 94 mmol/L Low 98-107 [facility] Comment on above: Performed By: #### P T, PTT, BNP, BMP, TROPI, CDP ####[address] [place] [address] CO2 29 mmol/L Normal - [facility] Comment on above: Performed By: #### P T, PTT, BNP, BMP, TROPI, CDP ####[address] [place] [address] Creatinine 0.92 mg/dL Normal 0.70-1.20 [facility] Comment on above: Performed By: #### P T, PTT, BNP, BMP, TROPI, CDP ####[address] [place] [address] eGFR (non-black) mL/min/{1.73_m2} Normal >60 [facility] Comment on above: Performed By: #### P T, PTT, BNP, BMP, TROPI, CDP ####[address] [place] [address] Glucose mass conc 212 mg/dL High 70-99 [facility] Comment on above: Performed By: #### P T, PTT, BNP, BMP, TROPI, CDP ####[address] [place] [address] Potassium molar conc 4.3 mmol/L Normal 3.7-5.3 [facility] Comment on above: Performed By: #### P T, PTT, BNP, BMP, TROPI, CDP ####[address] [place] [address] Sodium 134 mmol/L Low 135-144 [facility] Comment on above: Performed By: #### P T, PTT, BNP, BMP, TROPI, CDP ####[address] [place] [address] Staging: Normal [facility] Comment on above: Result Comment: Stag e 1: Some kidney damage normal GFRStage 2: Mild kidney damage GFR 60-89Stage 3: Moderate kidney damage GFR 30-59Stage 4: Severe kidney damage GFR 15-29Stage 5: Severe kidney damage GFR <15ESRD - chronic treatment by dialysis or transplantPerformed at [address] [place] [address] Performed By: #### P T, PTT, BNP, BMP, TROPI, CDP ####[address] [place] [address] Urea nitrogen 16 mg/dL Normal 6-20 [facility] Comment on above: Performed By: #### P T, PTT, BNP, BMP, TROPI, CDP ####[address] [place] [address] Brain Natri. Peptideon 03-24 BNP Normal [facility] Comment on above: Result Comment: Pro- BNP Reference Range:Rule Out: <300Grey Zone: Age <50 300-450 Age 50-75 300-900 Age >75 300-1800Usually represents mild to moderate HF but other cardiopulmonary causes cannot be ruled out.Rule In: Age <50 >450 Age 50-75 >900 Age >75 >1800Performed at [address] [place] [address] Performed By: #### P T, PTT, BNP, BMP, TROPI, CDP ####[address] [place] [address] BNP pg/mL Normal <300 [facility] Comment on above: Result Comment: Pro- BNP results cannot be compared to BNP results. Performed By: #### P T, PTT, BNP, BMP, TROPI, CDP ####[address] [place] [address] CBC with Diffon 03-24-2017 Abs. Basophil 0.20 k/uL Normal 0.0-0.2 [facility] Comment on above: Performed By: #### P T, PTT, BNP, BMP, TROPI, CDP ####[address] [place] [address] Abs.Neutrophil (Seg) 12.93 k/uL High 1.8-7.7 [facility] Comment on above: Performed By: #### P T, PTT, BNP, BMP, TROPI, CDP ####[address] [place] [address] Basophils/100 WBC Auto (Bld) 1 % Normal [facility] Comment on above: Performed By: #### P T, PTT, BNP, BMP, TROPI, CDP ####[address] , [place] [address] Blood morphology Platelet scan shows Increased Platelets Normal [facility] Comment on above: Result Comment: Perf ormed at [address] [place], [place] [address] Performed By: #### P T, PTT, BNP, BMP, TROPI, CDP ####[address] , [facility]83 Eosinophils 0.00 10*3/uL Normal 0.0-0.4 [facility] Comment on above: Performed By: #### P T, PTT, BNP, BMP, TROPI, CDP ####[address] , [place] [address] Eosinophils/100 leukocytes 0 % Normal [facility] Comment on above: Performed By: #### P T, PTT, BNP, BMP, TROPI, CDP ####[address] , [place] [address] Lymphocytes 4.51 10*3/uL Normal 1.0-4.8 [facility] Comment on above: Performed By: #### P T, PTT, BNP, BMP, TROPI, CDP ####[address] , [place] [address] Lymphocytes/100 leukocytes 23 % Normal [facility] Comment on above: Performed By: #### P T, PTT, BNP, BMP, TROPI, CDP ####[address] , [place] [address] Monocytes 1.96 10*3/uL High 0.0-1.0 [facility] Comment on above: Performed By: #### P T, PTT, BNP, BMP, TROPI, CDP ####[address] , [place] [address] Monocytes/100 leukocytes 10 % Normal [facility] Comment on above: Performed By: #### P T, PTT, BNP, BMP, TROPI, CDP ####[address] [place] [address] Neutrophil (Seg) 66 % Normal [facility] Comment on above: Performed By: #### P T, PTT, BNP, BMP, TROPI, CDP ####[address] [place] [address] Erythrocyte distribution width Auto Ratio (RBC) 13.6 % Normal 12.1-15.2 [facility] Comment on above: Performed By: #### P T, PTT, BNP, BMP, TROPI, CDP ####[address] , [facility]83 Erythrocytes (RBC) 5.28 10*6/uL Normal 4.5-5.9 [facility] Comment on above: Performed By: #### P T, PTT, BNP, BMP, TROPI, CDP ####[address] [place] [address] Hematocrit (HCT) 44.9 % Normal 41-53 [facility] Comment on above: Performed By: #### P T, PTT, BNP, BMP, TROPI, CDP ####[address] [place] [address] Hemoglobin mass conc (Bld) 16.0 g/dL Normal 13.5-17.0 [facility] Comment on above: Performed By: #### P T, PTT, BNP, BMP, TROPI, CDP ####[address] [place] [address] MCH 30.3 pg Normal 26-34 [facility] Comment on above: Performed By: #### P T, PTT, BNP, BMP, TROPI, CDP ####[address] , [facility]83 MCHC mass conc (RBC) 35.6 g/dL Normal 31-37 [facility] Comment on above: Performed By: #### P T, PTT, BNP, BMP, TROPI, CDP ####[address] [place] [address] MCV 85.1 fL Normal 80-100 [facility] Comment on above: Performed By: #### P T, PTT, BNP, BMP, TROPI, CDP ####[address] [place] [address] Platelet mean volume (PMV) 7.9 fL Normal 6.0-12.0 [facility] Comment on above: Performed By: #### P T, PTT, BNP, BMP, TROPI, CDP ####[address] [place] [address] Platelets 555 10*3/uL High 140-450 [facility] Comment on above: Performed By: #### P T, PTT, BNP, BMP, TROPI, CDP ####[address] [place] [address] WBC (Leukocytes) 19.6 10*3/uL High 3.5-11.0 [facility] Comment on above: Performed By: #### P T, PTT, BNP, BMP, TROPI, CDP ####[address] [place] [address] Auto Diff Performed NOT REPORTED Normal [facility] Comment on above: Performed By: #### P T, PTT, BNP, BMP, TROPI, CDP ####[address] [place] [address] Erythrocyte morphology NOT REPORTED Normal [facility] Comment on above: Performed By: #### P T, PTT, BNP, BMP, TROPI, CDP ####[address] [place] [address] Platelets NOT REPORTED Normal [facility] Comment on above: Performed By: #### P T, PTT, BNP, BMP, TROPI, CDP ####[facility] [place] [address] WBC Morphology NOT REPORTED Normal [facility] Comment on above: Performed By: #### P T, PTT, BNP, BMP, TROPI, CDP ####[facility] [place] , [place] [id number] CTA CHEST WITH CONTRASTon CTA CHEST WITH CONTRAST FINAL REPORTEXAM: CTA CHEST WITH CONTRASTHISTORY: midsternal chest pain, SOB, 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 Interpreted by:SHELBI Bermudezigned by:Carolyn Reyes MD03/24/17Final result Normal [facility] ED Noteon 03-24-2017 HIM IP Note OR Chemical Research Engineer Normal [facility] HIM IP Note OR Chemical Research Engineer Normal [facility] HIM IP Note OR Chemical Research Engineer Normal [facility] HIM IP Note OR Chemical Research Engineer Normal [facility] ED Provider Noteon 7 HIM IP Note OR Chemical Research Engineer Normal [facility] PTon 03-24-2017 INR Coag RelTime (PPP) 1.0 {INR} Normal 0.9-1.2 [facility] Comment on above: Result Comment: Perf ormed at [address] [place] [address] Performed By: #### P T, PTT, BNP, BMP, TROPI, CDP ####[address] [place] [address] Prothrombin time (PT) Coag time (PPP) 10.1 s Normal 9.7-12.2 [facility] Comment on above: Performed By: #### P T, PTT, BNP, BMP, TROPI, CDP ####[address] [place] [address] Troponinon 03-24-2017 Troponin I.cardiac mass conc Normal [facility] Comment on above: Result Comment: Refe rence Range: <0.03 Within reference range. 0.03-0.09 Possible myocardial damage.Repeat at appropriate intervals to rule out chronic elevation. >= 0.10 Indicative of myocardial damage.Performed at [address] [place] [address] Performed By: #### P T, PTT, BNP, BMP, TROPI, CDP ####[address] [place] [address] Troponin T.cardiac mass conc ug/L Normal <0.03 [facility] Comment on above: Result Comment: Trop onin T results cannot be compared to Troponin-I results. Performed By: #### P T, PTT, BNP, BMP, TROPI, CDP ####[address] [place] [address] XR CHEST PORTABLEon 03-24-20 17 XR CHEST [...] by:SHELBI Bermudezigned by:Carolyn Reyes MD03/24/17Final result Normal [facility] Encounters Encounter Date Encounter Type Care Provider Facility Start: 02-27-2025 ambulatory Cheng Gonsalez MD F acility:[facility] Start: 02-29-2024 End: 02-29-2024 ambulatory Cheng Gonsalez MD Facility:[facility] Start: 12-18-2017 End: 12-19-2017 Ambulatory CHENG Ab POEA [facility] Start: 12-13-2017 End: 12-14-2017 Ambulatory CHENG Ab Marleyy [facility] Start: 12-11-2017 End: 12-12-2017 [facility] Start: 11-29-2017 End: 11-30-2017 [facility] Start: 11-13-2017 End: 11-14-2017 [facility] Start: 11-08-2017 End: 11-09-2017 Ambulatory CHENG Ab POEA [facility]Aakay [facility] Start: 11-06-2017 End: 11-07-2017 [facility] Start: 11-03-2017 End: 11-04-2017 [facility] Start: 11-01-2017 End: 11-02-2017 [facility] Start: 10-11-2017 End: 10-11-2017 Ambulatory CARLOS MARKER Facility:[facility] Start: 08-07-2017 Ambulatory FILI MARTINEZ Facilit y:[facility] Start: 04-10-2017 End: 04-11-2017 Ambulatory ADIREDDY EZEQUIEL [facility] Start: 03-25-2017 End: 03-28-2017 Evaluation and management of inpatient CHENG J GONSALEZ [facility] Start: 03-24-2017 End: 03-25-2017 Emergency department patient visit RYAN MOSS [facility] Procedures Date Procedure Procedure Detail Performing Clinician Start: 12-18-2017 CARDIAC PHASE II CORINNA MOSS Start: 11-08-2017 CARDIAC PHASE II CORINNA MOSS Start: 11-06-2017 CARDIAC PHASE II CORINNA JERARDO MOSS Start: 11-03-2017 Echo tthrc r-t 2d w/ wom-mode compl spec&colr d RYAN MOSS Start: 04-10-2017 Ct thorax w/o contra st material RYAN MOSS Start: 03-28-2017 POCT GLUCOSE CHENG VE LA [...] VE LA Start: 03-24-2017 EKG 12-LEAD RYAN ISA Start: 03-24-2017 TROPONIN RYAN MOSS Start: 03-24-2017 Ct angiography chest w/contrast/noncontrast RYAN MOSS Start: 03-24-2017 Chest x-ray 1 view frontal RYAN MOSS Start: 03-24-2017 APTT RYAN MOSS Start: 03-24-2017 BASIC METABOLIC PANEL C HRYEEA ISA Start: 03-24-2017 BRAIN NATRIURETIC PEPTIDE RYAN MOSS Start: 03-24-2017 CBC WITH AUTO DIFFERENTIAL RYAN MOSS Start: 03-24-2017 PROTIME-INR RYAN MOSS Start: 03-24-2017 TROPONIN RYAN MOSS Start: 03-24-2017 INSERT PERIPHERAL IV CH ANN MARIE MOSS Start: 03-24-2017 TELEMETRY MONITORING MARINA MOSS Start: 03-24-2017 VITAL SIGNS RYAN MOSS Start: 03-24-2017 GLUCOSE, WHOLE BLOOD MARINA MOSS Payers Date Payer Category Payer Private Health Insurance 1965 Unknown [id number] 1960 Private Health Insurance [id number] 1960 Self-pay [id number] Clinical Note 02-29-2024 Note Date & Type Note Facility 02-29-2024 Note Patient Education Ma terials Name: Benigno Sanderson Current Date: 02/29/2024 12:58:09 [place] : 1965 The following sheet(s) are the Patient Education Leaflets for [facility] Eating Heart-Healthy Foods Eating has a big impact on your heart health. In fact, eating healthier can improve several of your heart risks at once. For instance, it helps you manage weight, cholesterol, and blood pressure. Here are ideas to help you make heart-healthy changes without giving up all?the foods and flavors you love. Getting started ?Talk with your healthcare provider about eating plans, such as the DASH or Mediterranean diet. You may also be referred to a dietitian. Ask a partner, family member, or friend to join you for mutual support. ?Change a few things at a time. Give yourself time to get used to a few eating changes before adding more. ?Work to create a tasty, healthy eating plan that you can stick to for the rest of your life. Goals for healthy eating Below are some tips to improve your eating habits: ?Limit saturated fats and trans fats. Saturated fats raise your levels of cholesterol, so keep these fats to a minimum. They are found in foods such as fatty meats, whole milk, cheese, and palm and coconut oils. Avoid trans fats because they lower good cholesterol as well as raise bad cholesterol. Trans fats are most often found in processed foods, such as pastries, cookies, pies, muffins, fried foods, stick margarines, and shortening. ?Reduce how much sodium (salt) you have. Eating too much salt may increase your blood pressure. Limit your sodium intake to 2,300 milligrams (mg) per day?(the amount in 1 teaspoon of salt), or less if your healthcare provider recommends it. Dining out less often and eating fewer processed foods are two great ways to decrease the amount of salt you consume. At home, flavor your foods with other spices and herbs instead of salt. ?Managing calories. A calorie is a unit of energy. Your body hernandez calories for fuel, but if you eat more calories than your body hernandez, the extras are stored as fat. Your healthcare provider or dietitian can help you create a diet plan to manage your calories. This will likely include eating healthier foods and getting regular exercise. To help you track your progress, keep a food diary to record what you eat and how often you exercise. Choose the right foods Aim to make these foods ayleen of your diet. If you have diabetes, you may have different recommendations than what is listed here: ?Fruits and vegetables provide plenty of nutrients without a lot of calories. At meals, fill half your plate with these foods. Choose between fresh, frozen, canned, or dried fruits and vegetables without added sauces, salt, or sugars. Split the other half of your plate between whole grains and lean protein. ?Whole grains are high in fiber and rich in vitamins and nutrients. Good choices include whole-wheat bread, pasta, oats, and brown rice. Make at least half of your grains whole grains. ?Lean proteins give you nutrition with less fat. Good choices include fish, skinless chicken and turkey, and beans. Draining the fat from cooked ground meat is another way to reduce the amount of fat you eat. ?Low-fat and nonfat dairy provide nutrients without a lot of fat. Try low-fat or nonfat milk, cheese, or yogurt. ?Healthy fats can be good for you in small amounts. These are unsaturated fats, such as olive oil, avocado, nuts, and fish. Try to have at least 2 servings per week of fatty fish, such as salmon, sardines, mackerel, rainbow trout, and albacore tuna. These contain omega-3 fatty acids, which are good for your heart. Flaxseed and walnuts are other sources of heart-healthy fats. More on heart-healthy eating Read food labels Healthy eating starts at the grocery store. Be sure to pay attention to food labels on packaged foods. Look for products that are high in fiber and protein and low in saturated fat, added sugars, and sodium. Avoid products that contain trans fat. And pay close attention to serving size. For instance, if you plan to eat 2 servings, double all the numbers on the label. Prepare food right A tanner part of healthy cooking is cutting down on added fat, sugar, and salt. Look on the Internet for lower-fat, lower-sodium recipes without a lot of added sugars. Also try these tips: ?Remove fat from meat and skin from poultry before cooking. ?Skim fat from the surface of soups and sauces. ?Broil, roast, boil, bake, steam, grill, or microwave food without added fats. ?Choose ingredients that spice up your food without adding calories, fat, sugar, or sodium. Try these items: horseradish, hot sauce, lemon zest and juice, garlic, onion, mustard, nonfat salad dressings, and vinegar. Small amounts of olive oil-based vinaigrettes are OK, too. For salt-free herbs and spices, try basil, cilantro, cinnamon, cumin, paprika, pepper, and ro (more content not included)... [facility] [...] and content) DATE CREATED AUTHOR 12/14/2017 [facility] DATE CREATED AUTHOR AUTHOR'S ORGANIZ ATION 12/19/2017 [facility] DATE CREATED AUTHOR AUTHOR'S ORGANIZ ATION 12/20/2017 [facility] DATE CREATED AUTHOR AUTHOR'S MORTEZA ATION 03/14/2024 [facility] FOR RECORDS [...] BE BASED ON THE PRIMARY CLINICAL RECORDS. [facility] [employer] provides no warranty or guarantee of the accuracy or completeness of information in this document.
== END 2024-03-19 08:16 | disposition home or self-care (01) ==
LOC: EC 08:15
PROVIDERS: Family Provider Family Medicine; Visit Provider Podiatrist Foot & Ankle Surgery
DX: M79.672 Pain in left foot (principal); S92.002D Unspecified fracture of left calcaneus, subsequent encounter for fracture with routine healing
CPT/HCPCS: 73650

== ENCOUNTER 2024-05-21 13:22 | Outpatient (OUT) | payer OTHER, SELFPAY ==
--- NOTE | 2024-05-21 13:25 | XR_ITS ---
The [address] [address] Patient Name: JAM JAY MRN: [id number] date: 1965 Sex: M Assigned Patient Location: [facility] Current Patient Location: Accession/Order Number: [id number] Exam Date: 05/21/2024 13:30 Report Date: 05/24/2024 08:58 At the request of: ARELIS SHELL Procedure: XR calcaneus LT min 2V PROCEDURE: XR calcaneus LT min 2V HISTORY: Left Foot Pain COMPARISON: XR calcaneus 03/19/2024 FINDINGS: BONES:Decreasing sclerosis of calcaneus at site of prior fracture. Alignment is maintained. SOFT TISSUES:No visible soft tissue swelling. EFFUSION:None visible. OTHER: Negative. XR/XR calcaneus LT min 2V IMPRESSION: 1. Stable alignment of prior calcaneal fracture with decreasing sclerosis suggesting near-complete healing. Electronically authenticated by: ROXI HAGAN Date: 05/24/2024 08:58
== END 2024-05-21 13:23 | disposition home or self-care (01) ==
LOC: RAD 13:22
PROVIDERS: Family Provider Family Medicine; Visit Provider Podiatrist Foot & Ankle Surgery
DX: M79.672 Pain in left foot (principal); S92.002D Unspecified fracture of left calcaneus, subsequent encounter for fracture with routine healing
CPT/HCPCS: 73650

== ENCOUNTER 2024-08-23 09:52 | Outpatient (OUT) | payer OTHER, SELFPAY ==
--- NOTE | 2024-08-23 | XR_ITS ---
The [place] [id number] Patient Name: JAM JAY MRN: [id number] date: 1965 Sex: M Assigned Patient Location: Current Patient Location: Accession/Order Number: [id number] Exam Date: 08/23/2024 13:27 Report Date: 08/23/2024 13:29 At the request of: ARELIS SHELL DPLindsey Procedure: XR calcaneus LT min 2V LEFT CALCANEUS - 2 views COMPARISON: 05/21/2024 CLINICAL DATA: Left heel pain. Follow-up calcaneus fracture. Lateral and tangential views were obtained. There is sclerosis and stable fracture deformity at the calcaneus. There is no developing fracture or dislocation. There is small enthesophyte at the insertion of the Achilles tendon. No soft tissue abnormalities are noted. XR/XR calcaneus LT min 2V IMPRESSION: STABLE OLD CALCANEUS FRACTURE. NO ACUTE FINDINGS. Impression dictated by: Romy Amado M.D.08/23/2024 1:29 PM Dictation Location: [employer] Electronically authenticated by: [id number] Y Date: 08/23/2024 13:29
--- OUTSIDE RECORDS SUMMARY | 2024-08-23 10:10 | XMS_ITS | CCD ---
Author Organization [facility] Care Team Providers Care Community Outreach Specialist Name Role Phone MICHELLESEVERIANOFILI Unavailable Unavailable MICHELLE, FILI Unavailable Unavailable MARKER, CARLOS Unavailable Unavailable MARKER, CARLOS Unavailable Unavailable HEATHER REAL V Unavailable Unavailable HAY, EDDI Unavailable Unavailable MARKER, CARLOS Unavailable Unavailable HARISH PEREZ Unavailable Unavailable GONSALEZ, CHENG Unavailable Unavailable RYAN MOSS R Unavailable Unavailable GONSALEZ, CHENG J Unavailable [...] Primary Care Unavailab Julianne Villarreal DO Attending UnavailCheng Ibarra MD Primary Care Unavailab Julianne Villarreal DO Attending Unavaila Blaise Gresham Attending Unavailab Blaise Armas Admitting Unavailab le NO FAMILY, PHYSICIAN Primary Care Unavailable Allergies Allergy Classification Reported Allergen(s) Allergy Type Date of Onset Reaction(s) Facility (1 source) No Known Medication Allergies; Translations: [No Known Medication Allergies] Propensity to adverse reactions to drug (disorder) [facility] Repository Problems Active Problems Problem Classification Problem Date Documented Date Episodic/Chronic Acute myocardial infarction (1 source) Non-ST elevation (NSTEMI) myocardial infarction; Translations: [Non-ST elevation (NSTEMI) myocardial infarction] Onset: 03-25-2017 Chronic Coronary atherosclerosis and other heart disease (2 sources) Atherosclerotic heart disease of [place] coronary artery without angina pectoris; Translations: [Acute ischemic heart disease, unspecified] Onset: 03-25-2017 Chronic Coronary atherosclerosis and other heart disease (1 source) Presence of coronary angioplasty implant and graft; Translations: [PRESENCE COR ANGPLSTY IMPLANT AND GRAFT] Onset: 10-13-2017 Episodic Deficiency and other anemia (1 source) Hereditary spherocytosis; Translations: [HEREDITARY SPHEROCYTOSIS] Onset: 10-13-2017 Chronic Other aftercare (1 source) half-way (current) use of aspirin; Translations: [GROUP HOME CURRENT USE OF ASPIRIN] Onset: 10-13-2017 Episodic Other liver diseases (1 source) Abnormal levels of other serum enzymes; Translations: [ABNORMAL LEVELS OTHER SERUM ENZYMES] Onset: 10-13-2017 Episodic Unclassified (1 source) 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 i. PCI: 5.0 x 18 mm BMS to pLAD, 03/27/17 ([place], [place]). B. Cardiac cath: Normal LM, widely [...] axes/intervals, no ST-T changes (Dr. Cheng Gonsalez, [place], [place]) (my independent interpretation of a test reported by another physician) Echocardiography > 03/27/17: EF 55% ([place], [place]) > 11/03/17: EF 60% ([place], [place]) Stress Testing > 11/29/19: (Lexiscan MPI) [...] 15.5, Hgb 18.6, Plt 460 (Dr. Cheng Gonsalez, [place], [place]) > 08/12/22: (HbA1c) HbA1c 8.8% [place] > 08/12/22: (Lipids) TC 165, TG 133, HDL 52, LDL 86 (Dr. Cheng Gonsalez, [place], [place]) Physical Exam Vitals & Measurements HR: [...] Service Excluding time for services reported/billed separately [id number] encounter with patient: 12 Prep, documentation, coordination [...] Electronically signed (more content not included)... Normal [facility] Progress Noteon 11-07-2017 HIM IP Note OR Assembler [employer] Motor Normal [facility] Progress Noteon 11-03-2017 HIM IP Note OR Assembler [employer] Normal [facility] Progress Noteon 11-01-2017 HIM IP Note OR Assembler Show Motor [facility] CARDIAC HIRAL 3-6-9on 018 CKMB 1.61 ng/mL Normal <=2.37 [facility] Comment on above: Performed By: #### C MREP ####[facility] Uixyqqttro45[address] Creatine kinase (CK) 131 U/L Normal 55-170 [facility] Comment on above: Performed By: #### C MREP ####[facility] Mtorspefts[address] [place] INR Coag RelTime (Bld) SEE BELOW Normal [facility] Comment on above: Result Comment: <0.0 34 ng/ml NEGATIVE 0.034-0.119 INDETERMINATE 0.120 AMI CUT OFF Performed By: #### C MREP ####[facility] Ofxuhlufzg57[address] [place] TROP 0.060 ng/mL Critically high <=0.034 [facility] Comment on above: Result Comment: test repeated critical value verified Performed By: #### C MREP ####[facility] Dngkzvxmmw0295 [address] [place] CARDIAC HIRAL ADMITon 018 CKMB 1.59 ng/mL Normal <=2.37 [facility] Comment on above: Performed By: #### C MADM, LIPA, CRP, BMP ####[facility] Fnlakajroz4026 [address] Creatine kinase (CK) 153 U/L Normal 55-170 The [facility] Comment on above: Performed By: #### C KATEY, LIPA, CRP, BMP ####[facility] Rxq[address] [place] [address] R[place] INR Coag RelTime (Bld) SEE BELOW Normal The [facility] Comment on above: Result Comment: <0.0 34 ng/ml NEGATIVE 0.034-0.119 INDETERMINATE 0.120 AMI CUT OFF Performed By: #### C MADM, LIPA, CRP, BMP ####[facility] [address] [place] [address] [place] DARÍO 40.0 ng/mL Normal <=121.0 The [facility] Comment on above: Performed By: #### C MADM, LIPA, CRP, BMP ####[facility] [address] [place] [address] R[place] TROP 0.032 ng/mL Normal <=0.034 The [facility] Comment on above: Performed By: #### C KATEY, LIPA, CRP, BMP ####[facility] [address] [place] [address] R[place] CBC W MANUAL DIFFon 10-12-19 18 ACANTHOCYTES SLIGHT Normal The [facility] Comment on above: Performed By: #### Pearl BONILLA ####[facility] [address] [place] [address] R[place] Anisocytosis presence SLIGHT Normal The [facility] Comment on above: Performed By: #### Pearl BONILLA ####[facility] [address]im[address]ald[address] [place] [address] R[place] BAND # 0.0 103/ul Normal 0.0-0.3 The [facility] Comment on above: Performed By: #### Pearl BONILLA ####[facility] [address]ex[address] [place] [address] R[place] BAND % 0 % Normal 0-5 The [facility] Comment on above: Performed By: #### Pearl BONILLA ####[facility] Iray[address] [place] [address] R[place] BASOM % 2.0 % Normal 0.2-2.0 The [facility] Comment on above: Performed By: #### Pearl BONILLA ####[facility] [address] [place], [place] [address]Gerken Romy Basophils Auto #/vol (Bld) 0.31 103/ul Critically high 0.00-0.10 The [facility] Comment on above: Performed By: #### Pearl BONILLA ####[facility] Tfexv[address]nfx[address] [place], [place] [address] Romy BLAST # Normal The [facility] Comment on above: Performed By: #### Pearl BONILLA ####[facility] [address]iexaywwp[address] [place] [address] R[place] BLAST % Normal The [facility] Comment on above: Performed By: #### Pearl BONILLA ####[facility] Gam[address]jhat[address] [place], [place] [address]Gerken Romy Eosinophils 0.63 103/ul Normal 0.00-0.70 The [facility] Comment on above: Performed By: #### Pearl BONILLA ####[facility] Ow[address] [place] [address] Romy Eosinophils/100 leukocytes 4.0 % Normal 0.9-7.0 [facility] Comment on above: Performed By: #### Pearl BONILLA ####[facility] [address] [place] [address] Romy Erythrocyte distribution width Auto Ratio (RBC) 12.7 % Normal 11.0-15.0 The [facility] Comment on above: Performed By: #### Pearl BONILLA ####[facility] [address] [place], [place] [address] Erythrocytes (RBC) 5.20 106/ul Normal 4.70-6.10 The [facility] Comment on above: Performed By: #### Pearl BONILLA ####[facility] C[address] [place], [place] [address] Erythrocytes (RBC) Normal The [facility] Comment on above: Performed By: #### Pearl BONILLA ####[facility] [address]jriwxwjhs[address] [place] [phone] GIANT PLATELETS SEEN Normal The [facility] Comment on above: Performed By: #### Pearl BONILLA ####[facility] Tujrfrseyj1052 [place], [place] [address]Yjkbla Romy Hematocrit (HCT) 43.4 % Normal 42.0-54.0 The [facility] Comment on above: Performed By: #### Pearl BONILLA ####[facility] Cybscxqqen6303 [place] [phone] Hemoglobin mass conc (Bld) 15.9 g/dL Normal 14.0-18.0 The [facility] Comment on above: Performed By: #### Pearl BONILLA ####[facility] Mihqeeasbu2533 [place] [phone] Lymphocytes 3.77 103/ul Normal 1.20-3.80 The [facility] Comment on above: Performed By: #### Pearl BONILLA ####[facility] Ulmtpwplqn6702 [place] [address] Lymphocytes 0.16 103/ul Normal The [facility] Comment on above: Performed By: #### Pearl BONILLA ####[facility] Egyogwxlpx3673 [place] [address] Lymphocytes/100 leukocytes 1 % Normal The [facility] Comment on above: Performed By: #### Pearl BONILLA ####[facility] Nvhmzwawwr5283 [place] [phone] Lymphocytes/100 leukocytes 24.0 % Normal 20.5-60.0 The [facility] Comment on above: Performed By: #### Pearl BONILLA ####[facility] Pndtyutqrm9196 [place] [phone] MCH 30.6 pg Normal 25.9-34.0 The [facility] Comment on above: Performed By: #### Pearl BONILLA ####[facility] Ijlxxkmggo3883 [place] [phone] MCHC mass conc (RBC) 36.6 g/dL Critically high 29.9-35.2 The [facility] Comment on above: Performed By: #### Pearl BONILLA ####[facility] Wxwbpnlmew4711 [place] [phone] MCV 83.5 fL Normal 80.0-94.0 [facility] Comment on above: Performed By: #### Pearl BONILLA ####[facility] Uronegyfwg2809 [place], [place] [address]Zvnmyj Romy METAMYELOCYTE # Normal The [facility] Comment on above: Performed By: #### Pearl BONILLA ####[facility] Urtkdemytk8773 [place] [phone] METAMYELOCYTE % Normal The [facility] Comment on above: Performed By: #### Pearl BONILLA ####[facility] [address] [place] [address] R[place] MONOM# 1.41 103/ul Critically high 0.30-0.80 [facility] Comment on above: Performed By: #### Pearl BONILLA ####[facility] [address] [place] [address] Romy MONOM% 9.0 % Normal 1.7-12.0 [facility] Comment on above: Performed By: #### Pearl BONILLA ####[facility] [address]ubhpj[address] [place] [address] R[place] MYELOCYTE # Normal The [facility] Comment on above: Performed By: #### Pearl BONILLA ####[facility] [address]ong[address] [place] [address] [place] MYELOCYTE % Normal The [facility] Comment on above: Performed By: #### Pearl BONILLA ####[facility] Fjkraihowd5019 [place] [phone] Platelet mean volume (PMV) 8.8 fL Critically low 9.5-13.5 The [facility] Comment on above: Performed By: #### Pearl BONILLA ####[facility] G[address] [place], [place] [address] [place] Platelets 670 103/ul Critically high 150-450 The [facility] Comment on above: Performed By: #### Pearl BONILLA ####[facility] Eputpmtvwd2369 [place], [place] [address]Ftamdz Romy SEG # 9.42 103/ul Critically high 1.40-6.50 [facility] Comment on above: Performed By: #### Pearl BONILLA ####[facility] Rauqdgupce2574 [place] [phone] Segmented Neutrophils/100 leukocytes 60.0 % Normal 43.0-75.0 [facility] Comment on above: Performed By: #### Pearl BONILLA ####[facility] Smiknqvuzo5298 [place] [phone] WBC (Leukocytes) 15.7 103/ul Critically high 4.0-11.0 Th e [facility] Comment on above: Performed By: #### Pearl BONILLA ####[facility] Nkpnzqxsya8531 [place] [phone] WBC (Leukocytes) Normal 4.0-11.0 [facility] Comment on above: Performed By: #### Pearl BONILLA ####[facility] Otbtaoosvl2635 [place] [phone] CRPon 10-11-2017 C reactive protein (CRP) 0.9 mg/dL Normal <=1.0 [facility] Comment on above: Performed By: #### C MADM, LIPA, CRP, BMP ####[facility] Tdugbgwlpm0117 [place] [phone]omy LIPASEon 10-11-2017 Lipase 139.0 U/L Normal 23.0-300.0 [facility] Comment on above: Performed By: #### C MADM, LIPA, CRP, BMP ####[facility] Otbaosvxwx3927 [place] [phone] R[place] PROF CHEM 8 (BAS METB)on Anion gap 16.8 mmol/L Normal [facility] Comment on above: Performed By: #### C MADM, LIPA, CRP, BMP ####[facility] Xkkxljsqir6297 [place] [phone] BUN/Creatinine Ratio 22.4 mg/mg Normal [facility] Comment on above: Performed By: #### C MADM, LIPA, CRP, BMP ####[facility] Fxkksiatcs24[address] [place] Calcium 9.9 mg/dL Normal 8.4-10.2 [facility] Comment on above: Performed By: #### C MADM, LIPA, CRP, BMP ####[facility] Dbmdfgvjac2873 [address] [place] Chloride 97 mmol/L Critically low 98-107 [facility] Comment on above: Performed By: #### C MADM, LIPA, CRP, BMP ####[facility] Uctpsowzla8298 [address] R[place] CO2 26.0 mmol/L Normal 22.0-30.0 [facility] Comment on above: Performed By: #### C MADM, LIPA, CRP, BMP ####[facility] [address]em[address]of[address] [place] [address] R[place] Creatinine 0.82 mg/dL Normal 0.66-1.25 [facility] Comment on above: Performed By: #### C MADM, LIPA, CRP, BMP ####[facility] [address] [place] [address] R[place] eGFR (non-black) mL/min/{1.73_m2} Normal >=60 Th [facility] Comment on above: Performed By: #### C MADM, LIPA, CRP, BMP ####[facility] Keycogqjut9639 [address] [place] Glucose mass conc 323 mg/dL Critically high 74-106 Th [facility] Comment on above: Performed By: #### C MADM, LIPA, CRP, BMP ####[facility] Gpighegenp2365 [address] [place] Potassium molar conc 3.9 mmol/L Normal 3.4-5.0 [facility] Comment on above: Performed By: #### C MADM, LIPA, CRP, BMP ####[facility] Vqsygpsokv9609 [place], [place] [address]Eibdox Romy Sodium 136 mmol/L Critically low 137-145 The [facility] Comment on above: Performed By: #### C MADM, LIPA, CRP, BMP ####[facility] Pnvsysklai4907 [place], [place] [address]Zaxuuu Romy Urea nitrogen 18.0 mg/dL Normal 9.0-20.0 [facility] Comment on above: Performed By: #### C MADM, LIPA, CRP, BMP ####[facility] Rudtcvtocy6982 [place], [place] [address]Xdhqnu Romy XR CHEST 1 Von 10-11-2017 XR CHEST 1 V [address] [place] [address] Patient: BENIGNO SANDERSON Exam Date: 10/11/2017DOB: 1965 Gender:M : DR CARLOS BUSTILLOS Admission #: [id number] : Order #: [id number] HERE TO VIEW EXAM RADIOLOGY REPORT PROCEDURE: [...] M.D. on 10/11/2017 at 07:45 Normal The [facility] CT CHEST WO CONTRASTon 04-10 CT CHEST [...] by:SHELBI Herediaigned by:Xin Ro MD04/10/17Final result Normal [facility] Flow Cytometryon 03-29-2017 Flow Cytometry [id number] Normal [facility] Comment on above: Result Comment: [facility] [address] [place] [address] Performed By: #### F LLE ####[address] [address] Discharge Summaryon 03-28-20 17 HIM IP Note OR Assembler Show Motor Normal [facility] APTTon 03-27-2017 aPTT 62.2 s High 21.3-31.3 [facility] Comment on above: Result Comment: [facility] [address] [place] [address] Performed By: #### P TT ####[address] [address] aPTT 60.0 s High 21.3-31.3 [facility] Comment on above: Result Comment: [facility] [employer] [address] [place] [address] Performed By: #### P TT ####[address] [address] Platelet Counton 03-27-2017 Platelets 508 10*3/uL High 140-450 [facility] Comment on above: Result Comment: [facility] [address] [place] [address] Performed By: #### P LT ####[address] [address] APTTon 03-26-2017 aPTT 41.9 s High 21.3-31.3 [facility] Comment on above: Result Comment: [facility] [place] [address] Performed By: #### P TT ####[address] [address] aPTT 34.1 s High 21.3-31.3 [facility] Comment on above: Result Comment: [facility] [address] [place] [address] Performed By: #### P TT ####[address] [address] aPTT 39.3 s High 21.3-31.3 [facility] Comment on above: Result Comment: [facility] [address] [place] [address] Performed By: #### P TT ####[address] [address] Brain Natri. Peptideon 03-26 BNP 424 pg/mL High <300 [facility] Comment on above: Result Comment: Pro- BNP results cannot be compared to BNP results. Performed By: #### P T, BNP, CP, LIPR, CDP ####[address] [address] BNP Normal [facility] Comment on above: Result Comment: Pro- BNP Reference Range:Rule Out: <300Grey Zone: Age <50 300-450 Age 50-75 300-900 Age >75 300-1800Usually represents mild to moderate HF but other cardiopulmonary causes cannot be ruled out.Rule In: Age <50 >450 Age 50-75 >900 Age >75 >[address] [address] Performed By: #### P T, BNP, CP, LIPR, CDP ####[address] [address] CBC with Diffon 03-26-2017 Abs. Basophil 0.18 k/uL Normal 0.0-0.2 [facility] Comment on above: Performed By: #### P T, BNP, CP, LIPR, CDP ####[address] [address] Abs.Neutrophil (Seg) 11.81 k/uL High 1.8-7.7 [facility] Comment on above: Performed By: #### P T, BNP, CP, LIPR, CDP ####[address] [address] Basophils/100 WBC Auto (Bld) 1 % Normal [facility] Comment on above: Performed By: #### P T, BNP, CP, LIPR, CDP ####[address] [address] Blood morphology Normal Normal [facility] Comment on above: Result Comment: [address] [address] Performed By: #### P T, BNP, CP, LIPR, CDP ####[address] [address] Eosinophils 0.00 10*3/uL Normal 0.0-0.4 [facility] Comment on above: Performed By: #### P T, BNP, CP, LIPR, CDP ####[address] [address] Eosinophils/100 leukocytes 0 % Normal [facility] Comment on above: Performed By: #### P T, BNP, CP, LIPR, CDP ####[address] [address] Lymphocytes 4.48 10*3/uL Normal 1.0-4.8 [facility] Comment on above: Performed By: #### P T, BNP, CP, LIPR, CDP ####[address] [address] Lymphocytes/100 leukocytes 25 % Normal [facility] Comment on above: Performed By: #### P T, BNP, CP, LIPR, CDP ####[address] [address] Monocytes 1.43 10*3/uL High 0.1-0.8 [facility] Comment on above: Performed By: #### P T, BNP, CP, LIPR, CDP ####[address] [address] Monocytes/100 leukocytes 8 % Normal [facility] Comment on above: Performed By: #### P T, BNP, CP, LIPR, CDP ####[address] [address] Neutrophil (Seg) 66 % Normal [facility] Comment on above: Performed By: #### P T, BNP, CP, LIPR, CDP ####[address] [address] Erythrocyte distribution width Auto Ratio (RBC) 14.5 % Normal 12.5-15.4 [facility] Comment on above: Performed By: #### P T, BNP, CP, LIPR, CDP ####[address] [address] Erythrocytes (RBC) 5.28 10*6/uL Normal 4.5-5.9 [facility] Comment on above: Performed By: #### P T, BNP, CP, LIPR, CDP ####[address] [address] Hematocrit (HCT) 46.0 % Normal 41-53 [facility] Comment on above: Performed By: #### P T, BNP, CP, LIPR, CDP ####[address] [address] Hemoglobin mass conc (Bld) 16.3 g/dL Normal 13.5-17.5 [facility] Comment on above: Performed By: #### P T, BNP, CP, LIPR, CDP ####[address] [address] MCH 30.8 pg Normal 26-34 [facility] Comment on above: Performed By: #### P T, BNP, CP, LIPR, CDP ####[address] [address] MCHC mass conc (RBC) 35.4 g/dL Normal 31-37 [facility] Comment on above: Performed By: #### P T, BNP, CP, LIPR, CDP ####[address] [address] MCV 87.1 fL Normal 80-100 [facility] Comment on above: Performed By: #### P T, BNP, CP, LIPR, CDP ####[address] [address] Platelet mean volume (PMV) 7.3 fL Normal 6.0-12.0 [facility] Comment on above: Performed By: #### P T, BNP, CP, LIPR, CDP ####[address] [address] Platelets 460 10*3/uL High 140-450 [facility] Comment on above: Performed By: #### P T, BNP, CP, LIPR, CDP ####[address] [address] WBC (Leukocytes) 17.9 10*3/uL High 3.5-11.0 [facility] Comment on above: Performed By: #### P T, BNP, CP, LIPR, CDP ####[facility] [address] [place] [address] Auto Diff Performed NOT REPORTED Normal [facility] Comment on above: Performed By: #### P T, BNP, CP, LIPR, CDP ####[facility] [address] [place] [address] Erythrocyte morphology NOT REPORTED Normal [facility] Comment on above: Performed By: #### P T, BNP, CP, LIPR, CDP ####[facility] [address] [place] [address] Platelets NOT REPORTED Normal [facility] Comment on above: Performed By: #### P T, BNP, CP, LIPR, CDP ####[facility] [address] [place] [address] WBC Morphology NOT REPORTED Normal [facility] Comment on above: Performed By: #### P T, BNP, CP, LIPR, CDP ####[facility] [address] [place] [address] Comp Metabolic Profon 2016 Alanine aminotransferase (ALT) 35 U/L Normal 5-41 [facility] Comment on above: Result Comment: SPEC IMEN SLIGHTLY HEMOLYZED, RESULTS MAY BE ADVERSELY AFFECTED. Performed By: #### P T, BNP, CP, LIPR, CDP ####[facility] CenterViewsIQHtqkawdtiiqj7406 [place] [address] Albumin 3.8 g/dL Normal 3.5-5.2 [facility] Comment on above: Performed By: #### P T, BNP, CP, LIPR, CDP ####[facility] [address] [place] [address] Albumin/Globulin Ratio 1.2 {ratio} Normal 1.0-2.5 [facility] Comment on above: Performed By: #### P T, BNP, CP, LIPR, CDP ####[address] [address] Alkaline Phos 64 U/L Normal 40-129 [facility] Comment on above: Result Comment: SPEC IMEN SLIGHTLY HEMOLYZED, RESULTS MAY BE ADVERSELY AFFECTED. Performed By: #### P T, BNP, CP, LIPR, CDP ####[address] [address] Anion gap 13 mmol/L Normal 9-17 [facility] Comment on above: Performed By: #### P T, BNP, CP, LIPR, CDP ####[address] [address] Aspartate aminotransferase (AST) 81 U/L High <40 [facility] Comment on above: Result Comment: SPEC IMEN SLIGHTLY HEMOLYZED, RESULTS MAY BE ADVERSELY AFFECTED. Performed By: #### P T, BNP, CP, LIPR, CDP ####[address] [address] Bilirubin Ql (U) 0.86 mg/dL Normal 0.3-1.2 [facility] Comment on above: Performed By: #### P T, BNP, CP, LIPR, CDP ####[address] [address] Calcium 8.9 mg/dL Normal 8.6-10.4 [facility] Comment on above: Performed By: #### P T, BNP, CP, LIPR, CDP ####[address] [address] Chloride 100 mmol/L Normal 98-107 [facility] Comment on above: Performed By: #### P T, BNP, CP, LIPR, CDP ####[address] [address] CO2 25 mmol/L Normal 20-31 [facility] Comment on above: Performed By: #### P T, BNP, CP, LIPR, CDP ####[address] [place] [address] Creatinine 0.83 mg/dL Normal 0.70-1.20 [facility] Comment on above: Performed By: #### P T, BNP, CP, LIPR, CDP ####[address] [address] eGFR (non-black) mL/min/{1.73_m2} Normal >60 [facility] Comment on above: Performed By: #### P T, BNP, CP, LIPR, CDP ####[address] [address] Glucose mass conc 203 mg/dL High 70-99 [facility] Comment on above: Performed By: #### P T, BNP, CP, LIPR, CDP ####[address] [address] Potassium molar conc 4.5 mmol/L Normal 3.7-5.3 [facility] Comment on above: Result Comment: SPEC IMEN SLIGHTLY HEMOLYZED, RESULTS MAY BE ADVERSELY AFFECTED. Performed By: #### P T, BNP, CP, LIPR, CDP ####[facility] [address] [place] [address] Protein 7.1 g/dL Normal 6.4-8.3 [facility] Comment on above: Performed By: #### P T, BNP, CP, LIPR, CDP ####[facility] [address] [place] [address] Sodium 138 mmol/L Normal 135-144 [facility] Comment on above: Performed By: #### P T, BNP, CP, LIPR, CDP ####[address] [address] Urea nitrogen 13 mg/dL Normal -20 [facility] Comment on above: Performed By: #### P T, BNP, CP, LIPR, CDP ####[address] [address] (cont.) Normal [facility] Comment on above: Result Comment: Aver age GFR for 50-59 years old: 93 mL/min/1.73sq mChronic Kidney Disease: <60 mL/min/1.73sq mKidney failure: <15 mL/min/1.73sq meGFR calculated using average adult body mass. Additional eGFR calculator available at:http://www.Panève/multiple_crcl_2012.htm[address] [address] Performed By: #### P T, BNP, CP, LIPR, CDP ####[address] [address] BUN/CRE Ratio NOT REPORTED Normal - [facility] Comment on above: Performed By: #### P T, BNP, CP, LIPR, CDP ####[address] [address] Staging: NOT REPORTED Normal [facility] Comment on above: Performed By: #### P T, BNP, CP, LIPR, CDP ####[address] [address] Hemoglobin A1Con 03-26-2017 Glucose mass conc 143 mg/dL Normal [facility] Comment on above: Result Comment: The ADA and AACC recommend providing the estimated average glucose result to permit better patient understanding of their HBA1c result.[address] [address] Performed By: #### G LYHGB ####[address] [address] Hemoglobin A1c/Hemoglobin.tota l mass fraction (Bld) 6.6 % High 4.0-6.0 [facility] Comment on above: Performed By: #### G LYHGB ####[address] [address] Lipid Profileon 03-26-2017 Cholesterol 150 mg/dL Normal <200 [facility] Comment on above: Result Comment: Chol esterol Guidelines: <200 Desirable 200-240 Borderline >240 Undesirable Performed By: #### P T, BNP, CP, LIPR, CDP ####[address] [address] Cholesterol to HDL Ratio 2.7 {ratio} Normal <5 [facility] Comment on above: Performed By: #### P T, BNP, CP, LIPR, CDP ####[address] [address] HDL Cholesterol 55 mg/dL Normal >40 [facility] Comment on above: Result Comment: HDL Guidelines: <40 Undesirable 40-59 Borderline >59 Desirable Performed By: #### P T, BNP, CP, LIPR, CDP ####[address] [address] LDL Cholesterol 77 mg/dL Normal 0-130 [facility] Comment on above: Result Comment: LDL Guidelines: <100 Desirable 100-129 Near to/above Desirable 130-159 Borderline >159 UndesirableDirect (measured) LDL and calculated LDL are not interchangeable tests. Performed By: #### P T, BNP, CP, LIPR, CDP ####[address] [address] Triglyceride 88 mg/dL Normal <150 [facility] Comment on above: Result Comment: Trig lyceride Guidelines: <150 Desirable 150- 199 Borderline 200-499 High >499 Very high Based on AHA Guidelines for fasting triglyceride, March 2012.[address] [address] Performed By: #### P T, BNP, CP, LIPR, CDP ####[address] [address] Cholesterol in VLDL mass conc NOT REPORTED Normal 1-30 [facility] Comment on above: Performed By: #### P T, BNP, CP, LIPR, CDP ####[address] [address] PTon 03-26-2017 INR Coag RelTime (PPP) 1.0 {INR} Normal [facility] Comment on above: Result Comment: Ther apeutic Range: Moderate Anticoagulant Intensity: INR = 2.0-3.0 High Anticoagulant Intensity: INR = 2.5-3.[address] [address] Performed By: #### P T, BNP, CP, LIPR, CDP ####[address] [address] Prothrombin time (PT) Coag time (PPP) 11.0 s Normal 9.4-12.6 [facility] Comment on above: Performed By: #### P T, BNP, CP, LIPR, CDP ####[address] [address] Surgical Pathologyon 017 Surgical Pathology (NOTE)[id number] Y LABORATORIESCONSULTING PATHOLOGISTS CORPORATIONANATOMIC TZRKDYAET[address] [place] [address] [phone]: [phone] PATHOLOGY CONSULTATIONPatient Name: CREDIT, BENIGNO KellerMR#: [id number] #[id number]/Josie Flannery CYTOMETRY REPORT Date Ordered: 03/27/2017 Status:Signed [...] CYTOCENTRIFUGE DIFFERENTIAL CELL COUNT:Peripheral Blood Lymphocytes 23% [place]/Hist 77%Flow cytometric immunophenotyping analysis is performed on peripheralblood following RBC lysis procedure. These cells are labeled bydirect, five color immunostaining procedure, and analyzed on a [id number] cytometer. % POSITIVE Target Cells RESULTS: (Lymphocytes)1. [...] 18. CD103 1 19. [facility]7 12 20. [place] 8 21. Lambda 5 This test was developed and its performance characteristics determinedby [facility] An[facility]. It has notbeen cleared [...] PERIPHERAL BLOOD SMEAR FOR FLOW CYTOMETRY Normal [facility] APTTon 03-25-2017 aPTT 32.1 s High 21.3-31.3 [facility] Comment on above: Result Comment: [facility] [address] [place] [address] Performed By: #### P TT ####[address] [place] [address] aPTT 31.5 s High 21.3-31.3 [facility] Comment on above: Result Comment: [facility] [address] [place] [address] Performed By: #### P TT ####[address] [address] aPTT 26.4 s Normal 21.3-31.3 [facility] Comment on above: Result Comment: [facility] [address] [place] [address] Performed By: #### C BC, PTT, TROPI ####[address] [address] CBCon 03-25-2017 Erythrocyte distribution width Auto Ratio (RBC) 14.6 % Normal 12.5-15.4 [facility] Comment on above: Performed By: #### C BC, PTT, TROPI ####[address] [address] Erythrocytes (RBC) 5.24 10*6/uL Normal 4.5-5.9 [facility] Comment on above: Performed By: #### C BC, PTT, TROPI ####[address] [address] Hematocrit (HCT) 44.4 % Normal 41-53 [facility] Comment on above: Performed By: #### C BC, PTT, TROPI ####[address] [address] Hemoglobin mass conc (Bld) 16.2 g/dL Normal 13.5-17.5 [facility] Comment on above: Performed By: #### C BC, PTT, TROPI ####[facility] [place] [address] MCH 31.0 pg Normal 26-34 [facility] Comment on above: Performed By: #### C BC, PTT, TROPI ####[address] [address] MCHC mass conc (RBC) 36.6 g/dL Normal 31-37 [facility] Comment on above: Performed By: #### C BC, PTT, TROPI ####[address] [address] MCV 84.7 fL Normal 80-100 [facility] Comment on above: Performed By: #### C BC, PTT, TROPI ####[address] [address] Platelet mean volume (PMV) 7.1 fL Normal 6.0-12.0 [facility] Comment on above: Result Comment: [address] [place] [address] Performed By: #### C BC, PTT, TROPI ####[address] [address] Platelets 542 10*3/uL High 140-450 [facility] Comment on above: Performed By: #### C BC, PTT, TROPI ####[address] [address] WBC (Leukocytes) 16.6 10*3/uL High 3.5-11.0 [facility] Comment on above: Performed By: #### C BC, PTT, TROPI ####[address] [address] ED Provider Noteon 7 HIM IP Note OR Assembler Show Motor Normal [facility] History and Physicalon 03-25 HIM IP Note OR Assembler Show Motor Normal [facility] Magnesiumon 03-25-2017 Magnesium 2.4 mg/dL Normal 1.6-2.6 [facility] Comment on above: Result Comment: [address] [address] Performed By: #### T MG HADLEY ####[address] [address] Troponinon 03-25-2017 Troponin I.cardiac mass conc Normal [facility] Comment on above: Result Comment: Refe rence Range: <0.03 Within reference range. 0.03-0.09 Possible myocardial damage.Repeat at appropriate intervals to rule out chronic elevation. >= 0.10 Indicative of myocardial damage.[address] [address] Performed By: #### C BC, PTT, TROPI ####[address] [address] Troponin T.cardiac mass conc 0.81 ng/mL Critically high <0.03 [facility] Comment on above: Result Comment: Trop onin T results cannot be compared to Troponin-I results.Previous Alert Value Reported Performed By: #### C BC, PTT, TROPI ####[address] [address] Troponin I.cardiac mass conc Normal [facility] Comment on above: Result Comment: Refe rence Range: <0.03 Within reference range. 0.03-0.09 Possible myocardial damage.Repeat at appropriate intervals to rule out chronic elevation. >= 0.10 Indicative of myocardial damage.[facility] [address] [place] [address] Performed By: #### T HADLEY MG ####[address] [place] [address] Troponin T.cardiac mass conc 0.70 ng/mL Critically high <0.03 [facility] Comment on above: Result Comment: Trop onin T results cannot be compared to Troponin-I results. Performed By: #### T HADLEY, MG ####[facility] [address] [place] [address] Troponin I.cardiac mass conc Normal [facility] Comment on above: Result Comment: Refe rence Range: <0.03 Within reference range. 0.03-0.09 Possible myocardial damage.Repeat at appropriate intervals to rule out chronic elevation. >= 0.10 Indicative of myocardial damage.[facility] [address] [place] [address] Performed By: #### T ROPI ####[facility] [place] [address] Troponin T.cardiac mass conc 0.04 ng/mL High <0.03 [facility] Comment on above: Result Comment: Trop onin T results cannot be compared to Troponin-I results. Performed By: #### T ROPI ####[facility] [place] [address] XR CHEST PORTABLEon 03-25-20 XR CHEST PORTABLE EXAMINATION:SINGLE V IEW OF THE CHEST03/24/2017 11:24 pmCOMPARISON:3 hours agoHISTORY:ORDERING SYSTEM PROVIDED HISTORY: chest painTECHNOLOGIST PROVIDED HISTORY:Reason for exam:->chest painFINDINGS:The lungs are without acute focal process. There is no effusion orpneumothorax. The cardiomediastinal silhouette is without acute process. Theosseous structures are without acute process.IMPRESSION: No acute process.Interpreted by:SHELBI Aponteigned by:Stanley Azar MD03/24/17Final result Normal [facility] APTTon 03-24-2017 aPTT 25.2 s Normal 23.2-34.4 [facility] Comment on above: Result Comment: Perf ormed at [facility] [address] [place] [address] [phone] Performed By: #### P T, PTT, BNP, BMP, TROPI, CDP ####[address] , [place] [phone] Basic Metabolic Profon 03-24 (cont.) Normal [facility] Comment on above: Result Comment: Aver age GFR for 50-59 years old: 93 mL/min/1.73sq mChronic Kidney Disease: <60 mL/min/1.73sq mKidney failure: <15 mL/min/1.73sq meGFR calculated using average adult body mass. Additional eGFR calculator available at:http://www.Panève/multiple_crcl_2012.htm Performed By: #### P T, PTT, BNP, BMP, TROPI, CDP ####[address] [place] [address] Anion gap 11 mmol/L Normal 9-17 [facility] Comment on above: Performed By: #### P T, PTT, BNP, BMP, TROPI, CDP ####[address] [place] [address] BUN/CRE Ratio 17 Normal 9-20 [facility] Comment on above: Performed By: #### P T, PTT, BNP, BMP, TROPI, CDP ####[address] [place] [address] Calcium 9.3 mg/dL Normal 8.6-10.4 [facility] Comment on above: Performed By: #### P T, PTT, BNP, BMP, TROPI, CDP ####[address] [place] [address] Chloride 94 mmol/L Low 98-107 [facility] Comment on above: Performed By: #### P T, PTT, BNP, BMP, TROPI, CDP ####[address] [place] [address] CO2 29 mmol/L Normal 20-31 [facility] Comment on above: Performed By: #### P T, PTT, BNP, BMP, TROPI, CDP ####[address] [place] [address] Creatinine 0.92 mg/dL Normal 0.70-1.20 [facility] Comment on above: Performed By: #### P T, PTT, BNP, BMP, TROPI, CDP ####[address] [place] [address] eGFR (non-black) mL/min/{1.73_m2} Normal >60 [facility] Comment on above: Performed By: #### P T, PTT, BNP, BMP, TROPI, CDP ####[address] [place] [address] Glucose mass conc 212 mg/dL High 70-99 [facility] Comment on above: Performed By: #### P T, PTT, BNP, BMP, TROPI, CDP ####[address] [place] [address] Potassium molar conc 4.3 mmol/L Normal 3.7-5.3 [facility] Comment on above: Performed By: #### P T, PTT, BNP, BMP, TROPI, CDP ####[address] [place] [address] Sodium 134 mmol/L Low 135-144 [facility] Comment on above: Performed By: #### P T, PTT, BNP, BMP, TROPI, CDP ####[address] [place] [address] Staging: Normal [facility] Comment on above: Result Comment: Stag e 1: Some kidney damage normal GFRStage 2: Mild kidney damage GFR 60-89Stage 3: Moderate kidney damage GFR 30-59Stage 4: Severe kidney damage GFR 15-29Stage 5: Severe kidney damage GFR <15ESRD - chronic treatment by dialysis or transplantPerformed at [address] [place] [address] Performed By: #### P T, PTT, BNP, BMP, TROPI, CDP ####[address] [place] [address] Urea nitrogen 16 mg/dL Normal 6-20 [facility] Comment on above: Performed By: #### P T, PTT, BNP, BMP, TROPI, CDP ####[address] [place] [address] Brain Natri. Peptideon 03-24 BNP Normal [facility] Comment on above: Result Comment: Pro- BNP Reference Range:Rule Out: <300Grey Zone: Age <50 300-450 Age 50-75 300-900 Age >75 300-1800Usually represents mild to moderate HF but other cardiopulmonary causes cannot be ruled out.Rule In: Age <50 >450 Age 50-75 >900 Age >75 >1800Performed at [address] [place] [address] Performed By: #### P T, PTT, BNP, BMP, TROPI, CDP ####[address] [place] [address] BNP pg/mL Normal <300 [facility] Comment on above: Result Comment: Pro- BNP results cannot be compared to BNP results. Performed By: #### P T, PTT, BNP, BMP, TROPI, CDP ####[address] [place] [address] CBC with Diffon 03-24-2017 Abs. Basophil 0.20 k/uL Normal 0.0-0.2 [facility] Comment on above: Performed By: #### P T, PTT, BNP, BMP, TROPI, CDP ####[address] [place] [address] Abs.Neutrophil (Seg) 12.93 k/uL High 1.8-7.7 [facility] Comment on above: Performed By: #### P T, PTT, BNP, BMP, TROPI, CDP ####[address] , [facility]83 Basophils/100 WBC Auto (Bld) 1 % Normal [facility] Comment on above: Performed By: #### P T, PTT, BNP, BMP, TROPI, CDP ####[address] , [place] [address] Blood morphology Platelet scan shows Increased Platelets Normal [facility] Comment on above: Result Comment: Perf ormed at [address] [place], [place] [address] Performed By: #### P T, PTT, BNP, BMP, TROPI, CDP ####[address] , [place] [address] Eosinophils 0.00 10*3/uL Normal 0.0-0.4 [facility] Comment on above: Performed By: #### P T, PTT, BNP, BMP, TROPI, CDP ####[address] , [place] [address] Eosinophils/100 leukocytes 0 % Normal [facility] Comment on above: Performed By: #### P T, PTT, BNP, BMP, TROPI, CDP ####[address] , [facility]83 Lymphocytes 4.51 10*3/uL Normal 1.0-4.8 [facility] Comment on above: Performed By: #### P T, PTT, BNP, BMP, TROPI, CDP ####[address] , [facility]83 Lymphocytes/100 leukocytes 23 % Normal [facility] Comment on above: Performed By: #### P T, PTT, BNP, BMP, TROPI, CDP ####[address] , [facility]83 Monocytes 1.96 10*3/uL High 0.0-1.0 [facility] Comment on above: Performed By: #### P T, PTT, BNP, BMP, TROPI, CDP ####[address] [place] [address] Monocytes/100 leukocytes 10 % Normal [facility] Comment on above: Performed By: #### P T, PTT, BNP, BMP, TROPI, CDP ####[address] [place] [address] Neutrophil (Seg) 66 % Normal [facility] Comment on above: Performed By: #### P T, PTT, BNP, BMP, TROPI, CDP ####[address] , [facility]83 Erythrocyte distribution width Auto Ratio (RBC) 13.6 % Normal 12.1-15.2 [facility] Comment on above: Performed By: #### P T, PTT, BNP, BMP, TROPI, CDP ####[address] , [place] [address] Erythrocytes (RBC) 5.28 10*6/uL Normal 4.5-5.9 [facility] Comment on above: Performed By: #### P T, PTT, BNP, BMP, TROPI, CDP ####[address] , [facility]83 Hematocrit (HCT) 44.9 % Normal 41-53 [facility] Comment on above: Performed By: #### P T, PTT, BNP, BMP, TROPI, CDP ####[address] , [facility]83 Hemoglobin mass conc (Bld) 16.0 g/dL Normal 13.5-17.0 [facility] Comment on above: Performed By: #### P T, PTT, BNP, BMP, TROPI, CDP ####[address] , [facility]83 MCH 30.3 pg Normal 26-34 [facility] Comment on above: Performed By: #### P T, PTT, BNP, BMP, TROPI, CDP ####[address] , [facility]83 MCHC mass conc (RBC) 35.6 g/dL Normal 31-37 [facility] Comment on above: Performed By: #### P T, PTT, BNP, BMP, TROPI, CDP ####[address] , [facility]83 MCV 85.1 fL Normal 80-100 [facility] Comment on above: Performed By: #### P T, PTT, BNP, BMP, TROPI, CDP ####[address] , [place] [address] Platelet mean volume (PMV) 7.9 fL Normal 6.0-12.0 [facility] Comment on above: Performed By: #### P T, PTT, BNP, BMP, TROPI, CDP ####[address] , [place] [address] Platelets 555 10*3/uL High 140-450 [facility] Comment on above: Performed By: #### P T, PTT, BNP, BMP, TROPI, CDP ####[address] , [facility]83 WBC (Leukocytes) 19.6 10*3/uL High 3.5-11.0 [facility] Comment on above: Performed By: #### P T, PTT, BNP, BMP, TROPI, CDP ####[address] , [place] [address] Auto Diff Performed NOT REPORTED Normal [facility] Comment on above: Performed By: #### P T, PTT, BNP, BMP, TROPI, CDP ####[address] , [place] [address] Erythrocyte morphology NOT REPORTED Normal [facility] Comment on above: Performed By: #### P T, PTT, BNP, BMP, TROPI, CDP ####[address] [place] [address] Platelets NOT REPORTED Normal [facility] Comment on above: Performed By: #### P T, PTT, BNP, BMP, TROPI, CDP ####[address] [place] [address] WBC Morphology NOT REPORTED Normal [facility] Comment on above: Performed By: #### P T, PTT, BNP, BMP, TROPI, CDP ####[address] [place] [address] CTA CHEST WITH CONTRASTon CTA CHEST WITH CONTRAST FINAL REPORTEXAM: CTA CHEST WITH CONTRASTHISTORY: midsternal chest pain, SOB, 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 TECHNIQUE: Multi slice CTA of [...] by:SHELBI Bermudezigned by:Carolyn Reyes MD03/24/17Final result Normal [facility] ED Noteon 03-24-2017 HIM IP Note OR Assembler Show Motor Normal [facility] HIM IP Note OR Assembler Show Motor Normal [facility] HIM IP Note OR Assembler Show Motor Normal [facility] HIM IP Note OR Assembler Show Motor Normal [facility] ED Provider Noteon 7 HIM IP Note OR Assembler Show Motor Normal [facility] PTon 03-24-2017 INR Coag RelTime (PPP) 1.0 {INR} Normal 0.9-1.2 [facility] Comment on above: Result Comment: Perf ormed at [address] [place] [address] Performed By: #### P T, PTT, BNP, BMP, TROPI, CDP ####[address] [place] [address] Prothrombin time (PT) Coag time (PPP) 10.1 s Normal 9.7-12.2 [facility] Comment on above: Performed By: #### P T, PTT, BNP, BMP, TROPI, CDP ####[address] [place] [address] Troponinon 03-24-2017 Troponin I.cardiac mass conc Normal [facility] Comment on above: Result Comment: Refe rence Range: <0.03 Within reference range. 0.03-0.09 Possible myocardial damage.Repeat at appropriate intervals to rule out chronic elevation. >= 0.10 Indicative of myocardial damage.Performed at [address] [place] [address] Performed By: #### P T, PTT, BNP, BMP, TROPI, CDP ####[address] [place] [address] Troponin T.cardiac mass conc ug/L Normal <0.03 [facility] Comment on above: Result Comment: Trop onin T results cannot be compared to Troponin-I results. Performed By: #### P T, PTT, BNP, BMP, TROPI, CDP ####[address] [place] [address] XR CHEST PORTABLEon 03-24-20 XR CHEST PORTABLE FINAL REPORTEXAM: XR CHEST [...] by:SHELBI Bermudezigned by:Carolyn Reyes MD03/24/17Final result Normal [facility] Encounters Encounter Date Encounter Type Care Provider Facility Start: 02-27-2025 ambulatory Cheng Lewis acility:[facility] Start: 02-29-2024 End: 02-29-2024 ambulatory Cheng Gonsalez MD Facility:[facility] Start: 11-21-2023 ambulatory Blaise Lewis acility:[facility] Start: 12-18-2017 End: 12-19-2017 Ambulatory [facility] Start: 12-13-2017 End: 12-14-2017 Ambulatory [facility]ENG Ab [facility] Start: 12-11-2017 End: 12-12-2017 Ambulatory [facility] Start: 11-29-2017 End: 11-30-2017 [facility] Start: 11-13-2017 End: 11-14-2017 Ambulatory [facility] Start: 11-08-2017 End: 11-09-2017 [facility] Start: 11-06-2017 End: 11-07-2017 Ambulatory [facility] Start: 11-03-2017 End: 11-04-2017 Ambulatory JULIANNE RUBIO [facility] Start: 11-01-2017 End: 11-02-2017 [facility] Start: 10-11-2017 End: 10-11-2017 Ambulatory CARLOS BUSTILLOS Facility:[facility] Start: 08-07-2017 Ambulatory FILI Santiago y:[facility] Start: 04-10-2017 End: 04-11-2017 Ambulatory ISMAEL NIEVES [facility] Start: 03-25-2017 End: 03-28-2017 Evaluation and management of inpatient CHENG J GONSALEZ [facility] Start: 03-24-2017 End: 03-25-2017 Emergency department patient visit RYAN MOSS [facility] Procedures Date Procedure Procedure Detail Performing [...] VE LA Start: 03-26-2017 PULSE OXIMETRY, CONTINUOUS HCENG GONSALEZ Start: 03-26-2017 APTT CHENG VE LA [...] MOSS Start: 03-24-2017 BASIC METABOLIC PANEL C HRGARTH MOSS Start: 03-24-2017 BRAIN NATRIURETIC PEPTIDE RYAN MOSS Start: 03-24-2017 CBC WITH AUTO DIFFERENTIAL RYAN MOSS Start: 03-24-2017 PROTIME-INR RYAN MOSS Start: 03-24-2017 TROPONIN RYAN MOSS Start: 03-24-2017 INSERT PERIPHERAL IV CH ANN MARIE MOSS Start: 03-24-2017 TELEMETRY MONITORING CH ANN MARIE MOSS Start: 03-24-2017 VITAL SIGNS RYAN MOSS Start: 03-24-2017 GLUCOSE, WHOLE BLOOD CH ANN MARIE MOSS Payers Date Payer Category Payer Self-pay 2003 Private Health Insurance 1965 Unknown [id number] 1959 Private Health Insurance [id number] 1960 Self-pay [id number] Clinical Note 02-29-2024 Note Date & Type Note Facility 02-29-2024 Note Patient Education Ma terials Name: Benigno Sanderson Current Date: 02/29/2024 12:58:09 [facility] : 1965 The following sheet(s) are the [...] pepper, and ro (more content not included)... [facility] Summary Purpose Family History No Family History [...] DATE CREATED AUTHOR AUTHOR'S ORGANIZ ATION [facility] DATE CREATED AUTHOR AUTHOR'S ORGANIZ ATION 12/20/2017 [facility] DATE CREATED AUTHOR AUTHOR'S ORGANIZ ATION 03/14/2024 [facility] DATE CREATED AUTHOR AUTHOR'S ORGANIZ ATION 07/24/2024 [facility] FOR RECORDS PERTAINING TO PATIENTS WHO ARE [...] BE BASED ON THE PRIMARY CLINICAL RECORDS. [facility] [employer] [facility] provides no warranty or guarantee of the accuracy or completeness of information in this document.
== END 2024-08-23 09:53 | disposition home or self-care (01) ==
LOC: EC 09:52
PROVIDERS: Family Provider Family Medicine; Visit Provider Podiatrist Foot & Ankle Surgery
DX: M79.672 Pain in left foot (principal)
CPT/HCPCS: 73650